=== PATIENT | male | born 1970 | race Caucasian/White ===

== ENCOUNTER 2024-05-16 11:48 | Observation (INO) | payer OTHER, SELFPAY ==
[2024-05-16] VITALS (16 sets, daily range): BP systolic 106–136; BP diastolic 61–89; PULSE 53–75; TEMP 36.5–36.7; O2SAT 92–99; BMI 21.9; BMI 22.5
--- NOTE | 2024-05-16 12:12 | XR_ITS ---
The [address] [address] Patient Name: JOHNATHAN HEREDIA MRN: [id number] date: 1970 Sex: M Assigned Patient Location: ER Current Patient Location: ER Accession/Order Number: [id number] Exam Date: 05/16/2024 12:40 Report Date: 05/16/2024 13:08 At the request of: PANCHO ACHARYA Procedure: XR chest 1V EXAM: CHEST 1 VIEW HISTORY: Chest pain TECHNIQUE: Chest, one view. COMPARISON: None. FINDINGS: Lungs are clear. No focal consolidation, pleural effusion, or pneumothorax. Pulmonary vasculature is within normal limits. Cardiomediastinal silhouette is normal. XR/XR chest 1V IMPRESSION: 1. No acute cardiopulmonary disease. Electronically authenticated by: ZOILA GRANADOS Date: 05/16/2024 13:08
--- NOTE | 2024-05-16 12:16 | CT_ITS ---
The [address] [address] Patient Name: JOHNATHAN HEREDIA MRN: [id number] date: 1970 Sex: M Assigned Patient Location: ER Current Patient Location: Accession/Order Number: [id number] Exam Date: 05/16/2024 12:26 Report Date: 05/16/2024 13:33 At the request of: PANCHO ACHARYA Procedure: CT abdomen pelvis w con EXAM: CT abdomen pelvis w con HISTORY: abd pain COMPARISON: None TECHNIQUE: CT abdomen and CT pelvis studies were performed with the use of intravenous contrast. Multiple axial images were obtained. Reformatted coronal and sagittal images were obtained and reviewed. FINDINGS: Likely mild atelectatic changes in the lung bases posteriorly. Views of the liver and spleen fail to demonstrate evidence of focal mass in either organ. Gallbladder appears grossly unremarkable. Adrenal glands appear grossly unremarkable. Mild prominence of the distal pancreatic body and pancreatic tail having mild edematous appearance with mild adjacent peripancreatic fatty stranding and fluid compatible with acute pancreatitis. No convincing evidence of focal mass. No obvious pancreatic cyst or pseudocyst. No obvious pancreatic ductal dilatation. Common bile duct is not enlarged. Stomach appears grossly unremarkable. Bowel loops appear grossly unremarkable. Mild atherosclerotic changes about the abdominal aorta without evidence of aneurysm. No evidence of adenopathy in the retroperitoneum. No evidence of obstructive uropathy. A few small areas of decreased attenuation in both kidneys measuring up to 6 mm, too small to qualify with certainty though likely representing cysts. More prominent 8 mm area of decreased attenuation in the posterior right kidney compatible with a cyst. Pelvis: Bladder appears grossly unremarkable. Prostate gland is grossly within normal limits for size. Perirectal fat planes appear grossly intact. Mild diverticulosis of the sigmoid colon, no evidence of acute diverticulitis. Mild atherosclerotic changes within portions of the iliofemoral arteries. No evidence of aneurysm. No evidence of adenopathy. The appendix is not convincingly demonstrated, no obvious appendicitis. Mild degenerative changes in the visualized lower dorsal spine and the lumbar spine with slight convexity of the lower dorsal and lumbar spine to the right. CT/CT abdomen pelvis w con IMPRESSION: CT abdomen and CT pelvis studies demonstrate findings compatible with a mild degree of acute pancreatitis involving the distal pancreatic body and the pancreatic tail as described. Likely bilateral renal cysts as noted. Mild colon diverticulosis without evidence of acute diverticulitis. Electronically authenticated by: JAKOB JAY Date: 05/16/2024 13:33
[2024-05-16 12:17] LABS: Basophils Absolute Auto 0.1 10^3/uL (0.0-0.1); Basophils Percent Auto 0.6 % (0.2-2.0); Eosinophils Absolute Auto 0.4 10^3/uL (0.0-0.7); Eosinophils Percent Auto 3.4 % (0.9-7.0); Hematocrit 44.9 % (42.0-54.0); Hemoglobin 15.1 g/dL (14.0-18.0); Immature Granulocytes Abs Auto 0.03 10^3/uL (0.00-0.03); Immature Granulocytes Pct Auto 0.3 % (0.0-0.5); Lymphocytes Absolute Auto 2.1 10^3/uL (1.2-3.8); Mean Corpuscular HGB Conc 33.6 g/dL (29.9-35.2); Mean Corpuscular Hemoglobin 29.5 pg (25.9-34.0); Mean Corpuscular Volume 87.7 fL (80.0-94.0); Mean Platelet Volume 12.3 fL (9.5-13.5); Monocytes Absolute Auto 0.7 10^3/uL (0.3-0.8); Monocytes Percent Auto 6.7 % (1.7-12.0); Neutrophils Absolute Auto 7.6 10^3/uL (1.4-6.5); Platelet Count 131 10^3/uL (150-450); Red Blood Count 5.12 10^6/uL (4.70-6.10); Red Cell Distribution Width 13.2 % (11.0-15.0); White Blood Count 10.8 10^3/uL (4.0-11.0)
[2024-05-16 12:31] LABS: Alanine Aminotransferase 25 U/L (16-63); Albumin Globulin Ratio 0.9; Albumin Level 3.2 g/dL (3.4-5.0); Alkaline Phosphatase 78 U/L (46-116); Anion Gap 11.1; Aspartate Amino Transferase 20 U/L (15-37); BUN Creatinine Ratio 13.6; Bilirubin Total 0.6 mg/dL (0.2-1.0); Calcium 8.5 mg/dL (8.5-10.1); Chloride 106 mmol/L (98-107); Estimated GFR (African America >60 (>=60); Estimated GFR (Non-African Ame >60 (>=60); Globulin 3.6 g/dL; Glucose 90 mg/dL (74-106); Potassium 4.1 mmol/L (3.5-5.1); Sodium 138 mmol/L (136-145); Total Protein 6.8 g/dL (6.4-8.2); Troponin I High Sensitivity <4.0 pg/mL (4.0-76.1)
--- NOTE | 2024-05-16 12:42 | ED_ITS ---
HPI HPI - General Adult General Chief complaint: Chest Pain Stated complaint: CHEST PAIN, SOB Time Seen by Provider: 05/16/24 11:51 Source: patient Mode of arrival: walk-in History of Present Illness HPI narrative: Patient presents to ED complaining of left-sided abdominal pain and left-sided chest pain. He said it started today and has become worse. He has pain with palpation of the abdomen and chest. He denies any history of pancreatitis. Denies history of abdominal issues but does report a history of heart attacks with his first 1 being at 19 years old. He says he has an extensive family history of heart problems. He has not had any open heart surgery or stents placed, he said they just watched him when he had his last heart attack. He is a smoker but denies drinking alcohol. Alert and oriented in no acute distress. Vital signs stable. He does report nausea vomiting Related Data Home Medications ?Medication ?Instructions ?Recorded ?Confirmed No Known Home Medications 05/16/24 05/16/24 Allergies Allergy/AdvReac Type Severity Reaction Status Date / Time No Known Drug Allergies Allergy Verified 05/16/24 11:57 Opioid HPI Opioid Management Most Recent Opioid Data: Last JAN Pain Assessment 05/16/24 12:53 Review of Systems ROS Status of ROS 10 or more systems reviewed and unremark able except as noted in history and below Exam Narrative Exam Narrative: Time Seen: [] Vital Signs: [Per nurse's notes.] General: [Alert] Skin: [Warm, dry, no rash.] Head: [Normocephalic, atraumatic.] Neck: [Supple, trachea midline.] Eye: [Pupils are equal, round and reactive to light, extraocular movements are intact, normal conjunctiva.] Ears, nose, mouth and throat: oral mucosa moist. Cardiovascular: [Regular rate and rhythm, no murmur.] Respiratory: [Lungs are clear to auscultation, respirations are non-labored, breath sounds are equal.] Chest wall: [Left chest wall tenderness on palpation, no deformity.] Gastrointestinal: [Soft, Left-sided abdominal tenderness on palpation left upper quadrant non distended, normal bowel sounds.] MSK: 5 out of 5 muscle strength x 4 extremities no calf pain or edema Lymphatics: [No lymphadenopathy.] Psychiatric: [Cooperative, appropriate mood & affect.] Neurological: [Alert and oriented to person, place, time, and situation, no focal neurological deficit observed.] Constitutional Vital Signs, click to edit/add: Last Vital Signs Temp 97.7 F 05/16/24 11:57 Pulse 63 05/16/24 12:55 Resp 24 H 05/16/24 12:55 BP 121/83 05/16/24 12:55 Pulse Ox 97 05/16/24 12:55 O2 Del Method Room Air 05/16/24 11:57 Course Vital Signs Vital signs: Vital Signs Pulse Oximetry 99 05/16/24 11:54 Temperature 97.7 F 05/16/24 11:57 Pulse Rate 63 05/16/24 12:55 Respiratory Rate 24 H 05/16/24 12:55 Blood Pressure 121/83 05/16/24 12:55 Pulse Oximetry 97 05/16/24 12:55 Oxygen Delivery Method Room Air 05/16/24 11:57 Medical Decision Making MDM Narrative Medical decision making narrative: Patient's labs show an elevated lipase at almost 900. Patient CT confirms acute pancreatitis. Patient will be admitted for IV hydration, pain and nausea control and bowel rest. I spoke to Dr. Loya who accepts admission patient is comfortable care plan for admit to the hospital. Troponin negative Differential Diagnosis Differential Diagnosis: Bowel obstruction, Angina, [place], pancreatitis, dehydration Medical Records Medical records reviewed: Yes I reviewed the patient's medical records Lab Data Lab results reviewed: Yes I reviewed the patient's lab results Labs: Lab Results 05/16/24 Range/Units 12:04 WBC 10.8 (4.0-11.0) 10^3/uL RBC 5.12 (4.70-6.10) 10^6/uL Hgb 15.1 (14.0-18.0) g/dL Hct 44.9 (42.0-54.0) % MCV 87.7 (80.0-94.0) fL MCH 29.5 (25.9-34.0) pg MCHC 33.6 (29.9-35.2) g/dL RDW 13.2 (11.0-15.0) % Plt Count 131 L (150-450) 10^3/uL MPV 12.3 (9.5-13.5) fL Neut % (Auto) 70.0 (43.0-75.0) % Lymph % (Auto) 19.0 L (20.5-60.0) % [place] % (Auto) 6.7 (1.7-12.0) % Eos % (Auto) 3.4 (0.9-7.0) % Baso % (Auto) 0.6 (0.2-2.0) % Neut # (Auto) 7.6 H (1.4-6.5) 10^3/uL Lymph # (Auto) 2.1 (1.2-3.8) 10^3/uL [place] # (Auto) 0.7 (0.3-0.8) 10^3/uL Eos # (Auto) 0.4 (0.0-0.7) 10^3/uL Baso # (Auto) 0.1 (0.0-0.1) 10^3/uL Abs Immat Gran (auto) 0.03 (0.00-0.03) 10^3/uL Imm/Tot Granulo (auto) 0.3 (0.0-0.5) % Sodium 138 (136-145) mmol/L Potassium 4.1 (3.5-5.1) mmol/L Chloride 106 (98-107) mmol/L Carbon Dioxide 25.0 (21.0-32.0) mmol/L Anion Gap 11.1 BUN 14.0 (7.0-18.0) mg/dL Creatinine 1.03 (0.70-1.30) mg/dL Est GFR ( Amer) >60 (>=60) Est GFR (Non-Af Amer) >60 (>=60) BUN/Creatinine Ratio 13.6 Glucose 90 (74-106) mg/dL Calcium 8.5 (8.5-10.1) mg/dL Total Bilirubin 0.6 (0.2-1.0) mg/dL AST 20 (15-37) U/L ALT 25 (16-63) U/L Alkaline Phosphatase 78 (46-116) U/L Troponin I High Sens <4.0 L (4.0-76.1) pg/mL Total Protein 6.8 (6.4-8.2) g/dL Albumin 3.2 L (3.4-5.0) g/dL Globulin 3.6 g/dL Albumin/Globulin Ratio 0.9 Lipase 892.0 H (16.0-77.0) U/L Imaging Data Chest x-ray: Radiologist's impression: ITS Impressions Chest X-Ray 05/16/24 12:12 IMPRESSION: 1. No acute cardiopulmonary disease. Electronically authenticated by: ZOILA GRANADOS Date: 05/16/2024 13:08 Abdomen/Pelvis CT 05/16/24 12:16 IMPRESSION: CT abdomen and CT pelvis studies demonstrate findings compatible with a mild degree of acute pancreatitis involving the distal pancreatic body and the pancreatic tail as described. Likely bilateral renal cysts as noted. Mild colon diverticulosis without evidence of acute diverticulitis. Electronically authenticated by: JAKOB JAY Date: 05/16/2024 13:33 ECG Data Attestation: I personally reviewed and interpreted this ECG as follows: Interpretation: EKG INTERPRETATION Time: []1156 Rate: []65 Rhythm: _ []Normal sinus rhythm ST segments: _ []ST elevation appearing to be consistent with benign early repol Diffuse T waves: _ [] Ectopy: _ [] P wave/CO interval: _ [] QRS interval: _ [] QT interval: _ [] Comparison: _ [] Comparison EKG date: [] Performed by: [self] Discharge Plan Discharge Chief Complaint: Chest Pain Clinical Impression: Acute pancreatitis Patient Disposition: Admitted as Observation Time of Disposition Decision: 14:12 Condition: Fair Prescriptions / Home Meds: No Action No Known Home Medications Print Language: Indonesian Referrals: FELICITY LANDRUM [Primary Care Provider] - 1 week
[2024-05-16] MEDS: MORPHINE SULFATE 4 MG/ML VIAL IV (12:53)
--- NOTE | 2024-05-16 13:39 | ECG_ITS ---
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
[2024-05-16] MEDS: 0.9 % SODIUM CHLORIDE 1,000 ML 1000 ML IV (13:56)
[2024-05-16 14:26] LABS: Amphetamine Screen Urine NEGATIVE (NEGATIVE); Barbiturates Screen Urine NEGATIVE (NEGATIVE); Benzodiazepines Screen Urine NEGATIVE (NEGATIVE); Buprenorphine Screen Urine NEGATIVE (NEGATIVE); Cannabinoid Screen Urine NEGATIVE (NEGATIVE); Cocaine Screen Urine NEGATIVE (NEGATIVE); Methadone Screen Urine NEGATIVE (NEGATIVE); Methamphetamines Screen Urine NEGATIVE (NEGATIVE); Opiate Screen Urine POSITIVE (NEGATIVE); Oxycodone Screen Urine NEGATIVE (NEGATIVE); Phencyclidine Screen Urine NEGATIVE (NEGATIVE); Tricyclic Antidepressant Urine NEGATIVE (NEGATIVE)
[2024-05-16] MEDS: LACTATED RINGER'S SOLUTION 1,000 ML 200 ML IV ×2 (15:12→20:26)
[2024-05-16] MEDS: KETOROLAC TROMETHAMINE 30 MG/ML VIAL IVP (15:12)
[2024-05-16 15:15] LABS: Triglycerides 77 mg/dL (<=150)
--- NOTE | 2024-05-16 15:22 | P.HP_ITS ---
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 53 y/o male to ER with pain in abdomen and chest. Labs showed pancreatitis and started IV fluids. Monitor labs. Diagnosis: 1. Acute pancreatitis 2. History of alcohol abuse 3. Tobacco abuse 4. History of MD HPI H&P: HPI History of Present Illness Chief complaint: CHEST/ABDOMINAL PAIN Narrative: 05/16/24 9075 This is a 53-year-old male patient with a past medical history as outlined below including MD x 2 at age 19 and 32 (reportedly stress induced w/o blockage/stents or hx of hyperlipidemia), and a remote history of EtOH abuse x 1 year (sober for 22 years); who presented to the ED today complaining of acute severe chest/abdominal pain. As already noted the patient denies any EtOH abuse/use, denies any previous history of pancreatitis. He also has a remote hx of CAD but no recent cardiac issues. His chest/abdominal discomfort started yesterday afternoon and was initially mild. He reported to episodes of nausea w/ dry heaves early this morning, but not nausea since. He notes L distal chest pain radiating down toward his L hip and is reproducible w/ palpation. This morning the pt noted his pain was much worse and he reported to the ED for further evaluation. Workup in the ED revealed unremarkable vital signs and labs except for an elevated lipase (892). An EKG and troponin level were unremarkable. Chest x- ray was unremarkable. CT of the abdomen revealed mild acute pancreatitis of the distal body and tail. He is being admitted as an inpatient to the hospitalist service for acute pancreatitis. At the time of my exam the patient is resting comfortably in bed. He continues to complain of pain to his left abdomen and chest that is sometimes colicky in nature. Left upper quadrant palpation produces guarding and mild rebound. The patient does not take any home medications. He states that he is supposed to take a low-dose aspirin daily but he does not like taking pills . He will be kept n.p.o. for now with large-volume IV fluid administration and IV push pain medications. We have added on a triglyceride level to the ED labs and are requesting an MRCP for further evaluation of the source of this patient's pancreatitis as its etiology is unclear. Opioid HPI Opioid Management Most Recent Pain and Opioid Data: Last Pain Scale 7 05/16/24 15:12 Last MAR Pain Assessment 05/16/24 15:12 Last ORT Total Score 0 05/16/24 14:55 Last ORT Risk Category Low Risk 05/16/24 14:55 Ur Phencyclidine Scrn Negative (NEGATIVE) 05/16/24 13:57 Review of Systems ROS Status of ROS 10 or more systems reviewed and unremark able except as noted in history and below [facility] Medical History (Updated 05/16/24 @ 15:39 by Rae Montalvo NP) Tobacco dependence ?F17.200 - Nicotine dependence, unspecified, uncomplicated (ICD-10) H/O ETOH abuse ?F10.11 - Alcohol abuse, in remission (ICD-10) Myocardial infarction ?I21.9 - Acute myocardial infarction, unspecified (ICD-10) Social History Highest level of school completed/degree received: high school graduate Meds Home Medications and Allergies Home Medications ?Medication ?Instructions ?Recorded ?Confirmed ?Type No Known Home Medications 05/16/24 05/16/24 History Allergies Allergy/AdvReac Type Severity Reaction Status Date / Time No Known Drug Allergies Allergy Verified 05/16/24 11:57 Exam Constitutional Vital Signs, click to edit/add: Last Vital Signs Temp 98.0 F 05/16/24 15:01 Pulse 53 L 05/16/24 15:01 Resp 18 05/16/24 15:01 BP 121/69 05/16/24 15:01 Pulse Ox 97 05/16/24 15:01 O2 Del Method Room Air 05/16/24 15:01 Common normals: no apparent distress, oriented x3, alert and well nourished General appearance: cooperative Orientation/consciousness: Yes awake HENWA Common normals: normocephalic, head/scalp atraumatic, hearing grossly normal bilaterally, external nose normal and moist oral mucous membranes Teeth and gingiva: caries and poor dentition Eye Common normals: PERRL, EOMs intact bilaterally, conjunctivae normal and no scleral icterus Alignment: alignment normal Eyelid: eyelids normal Neck & C-Spine Common normals: full ROM, supple and no JVD Chest Common normals: inspection of chest normal Chest: symmetrical chest wall rise Respiratory Common normals: normal respiratory effort, no retractions, no use of accessory muscles and clear to auscultation bilaterally Effort & inspection: able to speak in complete sentences Cardio Common normals: no JVD, regular rate, regular rhythm, S1 normal heart sound, S2 normal heart sound, no gallops, no clicks, no rub and peripheral pulses 2+ throughout Heart sounds: murmur (HSM 2/6) GI Common normals: soft to palpation, no hepatosplenomegaly, no masses and no bruits Inspection: normal to inspection; no abdominal distension Auscultation: hyperactive bowel sounds Palpation: tender Details: LUQ, guarding in the LUQ and rebound tenderness present (Mild ) Rectal Exam - Male: deferred Bladder/kidney exam: bladder normal to palpation Extremity Common normals: normal capillary refill and no pedal edema General: normal exam except as noted; no clubbing and no cyanosis Neuro [place] Coma Scale: GCS not evaluated Common normals: CN's II-XII intact bilaterally, moves all extremities, no focal motor deficits and no sensory deficits noted Speech: speech normal Motor exam: strength 5/5 throughout Psych Common normals: mental status grossly normal, thought process normal, affect normal and activity/motor behavior normal Results Labs Labs: Short CBC 05/16/24 Range/Units 12:04 WBC 10.8 (4.0-11.0) 10^3/uL Hgb 15.1 (14.0-18.0) g/dL Hct 44.9 (42.0-54.0) % Plt Count 131 L (150-450) 10^3/uL BMP 05/16/24 12:04 Sodium 138 Potassium 4.1 Chloride 106 Carbon Dioxide 25.0 BUN 14.0 Creatinine 1.03 Glucose 90 Calcium 8.5 Liver Function 05/16/24 Range/Units 12:04 Total Bilirubin 0.6 (0.2-1.0) mg/dL AST 20 (15-37) U/L ALT 25 (16-63) U/L Alkaline Phosphatase 78 (46-116) U/L Albumin 3.2 L (3.4-5.0) g/dL Pulse Oximetry Attestation: I have reviewed the pertinent pulse oximetry results. Imaging Chest x-ray: Attestation: I have reviewed the pertinent imaging results. Radiologist's impression: IMPRESSION: 1. No acute cardiopulmonary disease. CT scan - abdomen: Attestation: I have reviewed the pertinent imaging results. Radiologist's impression: IMPRESSION: CT abdomen and CT pelvis studies demonstrate findings compatible with a mild degree of acute pancreatitis involving the distal pancreatic body and the pancreatic tail as described. Likely bilateral renal cysts as noted. Mild colon diverticulosis without evidence of acute diverticulitis. Assessment and Plan Assessment and Plan (1) Acute pancreatitis: Assessment and Plan: Acute * Adm inpatient * We anticipate greater than a 2 midnight stay for medically necessary hospital care including: IVF for hydration while NPO, IV pain medication, further GI imaging, close monitoring of labs * Lipase greater than 3 times ULN * Unclear etiology - No EtOH use x 22 years (complete abstinence) * Add on triglyceride level to ED labs * MRCP to assess for possible obstructive pathology * NPO * Consider advancing to clear liquids in the morning pending clinical course * LR IVF at 200/hr * Toradol and Dilaudid for pain management * Zofran for nausea * CBC, CMP, Lipase daily (2) H/O ETOH abuse: Assessment and Plan: Chronic * Complete remission x 22 years * Hx of abuse x 1 yr only * No prior pancreatitis episodes (3) Tobacco dependence: Assessment and Plan: Chronic * Smokes 5-6 cigarettes per day * Refuses nicoderm patch (4) Myocardial infarction: Assessment and Plan: Chronic * Remote hx at age 19 & 32 * Reportedly stress induced * Denies hx of hyperlipidemia/HTN or previously prescribed statin or BB * Pt non-compliant w/ low dose daily aspirin * EKG and Troponin levels unremarkable in the ED * Very low clinical suspicion of ACS
[2024-05-16] MEDS: HYOSCYAMINE SULFATE 0.125 MG TAB.SUBL SL (17:11)
[2024-05-16] MEDS: ENOXAPARIN SODIUM 40 MG/0.4 ML SYRINGE SUBQ (17:11)
[2024-05-16] MEDS: HYDROMORPHONE HCL 0.5 MG/0.5 ML SYRINGE IV ×2 (18:09→23:36)
[2024-05-16] MEDS: PANTOPRAZOLE SODIUM 40 MG VIAL IV (20:26)
[2024-05-17] VITALS (18 sets, daily range): BP systolic 93–105; BP diastolic 55–62; PULSE 45–73; TEMP 36.3–36.8; O2SAT 91–93
[2024-05-17] MEDS: ONDANSETRON PF 4 MG/2 ML VIAL IV (01:01)
--- NOTE | 2024-05-17 01:12 | PC.NURSE ---
Patient has sudden onset nausea and vomiting and felt lightheaded. BP and spo2 checked.
[2024-05-17] MEDS: LACTATED RINGER'S SOLUTION 1,000 ML 200 ML IV ×5 (01:30→23:08)
[2024-05-17 06:31] LABS: Basophils Percent Auto 0.4 % (0.2-2.0); Eosinophils Absolute Auto 0.2 10^3/uL (0.0-0.7); Eosinophils Percent Auto 1.7 % (0.9-7.0); Hematocrit 38.7 % (42.0-54.0); Hemoglobin 12.8 g/dL (14.0-18.0); Immature Granulocytes Abs Auto 0.02 10^3/uL (0.00-0.03); Immature Granulocytes Pct Auto 0.2 % (0.0-0.5); Lymphocytes Absolute Auto 1.5 10^3/uL (1.2-3.8); Mean Corpuscular HGB Conc 33.1 g/dL (29.9-35.2); Mean Corpuscular Hemoglobin 29.2 pg (25.9-34.0); Mean Corpuscular Volume 88.2 fL (80.0-94.0); Monocytes Absolute Auto 0.6 10^3/uL (0.3-0.8); Monocytes Percent Auto 6.2 % (1.7-12.0); Neutrophils Absolute Auto 6.7 10^3/uL (1.4-6.5); Neutrophils Percent Auto 74.5 % (43.0-75.0); Platelet Count 106 10^3/uL (150-450); Red Blood Count 4.39 10^6/uL (4.70-6.10); Red Cell Distribution Width 13.2 % (11.0-15.0)
[2024-05-17 06:44] LABS: Alanine Aminotransferase 23 U/L (16-63); Albumin Globulin Ratio 0.9; Albumin Level 2.5 g/dL (3.4-5.0); Alkaline Phosphatase 64 U/L (46-116); Anion Gap 13.4; Aspartate Amino Transferase 19 U/L (15-37); BUN Creatinine Ratio 16.3; Bilirubin Total 0.8 mg/dL (0.2-1.0); Calcium 7.6 mg/dL (8.5-10.1); Carbon Dioxide 23.8 mmol/L (21.0-32.0); Chloride 109 mmol/L (98-107); Estimated GFR (African America >60 (>=60); Estimated GFR (Non-African Ame >60 (>=60); Globulin 2.7 g/dL; Glucose 78 mg/dL (74-106); Potassium 4.2 mmol/L (3.5-5.1); Sodium 142 mmol/L (136-145); Total Protein 5.2 g/dL (6.4-8.2)
--- NOTE | 2024-05-17 07:16 | MR_ITS ---
[address] [address] Patient Name: JOHNATHAN HEREDIA MRN: [id number] date: 1970 Sex: M Assigned Patient Location: MS Current Patient Location: Accession/Order Number: [id number] Exam Date: 05/17/2024 08:48 Report Date: 05/19/2024 07:10 At the request of: SELINA TORRES Procedure: MR abdomen wo con EXAMINATION: MR abdomen wo con HISTORY: Ac Pancreatitis COMPARISON: 05/16/2024 TECHNIQUE: A comprehensive examination was performed utilizing a variety of imaging planes and imaging parameters to optimize visualization of suspected pathology. Magnetic resonance cholangiopancreatography was also performed. FINDINGS: LIVER: Normal. No enlargement, atrophy, abnormal density, or significant focal lesion. BILIARY: Normal appearance of the gallbladder and common bile duct with no dilatation or narrowing or filling defect PANCREAS: The pancreatic head and body are normal. There is mild enlargement and heterogeneous appearance of the distal pancreatic body and tail with no focal fluid collection. Small amount of surrounding mesenteric edema with small amount of fluid in the left abdomen SPLEEN: No enlargement or focal lesion. KIDNEYS: Bilateral subcentimeter areas of cortical fluid signal likely representing small cysts ADRENALS: No mass or enlargement. AORTA/VASCULAR: No aneurysm or dissection. RETROPERITONEUM: No mass or adenopathy. BOWEL/MESENTERY: No visible mass, obstruction, or bowel wall thickening. ABDOMINAL WALL: No mass or hernia. BONES: No bony lesion or fracture. LUNG BASES: Mild bibasilar atelectasis OTHER: Negative. MR/MR abdomen wo con IMPRESSION: Mild pancreatitis involving the distal body and tail with no pseudocyst abscess or evidence of hydronephrosis Normal appearance of the gallbladder, bile ducts and pancreatic ducts Electronically authenticated by: CLARENCE LUNA Date: 05/19/2024 07:10
[2024-05-17] MEDS: HYDROMORPHONE HCL 0.5 MG/0.5 ML SYRINGE IV (08:39)
[2024-05-17] MEDS: PANTOPRAZOLE SODIUM 40 MG VIAL IV ×2 (08:41→20:57)
--- NOTE | 2024-05-17 11:46 | CM.NOTE ---
10:[address] Bell. [address]. Bell discussed labs and diagnostic findings and plan of care. Plan is to repeat labs, advance diet. Imtiaz verbalized understanding. No discharge today.
--- NOTE | 2024-05-17 12:52 | P.PN_ITS ---
<Statement entered by Suhail Bell MD - 05/17/24 17:13> Patient seen and examined, agree with assessment and plan below. Much improved overnight. Mild pain and labs improved. Start clear liquid diet and will monitor labs. If continue to improve and tolerating oral intake likely home in am. Diagnosis: 1. Acute pancreatitis 2. History of alcohol abuse 3. Tobacco abuse 4. History of ID Progress Note: Subjective Subjective Interval history: 05/17/24 1010 The patient is resting in bed having just returned from an MRCP Study. He reports improved abdominal discomfort overnight. His lipase is trending down and a triglyceride level was within normal limits. Radiology interpretation of the MRCP is still pending and at this point we consider this idiopathic pancreatitis. We will advance the patient to a clear liquid diet today and monitor his response. We will continue high-volume IV fluids for now. The patient will remain in the hospital for at least an additional 24 hours and we will slowly advance his diet and monitor his lipase levels. Exam Constitutional Vital Signs, click to edit/add: Last Vital Signs Temp 98.3 F 05/17/24 07:53 Pulse 49 L 05/17/24 11:55 Resp 16 05/17/24 08:17 BP 101/59 05/17/24 07:53 Pulse Ox 93 L 05/17/24 07:53 O2 Del Method Room Air 05/17/24 07:53 Common normals: no apparent distress, oriented x3 and alert General appearance: cooperative Orientation/consciousness: Yes awake HENNJ Common normals: normocephalic, head/scalp atraumatic and hearing grossly normal bilaterally Eye Common normals: PERRL, EOMs intact bilaterally, conjunctivae normal and no scleral icterus General eye: normal appearance of both eyes Chest Common normals: inspection of chest normal Chest: symmetrical chest wall rise Respiratory Common normals: normal respiratory effort, no use of accessory muscles and clear to auscultation bilaterally Effort & inspection: able to speak in complete sentences Cardio Common normals: regular rate, regular rhythm, S1 normal heart sound, S2 normal heart sound, no murmurs and peripheral pulses 2+ throughout GI Common normals: Normal to inspection, nondistended, normoactive bowel sounds present, soft to palpation and no hepatosplenomegaly Palpation: tender (LUQ/epigastric), guarding and rebound tenderness present Details: epigastric quadrants Bladder/kidney exam: bladder normal to palpation Extremity Common normals: normal to inspection and no calf tenderness General: no clubbing, no cyanosis and no edema Neuro Common normals: CN's II-XII intact bilaterally, moves all extremities, no focal motor deficits and no sensory deficits noted Psych Common normals: mental status grossly normal Progress Note: Objective Labs Labs: Short CBC 05/17/24 Range/Units 06:11 WBC 9.0 (4.0-11.0) 10^3/uL Hgb 12.8 L (14.0-18.0) g/dL Hct 38.7 L (42.0-54.0) % Plt Count 106 L (150-450) 10^3/uL BMP 05/17/24 06:11 Sodium 142 Potassium 4.2 Chloride 109 H Carbon Dioxide 23.8 BUN 16.0 Creatinine 0.98 Glucose 78 Calcium 7.6 L Liver Function 05/17/24 Range/Units 06:11 Total Bilirubin 0.8 (0.2-1.0) mg/dL AST 19 (15-37) U/L ALT 23 (16-63) U/L Alkaline Phosphatase 64 (46-116) U/L Albumin 2.5 L (3.4-5.0) g/dL Progress Note: A&P Assessment and Plan (1) Acute pancreatitis: Assessment and Plan: Acute * Improving * Lipase trending down - 233 today (down from 892 on admission) * Unclear etiology - No EtOH use x 22 years (complete abstinence) * Triglyceride level - WNL * MRCP today - interpretation pending * Suspect idiopathic pancreatitis * Advance to clear liquids today and monitor response * Continue LR IVF at 200/hr * Toradol and Dilaudid for pain management * Zofran for nausea * CBC, CMP, Lipase daily (2) Anemia: Assessment and Plan: Acute * Mild - 12.8 * The pt's hgb dropped 2.5 gms overnight - likely d/t hemodilution from large volume IVF administration * No evidence of active bleeding to date * Obtain stool occult blood study if possible (3) Asymptomatic bradycardia: Assessment and Plan: Suspect chronic * The pt's HR dropped to the high 40s overnight during sleep. He is asymptomatic * Suspect this is a normal variation for the pt as his HR rebounds to normal while awake * Continue tele monitoring (4) H/O ETOH abuse: Assessment and Plan: Chronic * Complete remission x 22 years * Hx of abuse x 1 yr only * No prior pancreatitis episodes (5) Tobacco dependence: Assessment and Plan: Chronic * Smokes 5-6 cigarettes per day * Continues to refuse nicoderm patch (6) Myocardial infarction: Assessment and Plan: Chronic * Remote hx at age 19 & 32 * Reportedly stress induced * Denies hx of hyperlipidemia/HTN or previously prescribed statin or BB * Pt non-compliant w/ low dose daily aspirin * EKG and Troponin levels unremarkable in the ED * Very low clinical suspicion of ACS
[2024-05-17] MEDS: KETOROLAC TROMETHAMINE 30 MG/ML VIAL IVP (16:57)
[2024-05-17] MEDS: ENOXAPARIN SODIUM 40 MG/0.4 ML SYRINGE SUBQ (16:58)
--- NOTE | 2024-05-17 23:15 | PC.NURSE ---
Patient has intermediate cough and is complaining of feeling wet in his chest and his knee is swollen. 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
--- NOTE | 2024-05-17 23:17 | XR_ITS ---
The [address] [address] Patient Name: JOHNATHAN HEREDIA MRN: [id number] date: 1970 Sex: M Assigned Patient Location: [place] Current Patient Location: [place] Accession/Order Number: [id number] Exam Date: 05/17/2024 23:36 Report Date: 05/17/2024 23:54 At the request of: PANKAJ GIRALDO Procedure: XR chest 2V CXR- 2 VIEW HISTORY: Left-sided chest pain. Acute cough after having a lot of fluids. Patient had 2 heart attacks in 2021. Patient now complaining of cough. COMPARISON: None. TECHNIQUE: 2 views of the chest are submitted for review. FINDINGS: The lungs are adequately expanded without evidence of infiltrate and/or effusion. The cardiac silhouette measures within normal. Pulmonary vascularity is unremarkable. Osseous structures are within normal limits for age. XR/XR chest 2V IMPRESSION: No plain film evidence for acute cardiopulmonary disease. Electronically authenticated by: DARION LAM Date: 05/17/2024 23:54
--- NOTE | 2024-05-17 23:20 | PC.NURSE ---
Crackles heard at lung bases. Patient states he feels unwell
--- NOTE | 2024-05-17 23:32 | PC.NURSE ---
Patient being transported to XRAY at this time
[2024-05-18] VITALS (7 sets, daily range): BP systolic 98; BP diastolic 57; PULSE 55–91; TEMP 37.2; O2SAT 91
--- NOTE | 2024-05-18 01:00 | PC.NURSE ---
Fluids held at this point. Patient cough stopped at this point
--- NOTE | 2024-05-18 06:07 | PC.NURSE ---
Patient states he feels better after fluids have been off. No coughing heard . Left knee has small edema
[2024-05-18 06:43] LABS: Basophils Percent Auto 0.5 % (0.2-2.0); Eosinophils Absolute Auto 0.2 10^3/uL (0.0-0.7); Eosinophils Percent Auto 2.8 % (0.9-7.0); Hematocrit 38.8 % (42.0-54.0); Hemoglobin 12.7 g/dL (14.0-18.0); Immature Granulocytes Abs Auto 0.02 10^3/uL (0.00-0.03); Immature Granulocytes Pct Auto 0.2 % (0.0-0.5); Lymphocytes Percent Auto 24.4 % (20.5-60.0); Mean Corpuscular HGB Conc 32.7 g/dL (29.9-35.2); Mean Corpuscular Hemoglobin 28.5 pg (25.9-34.0); Mean Platelet Volume 12.9 fL (9.5-13.5); Monocytes Absolute Auto 0.6 10^3/uL (0.3-0.8); Monocytes Percent Auto 7.8 % (1.7-12.0); Neutrophils Absolute Auto 5.3 10^3/uL (1.4-6.5); Neutrophils Percent Auto 64.3 % (43.0-75.0); Platelet Count 109 10^3/uL (150-450); Red Blood Count 4.46 10^6/uL (4.70-6.10); Red Cell Distribution Width 13.2 % (11.0-15.0); White Blood Count 8.2 10^3/uL (4.0-11.0)
[2024-05-18 08:40] LABS: Alanine Aminotransferase 23 U/L (16-63); Albumin Globulin Ratio 0.8; Albumin Level 2.4 g/dL (3.4-5.0); Alkaline Phosphatase 70 U/L (46-116); Anion Gap 10.1; Aspartate Amino Transferase 22 U/L (15-37); BUN Creatinine Ratio 13.1; Bilirubin Total 0.9 mg/dL (0.2-1.0); Calcium 7.9 mg/dL (8.5-10.1); Carbon Dioxide 23.7 mmol/L (21.0-32.0); Chloride 110 mmol/L (98-107); Estimated GFR (African America >60 (>=60); Estimated GFR (Non-African Ame >60 (>=60); Globulin 3.1 g/dL; Glucose 82 mg/dL (74-106); Potassium 3.8 mmol/L (3.5-5.1); Sodium 140 mmol/L (136-145); Total Protein 5.5 g/dL (6.4-8.2)
[2024-05-18] MEDS: PANTOPRAZOLE SODIUM 40 MG VIAL IV (09:31)
--- NOTE | 2024-05-18 10:57 | PM.DS1 ---
DS: Providers Provider Date of admission: 05/16/24 14:50 Primary care physician: FELICITY TREVIÑO DS: Diagnosis Discharge Diagnosis (1) Acute pancreatitis: (2) H/O ETOH abuse: (3) Tobacco dependence: (4) History of myocardial infarction: DS: Summary Hospital Course Hospital Course: Reason for admission: See ER note and H&P for details. 53 y/o male to ER with abdominal pain. Pain in upper abdomen and left side. Pain radiated to chest and around to back. Developed severe nausea and vomiting and to ER. WBC normal but lipase elevated. CT with changes of acute pancreatitis and admitted. Hospital course: Started IV fluids and initially NPO. Pain and nausea improved. Lipase improved. MRCP performed and negative. Started clear liquids and tolerated well. Advanced to soft and tolerated. Lipase continued to improve. Minimal pain and no nausea. Discharged home in stable condition. Gradually advance diet as tolerated. Follow up with PCP in 1-2 weeks. Time Spent with Patient Time attestation: Total time spent providing and/or coordinating discharge services: Time spent: greater than 30 minutes Exam Constitutional Vital Signs, click to edit/add: Last Vital Signs Temp 98.9 F 05/18/24 05:56 Pulse 69 05/18/24 09:58 Resp 16 05/18/24 08:00 BP 98/57 05/18/24 05:56 Pulse Ox 91 L 05/18/24 05:56 O2 Del Method Room Air 05/18/24 05:56 Documenting provider has reviewed patient's vital signs: yes Common normals: no apparent distress, oriented x3 and alert HENMT Common normals: normocephalic Eye Common normals: PERRL and EOMs intact bilaterally Respiratory Common normals: normal respiratory effort and clear to auscultation bilaterally Cardio Common normals: regular rate, regular rhythm, no gallops, no murmurs and no rub GI Common normals: Normal to inspection, nondistended, normoactive bowel sounds present and non-tender Extremity Common normals: no pedal edema DS: Data Data Completed and Pending Labs on day of discharge: Labs from last 24 hours 05/18/24 06:08 WBC 8.2 RBC 4.46 L Hgb 12.7 L Hct 38.8 L MCV 87.0 MCH 28.5 MCHC 32.7 RDW 13.2 Plt Count 109 L MPV 12.9 Neut % (Auto) 64.3 Lymph % (Auto) 24.4 [place] % (Auto) 7.8 Eos % (Auto) 2.8 Baso % (Auto) 0.5 Neut # (Auto) 5.3 Lymph # (Auto) 2.0 [place] # (Auto) 0.6 Eos # (Auto) 0.2 Baso # (Auto) 0.0 Abs Immat Gran (auto) 0.02 Imm/Tot Granulo (auto) 0.2 Sodium 140 Potassium 3.8 Chloride 110 H Carbon Dioxide 23.7 Anion Gap 10.1 BUN 13.0 Creatinine 0.99 Est GFR ( Amer) >60 Est GFR (Non-Af Amer) >60 BUN/Creatinine Ratio 13.1 Glucose 82 Calcium 7.9 L Total Bilirubin 0.9 AST 22 ALT 23 Alkaline Phosphatase 70 Total Protein 5.5 L Albumin 2.4 L Globulin 3.1 Albumin/Globulin Ratio 0.8 Lipase 202.0 H Discharge Plan Discharge Disposition: Home, Self-Care Condition: Fair Discharge Medications: Continued No Known Home Medications Activity: increase activity as tolerated Diet: advance to your usual diet Print Language: Lithuanian Patient Instructions: Pancreatitis (DC) Forms: Portal Instructions Follow Up Appointments: May 23 @ 10am with Dr. Treviño [phone]
--- NOTE | 2024-05-18 11:08 | CM.NOTE ---
09:[address] Bell. [address]. Bell discussed labs with Imtiaz. Plan is for discharge today. Imtiaz verbalized understanding.
--- NOTE | 2024-05-19 13:12 | CM.DCFOLLOWU ---
1st attempt 05/19/24
--- NOTE | 2024-05-22 12:40 | CM.DCFOLLOWU ---
2nd attempt 05/22/24
--- NOTE | 2024-05-23 12:25 | CM.DCFOLLOWU ---
Person spoke with: patient How are you feeling? well How is your pain? still off and on, but PCP said it will go away once he does what he is supposed to do Did you understand your discharge instructions? yes Do you have any questions about your discharge instructions? no Were you given any prescriptions at discharge? no Were you able to get your prescriptions filled? N/A Do you understand how to take your medications as ordered? N/A, no medications Do you have any questions about your follow up appointment and do you plan to keep your follow up appointment? no questions, follow up with PCP was today Is there anything else that you would like to discuss? no Questions/Comments/Concerns/Other: none
== END 2024-05-18 11:20 | disposition home or self-care (01) | DRG 440 ==
LOC: ER 14:34 → MS 15:23
PROVIDERS: Nurse Practitioner; Admitting Provider Family Medicine; Emergency Provider Emergency Medicine; PCP Family Medicine; Visit Provider Family Medicine
DX: K85.90 Acute pancreatitis without necrosis or infection, unspecified (principal); F10.11 Alcohol abuse, in remission; F17.210 Nicotine dependence, cigarettes, uncomplicated; I25.2 Old myocardial infarction
CPT/HCPCS: 36415; 71045; 71046; 74177; 74181; 80053; 80307; 83690; 84478; 84484; 85025; 93005; 96361; 96372; 96374; 96375; 96376; 99285; G0328; G0378; J1170; J1650; J1885; J2270; J2405; Q9967

== ENCOUNTER 2024-07-17 20:59 | Inpatient (IN) | payer OTHER, SELFPAY ==
[2024-07-17 21:03] VITALS: BP 139/83; PULSE 82; TEMP 36.6; O2SAT 98
--- NOTE | 2024-07-17 21:21 | CT_ITS ---
The [address] [address] Patient Name: JOHNATHAN HEREDIA MRN: [id number] date: 1970 Sex: M Assigned Patient Location: ER Current Patient Location: ER Accession/Order Number: [id number] Exam Date: 07/17/2024 22:10 Report Date: 07/17/2024 23:22 At the request of: GORGE STAPLETON Procedure: CT abdomen pelvis w con CT OF THE ABDOMEN AND PELVIS WITH CONTRAST: 07/17/2024 10:10 PM EDT CLINICAL HISTORY: Acute epigastric pain radiating to left lower quadrant pain for several days. History of pancreatitis. Experiencing nausea and vomiting. COMPARISONS: CT abdomen and pelvis with contrast 05/16/2024 TECHNIQUE: Thin section axial CT images were obtained from the lung bases to the pubis symphysis. This CT exam was performed using one or more of the following dose reduction techniques: Automated exposure control, adjustment of the mA and/or kV according to patient size, or use of iterative reconstruction technique. Thin section coronal and sagittal images were reconstructed from the axial data set. All images were reviewed and interpreted. CONTRAST: Intravenous contrast was administered. Type and amount is documented at the local institution. FINDINGS: LUNG BASES: No consolidation or pleural fluid. LIVER: Normal. GALLBLADDER: Normal. BILIARY TREE: No ductal dilatation. PANCREAS: Normal. SPLEEN: Normal. ADRENALS: Normal. KIDNEYS: Tiny simple cortical cysts are seen in both kidneys unchanged from prior. 2 small characterize but statistically benign. Right measures 7 mm posterior mid pole left there are 2 mobile subcentimeter midpole largest 6 mm. Both kidneys and ureters are otherwise within normal limits. URINARY BLADDER: Grossly unremarkable. PELVIC STRUCTURES: Unremarkable. SMALL BOWEL: No evidence of obstruction, gross mass, or inflammatory change. LARGE BOWEL: There is mild diverticulosis. There is a focal acute inflammatory changes involving wall of the distal sigmoid colon with stranding and inflammation around the wall with some focal wall thickening extending 5 to 6 cm in length. Question of developing intramural early abscess versus phlegmonous changes. No definable abscess at this time. Probably related to acute diverticulitis. Follow-up with the imaging and/or endoscopy in several months after treatment completion to ensure resolution and exclude underlying mucosal mass. No large bowel obstruction at this time. Proximal large bowel loops are normal in caliber. Distal rectum is unremarkable. APPENDIX: Negative. LYMPH NODES: No pathologically enlarged lymph nodes identified. PERITONEUM: No intraperitoneal free air. No free intraperitoneal fluid. MESENTERY: Unremarkable. RETROPERITONEUM: The retroperitoneum is unremarkable. AORTA: Normal in caliber. BODY WALL: No body wall mass. OSSEOUS STRUCTURES: Severe L5-S1 degenerative disc disease otherwise unremarkable osseous structures and joints and vertebrae. CT/CT abdomen pelvis w con IMPRESSION: 1. Focal acute inflammatory changes distal sigmoid colon with wall thickening and stranding. Suspect subacute diverticulitis. There could be developing intramural phlegmon versus early abscess. Follow-up. No definable or drainable fluid collection at this time. No free air or pericolonic abscess. Follow-up with treatment to resolution. See comments above. 2. Other stable nonemergent chronic findings as discussed. Electronically authenticated by: MARIE HOLDEN Date: 07/17/2024 23:22
--- NOTE | 2024-07-17 21:22 | ED.ABDPAIN1 ---
Documented by User: Carmen Newsomeon 07/17/24 21:56 HPI - Abdominal Pain General Chief Complaint: Abdominal Pain Stated Complaint: Abdominal Pain, Shortness of Breath Time Seen by Provider: 07/17/24 21:13 Source: patient Mode of arrival: Wheelchair Limitations: no limitations History of Present Illness HPI narrative: 53 year old male presents to the ED for abd pain. Onset was 4 days ago. The pain started in the epigastric area and now radiates to the LLQ. His last BM was 4 days ago. He has had N/V today. Denies fever, chills, injury, urinary sx. Reports hx pancreatitis. Denies illicit drug and alcohol use. He is accompanied by family. Related Data Home Medications ?Medication ?Instructions ?Recorded ?Confirmed omeprazole 40 mg capsule,delayed mg 07/17/24 release Allergies Allergy/AdvReac Type Severity Reaction Status Date / Time No Known Drug Allergies Allergy Verified 07/17/24 21:10 Review of Systems ROS Constitutional Denies: fever or chills Ears, nose, mouth, and throat Denies: neck pain Cardiovascular Denies: chest pain Respiratory Denies: shortness of breath or cough Gastrointestinal Reports: abdominal pain, nausea, vomiting and constipation; Denies: diarrhea Genitourinary Denies: painful urination, urinary frequency, urinary urgency or blood in urine Musculoskeletal Denies: back pain or neck pain Neurological Denies: headache [facility] Medical History (Updated 07/17/24 @ 23:45 by Yaima Guzmán MD) Tobacco dependence ?F17.200 - Nicotine dependence, unspecified, uncomplicated (ICD-10) H/O ETOH abuse ?F10.11 - Alcohol abuse, in remission (ICD-10) Asymptomatic bradycardia ?R00.1 - Bradycardia, unspecified (ICD-10) Anemia ?D64.9 - Anemia, unspecified (ICD-10) Myocardial infarction ?I21.9 - Acute myocardial infarction, unspecified (ICD-10) Social History Highest level of school completed/degree received: high school graduate Exam Constitutional Vital Signs, click to edit/add: Last Vital Signs Temp 97.9 F 07/17/24 21:03 Pulse 82 07/17/24 21:03 Resp 24 H 07/17/24 21:03 BP 139/83 07/17/24 21:03 Pulse Ox 99 07/17/24 22:03 O2 Del Method Room Air 07/17/24 22:03 Common normals: no apparent distress and oriented x3 General appearance: cooperative Eye Common normals: conjunctivae normal and no scleral icterus Neck & C-Spine Common normals: supple Chest Chest: symmetrical chest wall rise Respiratory Common normals: normal respiratory effort Effort & inspection: able to speak in complete sentences Cardio Common normals: regular rate and regular rhythm GI Common normals: soft to palpation Auscultation: normoactive bowel sounds Palpation: tender Details: epigastric, LLQ, LUQ and RUQ Neuro Common normals: oriented x3 Sensorium/orientation: awake and alert Speech: speech normal Course Vital Signs Vital signs: Vital Signs Temperature 97.9 F 07/17/24 21:03 Pulse Rate 82 07/17/24 21:03 Respiratory Rate 24 H 07/17/24 21:03 Blood Pressure 139/83 07/17/24 21:03 Pulse Oximetry 98 07/17/24 21:03 Oxygen Delivery Method Room Air 07/17/24 21:03 Temperature 97.9 F 07/17/24 21:03 Pulse Rate 82 07/17/24 21:03 Respiratory Rate 24 H 07/17/24 21:03 Blood Pressure 139/83 07/17/24 21:03 Pulse Oximetry 99 07/17/24 22:03 Oxygen Delivery Method Room Air 07/17/24 22:03 MDM - Abdominal Pain MDM Narrative Medical decision making narrative: WBC count was 13.2. Additional laboratory studies were pending; CT scan was pending. Care was resumed to Dr. Guzmán. See her dictation for further evaluation and treatment. Differential Diagnosis Differential diagnosis: Likely abdominal pain, constipation, diverticulitis, gastroenteritis, pancreatitis and small bowel obstruction Medical Records Attestation: I reviewed the patient's medical records. Lab Data Attestation: I reviewed the patient's lab results. Labs: Lab Results 07/17/24 07/17/24 Range/Units 21:15 22:48 WBC 13.2 H (4.0-11.0) 10^3/uL RBC 5.68 (4.70-6.10) 10^6/uL Hgb 16.0 (14.0-18.0) g/dL Hct 48.6 (42.0-54.0) % MCV 85.6 (80.0-94.0) fL MCH 28.2 (25.9-34.0) pg MCHC 32.9 (29.9-35.2) g/dL RDW 13.2 (11.0-15.0) % Plt Count 167 (150-450) 10^3/uL MPV 12.8 (9.5-13.5) fL Neut % (Auto) 69.6 (43.0-75.0) % Lymph % (Auto) 19.7 L (20.5-60.0) % Maverick % (Auto) 6.3 (1.7-12.0) % Eos % (Auto) 3.5 (0.9-7.0) % Baso % (Auto) 0.7 (0.2-2.0) % Neut # (Auto) 9.2 H (1.4-6.5) 10^3/uL Lymph # (Auto) 2.6 (1.2-3.8) 10^3/uL Maverick # (Auto) 0.8 (0.3-0.8) 10^3/uL Eos # (Auto) 0.5 (0.0-0.7) 10^3/uL Baso # (Auto) 0.1 (0.0-0.1) 10^3/uL Abs Immat Gran (auto) 0.03 (0.00-0.03) 10^3/uL Imm/Tot Granulo (auto) 0.2 (0.0-0.5) % Sodium 141 (136-145) mmol/L Potassium 3.7 (3.5-5.1) mmol/L Chloride 105 (98-107) mmol/L Carbon Dioxide 26.8 (21.0-32.0) mmol/L Anion Gap 12.9 BUN 16.0 (7.0-18.0) mg/dL Creatinine 1.42 H (0.70-1.30) mg/dL Est GFR ( Amer) >60 (>=60) Est GFR (Non-Af Amer) 52 L (>=60) BUN/Creatinine Ratio 11.3 Glucose 85 (74-106) mg/dL Calcium 8.4 L (8.5-10.1) mg/dL Total Bilirubin 0.5 (0.2-1.0) mg/dL AST 14 L (15-37) U/L ALT 20 (16-63) U/L Alkaline Phosphatase 102 (46-116) U/L Total Protein 7.1 (6.4-8.2) g/dL Albumin 3.0 L (3.4-5.0) g/dL Globulin 4.1 g/dL Albumin/Globulin Ratio 0.7 Lipase 64.0 (16.0-77.0) U/L Urine Color Yellow (YELLOW) Urine Clarity Clear (CLEAR) Urine pH 7.0 (5.0-9.0) Ur Specific [place] 1.010 (1.005-1.025) Urine Protein Negative (NEG/TRACE) mg/dL Urine Glucose (UA) Negative (NEGATIVE) mg/dL Urine Ketones Negative (NEGATIVE) mg/dL Urine Occult Blood Negative (NEGATIVE) Urine Nitrite Negative (NEGATIVE) Urine Bilirubin Negative (NEGATIVE) Urine Urobilinogen 1.0 (0.2-1.0) EU/dL Ur Leukocyte Esterase Negative (NEGATIVE) Discharge Plan Discharge Chief Complaint: Abdominal Pain Clinical Impression: Abdominal pain, Diverticulitis Patient Disposition: Admitted As Inpatient Time of Disposition Decision: 23:45 Condition: Good Documented by User: Yaima Guzmán MD 07/17/24 23:48 HPI - Abdominal Pain General Chief Complaint: Abdominal Pain Stated Complaint: Abdominal Pain, Shortness of Breath Time Seen by Provider: 07/17/24 21:13 Related Data Home Medications ?Medication ?Instructions ?Recorded ?Confirmed omeprazole 40 mg capsule,delayed mg 07/17/24 release Allergies Allergy/AdvReac Type Severity Reaction Status Date / Time No Known Drug Allergies Allergy Verified 07/17/24 21:10 [facility] Medical History (Updated 07/17/24 @ 23:45 by Yaima Guzmán MD) Tobacco dependence ?F17.200 - Nicotine dependence, unspecified, uncomplicated (ICD-10) H/O ETOH abuse ?F10.11 - Alcohol abuse, in remission (ICD-10) Asymptomatic bradycardia ?R00.1 - Bradycardia, unspecified (ICD-10) Anemia ?D64.9 - Anemia, unspecified (ICD-10) Myocardial infarction ?I21.9 - Acute myocardial infarction, unspecified (ICD-10) Social History Highest level of school completed/degree received: high school graduate Exam Constitutional Vital Signs, click to edit/add: Last Vital Signs Temp 97.9 F 07/17/24 21:03 Pulse 82 07/17/24 21:03 Resp 24 H 07/17/24 21:03 BP 139/83 07/17/24 21:03 Pulse Ox 99 07/17/24 22:03 O2 Del Method Room Air 07/17/24 22:03 Course Vital Signs Vital signs: Vital Signs Temperature 97.9 F 07/17/24 21:03 Pulse Rate 82 07/17/24 21:03 Respiratory Rate 24 H 07/17/24 21:03 Blood Pressure 139/83 07/17/24 21:03 Pulse Oximetry 98 07/17/24 21:03 Oxygen Delivery Method Room Air 07/17/24 21:03 Temperature 97.9 F 07/17/24 21:03 Pulse Rate 82 07/17/24 21:03 Respiratory Rate 24 H 07/17/24 21:03 Blood Pressure 139/83 07/17/24 21:03 Pulse Oximetry 99 07/17/24 22:03 Oxygen Delivery Method Room Air 07/17/24 22:03 MDM - Abdominal Pain MDM Narrative Medical decision making narrative: WBC count was 13.2. Additional laboratory studies were pending; CT scan was pending. Care was resumed to Dr. Guzmán. See her dictation for further evaluation and treatment. This patient was seen and evaluated in conjunction with the nurse practitioner. He was recently admitted for pancreatitis although he denies that he uses alcohol. He has been having generalized abdominal pain for the past 4 days with nausea and vomiting. He has pain in the epigastrium and right upper quadrant. He still has his gallbladder. Pain also goes into the left lower quadrant. He is passing gas but not having a bowel movement for the past 4 days although he states he has not eaten anything. He does have a history of smoking and states that the pain in his abdomen is making him short of breath. An IV was placed and he was initially medicated with morphine and Zofran. On reevaluation he still appeared to be uncomfortable and was given a dose of IV Dilaudid with clinical improvement. He has a white count of 13.2. Electrolytes are normal. CT scan of the abdomen pelvis with IV contrast shows focal inflammatory changes in the distal sigmoid colon with wall thickening and stranding suspecting subacute diverticulitis with possible developing intramural phlegmon versus early abscess. There is no definable or drainable fluid collection at this time no free air or pericolonic abscess. He was medicated with additional IV fluids, IV Cipro and IV Flagyl. He will be admitted for further evaluation and treatment. Medical Records Medical records narrative: [place] [address] XRay Report Signed Patient: JOHNATHAN HEREDIA MR#: [id number] : 1970 Acct:[id number] Age/Sex: 53 / M ADM Date: 07/17/24 Loc: ER Attending Dr: Ordering Physician: Yaima Guzmán Date of Service: 07/17/24 Procedure(s): XR chest 1V Accession Number(s): [id number] cc: FELICITY LANDRUM ; Yaima Marker~ [facility] [place] [address] Patient Name: JOHNATHAN HEREDIA MRN: [id number] date: 1970 Sex: M Assigned Patient Location: ER Current Patient Location: ER Accession/Order Number: [id number] Exam Date: 07/17/2024 23:10 Report Date: 07/17/2024 23:20 At the request of: YAIMA MARKER Procedure: XR chest 1V EXAM: XR chest 1V CLINICAL INDICATION: SOB TECHNIQUE: Portable frontal semi-erect view of the chest. COMPARISON: 05/16/2024 FINDINGS: Lines and tubes: None. Lungs: No convincing focal infiltrates. No pleural effusion or pneumothorax. Heart: Cardiac and mediastinal contours are unremarkable. No overt pulmonary vascular congestion. Osseous structures: No acute abnormalities. XR/XR chest 1V IMPRESSION: No acute cardiopulmonary process. Electronically authenticated by: ALFA GRAJEDA Date: 07/17/2024 23:20 Lab Data Labs: Lab Results 07/17/24 07/17/24 Range/Units 21:15 22:48 WBC 13.2 H (4.0-11.0) 10^3/uL RBC 5.68 (4.70-6.10) 10^6/uL Hgb 16.0 (14.0-18.0) g/dL Hct 48.6 (42.0-54.0) % MCV 85.6 (80.0-94.0) fL MCH 28.2 (25.9-34.0) pg MCHC 32.9 (29.9-35.2) g/dL RDW 13.2 (11.0-15.0) % Plt Count 167 (150-450) 10^3/uL MPV 12.8 (9.5-13.5) fL Neut % (Auto) 69.6 (43.0-75.0) % Lymph % (Auto) 19.7 L (20.5-60.0) % Maverick % (Auto) 6.3 (1.7-12.0) % Eos % (Auto) 3.5 (0.9-7.0) % Baso % (Auto) 0.7 (0.2-2.0) % Neut # (Auto) 9.2 H (1.4-6.5) 10^3/uL Lymph # (Auto) 2.6 (1.2-3.8) 10^3/uL Maverick # (Auto) 0.8 (0.3-0.8) 10^3/uL Eos # (Auto) 0.5 (0.0-0.7) 10^3/uL Baso # (Auto) 0.1 (0.0-0.1) 10^3/uL Abs Immat Gran (auto) 0.03 (0.00-0.03) 10^3/uL Imm/Tot Granulo (auto) 0.2 (0.0-0.5) % Sodium 141 (136-145) mmol/L Potassium 3.7 (3.5-5.1) mmol/L Chloride 105 (98-107) mmol/L Carbon Dioxide 26.8 (21.0-32.0) mmol/L Anion Gap 12.9 BUN 16.0 (7.0-18.0) mg/dL Creatinine 1.42 H (0.70-1.30) mg/dL Est GFR ( Amer) >60 (>=60) Est GFR (Non-Af Amer) 52 L (>=60) BUN/Creatinine Ratio 11.3 Glucose 85 (74-106) mg/dL Calcium 8.4 L (8.5-10.1) mg/dL Total Bilirubin 0.5 (0.2-1.0) mg/dL AST 14 L (15-37) U/L ALT 20 (16-63) U/L Alkaline Phosphatase 102 (46-116) U/L Total Protein 7.1 (6.4-8.2) g/dL Albumin 3.0 L (3.4-5.0) g/dL Globulin 4.1 g/dL Albumin/Globulin Ratio 0.7 Lipase 64.0 (16.0-77.0) U/L Urine Color Yellow (YELLOW) Urine Clarity Clear (CLEAR) Urine pH 7.0 (5.0-9.0) Ur Specific [place] 1.010 (1.005-1.025) Urine Protein Negative (NEG/TRACE) mg/dL Urine Glucose (UA) Negative (NEGATIVE) mg/dL Urine Ketones Negative (NEGATIVE) mg/dL Urine Occult Blood Negative (NEGATIVE) Urine Nitrite Negative (NEGATIVE) Urine Bilirubin Negative (NEGATIVE) Urine Urobilinogen 1.0 (0.2-1.0) EU/dL Ur Leukocyte Esterase Negative (NEGATIVE) Discharge Plan Discharge Chief Complaint: Abdominal Pain Clinical Impression: Abdominal pain, Diverticulitis Patient Disposition: Admitted As Inpatient Time of Disposition Decision: 23:45 Condition: Good
[2024-07-17 21:43] LABS: Basophils Absolute Auto 0.1 10^3/uL (0.0-0.1); Basophils Percent Auto 0.7 % (0.2-2.0); Eosinophils Absolute Auto 0.5 10^3/uL (0.0-0.7); Eosinophils Percent Auto 3.5 % (0.9-7.0); Hematocrit 48.6 % (42.0-54.0); Immature Granulocytes Abs Auto 0.03 10^3/uL (0.00-0.03); Immature Granulocytes Pct Auto 0.2 % (0.0-0.5); Lymphocytes Absolute Auto 2.6 10^3/uL (1.2-3.8); Lymphocytes Percent Auto 19.7 % (20.5-60.0); Mean Corpuscular HGB Conc 32.9 g/dL (29.9-35.2); Mean Corpuscular Hemoglobin 28.2 pg (25.9-34.0); Mean Corpuscular Volume 85.6 fL (80.0-94.0); Mean Platelet Volume 12.8 fL (9.5-13.5); Monocytes Absolute Auto 0.8 10^3/uL (0.3-0.8); Monocytes Percent Auto 6.3 % (1.7-12.0); Neutrophils Absolute Auto 9.2 10^3/uL (1.4-6.5); Neutrophils Percent Auto 69.6 % (43.0-75.0); Platelet Count 167 10^3/uL (150-450); Red Blood Count 5.68 10^6/uL (4.70-6.10); Red Cell Distribution Width 13.2 % (11.0-15.0); White Blood Count 13.2 10^3/uL (4.0-11.0)
[2024-07-17] MEDS: 0.9 % SODIUM CHLORIDE 1,000 ML 100 ML IV (21:51)
[2024-07-17] MEDS: MORPHINE SULFATE 2 MG/ML SYRINGE IV (21:51)
[2024-07-17] MEDS: ONDANSETRON PF 4 MG/2 ML VIAL IV (21:51)
[2024-07-17] MEDS: FAMOTIDINE/PF 20 MG/2 ML VIAL IV (21:51)
[2024-07-17 22:00] LABS: Alanine Aminotransferase 20 U/L (16-63); Albumin Globulin Ratio 0.7; Alkaline Phosphatase 102 U/L (46-116); Anion Gap 12.9; Aspartate Amino Transferase 14 U/L (15-37); BUN Creatinine Ratio 11.3; Bilirubin Total 0.5 mg/dL (0.2-1.0); Calcium 8.4 mg/dL (8.5-10.1); Carbon Dioxide 26.8 mmol/L (21.0-32.0); Chloride 105 mmol/L (98-107); Estimated GFR (African America >60 (>=60); Estimated GFR (Non-African Ame 52 (>=60); Globulin 4.1 g/dL; Glucose 85 mg/dL (74-106); Potassium 3.7 mmol/L (3.5-5.1); Sodium 141 mmol/L (136-145); Total Protein 7.1 g/dL (6.4-8.2)
[2024-07-17 22:03] VITALS: O2SAT 99
[2024-07-17 22:55] LABS: Bilirubin Urine NEGATIVE (NEGATIVE); Blood Urine NEGATIVE (NEGATIVE); Clarity Urine CLEAR (CLEAR); Color Urine YELLOW (YELLOW); Glucose Urine UA NEGATIVE (NEGATIVE); Ketones Urine NEGATIVE (NEGATIVE); Leukocyte Esterase Urine NEGATIVE (NEGATIVE); Nitrite Urine NEGATIVE (NEGATIVE); Protein Urine NEGATIVE (NEG/TRACE)
[2024-07-17] MEDS: HYDROMORPHONE HCL 1 MG/ML CARTRIDGE IV (22:58)
[2024-07-17 23:04] LABS: Urine Microscopic Indicated NO
--- NOTE | 2024-07-17 23:04 | XR_ITS ---
The [address] [address] Patient Name: JOHNATHAN HEREDIA MRN: [id number] date: 1970 Sex: M Assigned Patient Location: ER Current Patient Location: ER Accession/Order Number: [id number] Exam Date: 07/17/2024 23:10 Report Date: 07/17/2024 23:20 At the request of: DAVIDA MARKER Procedure: XR chest 1V EXAM: XR chest 1V CLINICAL INDICATION: SOB TECHNIQUE: Portable frontal semi-erect view of the chest. COMPARISON: 05/16/2024 FINDINGS: Lines and tubes: None. Lungs: No convincing focal infiltrates. No pleural effusion or pneumothorax. Heart: Cardiac and mediastinal contours are unremarkable. No overt pulmonary vascular congestion. Osseous structures: No acute abnormalities. XR/XR chest 1V IMPRESSION: No acute cardiopulmonary process. Electronically authenticated by: ALFA GRAJEDA Date: 07/17/2024 23:20
[2024-07-18] VITALS (14 sets, daily range): BP systolic 103–123; BP diastolic 63–74; PULSE 56–78; TEMP 36.7–36.8; O2SAT 92–98; BMI 22.4
[2024-07-18] MEDS: 0.9 % SODIUM CHLORIDE 1,000 ML 125 ML IV (00:07)
[2024-07-18] MEDS: METRONIDAZOLE/SODIUM CHLORIDE 500 MG/100 ML PREMIX 100 MG IV ×3 (00:08→18:06)
[2024-07-18] MEDS: CIPROFLOXACIN HCL 500 MG TABLET PO (00:09)
[2024-07-18] MEDS: ONDANSETRON PF 4 MG/2 ML VIAL IV ×2 (01:42→09:10)
[2024-07-18] MEDS: MORPHINE SULFATE 2 MG/ML SYRINGE IV ×2 (05:47→09:10)
[2024-07-18 06:08] LABS: Basophils Absolute Auto 0.1 10^3/uL (0.0-0.1); Basophils Percent Auto 0.6 % (0.2-2.0); Eosinophils Absolute Auto 0.3 10^3/uL (0.0-0.7); Eosinophils Percent Auto 2.5 % (0.9-7.0); Hematocrit 42.7 % (42.0-54.0); Hemoglobin 13.9 g/dL (14.0-18.0); Immature Granulocytes Abs Auto 0.03 10^3/uL (0.00-0.03); Immature Granulocytes Pct Auto 0.2 % (0.0-0.5); Lymphocytes Percent Auto 15.8 % (20.5-60.0); Mean Corpuscular HGB Conc 32.6 g/dL (29.9-35.2); Mean Corpuscular Hemoglobin 28.1 pg (25.9-34.0); Mean Corpuscular Volume 86.3 fL (80.0-94.0); Mean Platelet Volume 12.2 fL (9.5-13.5); Monocytes Absolute Auto 0.9 10^3/uL (0.3-0.8); Monocytes Percent Auto 6.7 % (1.7-12.0); Neutrophils Absolute Auto 9.3 10^3/uL (1.4-6.5); Neutrophils Percent Auto 74.2 % (43.0-75.0); Platelet Count 142 10^3/uL (150-450); Red Blood Count 4.95 10^6/uL (4.70-6.10); Red Cell Distribution Width 13.2 % (11.0-15.0); White Blood Count 12.6 10^3/uL (4.0-11.0)
--- OUTSIDE RECORDS SUMMARY | 2024-07-18 06:08 | XMS_ITS | CCD ---
Author Organization [facility] Care Team Providers Care Retread Technician Name Role Phone LUCITA, DR BLEVINS Primary Care Unavailable PAY ., DR LOU Admitting Unavailable PAY ., DR LOU Attending Unavailable PAY ., DR LOU Consulting Unavailable COATSMICHELINE Consulting Unavailable ANAIS, DR Shivani Woods Admitting Unavailable ANAIS, DR Shivani Woods Attending Unavailable LUCITA, DR BLEVINS Primary Care Unavailable ANAIS, DR Shivani Woods Consulting Unavailable ANABELL, DR DAYNA Palomo Consulting Unavailable LUCITA, DR BLEVINS Admitting Unavailable LUCITA, DR BLEVINS Attending Unavailable LUCITA, DR BLEVINS Consulting Unavailable LUCITA, DR BLEVINS Primary Care Unavailable RICHAR, DR NATHAN Palomo Admitting Unavailable RICHAR, DR NATHAN Palomo Attending Unavailable RICHAR, DR NATHAN Paolmo Consulting Unavailable ANABELL, DR DAYNA Palomo Consulting Unavailable EZIO DAVALOS Consulting Unavailable Afshin Torres Attending Unavailable Afshin Torres Admitting Unavailable Wily Landrum Primary Care Unavailable WILY LANDRUM Attending Unavailable Allergies Allergy Classification Reported Allergen(s) Allergy Type Date of Onset Reaction(s) Facility (1 source) Adhesive agent Drug allergy (disorder) [facility] Repository (1 source) bee venom Drug allergy (disorder) [facility] (1 source) Ibuprofen Drug Allergy [facility] Rep[facility] (1 source) Adhesive Tape Drug allergy (disorder) 06-21-2021 [facility] Repository Problems Active Problems Problem Classification Problem Date Documented Da te Episodic/Chronic E Codes: Fall (1 source) Fall on same level from slipping, tripping and stumbling without subsequent striking against object, initial encounter; Translations: [FALL SAME LVL SLIP NO STRK OBJ INIT] Onset: 02-08-2023 Episodic Fracture of lower limb (3 sources) Displaced fracture of lateral malleolus of left fibula, initial encounter for closed fracture; Translations: [Other fracture of upper and lower end of left fibula, initial encounter for closed fracture] Onset: 02-08-2023 Episodic Other non-traumatic joint disorders (3 sources) Pain in left ankle and joints of left foot; Translations: [PAIN IN LEFT ANKLE] Onset: 02-05-2023 Episodic Sprains and strains (2 sources) Sprain of the superior tibiofibular joint and ligament, left knee, initial encounter; Translations: [SPR SUP TIBIOFIB JNT LIG LT KN INIT] Onset: 02-11-2023 Episodic Substance-related disorders (1 source) Nicotine dependence, cigarettes, uncomplicated; Translations: [NICOTINE DEPEND CIGARETTES UNCOMP] Onset: 02-08-2023 Chronic Unclassified (3 sources) CONTACT W/AND (SUSP) EXPOS COVID-19; Translations: [CONTACT W/AND (SUSP) EXPOS COVID-19] Onset: 06-30-2022 Past or Other Problems Problem Classification Problem Date Documented Da te Episodic/Chronic Diseases of mouth; excluding dental (3 sources) Other lesions of oral mucosa; Translations: [OTHER LESIONS OF ORAL MUCOSA] Onset: 09-30-2022 Episodic Disorders of teeth and jaw (1 source) Periapical abscess without sinus; Translations: [PERIAPICAL ABSCESS WITHOUT SINUS] Onset: 10-06-2022 Episodic Suicide and intentional self-inflicted injury (1 source) Suicidal ideations; Translations: [Suicidal ideations] Onset: 06-21-2021 Episodic Unclassified (1 source) CONTACT W/AND (SUSP) EXPOS COVID-19; Translations: [CONTACT W/AND (SUSP) EXPOS COVID-19] Onset: 06-29-2022 Results Test Name Value Interpretation Reference Range Facility CT ANKLE LT WO CONon 023 CT ANKLE LT WO CON EXAMINATION: CT ANKL E LT WO CON HISTORY: Closed fracture of lateral malleolus of left fibula COMPARISON: XR ankle left 02/05/2023 TECHNIQUE: Multi-planar CT images were created without IV contrast. Dose reduction techniques were achieved by using automated exposure control and/or adjustment of mA and/or kV according to patient size and/or use of iterative reconstruction technique. FINDINGS: BONES: Small displaced cortical fragment from the lateral margin of the talus, positioned adjacent the tip of the lateral malleolus. SOFT TISSUES: Soft tissue swelling and edema surrounding the ankle and proximal foot. EFFUSION: None visible. OTHER: Negative. IMPRESSION: 1. Small cortical avulsion fracture from lateral margin of talus adjacent the lateral malleolus. Electronically authenticated by: DAYNA HUNG Date: 2023-02-11 15:32 Normal [facility] XR ANKLE LT MIN 3 Von 2022 XR ANKLE LT MIN 3 V EXAM: XR ANKLE LT MN N 3 V HISTORY: Bone injury COMPARISON: None. TECHNIQUE: 3 views of the left ankle. FINDINGS: Bones: There is an ossific density at the distal tip of the lateral malleolus which demonstrates mild displacement. Joints: Normal alignment. No significant osteoarthritic change. Soft tissues: There is soft tissue swelling is demonstrated about the lateral ankle. IMPRESSION: Mildly displaced fracture of the distal tip of the lateral malleolus with significant overlying soft tissue swelling. Electronically authenticated by: MICHELINE ARREDONDO Date: 2023-02-05 08:50 Normal [facility] CBC W MANUAL DIFFon 09-30-20 22 ATYPICAL LYMPH # Normal [facility] Comment on above: Performed By: #### C EDIL #### [facility] [address] [place] [address] Dr. Kiran Gongora ATYPICAL LYMPH % Normal [facility] Comment on above: Performed By: #### C BCDERIK #### [facility] [address] [place] [address] Dr. Kiran Gongora BAND # 0.0 103/ul Normal 0.0-0.3 [facility] Comment on above: Performed By: #### C BCDERIK #### [facility] [address] [place] [address] Dr. Kiran Gongora BAND % 0 % Normal 0-5 [facility] Comment on above: Performed By: #### C BCMAN #### [facility] [address] [place] [address] Dr. Kiran Gongora BASOM # 0.10 103/ul Normal 0.00-0.10 [facility] Comment on above: Performed By: #### C BCDERIK #### [facility] [address] [place] [address] Dr. Kiran Gongora BASOM % 1.0 % Normal 0.2-2.0 [facility] Comment on above: Performed By: #### C EDIL #### [facility] [address] [place] [address] Dr. Kiran Gongora BLAST # Normal [facility] Comment on above: Performed By: #### C EDIL #### [facility] [address] [place] [address] Dr. Kiran Gongora BLAST % Normal [facility] Comment on above: Performed By: #### C BCDERIK #### [facility] [address] [place] [address] Dr. Kiran Gongora CORRECTED WBC Normal 4.0-11.0 [facility] Comment on above: Performed By: #### C EDIL #### [facility] [address] [place] [address] Dr. Kiran Gongora EOS # 0.41 103/ul Normal 0.00-0.70 [facility] Comment on above: Performed By: #### C EDIL #### [facility] [address] [place] [address] Dr. Kiran Gongora EOS% 4.0 % Normal 0.9-7.0 [facility] Comment on above: Performed By: #### C EDIL #### [facility] [address] [place] [address] Dr. Kiran Gongora HCT 47.9 % Normal 42.0-54.0 [facility] Comment on above: Performed By: #### C EDIL #### [facility] [address] [place] [address] Dr. Kiran Gongora HGB 15.4 g/dl Normal 14.0-18.0 [facility] Comment on above: Performed By: #### C EDIL #### [facility] [address] [place] [address] Dr. Kiran Gongora LYMPHM # 2.37 103/ul Normal 1.20-3.80 [facility] Comment on above: Performed By: #### C EDIL #### [facility] [address] [place] [address] Dr. Kiran Gongora LYMPHM% 23.0 % Normal 20.5-60.0 [facility] Comment on above: Performed By: #### C EDIL #### [facility] [address] [place] [address] Dr. Kiran Gongora MCH 28.2 pg Normal 25.9-34.0 [facility] Comment on above: Performed By: #### C EDIL #### [facility] [address] [place] [address] Dr. Kiran Gongora MCHC 32.2 g/dl Normal 29.9-35.2 [facility] Comment on above: Performed By: #### C EDIL #### [facility] [address] [place] [address] Dr. Kiran Gongora MCV 87.7 fL Normal 80.0-94.0 [facility] Comment on above: Performed By: #### C EDIL #### [facility] [address] [place] [address] Dr. Kiran Gongora METAMYELOCYTE # Normal [facility] Comment on above: Performed By: #### C EDIL #### [facility] [address] [place] [address] Dr. Kiran Gongora METAMYELOCYTE % Normal [facility] Comment on above: Performed By: #### C EDIL #### [facility] [address] [place] [address] Dr. Kiran Gongora MONOM# 0.31 103/ul Normal 0.30-0.80 [facility] Comment on above: Performed By: #### C EDIL #### [facility] [address] [place] [address] Dr. Kiran Gongora MONOM% 3.0 % Normal 1.7-12.0 [facility] Comment on above: Performed By: #### C EDIL #### [facility] [address] [place] [address] Dr. Kiran Gongora MPV 12.6 fL Normal 9.5-13.5 [facility] Comment on above: Performed By: #### C EDIL #### [facility] [address] [address] [address] Kiran Gongora MYELOCYTE # Normal [facility] Comment on above: Performed By: #### C EDIL #### [facility] [address] [address] [address] Kiran Gongora MYELOCYTE % Normal [facility] Comment on above: Performed By: #### C EDIL #### [facility] [address] [address] [address] Kiran Gongora NRBC Normal [facility] Comment on above: Performed By: #### C EDIL #### [facility] [address] [place] [address] Dr. Kiran Gongora PLT 137 103/ul Critically low 150-450 [facility] Comment on above: Performed By: #### C EDIL #### [facility] [address] [place] [address] Dr. Kiran Gongora RBC 5.46 106/ul Normal 4.70-6.10 [facility] Comment on above: Performed By: #### C EDIL #### [facility] [address] [place] [address] Dr. Kiran Gongora RDW 13.6 % Normal 11.0-15.0 [facility] Comment on above: Performed By: #### C EDIL #### [facility] [address] [place] [address] Dr. Kiran Gongora SEG # 7.11 103/ul Critically high 1.40-6.50 [facility] Comment on above: Performed By: #### C EDIL #### [facility] [address] [place] [address] Dr. Kiran Gongora SEG % 69.0 % Normal 43.0-75.0 [facility] Comment on above: Performed By: #### C BCMAN #### [facility] [address] [place] [address] Dr. Kiran Gongora WBC 10.3 103/ul Normal 4.0-11.0 [facility] Comment on above: Performed By: #### C EDIL #### [facility] [address] [place] [address] FACIAL BONES W CONon 11-2 CT FACIAL BONES W CON CT FACIAL BONES W CON INDICATION: 51 years old; Male . Symptom/Location/Dura tion: LOCALIZED SWELLING, MASS AND LUMP, UNSPECIFIED TECHNIQUE: CT of the facial bones was performed. IV contrast: 100 mL of Omnipaque 300. No complications.. Axial, coronal, sagittal reformats were created and reviewed. Dose reduction techniques were achieved by using automated exposure control and/or adjustment of mA and/or kV according to patient size and/or use of iterative reconstruction technique. COMPARISON: None FINDINGS: FRONTAL BONES: SUPRAORBITAL SOFT TISSUES: Normal without swelling, laceration or foreign body. ORBITS: Globes: Normal without proptosis or evidence of disruption or intraocular foreign body. There is bilateral external strabismus with nonspecific disc conjugate gaze. Retrobulbar fat: normal without mass or hematoma. Extraocular Muscles: Normal and symmetric without prolapse or evidence of entrapment. Optic Nerves: Normal without mass-effect or evidence of disruption. Preseptal Soft Tissues: Normal without swelling, laceration or foreign body. Bonner: Intact without evidence of fracture. MAXILLA AND MANDIBLE: Maxillary and buccal soft tissues: There is a localized peripherally enhancing fluid collection noted overlying the mandible just to left mandibular symphysis, image 33/series 4. This measures 8.63 x 4.07 mm in diameter and is consistent with a dental abscess. Maxillary bones: There are scattered periapical lucencies noted in the maxilla with cortical disruption noted on the left, image 29/series 6. However, no drainable fluid collection is seen. Mandible: There is periapical lucency noted in the mandible just to the left mandibular symphysis, image 30/series 3. This corresponds to the peripherally enhancing fluid collection consistent with a dental abscess as described above. Nasal bones and septum: There is no soft tissue swelling. No evidence of nasal bone fracture. No evidence of septal fracture. PARANASAL SINUSES: Frontal: Clear. Ethmoid: Clear. Maxillary: Maxillary thickening in the based the maxillary sinus on the left. No fluid level. Sphenoid: Clear. Zygomatic arch: Intact bilaterally. Pterygoid plates: Intact bilaterally. Visualized brain: A portion of the brain is included in this examination. No pathologic intracranial enhancement is noted. The study does not include the entire brain and cannot exclude all brain pathology. Visualized cervical spine: A portion of the cervical spine is included in the examination. Cervical spondylosis is noted. This study cannot clear the cervical spine. IMPRESSION: 1. Periapical lucency noted in the mandible just to the left of the mandibular symphysis associated with a localized rim-enhancing fluid collection in the buccal soft tissues consistent with a localized dental abscess. 2. Additional areas of periapical lucencies are seen in the maxilla without fluid collection. Electronically authenticated by: EZIO DAVALOS Date: 2022-09-30 05:26 Normal [facility] CT NECK ST W CONon [address] W CON EXAMINATION: CT NECK ST W CON HISTORY: LOCALIZED SWELLING, MASS AND LUMP, UNSPECIFIED COMPARISON: No relevant comparison available. TECHNIQUE: Axial, Coronal, and Sagittal CT images created with IV contrast. Dose reduction techniques were achieved by using automated exposure control and/or adjustment of mA and/or kV according to patient size and/or use of iterative reconstruction technique. FINDINGS: NASOPHARYNX: No asymmetry of the fossae of Rosenmuller and torus tubarius. ORAL CAVITY: No visible mass. OROPHARYNX: No asymmetry of the facial and lingual tonsils. HYPOPHARYNX: No mass or other visible lesion. LARYNX: No mass or asymmetry of the vocal cords. SINUSES: Small amount of retained secretions within left maxillary sinus. NECK GLADS: No visible abnormality of the parotid, submandibular, and thyroid glands. LYMPH NODES: No pathological-appearin g or enlarged lymph nodes. VASCULATURE: No suspicious abnormality. BONES: No significant osseous lesions. OTHER: Small soft tissue abscess anterior to mandible just left of midline, approximately 9 x 4 mm. Multiple missing teeth and significant erosions involving remaining teeth suggestive of dental caries. IMPRESSION: 1. Abscess along the anterior left margin of the maxilla likely related to dental cavity. 2. No appreciable infectious etiology or significant inflammatory changes involving floor of mouth to suggest Nick angina. Electronically authenticated by: DAYNA HUNG Date: 2022-09-30 07:21 Normal [facility] CULTURE BLOODon 09-30-2022 Microscopic examination of blood, culture Culture Observations: NO GROWTH AT 5 DAYS. Normal [facility] Comment on above: Performed By: #### B [id number] #### [facility] [address] [place] [address] Dr. Kiran Gongora Microscopic examination of blood, culture Culture Observations: NO GROWTH AT 5 DAYS. Normal [facility] Comment on above: Performed By: #### B [email or web address] #### [facility] [address] [place] [address] Dr. Kiran Gongora PROF 14(COMP METB)on 022 Albumin [Mass/Vol] 3.2 g/dL Critically low 3.4-5.0 [facility] Comment on above: Performed By: #### C MP #### [facility] [address] [place] [address] Dr. Kiran Gongora Albumin/Globulin [Mass ratio] 0.9 {ratio} Normal [facility] Comment on above: Performed By: #### C MP #### [facility] [address] [place] [address] Dr. Kiran Gongora ALP [Catalytic activity/Vol] 83 U/L Normal 46-116 [facility] Comment on above: Performed By: #### C MP #### [facility] [address] [place] [address] Dr. Kiran Gongora ALT [Catalytic activity/Vol] 44 U/L Normal 16-63 [facility] Comment on above: Performed By: #### C MP #### [facility] [address] [place] [address] Dr. Kiran Gongora Anion gap [Moles/Vol] 8.2 mmol/L Normal [facility] Comment on above: Performed By: #### C MP #### [facility] [address] [place] [address] Dr. Kiran Gongora AST [Catalytic activity/Vol] 27 U/L Normal 15-37 [facility] Comment on above: Performed By: #### C MP #### [facility] [address] [place] [address] Dr. Kiran Gongora Bilirubin [Mass/Vol] 0.2 mg/dL Normal 0.2-1.0 [facility] Comment on above: Performed By: #### C MP #### [facility] [address] [place] [address] Dr. Kiran Gongora Calcium [Mass/Vol] 8.5 mg/dL Normal 8.5-10.1 [facility] Comment on above: Performed By: #### C MP #### [facility] [address] [place] [address] Dr. Kiran Gongora Chloride [Moles/Vol] 109 mmol/L Critically high 98-107 [facility] Comment on above: Performed By: #### C MP #### [facility] [address] [place] [address] Dr. Kiran Gongora CO2 [Moles/Vol] 30.4 mmol/L Normal 21.0-32.0 [facility] Comment on above: Performed By: #### C MP #### [facility] [address] [place] [address] Dr. Kiran Gongora Creatinine [Mass/Vol] 1.12 mg/dL Normal 0.70-1.30 [facility] Comment on above: Performed By: #### C MP #### [facility] [address] [place] [address] Dr. Kiran Gongora EGFR-AF TUVALUAN >60 Normal >=60 [facility] Comment on above: Performed By: #### C MP #### [facility] [address] [place] [address] Dr. Kiran Gongora EGFR-NON AF TUVALUAN >60 Normal >=60 [facility] Comment on above: Performed By: #### C MP #### [facility] [address] [place] [address] Dr. Kiran Gongora Globulin (S) [Mass/Vol] 3.4 g/dL Normal T [facility] Comment on above: Performed By: #### C MP #### [facility] [address] [place] [address] Dr. Kiran Gongora Glucose [Mass/Vol] 72 mg/dL Critically low 74-106 [facility] Comment on above: Performed By: #### C MP #### [facility] [address] [place] [address] Dr. Kiran Gongora Potassium [Moles/Vol] 3.6 mmol/L Normal 3.5-5.1 [facility] Comment on above: Performed By: #### C MP #### [facility] [address] [address] [address] Kiran Gongora Protein [Mass/Vol] 6.6 g/dL Normal 6.4-8.2 [facility] Comment on above: Performed By: #### C MP #### [facility] [address] [address] [address] Kiran Gongora Sodium [Moles/Vol] 144 mmol/L Normal 136-145 [facility] Comment on above: Performed By: #### C MP #### [facility] [address] [address] [address] Kiran Gongora Urea nitrogen [Mass/Vol] 19.0 mg/dL Critically high 7.0-18.0 [facility] Comment on above: Performed By: #### C MP #### [facility] [address] [address] [address] Kiran Gongora Urea nitrogen/Creatinine [Mass ratio] 17.0 mg/mg Normal [facility] Comment on above: Performed By: #### C MP #### [facility] [address] [address] [address] Kiran Gongora Covid-19 PCR ([facility])on 06-09 SARS-CoV-2 (COVID-19) RNA CATRACHITO+probe Ql (Unsp spec) Not detected Normal NOT DETECTED [facility] Comment on above: Result Comment: This test is not yet approved or cleared by the [place] FDA. When there are no FDA-approved or cleared tests available, and other criteria are met, FDA can make tests available under an emergency access mechanism called an Emergency Use Authorization (EUA). The EUA for this test is supported by the [place] of Health and Human Service's (HHS's) declaration that circumstances exist to justify the emergency use of in vitro diagnostics for the detection and/or diagnosis of the virus that causes COVID-19. This EUA will remain in effect (meaning this test can be used) for the duration of the COVID-19 declaration justifying emergency of IVDs, unless it is terminated or revoked by FDA (after which the test may no longer be used). When diagnostic testing is negative, the possibility of a false negative should be considered in the context of a patient's recent exposures and the presence of clinical signs and symptoms consistent with SARS-CoV-2. Performed By: #### C VDTB #### [facility] [address] [place], [place] [address] Dr. Kiran Gongora TSH w/ Reflex to Free T4on 1 12-24-2020 TSH 4.010 uIU/mL Normal 0.400-4.500 [facility] Comment on above: Performed By: #### T SH reflex FT4 #### [facility] [address] [place], [place] [id number] Coding Summary.on 05-08-2021 Coding Summary. CD:[id number] G h0bWw+PGhlYWQ+XN2TZSQ nG43pvNCkwC4AB0lZAY5G WNHDTGGVLL6CRC0rcQS9T PghA4DhmsVd FirpiFCqOL55RLd9TGD5p JdbEDxawK6jyUDhP3h1Rp YmQC06fK53BVhwMUEuUaZ 3LjZpbjsgbWFy S8oyJfKdeDEyGdg+PHRhY mxlIHdpZHRoPScxMDAlJy YlqVhfGU5aSc5yHFVkOSV vbGxhcHNlOiBj d9fdBFEzLTahVP4poYzeY 9EsnSS9AQExn7g4Xf24vA I+DOYfUYK5sArnIOzqu28 0JsYdc8leYEM8 eMBpCFaoUSY3Y11jc3Q0S LTmLEDgSCP4hBL5vC4qeZ hrbfwwM6YszEOzLdP0MRE 6sMCmtK3qmZxm zwqbvJ4eOnm+R83WXQ7EK KFSGO0TFoi8N2ZaNiggtQ I+OA09CHFgES78yJXdaGI lk0yeeHx0XtMb EEEoEHX7eJljPUpcf6GjA BViK61kxXLxy0C8GWRnyO zyrQNlGwXhqAR6gM2qQMh wrppbe6hznatz Lvxmb4ikoj14aS91X96sB PlgZQIeHBX3VRFxDBAkqH lmub0smW9jQm7+MApkv1c ba9oafJr8TjGk TLSndrGzgIxlPST0w7AzL j05Q5AnmRvlv5HrUpt4jq 21bKFpa0I6dBE2LFdrUMD zrM9eQPajJhN1 VVZwZrPqkR74sKRzHWegU t8usJphnFcvWW8dWCEvuo fuTIIzwC7hPQHbzRKlyGo eBL5xRZJdrsxr q817HtJyLFC9IEHefMZeK 8SebT7wUnMqAHSvXZCrP3 ClwIDqCWkjQ658HUnkFwK 3UUBkvuFfY5Kh JUPfgFwkAiQ4k7X2Kv8Xd 0UksasuIUF6OOvnVXX6Ue ImUmVaLkH0B6ZfSul8BPF waTcyZP0wG0Zl EFFzmdkzoutjrZI4XYCtE TOhtJ65tWJpTXwrFe9mm8 X9i210UXXhUSXhnW07Ml3 udDogMTBwdCBU yF4qambma7ppnoquEtJpC BQiVKg1AMh3RXXqkUjdLv ToPTV5XfQ4GID7aHNfvE0 dlFexxhlucW3q Oyc+Y46tyK1aPJJ0IOM3i iciVPMqaaEuUO87TG75P8 RyPjwvdGFibGU+PGRpdiB kzRycTO0oFmUn z7iwz0PpLLdzD5DoTZDkW RnyTba6PHMpKYN9nFN4pS 8zCVLrJJawo9X6ySB8L4N xwvPyiy6zm1gx QKIxROonT91wtFIar8K1T DCszXI9GYJmrBdvCnAxmW 93Oyc+DGJwhYhms0UjNmi kr9kps5sbkXw4 JbJsEDOrvsRnfGirQTN8d 8ShNr99Z63pHSrmLRGvDE IiMSYcEJJnhRhysl0vmL0 wIi8+PGNvbCB3 lEH6xE4pMLTeWpT3LHurW 129IoHstUHcRnrne8rya4 fjsFm8RpQmRQYtjoNnuLt oMYL3u3YbUz28 K53aFPyiHYOlNUVkJWWxY QPjnAgwpv5wuZ7fFl1+PC 6hc1wbnm86fD82gFK+PHR yRZH5iYdcHXde GCIajN9oIMotFqV8HUWdU nNmyQ29cFMxFDjtJm4izL purYlySV9aCQInsjyni30 7ClXua7tiNHDu xWCrZAdqYBZ1R06ug1W5D NGfISZlSAY7yEA1tY0tdV lnbjogbGVmdDsgdmVydGl cMXynMVntT125 IHRvcDsnPlBhdGllbnQgT iPoQAx9W4DkJjw5KZUfrV iuEB4ruVUbWRvxYu7dkLn svZadRH5pHDUx soqzq781QnZvm5ikPSMuj AEkOKjzQQH8U58yo8P5GU PuLHJpMDS9sAC2jU8qpLw nbjogbGVmdDsg xoDbpYqbMDvoDVnnE434M HRvcDsnPkJpcnRoIERhdG H8VB10VB79hQQcg5Q4jAG 3Z9IxFVHyfitb lqspoHI7VOXwSQZnlC39F a3fcWdaSk0nBJKvPJL9HP PypMZnM3WfiU2pUnNbRGM eZKKbC0HvbXCz APgiC371LHanBvR0ENInu nJmP3PcDLNavUvnUsX3z6 E1Us1GZ4N3LK85AG44cVO wu3E0cUF7M7Jg GWOubcaednjopJL2DMLaP CXyzY59Vx0duBhbXv6gQY OhFDY4WAFpnORwR9JfnH0 yOiAjMDAwMDAw Q2RcnXKyJXjcN562YTraZ yN2TWOpzoEpP9DqBHUntR aoBxH3h1O2Dl8EBEb4IJ4 0IS33qYThz4Q6 dXH8X5PsDNNhcakfwdesk EO6YAQuVVIikI45El7hnT orLp2rMAXlGGY0IDCcqPU eN3PyuB9xQxSg COOjIZIzR3OqcMDcZDunC 624XZhhCpG9OOGqcpUvM7 KsYGXxzUoxOjA1u0X4Yf6 RXZNmYH72OIB7 vWG7MC52NE02I0YqPbtam GFibGU+PHRhYmxlIHdpZH RoPScxMDAlJyBzdHlsZT0 xVe7jXJDhCXAt lMceeVIsQlFxq1zxZKEyV WfiJC2idWglR5KegEF8ZB Yok2b5Jb54Y71vE4JehBD +RYEjfDS7pUN2 jS5jRaRdGpY2KGeqM979U jLkyAFfOgnoi5jwv7ilpQ u7EaK2FCFwuvKofPbeZUF 4c4UqBg30R39e IHdpZHRoPSIxNSUiIHZhb Qnzhv4odT7iPo0+PGNvbC K7oWY8sD2fSjSdIcB9EOp vS889QyRgcMBq Oikff2cwz3towKm4VtQyJ QXtzjDsaIvkPDC8q1LhCk 06K2XgtPkge8KyDwm5tb3 5mUElq0Q8rJC0 O4RtLHBvtwfmfQRqgUwdE C4eIZOespytRRMyxX7cCF VaP0d2SrNfVlD4CVqpA9V rtrK3IDOpfZJd EWovFOD5H66yc3W3WZQvV HShMBF7zHH7yW4miOcpug ogbGVmdDsgdmVydGljYWw oNWstY088RVHi wMnoJJLrlL3sJVDpvDKru YkhKS2oAVXvuqeeVhZTH7 WNHlPTqrqpL5nZVRfPBHY TMW16IZ32uJWl x2P9hKL2F0NuTJJhqnyby pbitLK3UWXgHYPgjS05bG HkQVtqTm3go1L7r310FYI oDHZszY81Sq5e mLexKGUmpHTUaK5xzhoex 8nkctdhQfRpLWVdPDz3MO f1VBZnyKljXwGcKEW2SnD 9EMG2eOOnmD3u bNuskfxdyG8mAmc+MDEvM KMdQYu3IWkieCT+PHRkIH R5oKtgAVuhSBFdvY5lWOY xM6n2GhZtRkJ0 TXtzR6CxKCTujgxvLn80x C6fEzGaAjI6JMoyP3Znpb D5MXTgrAFsCYneHEB9O79 kl6O6HNKjBBSi JOB1yIU8tN1vbKhqtmunq GVmdDsgdmVydGljYWwtYW ynV730WZFzmJbzFsBnGWw eFUZzHY84LG87 bFLzj8B6aKB7W2IwOGVpb ekbalhcnJZ7ESDzOJMzfR 26oUYeAGthJe0cr4N4s67 2KPWnITCxaD62 Zl8mlXzrYMJexGKUzK1jf lgkb5qvvhszKtQnLDWuOH w9WKy2TQXrdWlyRrRmOEX 8PnG0JUU1aKXa oA1cnQrpcmnynW8bRlz+T WFsZTwvdGQ+UYIvWNR2aJ ovWEwfRJBdpY6mNIMbR9q 8TsLnZmA5HEld Q7YhFZKdkshrDd33hA5oJ xFnEiX7PDebK7ObweB3ER PywCOmQZybPAE1W40kw1O 7KSGwMVIjDZR1 bHA4eT3daXusgvzwuAFsh DsgdmVydGljYWwtYWxpZ2 99DWHqjUxxPv2qm2SngdN 7lU1zXJ49CX91 J0XlKhhuxIGxuQS+PHRhY mxlIHdpZHRoPScxMDAlJy LbpBcnIK1iPc8rUPNiJPL vbGxhcHNlOiBj i9riSBQiGAwsVB1xpVlmX 0AkiWU6SMZpm9z9Es29O7 7bC7GjkAT+AEQxqGL0oMS 9lQ1iPjAuTsO1 RJraS469IzEjsENbWsobd 9cdf3jcbSo5YyWvJVJgxg FrtQneCIV1v9XkCp67Y87 sIHdpZHRoPSIy GJXtIWEbaJcbom1zvY3yZ i8+NCVtvSG7sNN7zT5bRa TvGyC3AGvzO661AeJulPQ xYmjbI28vX1Ip dXA+ZMXcCku9FLXpsQygP S3ttPUvBWibFh1kJXE6Wz HxJfRhLDpeP3AmAPTuoll wthdhyNE8NHFm PBDskU09Ap9mxKruPs2aW JRjWVO0ANSyaGBvO4EanV 0wWuFrXQFdMEQmF5GtsGQ oDMibV875TCms AtF5EPFucdOkQ1XxIKYza PhqXtR5b7D9Bq6GyRsscV OqJG1dHeVeQTt7Z4JfOax 7PNKptMznZW5u jIWiMBsqVf8voBwpcIxfJ W1rWOLiopcye973PvPlb3 vlYBLlqDLgOOlvIIJ7R40 ix7L6XJZsOBWa OMQ4sOW8sN0ogTjgrmnlo GVmdDsgdmVydGljYWwtYW jxN276MOTxwTdoNcJVXbc 2Z3WzRdt4OKAc yLzyUK9uyQYyAWovOl2yt PjkfCpuVV3qRVUmiqcir0 80NrVqc6azKYRdxBGwZBl vWJS2B77pr4F1 YOCqZLPaKYL2pTD5iZ7db GlnbjogbGVmdDsgdmVydG kfGZsgEQxgT714HFCcpOv tDt9TUnh2D7Cd Agf6CRSxnSoyPU3ybQHcT QlcBb2ojHqnvQopPV8yBI Obwsxcv499VmNpy5sjBXF wcHQgVGltZXM7 D10wa9Z0OZUxWOFwEOK3k OZ3oJ5kxQyvtzgtpLXlvS ejoeSydXhnXGllQVwvN50 6IHRvcDsnPlBh eWVyOjwvdGQ+ZI61le00X 0RhFasaJtw2XXCsNAS0kW M5mK3vRMBbGMnoe7M0pGR 0C2BovuDvcg2l b2xs (more content not included)... Normal [facility] ED Traumaon 05-06-2021 ED Trauma [id number]# 1.00CD:127 Normal [facility] EMS Documentationon 05-05-20 EMS Documentation [id number]# 1.00CD:127 Normal [facility] ABO/Rh History Checkon 05-02 ABO/Rh History Check Type verified by second s Normal [facility] Comment on above: Performed By: #### 1 [id number], [id number], [id number], [id number] ####[facility] [id number] [address] ABO/Rh Retypeon 05-02-2021 ABO/Rh Retype Interp Positive Invalid Interpretation Code [facility] Comment on above: Performed By: #### 1 [id number] ####[facility] [id number] [place] [address] ABSCon 05-02-2021 ABSC Gel Interp Negative Normal [facility] Comment on above: Performed By: #### 1 [id number], [id number], [id number], [id number] ####[facility] [id number] [place] [address] Auto Diffon 05-02-2021 Basophils/100 WBC (Bld) 1.3 % Normal 0.0-2.0 [facility] Comment on above: Order Comment: Order Added by Discern Expert. Performed By: #### 2 780798, 0665615, 0099311, [id number] #### [facility] Laboratory [address] [place] [address] Basophils/Leukocytes Auto (Bld) [Pure # fraction] 0.1 E9/L Normal 0.0-0.2 [facility] Comment on above: Order Comment: Order Added by Discern Expert. Performed By: #### 2 958243, 0363622, 2003861, [id number] #### [facility] Laboratory [address] [place] [address] Eosinophils/100 WBC (Bld) 4.2 % Normal 0.0-8.0 [facility] Comment on above: Order Comment: Order Added by Discern Expert. Performed By: #### 2 132818, 4266383, 0807370, 08523723 #### [facility] Laboratory [address] [place] [address] Eosinophils/Leukocytes Auto (Bld) [Pure # fraction] 0.2 E9/L Normal 0.0-0.5 [facility] Comment on above: Order Comment: Order Added by Discern Expert. Performed By: #### 2 152657, 6334168, 4819621, 74345352 #### [facility] Laboratory [address] [place] [address] Lymphocytes/100 WBC (Bld) 36.9 % Normal 14.0-50.0 [facility] Comment on above: Order Comment: Order Added by Discern Expert. Performed By: #### 2 266855, 1355117, 2396977, [id number] #### [facility] Laboratory [address] [place] [address] Lymphocytes/Leukocytes Auto (Bld) [Pure # fraction] 1.7 E9/L Normal 1.0-4.0 [facility] Comment on above: Order Comment: Order Added by Discern Expert. Performed By: #### 2 267721, 8398676, 7797788, 72380671 #### [facility] Laboratory [address] [place] [address] Monocytes/100 WBC (Bld) 8.7 % Normal 4.0-14.0 [facility] Comment on above: Order Comment: Order Added by Discern Expert. Performed By: #### 2 614096, 4804303, 6996660, 13737880 #### [facility] Laboratory [address] [place] [address] Monocytes/Leukocytes Auto (Bld) [Pure # fraction] 0.4 E9/L Normal 0.2-1.0 [facility] Comment on above: Order Comment: Order Added by Discern Expert. Performed By: #### 2 812165, 2197638, 7219361, 64897875 #### [facility] Laboratory [address] [place] [address] Neutrophils/100 WBC (Bld) 48.9 % Normal 36.0-75.0 [facility] Comment on above: Order Comment: Order Added by Discern Expert. Performed By: #### 2 467516, 9241703, 1545010, 66889564 #### [facility] Laboratory [address] [place] [address] Neutrophils/Leukocytes Auto (Bld) [Pure # fraction] 2.2 E9/L Normal 2.0-7.5 [facility] Comment on above: Order Comment: Order Added by Discern Expert. Performed By: #### 2 520769, 6472475, 7103041, [id number] #### [facility] Laboratory [address] [place] [address] BMPon 05-02-2021 Anion gap [Moles/Vol] 11 mmol/L Normal 6-16 [facility] Comment on above: Performed By: #### 2 492766, 8734896, 8039331, 86104258 #### [facility] Laboratory [address] [place] [address] Calcium [Mass/Vol] 8.3 mg/dL Low 8.9-11.1 [facility] Comment on above: Performed By: #### 2 112972, 5095812, 4963182, 98799881 #### [facility] Laboratory [address] [place] [address] Chloride [Moles/Vol] 107 mmol/L Normal 101-111 [facility] Comment on above: Performed By: #### 2 122111, 2393272, 4834653, 32406908 #### [facility] Laboratory [address] [place] [address] CO2 [Moles/Vol] 25 mmol/L Normal 21-31 [facility] Comment on above: Performed By: #### 2 398778, 9986977, 0739755, 65541915 #### [facility] Laboratory [address] [place] [address] Creatinine [Mass/Vol] 1.2 mg/dL Normal 0.5-1.3 [facility] Comment on above: Performed By: #### 2 774134, 1896994, 6910155, 70498976 #### [facility] Laboratory [address] [place] [address] Glucose [Mass/Vol] 88 mg/dL Normal 55-199 [facility] Comment on above: Result Comment: If t his glucose result represents a fasting glucose, interpretation should refer to the following reference range: 55-99 mg/dL Performed By: #### 2 961181, 7844075, 4762218, 93460283 #### [facility] Laboratory [address] [place] [address] Potassium [Moles/Vol] 3.5 mmol/L Normal 3.5-5.3 [facility] Comment on above: Performed By: #### 2 378247, 6237420, 5896239, 11215798 #### [facility] Laboratory [address] [place] [address] Sodium [Moles/Vol] 139 mmol/L Normal 135-145 [facility] Comment on above: Performed By: #### 2 233228, 5994000, 8608730, 15246255 #### [facility] Laboratory [address] [place] [address] Urea nitrogen [Mass/Vol] 14 mg/dL Normal 5-21 [facility] Comment on above: Performed By: #### 2 691813, 6469771, 9270974, 59915069 #### [facility] Laboratory [address] [place] [id number] Urea nitrogen/Creatinine [Mass ratio] 12 No Units Normal 10-20 [facility] Comment on above: Performed By: #### 2 894219, 6186483, 4230162, 79444487 #### [facility] Laboratory [address] [place] [address] CBC w/ Auto Diffon Erythrocyte distribution width (RBC) [Ratio] 13.5 % Normal 10.9-14.2 [facility] Comment on above: Performed By: #### 2 754776, 2898345, 2952172, 01027094 #### [facility] Laboratory [address] [place] [address] Hematocrit (Bld) [Volume fraction] 41.0 % Normal 37.7-49.0 [facility] Comment on above: Performed By: #### 2 002481, 8562448, 0816221, 81437569 #### [facility] Laboratory [address] [place] [address] Hemoglobin (Bld) [Mass/Vol] 13.6 g/dL Normal 13.5-17.5 [facility] Comment on above: Performed By: #### 2 930328, 9185773, 6702932, 57463809 #### [facility] Laboratory [address] [place] [address] MCH (RBC) [Entitic mass] 27.6 pg Normal 27.0-34.0 [facility] Comment on above: Performed By: #### 2 793598, 7932685, 3869768, 74679567 #### [facility] Laboratory [address] [place] [address] MCHC (RBC) [Mass/Vol] 33.2 g/dL Normal 31.4-36.0 [facility] Comment on above: Performed By: #### 2 596005, 0371465, 3605889, 67835096 #### [facility] Laboratory [address] [place] [address] MCV (RBC) [Entitic vol] 83.1 fL Normal 80.0-100.0 [facility] Comment on above: Performed By: #### 2 638482, 7441822, 0587344, 72864941 #### [facility] Laboratory [address] [place] [address] Platelet mean volume (Bld) [Entitic vol] 9.8 fL Normal 6.4-10.8 [facility] Comment on above: Performed By: #### 2 987959, 0691370, 7394270, 61038827 #### [facility] Laboratory [address] [place] [address] Platelets (Bld) [#/Vol] 129.0 E9/L Low 150.0-500.0 [facility] Comment on above: Performed By: #### 2 942430, 2074553, 6502945, 47513421 #### [facility] Laboratory [address] [place] [address] RBC (Bld) [#/Vol] 4.9 E12/L Normal 4.3-5.9 [facility] Comment on above: Performed By: #### 2 441538, 3894722, 8779182, 58451319 #### [facility] Laboratory [address] [place] [address] WBC corrected for nucl RBC Auto (Bld) [#/Vol] 4.5 E9/L Normal 4.0-11.0 [facility] Comment on above: Performed By: #### 2 451266, 1875478, 9678007, 08710024 #### [facility] Laboratory [address] [place] [address] CT Abdomen/Pelvis w/ Contras ton 05-02-2021 CT Abdomen/Pelvis w/ Contrast Exam Date/Time: 05/01/2021 21:51 EDT Reason for Exam: Abdominal trauma;Other (please specify) Report Please refer to the report of CT scan of chest on 05/01/2021. FINAL REPORT Dictated: 05/02/2021 9:02 am Baldomero Lopez M.D. Signed (Electronic Signature): 05/02/2021 9:02 am Signed by: Baldomero Lopez M.D. Transcribed by: DYAN Technologist: CHASE Technical Comments GFR (mL/min/1/73m2) na Contrast: Isovue 300 Contrast amount in ml's: 100 Normal [facility] CT Chest w/ Contraston 05-02 CT Chest w/ Contrast Exam Date/Time: 05/01/2021 21:51 EDT Reason for Exam: Chest trauma, mod-severe;Other (please specify) Report IMPRESSION: NO EVIDENCE OF ACUTE PROCESS IN THE CHEST, ABDOMEN AND PELVIS. CLINICAL HISTORY: Chest trauma, mod-severe COMPARISON: NONE. FINDINGS: Multiple axial CT images of the chest, abdomen and pelvis were obtained every 5 mm interval with intravenous injection of contrast. CT chest shows no pneumothorax or pleural effusion. There is dependent atelectasis in the both lungs posteriorly. There is no significant sized the pulmonary nodule or mass in either lung. There is no parenchymal abnormality. The mediastinum and axillary area are within normal limits. Bony structures are unremarkable. CT abdomen shows no laceration or subcapsular hematoma the liver and spleen. Gallbladder is unremarkable. Pancreas, adrenals and both kidneys are free from mass or hydronephrosis. There is no retroperitoneal mass or lymphadenopathy. Bowel loops are unremarkable. Bony structures are unremarkable CT pelvis shows no pelvic mass or lymphadenopathy. There is no ascites or fluid-filled mass. There are tiny fat-containing bilateral inguinal hernias. Bony structures unremarkable. Thoracolumbar spine shows mild degenerative spurs from vertebral bodies. There is mild narrowing of L5-S1 intervertebral disc space. There are no acute fracture or subluxation. All CT scans at this facility use dose modulation, iterative reconstruction, and/or weight based dosing when appropriate to reduce radiation dose to as low as reasonably achievable. FINAL REPORT Dictated: 05/02/2021 9:01 am Baldomero Lopez M.D. Signed (Electronic Signature): 05/02/2021 9:01 am Signed by: Baldomero Lopez M.D. Transcribed by: DYAN Technologist: CHASE Technical Comments GFR (mL/min/1/73m2) na Contrast: Isovue 300 Contrast amount in ml's: 100 Normal [facility] CT Head or Brain w/o Contras ton 05-02-2021 CT Head or Brain w/o Contrast Exam Date/Time: 05/01/2021 21:51 EDT Reason for Exam: Head trauma, mod-severe;Other (please specify) Report IMPRESSION: No acute intracranial process. EXAMINATION: CT Head or Brain w/o Contrast HISTORY: Head trauma, mod-severe. Fall down steps. Possible loss of consciousness. TECHNIQUE: Serial axial images without IV contrast were obtained from the vertex to the foramen magnum, with sagittal and coronal reconstructions. All CT scans at this facility use dose modulation, iterative reconstruction, and/or weight based dosing when appropriate to reduce radiation dose to as low as reasonably achievable. COMPARISON: None. RESULT: Acute change: No evidence of an acute infarct or other acute parenchymal process. Hemorrhage: No evidence of acute intracranial hemorrhage. Mass Lesion / Mass Effect: There is no evidence of an intracranial mass or extraaxial fluid collection. No significant mass effect. Chronic change: Scattered patchy foci of low attenuation are present within supratentorial white matter which is a nonspecific finding but likely represents mild microvascular ischemia. Parenchyma: There is no significant volume loss. The brain parenchyma is otherwise within normal limits for age. Ventricles: The ventricles are within normal limits of size and configuration for age. Paranasal sinuses and skull base: Minimal mucosal thickening involving the ethmoid air cells. Apparent chronic changes involving the mastoid air cells, with minimal opacified mastoid air cells. The skull base is unremarkable. Soft tissues Report unremarkable. FINAL REPORT Dictated: 05/02/2021 8:49 am Mikel Hernandez MD Signed (Electronic Signature): 05/02/2021 8:49 am Signed by: Mikel Hernandez MD Transcribed by: DYAN Technologist: CHASE Normal [facility] CT Spine Cervical w/o Contra ston 05-02-2021 CT Spine Cervical w/o Contrast Exam Date/Time: 05/01/2021 21:51 EDT Reason for Exam: Neck trauma, focal neuro deficit or paresthesia;Other (please specify) Report IMPRESSION: No acute fracture or traumatic malalignment. EXAMINATION: CT Spine Cervical w/o Contrast HISTORY: Neck trauma, focal neuro deficit or paresthesia. TECHNIQUE: CT of the cervical spine without IV contrast. Spiral, high resolution axial images were obtained from the skull base to the cervicothoracic junction with sagittal and coronal planar reconstructions. All CT scans at this facility use dose modulation, iterative reconstruction, and/or weight based dosing when appropriate to reduce radiation dose to as low as reasonably achievable. COMPARISON: None. RESULT: Counting reference: Craniocervical junction. Alignment: Straightening of the cervical lordosis. No traumatic malalignment. Craniocervical junction: Craniocervical junction is normal. Osseous structures/fracture: No evidence for acute fracture. No destructive osseous lesions. Cervical soft tissues: The paraspinal soft tissues planes are maintained. Degenerative changes, canal and foramina: Disc height loss and endplate osteophytes at the C3-C4 level with mild to moderate bilateral foraminal narrowing, mild canal narrowing. Otherwise bony canal and foramina are grossly patent within limits of CT. Upper thoracic spine: No significant canal or foraminal narrowing. FINAL REPORT Dictated: 05/02/2021 8:53 am Mikel Hernandez MD Signed (Electronic Signature): 05/02/2021 8:53 am Signed by: Mikel Hernandez MD Transcribed by: DYAN Technologist: CHASE Normal [facility] Consent for Treatmenton 04-09 Consent for Treatment [id number]# 1.00CD:127 Normal [facility] Discharge Instructionson Discharge Instructions [id number]# 1.00CD:127 Normal [facility] ED Clinical Summaryon 2020 ED Clinical Summary [address] [place] [address] ED Clinical Summary Person Information Name: JOHNATHAN HEREDIA [facility] Age[facility] 50 Years : 1970 Sex: Male Language: Polish PCP: WILY LANDRUM MD Marital Status: Visit Id: Visit Reason: Neck pain; Trauma - major; Chest pain; FALL Speciality: Acuity: 2 Enc Type: Emergency Med Service: Emergency Arrival: 05/01/2021 21:04:08 Discharge: LOS: 000 03:19 Checkin: 05/01/2021 21:04:08 Checkout: 05/02/2021 00:23:44 Dispo Type: Admitted as IP to this [facility] EVENTS: Event Name Event Status Request Date/Time Start Date/Time Complete Date/Time Arrive Complete 05/01/2021 21:04:08 05/01/2021 21:04:08 05/01/2021 21:04:08 Document Home Meds Request 05/01/2021 21:04:08 Triage Complete 05/01/2021 21:04:08 05/01/2021 21:07:15 05/01/2021 21:07:15 Bed Assign Complete 05/01/2021 21:06:23 05/01/2021 21:06:23 05/01/2021 21:06:23 Dr Exam Complete 05/01/2021 21:06:23 05/01/2021 21:07:14 05/01/2021 21:07:14 RN Exam Request 05/01/2021 21:06:23 EKG Complete 05/01/2021 21:06:51 05/01/2021 21:09:06 Registration Complete 05/01/2021 21:07:14 05/01/2021 22:25:20 05/01/2021 22:25:20 Consult Request 05/01/2021 21:17:46 NPO Request 05/01/2021 21:17:46 Meds Admin Complete 05/01/2021 21:17:46 05/01/2021 22:11:12 Pending Labs Request 05/01/2021 21:17:46 Lab Request 05/01/2021 21:17:46 Urine Collect Request 05/01/2021 21:17:46 RT Request 05/01/2021 21:17:46 Patient Care Request 05/01/2021 21:17:46 Blood Collect Request 05/01/2021 21:17:46 CT Complete 05/01/2021 21:17:46 05/01/2021 21:22:32 05/01/2021 21:51:28 Pending Labs Complete 05/01/2021 21:25:50 05/01/2021 21:25:50 05/01/2021 21:49:33 Lab Complete 05/01/2021 21:25:50 05/01/2021 21:25:50 05/01/2021 21:49:33 X-Ray Complete 05/01/2021 21:26:19 05/01/2021 21:40:06 05/01/2021 21:57:53 Pending Labs Complete 05/01/2021 21:27:56 05/01/2021 21:27:56 05/01/2021 21:27:56 Pending Labs Complete 05/01/2021 21:30:43 05/01/2021 21:30:43 05/01/2021 21:30:50 Lab Complete 05/01/2021 21:30:43 05/01/2021 21:30:43 05/01/2021 21:30:50 Wet Read Request 05/01/2021 21:57:53 Reg Complete Request 05/01/2021 22:25:20 Trauma II Request 05/01/2021 23:00:21 Patient Care Request 05/01/2021 23:35:52 NPO Request 05/01/2021 23:35:52 Meds Admin Request 05/01/2021 23:35:52 Pending Labs Request 05/01/2021 23:35:52 Lab Request 05/01/2021 23:35:52 Bed Request Request 05/01/2021 23:35:52 Reg Bed Request Request 05/01/2021 23:35:53 Admit Request 05/01/2021 23:35:53 Inpatient Bed Ready Complete 05/02/2021 00:23:44 05/02/2021 00:23:44 05/02/2021 00:23:44 ADDRESS: [address] [place] [address] [phone] PHYS DOC NOTES: MEDICAL INFORMATION: Prescriptions Given: PATIENT EDUCATION INFORMATION: Instructions: Follow up: DIAGNOSIS: 1:Fall; 2:Concussion Normal [facility] ED Note-Physicianon 05-02-20 ED Note-Physician Basic Information Time Seen: Katie Elmore M.D. 05/01/2021 21:07 Chief Complaint Fall down 3 steps and hit head on car. c/o head, neck, back and R ankle pain. Pt unsure if LOC. No deformities noted. Alert to self only. Clear speach. EMS unsure if baseline. FSBS 85. C-collar maintained from EMS. History of Present Illness The patient is 50-year-old male who presented to the emergency room via EMS status post fall. According to EMS the patient had fallen off the deck 3 steps high, face forward. The patient remembers falling. He is complaining of headache. He does not know what happened and what caused him to fall. The patient is complaining of neck pain, he is complaining of back pain especially on the left lower back. He states he had back surgery L1-L2 in the past. The patient is complaining of mild chest pain. He denies any shortness of breath. Denies any abdominal pain. Denies any nausea vomiting. The patient is complaining of numbness on the fingers of left hand. The patient denies any other associated symptoms. Per who has spoken to the nurse had told her that he had fallen about 2 steps, unwitnessed fall. She helped him get up and he fell again. She reports loss of consciousness. The had stated normally he is alert and oriented. Review of Systems Additional ROS info: Except as noted in the above Review of Systems and in the History of Present Illness all other systems have been reviewed and are negative or noncontributory. Physical Exam Vitals & Measurements T: 36.6 ?C (Oral) HR: 90(Peripheral) RR: 20 BP: 127/96 SpO2: 99% HT: 170 cm HT: 170.0 cm WT: 71.4 kg WT: 71.4 kg BMI: 24.71 General: alert, no acute distress Skin: warm, dry Head: no trauma, normocephalic Neck: Trachea midline, moderate tenderness midline cervical spine Eye: normal conjunctiva, sclera clear, PERRL, EOMI, vision unchanged ENMT: Oral mucosa moist Cardiovascular: regular rate and rhythm, normal peripheral perfusion, no murmur, no edema Respiratory: Lungs CTA, respirations non labored, breath sounds equal, symmetrical expansion Chest wall: no deformity,mildtendern ess left side of the chest Gastrointestinal: soft, non distended, mild tenderness left upper quadrant, no guarding, normal bowel sounds, no organomegaly Back: Moderate tenderness over the L1-L2-L3 region and left lumbar region, Normal alignment, no step-offs. Extremities: no deformity, no trauma, mild tenderness in right ankle. Generalized tenderness of the left knee. Neurological: Alert and oriented, CN II-XII intact, weakness on 4 extremities, the patient grants when asked to move his extremities and slowly moves them. Sensation equal & normal bilaterally, speech normal Psychiatric: cooperative, affect appropriate for age, Medical Decision Making The patient presented with fall. He does not remember the event. Possible he had concussion. Level 2 trauma was called. Blood work reviewed. The whitehead scan was ordered and showed no acute process. The x-ray of the left knee and right ankle shows no fracture or dislocation. The case is discussed with Dr. Mckeon who came and evaluated the patient to the emergency room and will admit him for observation. Assessment/Plan 1. Fall (W19.XXXA: Unspecified fall, initial encounter) 2. Concussion (S06.0X9A: Concussion with loss of consciousness of unspecified duration, initial encounter) Orders: Sodium Chloride 0.9% intravenous solution, Soln-IV, Misc, Once, Stop date 05/01/21 22:05:05 EDT, Physician Stop, 05/01/21 22:05:05 EDT Sodium Chloride 0.9% intravenous solution, 500 mL, IV, Once, Stop date 05/01/21 21:16:00 EDT, STAT, Start date 05/01/21 21:16:00 EDT, 500 mL/hr, Infuse over 1, hour(s) ABO/Rh ABO/Rh History Check Antibody Screen Automated Diff Basic Metabolic Panel Blood Bank ID# CBC w/ Auto Diff Consult to General Surgery CT Abdomen/Pelvis w/ Contrast CT Chest w/ Contrast CT Head or Brain w/o Contrast CT Spine Cervical w/o Contrast Drug Screen Urine ED Cardiac Monitoring eGFR Ethanol Level Extra SST Tube Hepatic Function Panel Lactic Acid Magnesium Level NPO Diet Oxygen Therapy PT & PTT Pulse Oximetry Continuous Saline Lock Insert Troponin UA With Cult Reflex XR Ankle 3+ Views Right XR Knee Complete 4+ Views Left Medications Administered Given NS 500 ml Bolus, 500 mL, IV Disposition Plan Patient Discharge Condition Stable Discharge Disposition Admitted to the hospital Discharge Prescription List Prescriptions No active prescription medications Follow-up No qualifying data available Problem List/Past Medical History Ongoing No qualifying data Historical No qualifying data Medications Inpatient acetaminophen 325 mg Tab, 650 mg= 2 tab(s), Oral, q4hr, PRN cyclobenzaprine 10 mg Tab, 5 mg= 0.5 tab(s), Oral, TID, PRN ketorolac 15 mg/mL Inj, 15 mg= 1 mL, IV Push, q6hr, PRN ketorolac 30 mg/mL Inj 1 mL, 30 mg= 1 mL, IV Push, q6hr, PRN senna 8.6 (more content not included)... Normal [facility] Comment on above: Result Comment: Elec tronically Signed By: Katie Elmore M.D.\.br\Date and Time Signed: 05/02/21 00:48 EDT ED Patient Education Noteon 05-02-2021 ED Patient Education Note Normal [facility] ED Patient Summaryon 021 ED Patient Summary [place] [address] Patient Discharge Instructions Person Information Name: JOHNATHAN HEREDIA Jr Age: 50 Years Arrival Date: 05/01/2021 21:04:08 Discharge Diagnosis: 1:Fall; 2:Concussion Primary Care Physician: WILY LANDRUM MD Provider Information Primary Provider: Katie Elmore M.D. Advanced Gold Marker:None The exam and treatment you received in the Emergency Department were for an urgent problem and are not intended as complete care. It is important that you follow up with a doctor, nurse practitioner, or physician?s health assistant for ongoing care. If your symptoms become worse or you do not improve as expected and you are unable to reach your usual health care provider, you should return to the Emergency Department. We are available 24 hours a day. JOHNATHAN HEREDIA Jr has been given the following list of patient education materials, prescriptions and follow-up instructions: Follow-up Instructions: In the event that this physician does not participate in your insurance network, please consult with your insurance company to find a nearby participating provider. Patient Education Materials: A MESSAGE TO ALL PATIENTS REGARDING OPIOIDS PRESCRIPTION OPIOIDS: WHAT YOU NEED TO KNOW Prescription opioids can be used to help relieve egenszmh-zy-kvrfwh pain and are often prescribed following a surgery or injury, or for certain health conditions. These medications can be an important part of the treatment but also come with serious risks. It is important to work with your healthcare provider to make sure you are getting the safest, most effective care. WHAT ARE THE RISKS AND SIDE EFFECTS OF OPIOID USE? Prescription opioids carry serious risks of addiction and overdose, especially with prolonged use. An opioid overdose, often marked by slowed breathing, can cause sudden . The use of prescription opioids can have a number of side effects as well, even when taken as directed: ? Tolerance?meaning you might need to take more of the medication for the same pain relief ? Physical dependence?meaning you have symptoms of withdrawal when a medication is stopped ? Increased sensitivity to pain ? Constipation ? Nausea, vomiting, and dry mouth ? Sleepiness and dizziness ? Confusion ? Depression ? Low levels of testosterone that can result in lower sex drive, energy, and strength ? Itching and sweating RISKS ARE GREATER WITH: ? History of drug misuse, substance use disorder, or overdose ? Mental health conditions (such as depression or anxiety) ? Sleep apnea ? Older age (65 years and older) ? Avoid alcohol while taking prescription opioids. Also, unless specifically advised by your health care provider, medications to avoid include: ? Benzodiazepines (such as Xanax or Valium) ? Muscle relaxants (such as Soma or Flexeril) ? Hypnotics (such as Ambien or Lunesta) ? Other prescription opioids KNOW YOUR OPTIONS Talk to your health care provider about ways to manage your pain that don?t involve prescription opioids. Some of these options may actually work better and have fewer risks and side effects. Options may include: ? Pain relievers such as acetaminophen, ibuprofen, and naproxen ? Some medication that are also used for depression or seizures ? Physical therapy and exercise ? Cognitive behavioral therapy, a psychological, goal-directed approach, in which patients learn how to modify physical, behavioral, and emotional triggers of pain and stress. IF YOU ARE PRESCRIBED OPIOIDS FOR PAIN: ? Never take opioids in greater amounts or more often than prescribed. ? Follow up with your primary health care provider. o Work together to create a plan on how to manage your pain. o Talk about ways to help manage your pain that don?t involve prescription opioids. o Talk about any and all concerns and side effects. ? Help prevent misuse and abuse o Never sell or share prescription opioids. o Never use another person?s prescription opioids. ? Store prescription opioids in a secure place and out of reach of others (this may include visitors, children, friends, and family). ? Safely dispose of unused prescription opioids: Find your community drug take-back program or your pharmacy mail-back program, or flush them down the toilet, following guidance from the Food and Drug Administration (www.fda.gov/Drugs/Re sourcesForYou). ? Visit www.cdc.gov/drugoverd ose to learn about the risks of opioids abuse and overdose. ? If you believe you may be struggling with addiction, tell your health grounds caretaker and ask for guidance or call [facility] National Helpline at 9-390-272-[employer]. v Source: [place] Department of Health and Human Services/Center for Disease Control & Prevention [facility] Medications Given: Medication Dose Route So (more content not included)... Normal [facility] Inpatient Clinical Summaryon 05-02-2021 Inpatient Clinical Summary [address] [address] Clinical Summary Person Information: Name: JOHNATHAN HEREDIA Jr Age: 50 Years : 1970 Sex: Male PCP: WILY LANDRUM MD Marital Status: Race: White Ethnicity: Non- or Language: Polish Visit Id: Visit Reason: Neck pain; Trauma - major; Chest pain; CONCUSSION Speciality: Acuity: Enc Type: Observation Med Service: Medical Arrival: 05/01/2021 21:04:08 Discharge: Dispo Type: Admitted as IP to this Hosp Address: [address] [place] [id number] Provider Notes: Diagnosis: 1:Fall; 2:Concussion Problems No Problems Documented Smoking Status: Former Smoker Functional Status: Sensory Deficits: History of Falls: Mobility Assistance Prior to Admission: ADLs: Moderate assistance Current Level of Assistance for Self-Care/Mobility: Cognitive Status: Oriented x 3 Allergies Bee Stings (Unknown) Tape (Itching at injection site) Measurements: Height: 170.18 cm Weight: 69.2 kg Blood Pressure: 117 mmHg / 77 mmHg BMI: 23.89 kg/m2 Procedures No Procedures Documented Immunizations No Immunizations Documented This Visit Final Med List: acetaminophen (acetaminophen 325 mg Tab) 2 Tablets By Mouth every 4 hours as needed Pain 1-3. Care Team Members: Attending Physician: Arpita Mckeon MD Consulting Physician: Referring Physician: Follow up: With: Address: When: WILY [address] [place], [place] [id number] Superpedestrian (9) Within 1 to 2 weeks Comments: Follow with your PCP within 1-2 weeks. Call for followup appointment. Patient Education Information: Concussion, Adult Normal [facility] Inpatient Patient Summaryon 05-02-2021 Inpatient Patient Summary [place] [address] Patient Discharge Instructions PERSON INFORMATION Name: JOHNATHAN HEREDIA Jr Date of : 1970 Current Date: 05/02/2021 15:36:16 PHYSICIANS Admitting Physician: Arpita Mckeon MD Primary Care Physician: WILY LANDRUM MD PCP Comment: Discharge Diagnosis: 1:Fall; 2:Concussion Condition at Discharge: Improved JOHNATHAN HEREDIA Jr has been given the following list of follow-up instructions, prescriptions, and patient education materials: PATIENT FOLLOW-UP INFORMATION Diet: Regular Discharge Activity: Ambulate as tolerated, Activity as tolerated Discharge Restrictions: Wound Care Instructions: Remove Your Dressing In Days Call Your Doctor For: IF UNABLE TO CONTACT YOUR PHYSICIAN AND YOU FEEL IT IS AN EMERGENCY, GO TO THE NEAREST EMERGENCY ROOM OR CALL 911 Home Treatment: Devices/Equipment: Special Services: Additional Instructions: Primary Care Physician to provide the following pending test results: None Follow up: With: Address: When: WILY [address] [place] [address] Business (1) Within 1 to 2 weeks Comments: Follow with your PCP within 1-2 weeks. Call for followup appointment. In the event that this physician does not participate in your insurance network, please consult with your insurance company to find a nearby participating provider. Comment: I, GIOVANNA Sandra, JOHNATHAN Bryan, have received the attached patient education materials/instruction s and have verbalized understanding: Patient Signature Date Clinican/Nurse Signature Date HERE ARE THE MEDICATION CHANGES THAT OCCURRED DURING YOUR HOSPITAL STAY New Medications Other Medications acetaminophen (acetaminophen 325 mg Tab) 2 Tablets By Mouth every 4 hours as needed Pain 1-3. Last Dose: ____Next Dose: ____ Comment: MEDICATION LIST PROVIDED FOR YOU IS A LIST OF YOUR CURRENT MEDICATIONS. PLEASE CARRY THIS WITH YOU AT ALL TIMES. acetaminophen (acetaminophen 325 mg Tab) 2 Tablets By Mouth every 4 hours as needed Pain 1-3. Pharmacy Information: [facility]- Comment: PATIENT EDUCATION INFORMATION Instructions: Concussion, Adult A concussion is a brain injury from a hard, direct hit (trauma) to the head or body. This direct hit causes the brain to shake quickly back and forth inside the skull. This can damage brain cells and cause chemical changes in the brain. A concussion may also be known as a mild traumatic brain injury (TBI). Concussions are usually not life-threatening, but the effects of a concussion can be serious. If you have a concussion, you should be very careful to avoid having a second concussion. What are the causes? This condition is caused by: ? A direct hit to your head, such as: ? Running into another player during a game. ? Being hit in a fight. ? Hitting your head on a hard surface. ? Sudden movement of your body that causes your brain to move back and forth inside the skull, such as in a car crash. What are the signs or symptoms? The signs of a concussion can be hard to notice. Early on, they may be missed by you, family members, and health care providers. You may look fine on the outside but may act or feel differently. Symptoms are usually temporary and most often improve in 7?10 days. Some symptoms appear right away, but other symptoms may not show up for hours or days. If your symptoms last longer than normal, you may have post-concussion syndrome. Every head injury is different. Physical symptoms ? Headaches. This can include a feeling of pressure in the head or migraine-like symptoms. ? Tiredness (fatigue). ? Dizziness. ? Problems with coordination or balance. ? Vision or hearing problems. ? Sensitivity to light or noise. ? Nausea or vomiting. ? Changes in eating or sleeping patterns. ? Numbness or tingling. ? Seizure. Mental and emotional symptoms ? Memory problems. ? Trouble concentrating, organizing, or making decisions. ? Slowness in thinking, acting or reacting, speaking, or reading. ? Irritability or mood changes. ? Anxiety or depression. How is this diagnosed? This condition is diagnosed based on: ? Your symptoms. ? A description of your injury. You may also have tests, including: ? Imaging tests, such as a CT scan or MRI. ? Neuropsychological tests. These measure your thinking, understanding, learning, and remembering abilities. How is this treated? Treatment for this condition includes: ? Stopping sports or activity if you are injured. If you hit your head or show signs of concussion: ? Do not return to sports or activities the same day. ? Get angela (more content not included)... Normal 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 patient is alert and oriented. Discussed per dr Hernandez he will be discharged home today. Patient verified PCP, insurance and denies any DME. Patient lives with his kids and girlfriend and denies any needs at discharge. Whiteboard updated and CRM contact information provided. Patient ststes he is hungry, no diet ordered and Vj Sorto made aware. Normal [facility] Comment on above: Result Comment: Elec tronically Signed By: Tevin MENDEZ, Karely\.br\Date and Time Signed: 05/02/21 15:04 EDT MRI Brain w/o Contraston MRI Brain w/o Contrast Exam Date/Time: 05/02/2021 11:10 EDT Reason for Exam: abnormal neuro exam, left sided inconsistent weakness, head CT negative Report IMPRESSION: No evidence for acute intracranial process. Scattered patchy areas of increased T2 and FLAIR signal are present in the supratentorial white matter which is a nonspecific finding but likely represents mild chronic microvascular ischemia. EXAMINATION: MRI Brain w/o Contrast HISTORY: abnormal neuro exam, left sided inconsistent weakness, head CT negative. Fall down steps with head injury. Headache and neck pain. Left side of body feels tingly with muscle spasms. COMPARISON: CT head 05/01/2021 TECHNIQUE: Routine noncontrast brain MRI protocol including diffusion and gradient echo images. RESULT: MR BRAIN: Acute Change: There is no evidence of restricted diffusion to suggest an acute infarct or other acute process. Hemorrhage: No evidence of prior parenchymal hemorrhage on the gradient echo images. Mass Effect / Mass Lesion: No evidence of an intracranial mass or extra-axial fluid collection. No significant mass effect. Chronic Change: Scattered patchy areas of increased T2 and FLAIR signal are present in the supratentorial white matter which is a nonspecific finding but likely represents mild chronic microvascular ischemia. Parenchyma: No significant volume loss for age. The brain parenchyma is otherwise within normal limits of signal intensity and morphology. Ventricles: Normal caliber and morphology. Skull Base: Hypothalamic and pituitary region are grossly normal. Craniocervical junction is normal. No significant marrow replacement process. Vasculature: Major intracranial arterial structures, and dural venous sinuses show Report typical flow void, suggesting patency by spin echo criteria. Other: The visualized paranasal sinuses are clear. Chronic changes involving the mastoids, similar to recent CT. The orbits are unremarkable. The extracranial soft tissues are unremarkable. FINAL REPORT Dictated: 05/02/2021 11:25 am Mikel Hernandez MD Signed (Electronic Signature): 05/02/2021 11:25 am Signed by: Mikel Hernandez MD Transcribed by: DYAN Technologist: JESSICA Technical Comments None Normal [facility] MRI Spine Cervical w/o Contr rand 05-02-2021 MRI Spine Cervical w/o Contrast Exam Date/Time: 05/02/2021 11:11 EDT Reason for Exam: Neck pain, acute, left sided inconsistent weakness, ct c spine negative Report IMPRESSION: No evidence for acute fracture or traumatic malalignment. EXAMINATION: MRI Spine Cervical w/o Contrast HISTORY: Neck pain, acute, left sided inconsistent weakness, ct c spine negative. Fall down steps with neck trauma. TECHNIQUE: Routine cervical spine MR protocol without gadolinium. COMPARISON: CT cervical spine 05/01/2021 RESULT: CERVICAL: Counting reference: Craniocervical junction. Anatomic Variants: None. Alignment: Alignment is anatomic. Craniocervical junction: Craniocervical junction is normal. Cord: The cervical spinal cord is within normal limits of signal intensity and morphology. Bone marrow signal/fracture: No evidence of pathologic marrow infiltration. No evidence of acute or chronic fracture. Cervical soft tissues: The paraspinal soft tissues are within normal limits. C2-C3: No significant canal or foraminal narrowing. C3-C4: Disc height loss. Broad-based disc bulge. Endplate osteophytes. Mild to moderate bilateral foraminal narrowing. Mild canal narrowing. C4-C5: No significant canal or foraminal narrowing. C5-C6: No significant canal or foraminal narrowing. C6-C7: No significant canal or foraminal narrowing. C7-T1: No significant canal or foraminal narrowing. Report Upper thoracic spine: Visualized upper thoracic canal and foramina without significant narrowing. FINAL REPORT Dictated: 05/02/2021 11:29 am Mikel Hernandez MD Signed (Electronic Signature): 05/02/2021 11:29 am Signed by: Mikel Hernandez MD Transcribed by: DYAN Technologist: JESSICA Technical Comments None Normal [facility] Monitor Recordon 05-02-2021 Monitor Record [id number]# 1.00CD:127 Normal [facility] Prescriptions/Work Noteson 0 05-02-2021 Prescriptions/Work Notes [id number]# 1.00CD:127 Normal [facility] RAD - MRI Screening Formon 0 05-02-2021 RAD - MRI Screening Form [id number]# 1.00CD:127 Normal [facility] RAD - Preliminary Cat Scan R eporton 05-02-2021 RAD - Preliminary Cat Scan Report [id number]# 1.00CD:127 Normal [facility] U Drug Screenon 05-02-2021 Amphetamines Screen method >1000 ng/mL Ql (U) Negative Normal Negative [facility] Comment on above: Result Comment: Nega tive Cutoff: <1000 ng/mL Performed By: #### 2 [id number] ####[facility] [id number] [place] [address] Barbiturates Screen Ql (U) Negative Normal Negative [facility] Comment on above: Result Comment: Nega tive Cutoff: <200 ng/mL Performed By: #### 2 [id number] ####[facility] [id number] [place] [address] Benzodiazepines Ql (U) Negative Normal Negative [facility] Comment on above: Result Comment: Nega tive Cutoff: <200 ng/mL Performed By: #### 2 [id number] ####[facility] [id number] [place] [address] Cocaine Ql (U) Negative Normal Negative [facility] Comment on above: Result Comment: Nega tive Cutoff: <300 ng/mL Performed By: #### 2 [id number] ####[facility] [id number] [place] [address] Opiates Screen Ql (U) Negative Normal Negative [facility] Comment on above: Result Comment: Nega tive Cutoff: <300 ng/mL Performed By: #### 2 [id number] ####[facility] [address] [place] [address] Phencyclidine Screen method >25 ng/mL Ql (U) Negative Normal Negative [facility] Comment on above: Result Comment: Nega tive Cutoff: <25 ng/mL These drug screen results are to be used for medical (i.e., treatment) purposes only. Unconfirmed drug screening results must not be used for non-medical purposes (e.g., employment testing, legal testing). Performed By: #### 2 [id number] ####[facility] [id number] [place] [address] Tetrahydrocannabinol Screen method >50 ng/mL Ql (U) Negative Normal Negative [facility] Comment on above: Result Comment: Nega tive Cutoff: <50 ng/mL Performed By: #### 2 [id number] ####[facility] [address] [place] [address] XR Ankle 3+ Views Righton XR Ankle 3+ Views Right Exam Date/Time: 05/01/2021 21:57 EDT Reason for Exam: Injury Report IMPRESSION: NO EVIDENCE OF A FRACTURE OR OTHER BONE ABNORMALITY IN THE RIGHT ANKLE. CLINICAL HISTORY: Injury fall down steps COMPARISON: None available. FINDINGS: AP, lateral and oblique views of the right ankle demonstrates no fracture, dislocation or other bone abnormality, except for minimal degenerative hypertrophic spurs from bony margins. Soft tissues are unremarkable. FINAL REPORT Dictated: 05/02/2021 8:10 am Baldomero Lopez M.D. Signed (Electronic Signature): 05/02/2021 8:10 am Signed by: Baldomero Lopez M.D. Transcribed by: DYAN Technologist: [place] [facility] XR Knee Complete 4+ Views Le fton 05-02-2021 XR Knee Complete 4+ Views Left Exam Date/Time: 05/01/2021 21:57 EDT Reason for Exam: Pain, Traumatic Report IMPRESSION: NEGATIVE LEFT KNEE FOR ACUTE FRACTURE OR DISLOCATION. PROBABLE DEGENERATIVE OSTEOARTHRITIS INVOLVING MEDIAL COMPARTMENT OF THE TIBIOFEMORAL JOINT. CLINICAL HISTORY: Pain, Traumatic COMPARISON: NONE. FINDINGS: 4 views of the left knee demonstrate no evidence of a fracture, dislocation, bone or joint abnormality, except for mild narrowing of medial compartment of the tibiofemoral joint. There are degenerative or hypertrophic spurs from posterior aspect of the patella. Soft tissues are unremarkable. FINAL REPORT Dictated: 05/02/2021 8:12 am Baldomero Lopez M.D. Signed (Electronic Signature): 05/02/2021 8:12 am Signed by: Baldomero Lopez M.D. Transcribed by: DYAN Technologist: [place] [facility] eGFRon 05-02-2021 GFR/1.73 sq M.predicted among blacks MDRD (S/P/Bld) [Vol rate/Area] mL/min/{1.73_m2} Normal >=59 [facility] Comment on above: Order Comment: Order added by Discern Expert. Result Comment: eGFR is race adjusted. AA=. Performed By: #### 2 657329, 8037832, 3703453, 62889808 #### [facility] Laboratory [address] [place] [address] GFR/1.73 sq M.predicted among non-blacks MDRD (S/P/Bld) [Vol rate/Area] mL/min/{1.73_m2} Normal >=59 [facility] Comment on above: Order Comment: Order added by Discern Expert. Result Comment: Radio Intelligence Operator heidi kidney disease could be indicated at eGFR's of less than 60 mL/min/1.73m2. Kidney failure is indicated at less than 15 mL/min/1.73m2. Performed By: #### 2 271279, 6040685, 0371322, [id number] #### [facility] Laboratory [address] [place] [address] ABO/Rhon 05-01-2021 ABO/Rh Positive Invalid Interpretation Code [facility] Comment on above: Performed By: #### 1 6441008, 12404909, 23502235, 2902012 ####[facility] [address] [place] [address] Auto Diffon 05-01-2021 Basophils/100 WBC (Bld) 1.1 % Normal 0.0-2.0 [facility] Comment on above: Order Comment: Order Added by Discern Expert. Performed By: #### 2 058181, 7857643, 9543820, 76191049, 3897681, 4581201, 3438492, 45833585, 2457381 ####[address] [place] [address] Basophils/Leukocytes Auto (Bld) [Pure # fraction] 0.1 E9/L Normal 0.0-0.2 [facility] Comment on above: Order Comment: Order Added by Discern Expert. Performed By: #### 2 235241, 0115332, 6274197, 81730802, 4502748, 7426767, 3207429, 01591905, 6974306 ####[address] [address] Eosinophils/100 WBC (Bld) 2.0 % Normal 0.0-8.0 [facility] Comment on above: Order Comment: Order Added by Discern Expert. Performed By: #### 2 722290, 4094666, 8161233, 08991082, 1653221, 7591123, 6027717, 63171332, 4010034 ####[address] [address] Eosinophils/Leukocytes Auto (Bld) [Pure # fraction] 0.1 E9/L Normal 0.0-0.5 [facility] Comment on above: Order Comment: Order Added by Discern Expert. Performed By: #### 2 130810, 4826064, 9249834, 94519124, 8547623, 9571540, 4954747, 14519785, 1772229 ####[address] [address] Lymphocytes/100 WBC (Bld) 27.9 % Normal 14.0-50.0 [facility] Comment on above: Order Comment: Order Added by Discern Expert. Performed By: #### 2 162295, 3229677, 3908130, 00765591, 6156521, 8061094, 4601322, 58011064, 7985812 ####[address] [address] Lymphocytes/Leukocytes Auto (Bld) [Pure # fraction] 1.8 E9/L Normal 1.0-4.0 [facility] Comment on above: Order Comment: Order Added by Discern Expert. Performed By: #### 2 233927, 2979375, 1863552, 52486057, 5219075, 7427745, 1848461, 59742836, 1785665 ####[address] [place] [address] Monocytes/100 WBC (Bld) 8.6 % Normal 4.0-14.0 [facility] Comment on above: Order Comment: Order Added by Discern Expert. Performed By: #### 2 172782, 8882992, 3547164, 13988757, 4092906, 2027216, 4417636, 15188184, 5121233 ####[address] [address] Monocytes/Leukocytes Auto (Bld) [Pure # fraction] 0.6 E9/L Normal 0.2-1.0 [facility] Comment on above: Order Comment: Order Added by Kevin Expert. Performed By: #### 2 464665, 9223102, 0601716, 04630745, 4328393, 4333897, 0020086, 29344465, 9138506 ####[address] [address] Neutrophils/100 WBC (Bld) 60.4 % Normal 36.0-75.0 [facility] Comment on above: Order Comment: Order Added by Kevin Expert. Performed By: #### 2 548912, 0201237, 2851281, 18465350, 1736338, 8329248, 8998003, 13571384, 7728219 ####[address] [place] [address] Neutrophils/Leukocytes Auto (Bld) [Pure # fraction] 4.0 E9/L Normal 2.0-7.5 [facility] Comment on above: Order Comment: Order Added by Kevin Expert. Performed By: #### 2 734403, 0554824, 8442243, 57470727, 5584171, 3114913, 5769125, 98165964, 1921421 ####[address] [place] [address] BMPon 05-01-2021 Creatinine [Mass/Vol] 1.2 mg/dL Normal 0.5-1.3 [facility] Comment on above: Performed By: #### 2 622247, 2695175, 2665455, 41736961, 3023655, 4470639, 8758166, 99243408, 3485583 ####[facility] [address] [place] [address] Urea nitrogen [Mass/Vol] 14 mg/dL Normal 5-21 [facility] Comment on above: Performed By: #### 2 801844, 1735914, 7443060, 64378044, 2025725, 1828535, 7431854, 54478388, 9281657 ####[facility] [address] [place] [address] Urea nitrogen/Creatinine [Mass ratio] 12 No Units Normal 10-20 [facility] Comment on above: Performed By: #### 2 293156, 2728371, 7645767, 09786305, 6274554, 7343900, 0685941, 27906489, 8121058 ####[facility] [address] [place] [address] Anion gap [Moles/Vol] 15 mmol/L Normal 6-16 [facility] Comment on above: Performed By: #### 2 770127, 4345860, 0146494, 73864261, 2136341, 7303625, 8898604, 50512528, 0616777 ####[facility] [address] [place] [address] Calcium [Mass/Vol] 9.0 mg/dL Normal 8.9-11.1 [facility] Comment on above: Performed By: #### 2 038596, 2922288, 8366270, 21542678, 1602665, 6889981, 6821212, 59792869, 5995028 ####[facility] [address] [place] [address] Chloride [Moles/Vol] 105 mmol/L Normal 101-111 [facility] Comment on above: Performed By: #### 2 743344, 6859133, 1196013, 92081349, 3726858, 8152471, 4568340, 12434265, 4790044 ####[facility] [address] [place] [address] CO2 [Moles/Vol] 22 mmol/L Normal 21-31 [facility] Comment on above: Performed By: #### 2 620438, 5266110, 2626287, 65043199, 0896357, 5289455, 0768502, 24245007, 8956396 ####[facility] [address] [place] [address] Glucose [Mass/Vol] 94 mg/dL Normal 55-199 [facility] Comment on above: Result Comment: If t his glucose result represents a fasting glucose, interpretation should refer to the following reference range: 55-99 mg/dL Performed By: #### 2 691639, 6048977, 1061705, 20114254, 9429830, 1178223, 0658962, 74850382, 6607288 ####[facility] [address] [place] [address] Potassium [Moles/Vol] 3.3 mmol/L Low 3.5-5.3 [facility] Comment on above: Performed By: #### 2 597560, 1759601, 4473078, 92710446, 1309999, 4734378, 4190081, 39082989, 4126010 ####[facility] [address] [place] [address] Sodium [Moles/Vol] 139 mmol/L Normal 135-145 [facility] Comment on above: Performed By: #### 2 853216, 4085298, 9082776, 41863248, 5092787, 1912334, 6381912, 46698367, 4449927 ####[facility] [address] [place] [address] Blood Bank ID#on 05-01-2021 BBID# [id number] Invalid Interpretation Code [facility] Comment on above: Performed By: #### 1 2167568, 06841655, 57833138, 5429430 ####[facility] [address] [place] [address] CBC w/ Auto Diffon Erythrocyte distribution width (RBC) [Ratio] 13.4 % Normal 10.9-14.2 [facility] Comment on above: Performed By: #### 2 153032, 6605933, 2334068, 70990173, 6838584, 6556124, 9946483, 29327954, 6647706 ####[facility] [address] [place] [address] Hematocrit (Bld) [Volume fraction] 42.6 % Normal 37.7-49.0 [facility] Comment on above: Performed By: #### 2 283983, 9365240, 5919073, 28607478, 9037039, 9467058, 4518795, 78895612, 0301539 ####[facility] [address] [place] [address] Hemoglobin (Bld) [Mass/Vol] 14.4 g/dL Normal 13.5-17.5 [facility] Comment on above: Performed By: #### 2 544135, 9561615, 6639087, 42891921, 9821251, 9735943, 8184309, 10850512, 6966742 ####[facility] [address] [place] [address] MCH (RBC) [Entitic mass] 27.8 pg Normal 27.0-34.0 [facility] Comment on above: Performed By: #### 2 447702, 3023921, 7263979, 64949504, 1289733, 5203579, 5355179, 38881005, 9355427 ####[facility] [address] [place] [address] MCHC (RBC) [Mass/Vol] 33.9 g/dL Normal 31.4-36.0 [facility] Comment on above: Performed By: #### 2 808565, 7301583, 5769586, 84751064, 5866863, 8184125, 8343980, 08577010, 3525806 ####[facility] [address] [place] [address] MCV (RBC) [Entitic vol] 81.9 fL Normal 80.0-100.0 [facility] Comment on above: Performed By: #### 2 133352, 4855819, 7681287, 06417884, 4637795, 3760345, 4204388, 16923930, 9017387 ####[facility] [address] [place] [address] Platelet mean volume (Bld) [Entitic vol] 10.3 fL Normal 6.4-10.8 [facility] Comment on above: Performed By: #### 2 582481, 6014001, 2447328, 60358255, 6492732, 8797353, 1822089, 83183979, 9706765 ####[facility] [address] [place] [address] Platelets (Bld) [#/Vol] 147.0 E9/L Low 150.0-500.0 [facility] Comment on above: Performed By: #### 2 874276, 5851226, 0086748, 80538116, 2066844, 2870099, 6285777, 23249947, 7543869 ####[facility] [address] [place] [address] RBC (Bld) [#/Vol] 5.2 E12/L Normal 4.3-5.9 [facility] Comment on above: Performed By: #### 2 835613, 1992631, 7597432, 24391045, 7909430, 3276160, 9233319, 37439395, 0753158 ####[facility] [address] [place] [address] WBC corrected for nucl RBC Auto (Bld) [#/Vol] 6.6 E9/L Normal 4.0-11.0 [facility] Comment on above: Performed By: #### 2 638434, 0068584, 0694957, 44982322, 9650110, 3428063, 4848637, 35461121, 9542720 ####[facility] [address] [place] [address] Ethanolon 05-01-2021 Ethanol [Mass/Vol] mg/dL Normal <=7 [facility] Comment on above: Performed By: #### 2 505863 ####[facility] [address] [place] [address] Hep Func Panelon 05-01-2021 Albumin [Mass/Vol] 3.9 g/dL Normal 3.3-5.0 [facility] Comment on above: Performed By: #### 2 726332, 0598555, 8041411, 03449847, 0958941, 0147836, 3219416, 64623441, 3802964 ####[facility] [address] [place] [address] Albumin/Globulin (S) [Mass conc ratio] 1.3 Normal 1.1-2.2 [facility] Comment on above: Performed By: #### 2 874885, 7863171, 6363520, 19784474, 9003340, 5776008, 5838293, 98795059, 9065990 ####[facility] [address] [place] [address] ALP [Catalytic activity/Vol] 56 Int._Unit/L Normal 21-98 [facility] Comment on above: Performed By: #### 2 558055, 5133627, 8707661, 71145113, 3373284, 4442528, 8184450, 92650087, 1330313 ####[facility] [address] [place] [address] ALT No additional P-5'-P [Catalytic activity/Vol] 37 Int._Unit/L Normal 6-46 [facility] Comment on above: Performed By: #### 2 915525, 4642854, 1686286, 16111508, 5530098, 8713597, 7900281, 60324500, 1541866 ####[address] [place] [address] AST [Catalytic activity/Vol] 36 Int._Unit/L Normal 5-43 [facility] Comment on above: Performed By: #### 2 572750, 0259177, 4752292, 87834679, 7106118, 4409513, 0483723, 41292360, 2120798 ####[facility] [address] [place] [address] Bilirubin [Mass/Vol] 0.9 mg/dL Normal 0.0-1.1 [facility] Comment on above: Performed By: #### 2 974655, 8804412, 7359734, 38999223, 9327820, 8417990, 9798092, 75478423, 7096899 ####[place] [address] Bilirubin.direct [Mass/Vol] 0.2 mg/dL Normal 0.1-0.4 [facility] Comment on above: Performed By: #### 2 391025, 5940761, 3387606, 47194672, 2766306, 8668778, 2559733, 68930348, 9048521 ####[address] [address] Bilirubin.indirect [Mass or moles/Vol] 0.7 mg/dL Normal 0.1-0.9 [facility] Comment on above: Performed By: #### 2 348856, 1336467, 5774790, 72472852, 7154992, 0791952, 9033975, 04779095, 1310581 ####[address] [place] [address] Globulin (S) [Mass/Vol] 3.0 g/dL Normal 1.4-4.0 [facility] Comment on above: Performed By: #### 2 819912, 2792625, 9311518, 72831363, 5473259, 7498710, 5401160, 56897764, 9833610 ####[facility] [address] [place] [address] Protein [Mass/Vol] 6.9 g/dL Normal 6.0-7.8 [facility] Comment on above: Performed By: #### 2 775695, 1017485, 9583929, 50279047, 1810591, 5295946, 7367458, 50452454, 9081488 ####[facility] [address] [place] [address] Lactic Acidon 05-01-2021 Lactate [Mass/Vol] 1.2 mmol/L Normal 0.5-2.2 [facility] Comment on above: Performed By: #### 2 025706, 8088603, 1741262, 23359384, 4803209, 5572244, 7386378, 78529408, 1645483 ####[facility] [address] [place] [address] Magnesiumon 05-01-2021 Magnesium [Mass/Vol] 2.0 mg/dL Normal 1.3-2.4 [facility] Comment on above: Performed By: #### 2 745080, 9356195, 6358842, 91722197, 7139853, 0835593, 0216726, 78830086, 6916197 ####[facility] [address] [place] [address] PT & PTTon 05-01-2021 aPTT Coag (PPP) [Time] 27.8 second(s) Normal 25.1-36.5 [facility] Comment on above: Result Comment: Hepa rin therapeutic range (represented by Anti-Factor Xa activity of 0.2 - 0.4 U/mL) corresponds to PTT of 56.6 - 109.0 sec. Performed By: #### 2 854555, 5616348, 1145703, 34677781, 4760028, 9286521, 7914084, 07601068, 2370457 ####[facility] [address] [place] [address] INR Coag (PPP) [Relative time] 1.1 {INR} Invalid Interpretation Code [facility] Comment on above: Result Comment: INR results are specifically intended to assess patients stabilized on long-term Anticoagulation therapy suggested INR?s ?Less Intensive Anticoagulation? 2.0 ? 3.0 Conventional Range 3.0 ? 4.5 Performed By: #### 2 087742, 6872385, 6709983, 70792649, 5891159, 9166868, 2191326, 79680030, 6384936 ####[facility] [address] [place] [address] PT Coag (PPP) [Time] 13.3 second(s) High 10.2-12.9 [facility] Comment on above: Performed By: #### 2 138093, 5129192, 9998510, 37486995, 5158589, 9009797, 8525394, 40079956, 1924613 ####[facility] [address] [place] [address] Troponinon 05-01-2021 Troponin I.cardiac [Mass/Vol] 5.60 pg/mL Low 15.90-38.40 [facility] Comment on above: Result Comment: The 95% CI (Confidence Interval) PPV (Positive Predictive Value) for myocardial infarction in females is 38 pg/mL, in males 51 pg/mL. The results should be used in conjunction with clinical conditions of myocardial infarction. (Access High Sensitivity Troponin I Instructions For Use, [facility], June 2018) Performed By: #### 2 331914, 8488783, 4146471, 70226055, 3628151, 0097005, 7795047, 29715973, 7856654 ####[address] [place] [address] eGFRon 05-01-2021 GFR/1.73 sq M.predicted among blacks MDRD (S/P/Bld) [Vol rate/Area] mL/min/{1.73_m2} Normal >=59 [facility] Comment on above: Order Comment: Order added by Discern Expert. Result Comment: eGFR is race adjusted. AA=. Performed By: #### 2 437662, 3275326, 0497167, 19850808, 9487434, 1226110, 5131791, 00090770, 2856890 ####[facility] [address] [place] [address] GFR/1.73 sq M.predicted among non-blacks MDRD (S/P/Bld) [Vol rate/Area] mL/min/{1.73_m2} Normal >=59 [facility] Comment on above: Order Comment: Order added by Discern Expert. Result Comment: Radio Intelligence Operator heidi kidney disease could be indicated at eGFR's of less than 60 mL/min/1.73m2. Kidney failure is indicated at less than 15 mL/min/1.73m2. Performed By: #### 2 141266, 3293109, 8111123, 03572174, 5852392, 5567250, 1499733, 08354532, 3673870 ####[facility] [address] [place] [address] Encounters Encounter Date Encounter Type Care Provider Facility Start: 05-23-2024 End: 05-23-2024 ambulatory WILY LANDRUM Not Available Start: 02-11-2023 End: 02-12-[address] Shivani MANZO Facility:[facility] Start: 02-05-2023 End: 02-05-[address] WILY LANDRUM Facility:[facility] Start: 09-30-2022 End: 09-30-[address] WILY LANDRUM Facility:[facility] Start: 06-29-2022 End: 06-29-[address] WILY LANDRUM Facility:[facility] Start: 06-21-2021 End: 06-21-2021 Emergency department patient visit Afshin Torres Facility:[facility] Payers Date Payer Category Payer Self-pay 1970 Unknown [id number] 2.16.84 [id number] 1970 Unknown [id number] 2.16.84 [id number] 1970 Unknown [id number] 2.16.84 [id number] 1970 Unknown [id number] 2.16.84 [id number] 1970 Unknown [id number] 2.16.84 [id number] 1959 Private Health Insurance [id number] 1959 Self-pay [id number] 1959 Unknown [id number] Unknown [id number] 2.16.8 [id number] Discharge summary note 05-03-2021 Note Date & Type Note Facility 05-03-2021 Note DISCHARGE SUMMARY [address] [address] JOHNATHAN HEREDIA Jr Date of : 1970 50 Years Male Attending Mike SAINI, Arpita Lux Date of Admission 05/01/2021 Date of Discharge 05/02/2021 DIAGNOSES: concussion s/p fall PROCEDURES: Procedures No Procedures Documented DISCHARGE MEDICATIONS: DISCHARGE MEDICATIONS Medication List Active Medications Ordered acetaminophen: 650 mg, 2 tab(s), Oral, q4hr, PRN: Pain 1-3. cyclobenzaprine: 5 mg, 0.5 tab(s), Oral, TID, PRN: Spasm. ketorolac: 30 mg, 1 mL, IV Push, q6hr, PRN: Pain 8-10. ondansetron: 4 mg, 2 mL, IV Push, q6hr, PRN: Nausea/Vomiting. senna: 8.6 mg, 1 tab(s), Oral, Once a day (at bedtime). Sodium Chloride 0.9% intravenous solution 1,000 mL: 75 mL/hr, IV, Stop: 05/31/21 23:33:00 EDT. Documented acetaminophen: 650 mg, 2 tab(s), Oral, q4hr, PRN: Pain 1-3, 0 Refill(s). REASON FOR HOSPITALIZATION: 50 y/o male who presents as a Level 2 trauma s/p fall down a couple porch stairs, striking his head reportedly on a car outside. Unwitnessed, +LOC, patient does not recall any details. thinks patient may have tripped on a divot in the stair, and fell down 1-3 stairs. No ASA, plavix, or other blood thinners. Per EMS, he was oriented to himself only. Per ED, patient had been talking initially, then was somnolent on the next eval, but awakened to sternal rub and answered questions. Initially behaving as though he could not move any extremity. On my eval, he is GCS 15, though per is not at baseline. Sensation present in all extremities. Moving all extremities. Complains of back pain and left knee pain. Denies chest pain, abdominal pain, or shortness of breath. 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 Patient instructed to follow-up with his primary care provider regarding his results. HOSPITAL COURSE: 05/01/2021: Patient admitted to regular nursing floor for observation and MRI of head and neck. 05/02/2021: MRI of head and neck show no acute findings. On examination this a.m. patient is feeling improved, symptoms resolved. Patient states neck pain is improving. Is asking if he is able to go to work tonight. Pt advancing as expected, tolerating regular diet, no N/V. Pain well controlled, ambulating unassisted, voiding spontaneously. Pt is medically cleared for DC at this time. The patient was seen and examined on the day of discharge with the following findings: General: alert, no acute distress Skin: warm, dry Head: no trauma, normocephalic Neck: Trachea midline, no adenopathy, no tenderness Eye: normal conjunctiva, sclera clear ENMT: oral mucosa moist, no pharyngeal erythema or exudate Cardiovascular: regular rate and rhythm, normal peripheral perfusion Respiratory: Lungs CTA, respirations non labored Chest wall: no deformity. Back: No tenderness, Normal ROM, Normal alignment. Extremities: no deformity, no trauma Neurological: oriented x 4, LOC appropriate for age, CN II-XII intact, motor strength equal & normal bilaterally, sensation equal & normal bilaterally, speech normal Psychiatric: cooperative, affect appropriate for age, normal judgement, normal psychiatric thoughts. Given the excellent progress, the patient was determined stable for discharge. ANTICIPATED FOLLOW UP: With: Address: When: [place] [address] [facility] (1) Within 1 to 2 weeks Comments: Follow with your PCP within 1-2 weeks. Call for followup appointment. VTE RISK AT DISCHARGE: Per trauma program protocol, the patient DOES NOT REQUIRE post-discharge VTE prophylaxis July Hooker PA-C Trauma, Critical Care, & Acute Care Surgery >30 minutes was spent on the discharge of this patient including final examination of the patient, discussion of the hospital stay, instructions for continuing care to all relevant caregivers, preparation of discharge records, prescriptions and referral forms, and clear identification of reasons to return to clinic or to emergency room. [facility] Comment on above: Result Comment: Elec tronically Signed By: July Hooker PA-C\.br\Date and Time Signed: 05/02/21 13:06 EDT\.br\Electronically Co-Signed By: Arnie SAINI, Alix X\.br\Date and Time Co-Signed: 05/03/21 12:36 EDT Clinical Note 05-02-2021 Note Date & Type Note Facility 05-02-2021 Note OT six clicks 24 = SNF. Pt requires assist w/ LE self care and transfers d/t back/neck pain and weakness. OT to follow daily to progress as tolerates. [facility] Clinical Note 05-02-2021 Note Date & Type Note Facility 05-02-2021 Note PT evaluation comple christiano this date. The pt scores a 13/24 on the AM-PAC, recommending d/c to SNF once medically stable d/t severity of strength deficits and pain limiting function. The pt with severe L LE & UE pain and radicular symptoms and low back pain. Pt denies headache or dizziness symptoms, current left UE and LE symptoms appear to be correlated to low back and neck pain. PT to see daily during acute care stay. [facility] History and physical note 05-02-2021 Note Date & Type Note Facility 05-02-2021 Note TRAUMA HISTORY & PHY SICAL BASIC INJURY INFORMATION: Level of activation: 2 Mode of transport: EMS Mechanism of injury: fall down stairs Complicating features: none Referring ED physician: Dr. Elmore HISTORY OF PRESENT INJURY: 50 y/o male who presents as a Level 2 trauma s/p fall down a couple porch stairs, striking his head reportedly on a car outside. Unwitnessed, +LOC, patient does not recall any details. thinks patient may have tripped on a divot in the stair, and fell down 1-3 stairs. No ASA, plavix, or other blood thinners. Per EMS, he was oriented to himself only. Per ED, patient had been talking initially, then was somnolent on the next eval, but awakened to sternal rub and answered questions. Initially behaving as though he could not move any extremity. On my eval, he is GCS 15, though per is not at baseline. Sensation present in all extremities. Moving all extremities. Complains of back pain and left knee pain. Denies chest pain, abdominal pain, or shortness of breath. PRIMARY SURVEY: Airway: intact Breath Sounds: CTAB Circulation: Pulses: radial/femoral/DP/PT palpable b/l Skin: normal color, warm Disability: Pupils: LEYDA GCS: Best Eyes: 4 Best Verbal: 5 Best Motor: 6 Total: 15 SECONDARY SURVEY: Temperature 36.6 (21:06) Systolic Blood Pressure 127 (21:06) Diastolic Blood Pressure 96 (21:06) Pulse 90 (21:06) SpO2 99 (21:06) Respiratory Rate 20 (21:06) General: Neurologic: motor/sensory grossly intact BUE, BLE HEENT: Head: normocephalic, atraumatic; Eyes: LEYDA; EOM intact, no raccoon's eyes Ears: no Brooks's sign Nose: nasal septum intact, nontender Throat: no hematoma, trachea midline Neck: no hematoma/ + midline tenderness in c spine Pulmonary: CTAB, no crepitus/emphysema/deformity Cardiovascular: Pulses: RRR, radial/femoral/DP/PT palpable b/l Abdomen: soft, NT, ND Pelvis/Perineum: stable, non tender Musculoskeletal: Back/Spine: +midline tenderness lumbar, no stepoff/deformity Extremities: no deformity. Abrasions left martinez. No swelling of left knee, tenderness to palpation. Full PROM of extremities. Moves RUE and RLE normally. When asked to LUE and LLE, grunts and tenses all muscles in both extremities. When left leg lifted, patient prevented it from falling. When LUE lifted above head, patient moved arm and allowed it to fall slowly next to him on the bed. Sensation intact throughout. PAST MEDICAL HISTORY: Denies taking any medications Chronic bilateral neck pain and back pain PAST SURGICAL HISTORY: appendectomy colonoscopy back surgery PRE-ADMISSION MEDICATIONS: Medication List Active Medications Ordered acetaminophen: 650 mg, 2 tab(s), Oral, q4hr, PRN: Pain 1-3. cyclobenzaprine: 5 mg, 0.5 tab(s), Oral, TID, PRN: Spasm. ketorolac: 15 mg, 1 mL, IV Push, q6hr, PRN: Pain 4-7. ketorolac: 30 mg, 1 mL, IV Push, q6hr, PRN: Pain 8-10. ondansetron: 4 mg, 2 mL, IV Push, q6hr, PRN: Nausea/Vomiting. senna: 8.6 mg, 1 tab(s), Oral, Once a day (at bedtime). Sodium Chloride 0.9% intravenous solution 1,000 mL: 75 mL/hr, IV, Stop: 05/31/21 23:33:00 EDT. Medications Inactivated in the Last 72 Hours Sodium Chloride 0.9% intravenous solution: Misc, Once. Sodium Chloride 0.9% intravenous solution: 500 mL, IV, Once. ALLERGIES: Bee Stings (Unknown) Tape (Itching at injection site) SOCIAL HISTORY: lives at home with , works [employer] [place] Denies smoking, alcohol. Used marijuana once a month ago FAMILY HISTORY: +family hx of heart disease Denies history of bleeding or clotting disorders REVIEW OF SYSTEMS: Constitutional: no fever, no chills, no sweats, no weakness Skin: no Jaundice, no rash, no lesions, no petechiae ENMT: no ear pain, no sore throat, no congestion, no hoarseness Respiratory: no shortness of breath, no cough, no orthopnea, no wheezing Cardiovascular: no chest pain, no palpitations, no edema Gastrointestinal: no nausea, no vomiting, no diarrhea, no GI bleeding Genitourinary: no dysuria, no hematuria, no discharge, no pain Musculoskeletal: +back pain, +left knee pain Neurologic: +intermittent confusion, +intermittment not moving various extremities Heme/Lymph: no bleeding tendency, no bruising tendency, no petechiae, no swollen nodes Allergy/Immunologic: no seasonal allergies, no food allergies, no recurrent infections, no impaired immunity Except as noted in the above Review of Systems and in the History of Present Illness all other systems have been reviewed and are negative or noncontributory. BASIC LABS: WBC: 6.6 E9/L (05/01/21 21:22:00) RBC: 5.2 E12/L (05/01/21 21:22:00) Hgb: 14.4 gm/dL (05/01/21 21:22:00) Hct: 42.6 % (05/01/21 21:22:00) MCV: 81.9 fL (05/01/21 21:22:00) MCH: 27.8 pg (05/01/21:22:00) MCHC: 33.9 gm/dL (05/01/21 21:22:00) RDW: 13.4 % (05/01/21 21:22:00) Platelet: 147 E9/L Low (05/01/21 21:22:00) MPV: 10.3 fL (05/01/21 21:22:00) Neutro Auto: (more content not included)... [facility] Comment on above: Result Comment: Elec tronically Signed By: Mike SAINI, Arpita Lux\.br\Date and Time Signed: 05/02/21 01:42 EDT Summary Purpose Family History No Family History Records FoundNo Family History Records FoundNo Family History Records FoundNo Family History Records FoundNo Family History Records Found Advance Directives No Advanced Directives Records FoundNo Advanced Directives Records FoundNo Advanced Directives Records FoundNo Advanced Directives Records FoundNo Advanced Directives Records Found Additional Source Comments (unrecognized sect ion and content) No Status Records FoundNo Status Records FoundNo Status Records FoundNo Status Records FoundNo Status Records Found INFORMATION SOURCE (unrecogn ized section and content) DATE CREATED AUTHOR 05/09/2021 [facility] DATE CREATED AUTHOR AUTHOR'S ORGANIZ ATION 10/24/2021 [facility] Special[facility] DATE CREATED AUTHOR AUTHOR'S ORGANIZ ATION 02/21/2023 [facility] DATE CREATED AUTHOR AUTHOR'S ORGANIZ ATION 05/26/2024 [facility] DATE CREATED AUTHOR AUTHOR'S JENNIFER ATION 05/27/2024 [facility] d[facility] Specialists [facility] FOR RECORDS PERTAINING TO PATIENTS WHO ARE OR HAVE BEEN ENROLLED IN A CHEMICAL DEPENDENCY/SUBSTANCEABUSE PROGRAM, SOME INFORMATION MAY BE OMITTED. This clinical summary was aggregated from multiple sources. Caution should be exercised in using it in the provision of clinical care. This summary normalizes information from multiple sources, and as a consequence, information in this document may materially change the coding, format and clinical context of patient data. In addition, data may be omitted in some cases. CLINICAL DECISIONS SHOULD BE BASED ON THE PRIMARY CLINICAL RECORDS. [facility] provides no warranty or guarantee of the accuracy or completeness of information in this document.
[2024-07-18 06:27] LABS: Alanine Aminotransferase 18 U/L (16-63); Albumin Globulin Ratio 0.8; Albumin Level 2.7 g/dL (3.4-5.0); Alkaline Phosphatase 86 U/L (46-116); Anion Gap 8.9; Aspartate Amino Transferase 11 U/L (15-37); BUN Creatinine Ratio 13.3; Bilirubin Total 0.9 mg/dL (0.2-1.0); Calcium 7.9 mg/dL (8.5-10.1); Chloride 107 mmol/L (98-107); Estimated GFR (African America >60 (>=60); Estimated GFR (Non-African Ame >60 (>=60); Globulin 3.6 g/dL; Glucose 89 mg/dL (74-106); Magnesium 1.7 mg/dL (1.8-2.4); Phosphorus 2.7 mg/dL (2.6-4.7); Potassium 3.9 mmol/L (3.5-5.1); Sodium 139 mmol/L (136-145); Total Protein 6.3 g/dL (6.4-8.2)
[2024-07-18] MEDS: 0.9 % SODIUM CHLORIDE 1,000 ML 100 ML IV ×2 (09:06→18:06)
[2024-07-18] MEDS: LEVOFLOXACIN IN DEXTROSE 5 % 750 MG/150 ML PREMIX 100 MG IV (09:07)
[2024-07-18] MEDS: ENOXAPARIN SODIUM 40 MG/0.4 ML SYRINGE SUBQ (09:10)
--- NOTE | 2024-07-18 09:56 | CM.NOTE ---
Rounds made with Dr. Kuo. Dr. Kuo reviews test findings with Jessica Kelton and explains treatment plan. Kelton verbalizes understanding. Diet advanced to full liquid diet.
--- NOTE | 2024-07-18 11:14 | P.HP_ITS ---
HPI H&P: HPI History of Present Illness Chief complaint: ABD PAIN, SOB ACUTE DIVERTICULITIS Narrative: 53 y o male presented to ED with 5 days of nausea, vomiting, anorexia, generalized abdominal pain that is persistent, worse in LLQ quadrant and exacerbated by food intake. Denies diarrhea, blood in stool. Pain is 10/10, persistent and dull/aching. He has no prior hx of diverticulitis and had colonoscopy 1-2 years ago. Work up in ED consistent with acute diverticulitis with possible early phlegmon formation. When seen earlier today, patient was still in considerable pain, had not eaten anything since admission due to pain/anorexia and was fearful that he will throw up again if he ate anything. Opioid HPI Opioid Management Most Recent Pain and Opioid Data: Last Pain Scale 8 07/18/24 10:38 Last Pain Assessment 07/18/24 11:08 Last MAR Pain Assessment 07/18/24 10:35 Last ORT Total Score 6 07/18/24 00:44 Last ORT Risk Category Moderate Risk 07/18/24 00:44 Ur Phencyclidine Scrn Negative (NEGATIVE) 05/16/24 13:57 Review of Systems ROS Status of ROS 10 or more systems reviewed and unremark able except as noted in history and below [facility] Medical History (Updated 07/18/24 @ 11:22 by Shaikh Ayaan MD) Tobacco dependence ?F17.200 - Nicotine dependence, unspecified, uncomplicated (ICD-10) H/O ETOH abuse ?F10.11 - Alcohol abuse, in remission (ICD-10) Asymptomatic bradycardia ?R00.1 - Bradycardia, unspecified (ICD-10) Anemia ?D64.9 - Anemia, unspecified (ICD-10) Myocardial infarction ?I21.9 - Acute myocardial infarction, unspecified (ICD-10) Social History (Updated 07/18/24 @ 00:56 by Hina Heredia RN) Within the past year, how often did you have a drink containing alcohol: never Within the past year, how often did you have six or more drinks on one occasion: never Score interpretation: A score less than 4 is consistent with normal alcohol consumption. Smoking status: Current some day smoker Non-prescribed substance use: denies use Highest level of school completed/degree received: high school graduate Do you want help with school or training: No Are you now , , , , never or living with a partner: In a typical week, how many times do you talk on the telephone with family, friends, or neighbors: twice per week How often do you get together with friends or relatives: never How often do you attend shinto or mormonism services: never Do you belong to any clubs or organizations such as shinto groups unions, [employer] or athletic groups, or school groups: no Total score: 0 Score interpretation: A score of less than or equal to 1 indicates the most socially isolated. Little interest or pleasure in doing things: not at all Feeling down, depressed, or hopeless: not at all Feel stressed/tense/nervous/anxious/difficulty sleeping: not at all Do you think of yourself as: straight/heterosexual Gender Identity: male Meds Home Medications and Allergies Home Medications ?Medication ?Instructions ?Recorded ?Confirmed ?Type omeprazole 40 mg capsule,delayed mg 07/17/24 History release Allergies Allergy/AdvReac Type Severity Reaction Status Date / Time No Known Drug Allergies Allergy Verified 07/17/24 21:10 Exam Constitutional Vital Signs, click to edit/add: Last Vital Signs Temp 98.2 F 07/18/24 08:22 Pulse 56 L 07/18/24 08:22 Resp 18 07/18/24 08:22 BP 110/74 07/18/24 08:22 Pulse Ox 92 L 07/18/24 11:00 O2 Del Method Room Air 07/18/24 11:00 Documenting provider has reviewed patient's vital signs: yes Common normals: no apparent distress and oriented x3 General appearance: cooperative, ill appearing and frail appearing [facility] Common normals: normocephalic and head/scalp atraumatic Head and scalp: normocephalic and atraumatic Respiratory Common normals: normal respiratory effort and clear to auscultation bilaterally Effort & inspection: able to speak in complete sentences Auscultation: clear to auscultation bilaterally Cardio Common normals: regular rate, S1 normal heart sound and S2 normal heart sound Rate: regular rate Heart sounds: S1 normal and S2 normal GI Common normals: soft to palpation Palpation: tender Details: LLQ and RLQ and guarding Extremity Common normals: no clubbing, cyanosis or edema Neuro Common normals: oriented x3, moves all extremities and no focal motor deficits Psych Common normals: mental status grossly normal, denies hallucinations, denies homicidal ideation and denies suicidal ideation Results Labs Labs: Short CBC 07/17/24 07/18/24 Range/Units 21:15 05:41 WBC 13.2 H 12.6 H (4.0-11.0) 10^3/uL Hgb 16.0 13.9 L (14.0-18.0) g/dL Hct 48.6 42.7 (42.0-54.0) % Plt Count 167 142 L (150-450) 10^3/uL BMP 07/17/24 07/18/24 21:15 05:41 Sodium 141 139 Potassium 3.7 3.9 Chloride 105 107 Carbon Dioxide 26.8 27.0 BUN 16.0 14.0 Creatinine 1.42 H 1.05 Glucose 85 89 Calcium 8.4 L 7.9 L Liver Function 07/17/24 07/18/24 Range/Units 21:15 05:41 Total Bilirubin 0.5 0.9 (0.2-1.0) mg/dL AST 14 L 11 L (15-37) U/L ALT 20 18 (16-63) U/L Alkaline Phosphatase 102 86 (46-116) U/L Albumin 3.0 L 2.7 L (3.4-5.0) g/dL Urine 07/17/24 Range/Units 22:48 Urine Color Yellow (YELLOW) Urine Clarity Clear (CLEAR) Urine pH 7.0 (5.0-9.0) Ur Specific [place] 1.010 (1.005-1.025) Urine Protein Negative (NEG/TRACE) mg/dL Urine Glucose (UA) Negative (NEGATIVE) mg/dL Assessment and Plan Assessment and Plan (1) Acute diverticulitis: (2) Nausea and vomiting: Qualifiers: Vomiting type: unspecified Qualified Code(s): R11.2 - Nausea with vomiting, unspecified (3) Abdominal pain: Qualifiers: Abdominal location: generalized Qualified Code(s): R10.84 - Generalized abdominal pain (4) Leukocytosis: Qualifiers: Leukocytosis type: leukemoid reaction Qualified Code(s): D72.823 - Leukemoid reaction Plan Patient presented with acute diverticulitis, admitted as persistent pain, unable to tolerate PO intake. On IVF, IV levaquin/Flagyl. Diet advanced to full liquid. C/w supportive care - on combination of oral/IV narcotics for pain. If no improvement in 24 hours - will get surgery consult.
[2024-07-18] MEDS: OXYCODONE HCL 5 MG TABLET PO (14:50)
[2024-07-19] VITALS (9 sets, daily range): BP systolic 101–119; BP diastolic 54–70; PULSE 54–74; TEMP 36.6–37.2; O2SAT 93–95
[2024-07-19] MEDS: OXYCODONE HCL 5 MG TABLET PO ×3 (00:06→15:54)
--- NOTE | 2024-07-19 00:09 | PC.NURSE ---
Patient states he is passing gas on the toilet and found blood clots in the water
[2024-07-19] MEDS: METRONIDAZOLE/SODIUM CHLORIDE 500 MG/100 ML PREMIX 200 MG IV (01:44)
[2024-07-19] MEDS: 0.9 % SODIUM CHLORIDE 1,000 ML 100 ML IV ×2 (04:20→14:21)
[2024-07-19 08:33] LABS: Basophils Absolute Auto 0.1 10^3/uL (0.0-0.1); Basophils Percent Auto 0.6 % (0.2-2.0); Eosinophils Absolute Auto 0.3 10^3/uL (0.0-0.7); Eosinophils Percent Auto 2.5 % (0.9-7.0); Hematocrit 42.6 % (42.0-54.0); Hemoglobin 13.9 g/dL (14.0-18.0); Immature Granulocytes Abs Auto 0.02 10^3/uL (0.00-0.03); Immature Granulocytes Pct Auto 0.2 % (0.0-0.5); Lymphocytes Absolute Auto 1.6 10^3/uL (1.2-3.8); Lymphocytes Percent Auto 15.3 % (20.5-60.0); Mean Corpuscular HGB Conc 32.6 g/dL (29.9-35.2); Mean Corpuscular Hemoglobin 28.4 pg (25.9-34.0); Mean Corpuscular Volume 87.1 fL (80.0-94.0); Mean Platelet Volume 12.7 fL (9.5-13.5); Monocytes Absolute Auto 0.7 10^3/uL (0.3-0.8); Monocytes Percent Auto 6.9 % (1.7-12.0); Neutrophils Absolute Auto 7.5 10^3/uL (1.4-6.5); Neutrophils Percent Auto 74.5 % (43.0-75.0); Platelet Count 137 10^3/uL (150-450); Red Blood Count 4.89 10^6/uL (4.70-6.10); Red Cell Distribution Width 13.2 % (11.0-15.0); White Blood Count 10.1 10^3/uL (4.0-11.0)
[2024-07-19 08:56] LABS: Alanine Aminotransferase 15 U/L (16-63); Albumin Globulin Ratio 0.7; Albumin Level 2.6 g/dL (3.4-5.0); Alkaline Phosphatase 81 U/L (46-116); Anion Gap 10.6; Aspartate Amino Transferase 14 U/L (15-37); BUN Creatinine Ratio 9.6; Calcium 8.5 mg/dL (8.5-10.1); Carbon Dioxide 26.7 mmol/L (21.0-32.0); Chloride 107 mmol/L (98-107); Estimated GFR (African America >60 (>=60); Estimated GFR (Non-African Ame >60 (>=60); Globulin 3.6 g/dL; Glucose 83 mg/dL (74-106); Potassium 4.3 mmol/L (3.5-5.1); Sodium 140 mmol/L (136-145); Total Protein 6.2 g/dL (6.4-8.2)
[2024-07-19] MEDS: LEVOFLOXACIN IN DEXTROSE 5 % 750 MG/150 ML PREMIX 100 MG IV (09:28)
[2024-07-19] MEDS: ENOXAPARIN SODIUM 40 MG/0.4 ML SYRINGE SUBQ (09:28)
[2024-07-19] MEDS: METRONIDAZOLE/SODIUM CHLORIDE 500 MG/100 ML PREMIX 100 MG IV ×2 (10:56→17:35)
--- NOTE | 2024-07-19 10:57 | CM.NOTE ---
Rounds made with Dr. Kuo, increase diet to soft. Discussed with pt if able to tolerate diet discharge to home on oral antibiotics and antiemetics.
--- NOTE | 2024-07-19 13:13 | P.IMPN_ITS ---
Progress Note: A&P Assessment and Plan (1) Acute diverticulitis: Assessment and Plan: Not improving as anticipated. Unable to advanced diet. Pain got worse after eating small quantity of soft food and patient threw up. C/w Levaquin/Flagly. C/w liquid diet for now. C/w IVF as minimal/low PO intake to avoid dehydration. (2) Nausea and vomiting: Assessment and Plan: Persistent nausea/vomiting. Unable to advance diet. C/w supportive measures/care. Qualifiers: Vomiting type: unspecified Qualified Code(s): R11.2 - Nausea with vomiting, unspecified (3) Abdominal pain: Assessment and Plan: Pain had initially improved but now worse after food intake. Qualifiers: Abdominal location: generalized Qualified Code(s): R10.84 - Generalized abdominal pain (4) Leukocytosis: Assessment and Plan: Improved. Qualifiers: Leukocytosis type: leukemoid reaction Qualified Code(s): D72.823 - Leukemoid reaction Plan C/w IV abx. Switch back to liquid diet. Changed to inpatient status as patient has not improved under observation and is still unable to tolerate PO diet, threw him his breakfast and his nausea/abdominal pain is now worse after food intake. Internal Medicine - PN: Subj Subjective Interval history: Seen and examined today. Was feeling better in the morning and his diet was advanced to soft diet. However, he could not tolerate soft diet, threw up and his abdominal pain is now worse than before. Exam Constitutional Vital Signs, click to edit/add: Last Vital Signs Temp 98.1 F 07/19/24 11:43 Pulse 74 07/19/24 11:43 Resp 16 07/19/24 11:43 BP 101/62 07/19/24 11:43 Pulse Ox 95 07/19/24 11:43 O2 Del Method Room Air 07/19/24 11:43 Documenting provider has reviewed patient's vital signs: yes Common normals: no apparent distress and oriented x3 General appearance: cooperative and frail appearing Respiratory Common normals: normal respiratory effort and clear to auscultation bilaterally Effort & inspection: able to speak in complete sentences Auscultation: clear to auscultation bilaterally Cardio Common normals: regular rate, S1 normal heart sound and S2 normal heart sound Rate: regular rate Heart sounds: S1 normal and S2 normal GI Common normals: Normal to inspection, nondistended, normoactive bowel sounds present and soft to palpation Palpation: tender Details: LLQ and RLQ Extremity Common normals: no clubbing, cyanosis or edema Neuro Common normals: oriented x3, moves all extremities and no focal motor deficits Psych Common normals: mental status grossly normal, denies hallucinations, denies homicidal ideation and denies suicidal ideation Internal Medicine - PN: Obj Da Labs Labs: Laboratory Results - last 24 hr 07/19/24 08:14 WBC 10.1 RBC 4.89 Hgb 13.9 L Hct 42.6 MCV 87.1 MCH 28.4 MCHC 32.6 RDW 13.2 Plt Count 137 L MPV 12.7 Neut % (Auto) 74.5 Lymph % (Auto) 15.3 L [place] % (Auto) 6.9 Eos % (Auto) 2.5 Baso % (Auto) 0.6 Neut # (Auto) 7.5 H Lymph # (Auto) 1.6 [place] # (Auto) 0.7 Eos # (Auto) 0.3 Baso # (Auto) 0.1 Abs Immat Gran (auto) 0.02 Imm/Tot Granulo (auto) 0.2 Sodium 140 Potassium 4.3 Chloride 107 Carbon Dioxide 26.7 Anion Gap 10.6 BUN 10.0 Creatinine 1.04 Est GFR ( Amer) >60 Est GFR (Non-Af Amer) >60 BUN/Creatinine Ratio 9.6 Glucose 83 Calcium 8.5 Total Bilirubin 1.0 AST 14 L ALT 15 L Alkaline Phosphatase 81 Total Protein 6.2 L Albumin 2.6 L Globulin 3.6 Albumin/Globulin Ratio 0.7
--- OUTSIDE RECORDS SUMMARY | 2024-07-19 15:40 | XMS_ITS | CCD ---
Author Organization [facility] Care Team Providers Care Tire Tester Name Role Phone LUCITA, DR BLEVINS Primary [...] NATHAN Palomo Attending Unavailable RICHAR, DR NATHAN Palomo Consulting Unavailable ANABELL, DR DAYNA Palomo Consulting Unavailable EZIO DAVALOS Consulting Unavailable Afshin Torres Attending Unavailable Afshin Torres Admitting Unavailable Wily Landrum Primary Care Unavailable WILY LANDRUM Attending Unavailable Allergies Allergy Classification Reported Allergen(s) Allergy Type Date of Onset Reaction(s) Facility (1 source) Adhesive agent Drug allergy (disorder) [facility] Repository (1 source) bee venom Drug allergy (disorder) [facility] Repository (1 source) Ibuprofen Drug Allergy [facility] Repository (1 source) Adhesive Tape Drug allergy (disorder) 06-21-2021 [facility] Repository Problems Active Problems Problem Classification Problem [...] DAYNA HUNG Date: 2023-02-11 15:32 Normal [facility] XR ANKLE LT MIN 3 Von 2022 XR ANKLE LT MIN 3 V EXAM: XR ANKLE LT MO N 3 V HISTORY: Bone injury COMPARISON: [...] MICHELINE ARREDONDO Date: 2023-02-05 08:50 Normal [facility] CBC W MANUAL DIFFon 09-30-20 22 ATYPICAL LYMPH # Normal [facility] Comment on above: Performed By: #### C EDIL #### [facility] [address] [place] [address] Dr. Kiran Gongora ATYPICAL LYMPH % Normal [facility] Comment on above: Performed By: #### C BCDERIK #### [facility] [address] [place] [address] Dr. Kiran Gongora BAND # 0.0 103/ul Normal 0.0-0.3 [facility] Comment on above: Performed By: #### C BCDERIK #### [facility] [address] [place] [address] Dr. Kiran Gongora BAND % 0 % Normal 0-5 [facility] Comment on above: Performed By: #### C BCMAN #### [facility] [address] [place] [address] Dr. Kiran Gongora BASOM # 0.10 103/ul Normal 0.00-0.10 [facility] Comment on above: Performed By: #### C BCDERIK #### [facility] [address] [place] [address] Dr. Kiran Gongora BASOM % 1.0 % Normal 0.2-2.0 [facility] Comment on above: Performed By: #### C EDIL #### [facility] [address] [place] [address] Dr. Kiran Gongora BLAST # Normal [facility] Comment on above: Performed By: #### C EDIL #### [facility] [address] [place] [address] Dr. Kiran Gongora BLAST % Normal [facility] Comment on above: Performed By: #### C BCDERIK #### [facility] [address] [place] [address] Dr. Kiran Gongora CORRECTED WBC Normal 4.0-11.0 [facility] Comment on above: Performed By: #### C EDIL #### [facility] [address] [place] [address] Dr. Kiran Gongora EOS # 0.41 103/ul Normal 0.00-0.70 [facility] Comment on above: Performed By: #### C EDIL #### [facility] [address] [place] [address] Dr. Kiran Gongora EOS% 4.0 % Normal 0.9-7.0 [facility] Comment on above: Performed By: #### C EDIL #### [facility] [address] [place] [address] Dr. Kiran Gongora HCT 47.9 % Normal 42.0-54.0 [facility] Comment on above: Performed By: #### C EDIL #### [facility] [address] [place] [address] Dr. Kiran Gongora HGB 15.4 g/dl Normal 14.0-18.0 [facility] Comment on above: Performed By: #### C EDIL #### [facility] [address] [place] [address] Dr. Kiran Gongora LYMPHM # 2.37 103/ul Normal 1.20-3.80 [facility] Comment on above: Performed By: #### C EDIL #### [facility] [address] [place] [address] Dr. Kiran Gongora LYMPHM% 23.0 % Normal 20.5-60.0 [facility] Comment on above: Performed By: #### C EDIL #### [facility] [address] [place] [address] Dr. Kiran Gongora MCH 28.2 pg Normal 25.9-34.0 [facility] Comment on above: Performed By: #### C EDIL #### [facility] [address] [place] [address] Dr. Kiran Gongora MCHC 32.2 g/dl Normal 29.9-35.2 [facility] Comment on above: Performed By: #### C EDIL #### [facility] [address] [place] [address] Dr. Kiran Gongora MCV 87.7 fL Normal 80.0-94.0 [facility] Comment on above: Performed By: #### C EDIL #### [facility] [address] [place] [address] Dr. Kiran Gongora METAMYELOCYTE # Normal [facility] Comment on above: Performed By: #### C EDIL #### [facility] [address] [place] [address] Dr. Kiran Gongora METAMYELOCYTE % Normal [facility] Comment on above: Performed By: #### C EDIL #### [facility] [address] [place] [address] Dr. Kiran Gongora MONOM# 0.31 103/ul Normal 0.30-0.80 [facility] Comment on above: Performed By: #### C EDIL #### [facility] [address] [place] [address] Dr. Kiran Gongora MONOM% 3.0 % Normal 1.7-12.0 [facility] Comment on above: Performed By: #### C EDIL #### [facility] [address] [place] [address] Dr. Kiran Gongora MPV 12.6 fL Normal 9.5-13.5 [facility] Comment on above: Performed By: #### C EDIL #### [facility] [address] [address] [address] Kiran Gongora MYELOCYTE # Normal [facility] Comment on above: Performed By: #### C EDIL #### [facility] [address] [address] [address] Kiran Gongora MYELOCYTE % Normal [facility] Comment on above: Performed By: #### C EDIL #### [facility] [address] [address] [address] Kiran Gongora NRBC Normal [facility] Comment on above: Performed By: #### C EDIL #### [facility] [address] [place] [address] Dr. Kiran Gongora PLT 137 103/ul Critically low 150-450 [facility] Comment on above: Performed By: #### C EDIL #### [facility] [address] [place] [address] Dr. Kiran Gongora RBC 5.46 106/ul Normal 4.70-6.10 [facility] Comment on above: Performed By: #### C EDIL #### [facility] [address] [place] [address] Dr. Kiran Gongora RDW 13.6 % Normal 11.0-15.0 [facility] Comment on above: Performed By: #### C EDIL #### [facility] [address] [place] [address] Dr. Kiran Gongora SEG # 7.11 103/ul Critically high 1.40-6.50 [facility] Comment on above: Performed By: #### C EDIL #### [facility] [address] [place] [address] Dr. Kiran Gongora SEG % 69.0 % Normal 43.0-75.0 [facility] Comment on above: Performed By: #### C BCMAN #### [facility] [address] [place] [address] Dr. Kiran Gongora WBC 10.3 103/ul Normal 4.0-11.0 [facility] Comment on above: Performed By: #### C EDIL #### [facility] [address] [place] [address] FACIAL BONES W [...] EZIO DAVALOS Date: 2022-09-30 05:26 Normal [facility] CT NECK ST W CONon 2 CT [...] DAYNA HUNG Date: 2022-09-30 07:21 Normal [facility] CULTURE BLOODon 09-30-2022 Microscopic examination of blood, culture Culture Observations: NO GROWTH AT 5 DAYS. Normal [facility] Comment on above: Performed By: #### B [id number] #### [facility] [address] [place] [address] Dr. Kiran Gongora Microscopic examination of blood, culture Culture Observations: NO GROWTH AT 5 DAYS. Normal [facility] Comment on above: Performed By: #### B [id number] #### [facility] [address] [place] [address] Dr. Kiran Gongora PROF 14(COMP METB)on 022 Albumin [Mass/Vol] 3.2 g/dL Critically low 3.4-5.0 Th e [facility] Comment on above: Performed By: #### C MP #### [facility] [address] [place] [address] Dr. Kiran Gongora Albumin/Globulin [Mass ratio] 0.9 {ratio} Normal [facility] Comment on above: Performed By: #### C MP #### [facility] [address] [place] [address] Dr. Kiran Gongora ALP [Catalytic activity/Vol] 83 U/L Normal 46-116 [facility] Comment on above: Performed By: #### C MP #### [facility] [address] [place] [address] Dr. Kiran Gongora ALT [Catalytic activity/Vol] 44 U/L Normal 16-63 [facility] Comment on above: Performed By: #### C MP #### [facility] [address] [place] [address] Dr. Kiran Gongora Anion gap [Moles/Vol] 8.2 mmol/L Normal [facility] Comment on above: Performed By: #### C MP #### [facility] [address] [place] [address] Dr. Kiran Gongora AST [Catalytic activity/Vol] 27 U/L Normal 15-37 [facility] Comment on above: Performed By: #### C MP #### [facility] [address] [place] [address] Dr. Kiran Gongora Bilirubin [Mass/Vol] 0.2 mg/dL Normal 0.2-1.0 [facility] Comment on above: Performed By: #### C MP #### [facility] [address] [place] [address] Dr. Kiran Gongora Calcium [Mass/Vol] 8.5 mg/dL Normal 8.5-10.1 [facility] Comment on above: Performed By: #### C MP #### [facility] [address] [place] [address] Dr. Kiran Gongora Chloride [Moles/Vol] 109 mmol/L Critically high 98-107 [facility] Comment on above: Performed By: #### C MP #### [facility] [address] [place] [address] Dr. Kiran Gongora CO2 [Moles/Vol] 30.4 mmol/L Normal 21.0-32.0 [facility] Comment on above: Performed By: #### C MP #### [facility] [address] [place] [address] Dr. Kiran Gongora Creatinine [Mass/Vol] 1.12 mg/dL Normal 0.70-1.30 [facility] Comment on above: Performed By: #### C MP #### [facility] [address] [place] [address] Dr. Kiran Gognora EGFR-AF SWISS >60 Normal >=60 [facility] Comment on above: Performed By: #### C MP #### [facility] [address] [place] [address] Dr. Kiran Gongora EGFR-NON AF SWISS >60 Normal >=60 [facility] Comment on above: Performed By: #### C MP #### [facility] [address] [place] [address] Dr. Kiran Gongora Globulin (S) [Mass/Vol] 3.4 g/dL Normal [facility] Comment on above: Performed By: #### C MP #### [facility] [address] [place] [address] Dr. Kiran Gongora Glucose [Mass/Vol] 72 mg/dL Critically low 74-106 [facility] Comment on above: Performed By: #### C MP #### [facility] [address] [place] [address] Dr. Kiran Gongora Potassium [Moles/Vol] 3.6 mmol/L Normal 3.5-5.1 [facility] Comment on above: Performed By: #### C MP #### [facility] [address] [address] [address] iKran Gongora Protein [Mass/Vol] 6.6 g/dL Normal 6.4-8.2 [facility] Comment on above: Performed By: #### C MP #### [facility] [address] [address] [address] Kiran Gongora Sodium [Moles/Vol] 144 mmol/L Normal 136-[address] [facility] Comment on above: Performed By: #### C MP #### [facility] [address] [address] [address] Kiran Gongora Urea nitrogen [Mass/Vol] 19.0 mg/dL Critically high 7.0-18.0 [facility] Comment on above: Performed By: #### C MP #### [facility] [address] [address] [address] Kiran Gongora Urea nitrogen/Creatinine [Mass ratio] 17.0 mg/mg Normal [facility] Comment on above: Performed By: #### C MP #### [facility] [address] [address] [address] Kiran Gongora Covid-19 PCR ([facility])on 06-09 SARS-CoV-2 (COVID-19) RNA CATRACHITO+probe Ql (Unsp spec) Not detected Normal NOT DETECTED [facility] Comment on above: Result Comment: This test is not yet approved or cleared by the [place] FDA. When there are no FDA-approved or cleared tests available, and other criteria are met, FDA can make tests available under an emergency access mechanism called an Emergency Use Authorization (EUA). The EUA for this test is supported by the [place] of Health and Human Service's (HHS's) declaration [...] SARS-CoV-2. Performed By: #### C VDTB #### [facility] [address] [place], [place] [address] Dr. Kiran Gongora TSH w/ Reflex to Free T4on 1 12-24-2020 TSH 4.010 uIU/mL Normal 0.400-4.[address] [facility] Specialist Comment on above: Performed By: #### T SH reflex FT4 #### [facility] [address], [place] [id number] Coding Summary.on 05-08-2021 Coding Summary. CD:[id number] G h0bWw+PGhlYWQ+KI5NOZN qF24wpZEraL5EQ4sYKE7W IQRRSOVUYC0DIC2fdVN3M WmzM8PohfYy JjrosULvJT49QAn8OEX5g BovQErpeE5yzWDuZ0o2Mi PmQA15jT56HIxyTLOoKdU 3LjZpbjsgbWFy A2eyXyGjoQGdTlu+PHRhY mxlIHdpZHRoPScxMDAlJy CqmIacPC1rNw5pPNPfKBT vbGxhcHNlOiBj o8jwXZOlGLsdIU1hhAaoR 5GitPS2YLQxa3m1Sd31lP I+IAJlNOC8vStcWJldn20 2IoXcy7atGTV7 mXIrMUfbBXL8J47xi6O1G ZHaYSNdCEX5hIN8hD8nyV yyyzniI9ZqyABsNmJ8CQD 1aGWbqF3pcUvm qzjryN8yTjo+U17LGW9MI CVYFU0CPia2H2FiEgkvvL I+FS98ECUvKW61wTDzvAX ku0wdwTo5GeVw VJAsQNG9xWwrKDdyr6NfD WKqR28syPLfg0H0MRYlzW cfrVJaGeQjxMB5fR8rIVm zgoltr1mezceg Yezgd4bcqz65vM00E25rK FtcIWWrXQK5IBIjTQVkbV lctn6gpK4kKi0+NFniu3g uz6vdoWn7DlKq GEMxspSnbOetNXN0h7PlW r04L5IftEcxh2QuCmd7ns 50dUWhy2V9mJU1SZooQSQ ytN7vKDflCnZ7 OCUvVrZkzJ98aQRzRPlrF k8loBvooHczCU9lQMRwtg mgQZIpsJ8lTWOdkUSdsSt jWL2dTGVafxcx u854ApLjJRM5XIVawZBwG 6KunQ6xSwMfQIGoABAvP3 ZzcFTlFYloF150QUjrQlS 5LZQmkaRbJ3Vz JUQjsVpdPlW0l5V5Rq1Uw 1KrnvmzUGM8GJnwEIZ5Gq GqUtVaTuQ8W6LmLfw4WSN yxKkeVN1mC3Sd BIKfvbbxtdfeuMZ1ZOMeU JEhrZ14dHDfTMgiAy0rq8 J1r387HILoIVRueT70Lj0 udDogMTBwdCBU eI4umanik7blcsmvFiMyD XMeFLl3WPe9DJWnrQkaQo LoQBP6GqQ7XOD8oUMreA2 wjTpvuvgonP1b Oyc+M15cgT5hKHL6QLB3h gkiKEBqggYzKM29CY79G3 RyPjwvdGFibGU+PGRpdiB xaQwaBN7gDjYr n9rai0FxUInnB6OxARAcX AasTsg0VYEjHPX8pCS5gY 3yCCMyWAqfp0B0rTE4F2T eyhOdrb3fo7rt NPPcLCzeY55uwFHmb9P5A BBykVQ7XUXvcQfgTlEkkS 93Oyc+XWMnuUpeg5VwGeq kd6hmy1scjQy6 ZdCnUHRwhlVfnXfzANR5r 8YlIg72D96rCZlqDNPsQQ WiFIXqMIZzeDpfmn1uuO5 wIi8+PGNvbCB3 aTX1iK3oRLUgJhA3EAntH 843DxBapMTyVnnxu4rhp6 fboIk1CkJcCTKvnhQhdSg tCZW6z8EuYi30 N62hYXxaGWFoEJGnQDFjJ ZSkcAkxsa8tfY2wMp4+PC 6gs8xdyv31eK56mFK+PHR tOID4fUfiGYho JHZblF9cBSiyQxV9EXFnI sLymB19dQMbCFweDc8oxA vwbTgwCY3kRWIrcefif92 8EeTlb9ipXVPw bPWpGAcyVTV1E05pg3V3J UAzCDGeHKF7uAD2xO9feP lnbjogbGVmdDsgdmVydGl wOHnbZQftV553 IHRvcDsnPlBhdGllbnQgT wIsJZl3K4SdMrr8EYKcjN zuFS7wdUGdJGrrLj7yxHh fsSzxEL6oIWTv ndthf228DpBsg7pjGRMho PEeNJblZYV4U42gh7W7WU VxLEHyVDI0qGQ9cP9gpOe nbjogbGVmdDsg ooOisIzuEScjJJhfB351W HRvcDsnPkJpcnRoIERhdG I7TQ89AK72qARyj6W0qNC 2M6LeJTGicduj fkweaWC4VITfTHOmbF00J d5srSjbQg3hRMFzIDT7RU RyeAZtN0AtdR2hUlMjOUD eRHKnW7GjaDJv AFynT875NWblErY5ZMDxn qPiH2JsYKCzwCtlNaV4b8 N4Ti5MQ9L0NE05SL99nMK td2N9mEI5M2Eq UXByjnysbkbswIC7MVPjM PPucG29Zs4sdIzzFe6yND DxQHS1RHDldSNnP0RtqC0 yOiAjMDAwMDAw O3YzeFXiVKneN851UGyoY uZ2MCYtkjJqD9MuLEEgtG wgVyX1y0I4Nb2EDIl8EA0 1YQ36dNGib6M3 oYJ1Q3GmECBsrjxmyvzwo MO5MSIvIXMioS91Dj1ijE gdXg4fHCHjDUB2OFKjsKV nS5WlwO8wUgOk QEEkARGbM7EfdOQfNMohB 655OZmrJeI5KNLkpeLlT3 IuUGOyfUsoAjM8l1T3Gr8 NIPPhYU17UBT1 jBT2SD17TN02N0BuOyxpu GFibGU+PHRhYmxlIHdpZH RoPScxMDAlJyBzdHlsZT0 cOi6mADPrLFQs mZsppFMjKwPok1tgARHbC OzyAQ7fsVkgA9XguYU1YX Sfx0f6Qv42L98zT3RnnLO +YFSqfYH9wEN3 jK0oSnUdSxL9HFzdH466P kAraLGmBpebj5veq1jrpF l1VmS7WWPqbpPgjApoQEC 0k5DgFm57J73n IHdpZHRoPSIxNSUiIHZhb Iczfq3esB8cGn8+PGNvbC K0pUG8tG9jTyFkQnK4LLg nF153InYziITx Wkjec7dcz8unpEz7XwByG BMgkxGewKceVFZ7x4TrRq 58D8DlhXnfa7EzOon7gc6 8aBVye4D1mCM0 N3FjRVNrogzoeBZwrFjaX B7kWHFrlcdlQEElhS3vDM XaP2p3NcSgUzW9SZviV6A anrE9HYPrcGEy QPoxXYS2N53fe3Y2KXZtB IFxDUR9bWG2uH1cuKxnvg ogbGVmdDsgdmVydGljYWw hQKhdN729VYNi qCzyBDAgwY7oWEQjfOInk CheEB5xJEJchzbuMcVNG7 UHSiLZfcwoA9vOQNhIEXW VZZ62RH25oTJh h4O6nFX4K3RuGFLcfvgva rbnoMZ7WZTpRCFgzA30aU KmXRdgBy9sp2C5o611RBZ aWMFchJ86Ba6m aUxaUTZdxYUSrS7hngnwl 9mooynwPeDgKTUkBMe7TX i9WMHriKzgDmQkYUO6TiE 5IXA5yPWmvX7q mXalaaocyI7cKpa+MDEvM TLrRNy5ANzqgHE+PHRkIH T4yQwmCKwmMHBxpB6qXGX fT0x5IkWpPvZ4 WQzzM0XlJKOtwruoQr37v U2qMgMsEtT3HRjdC3Qkjd J4ESOlsDNaYCtwJHX4E72 kb0Y9NPNxCOCq RFF6sLW2nL0jrAvhzruph GVmdDsgdmVydGljYWwtYW meM162TMJolEwfOpShUHx xGDRzJU80UP92 zCMgg0L5pGU0G8JbLFVwa igcwkstePE7LTPhHTSfxJ 12yNIqELxiQa5qb6O5o83 5PDFnYKHlsB90 Uq5jqYfuZGFkfMXZkJ1dn ltla1extritEjWiPNYxZN j8UBt3RHZdmKawSoQoDHK 3UhN4FUN8fORy jW0oyPtwlzumvM1rCpt+T WFsZTwvdGQ+PHFcSQF1nJ ucVTeyBSPorL0aWJWuI9w 0CwUoTmZ6YYzy N8VtZHBrmociXc06pW9wL jAyTwM3BGpdZ1XwxcY5ZT CseNSnSHpxIDP5J37fu7J 2RZMvHXUqTKF6 vTG9cF1npBodjackbVEzk DsgdmVydGljYWwtYWxpZ2 65YYRxjKgfOg9te4MvwbX 0hB5kNY32UB28 T7KaZmhnmUWkxJN+PHRhY mxlIHdpZHRoPScxMDAlJy TslImkET4uQq0xSPFeMKT vbGxhcHNlOiBj x3qhEPWaCOqvHL8zfKghJ 9NjlRC3LLDjd9s7Nu13M5 8tA9ZvlEL+AVZxcFR5vXI 1zU5oIjTqMdU2 YBrfP352CpPsbRIvOoybj 7ygk7bpzFe0JeVlWAAnin WchRanYLI7n3QjHs46V35 sIHdpZHRoPSIy WHKwXDFzyXwdwm2nmE0gQ i8+OPQjuWC2wDO6pF1uOk HlSnT4IXxqY817RrNkwNJ eUeyjR30qV9Ne dXA+MWZlTis0BDCfdGatK T6ekTDfKGhmLm9sUPL0Fa IhYlPrCKcoA1LiLMGdfmv tjrqcmYC8DZJo NDTozV27Wg1lkSmpFx1iP GNyCHS8ETHhjMDcG2KqdI 1xTcQrSIWmXFSoV1PogGJ qUXqiC662VVzr EvB1CMWrxrNgG1AuVTWvy AlaYrP7e6H8Gm8EzWiqjT ZcRT2fVsEvCUy3N6NlPxp 0UTCbqJwiBK8c hRHtLDrrYw9fdKslsVruG N2aAKIraddph737VwTho4 njTVBqsPHfRLcgILU8X41 wu5A7CNVkVJEz GUN4tUS0sO1guBdlnksmd GVmdDsgdmVydGljYWwtYW mrK604MSObgLdxHtGKHks 6K6BiHtx8EIAo wEfnLS8vmWUyEQanJa2ly WqotNpkMY9wCNOsrmesl4 60QoNkl4bhATHlkWWjCWo uXTD4E53xq3I3 POHkKDUoXLC6kAY4kY1nx GlnbjogbGVmdDsgdmVydG xfDIsuSBdpZ222CENqqDk pOn8PUbq7U7Mt Lbg0NIJuhCwcYJ9hnIPpT TygUd3wlDxlyGevEC9iHN Dvnwuok931QzHmh4yaHPY wcHQgVGltZXM7 V17ej5P7HFDpBKIaVBX7x IX2nG3aqVjpyfqniYMsfC isgnEwdOddEOkhWWrbX19 6IHRvcDsnPlBh eWVyOjwvdGQ+UR64yh89G 6JjNxjvSww8XJYoWIB9jK F0eR0hFIFeCFath5T2vWR 4W7EtpfUbqz8i b2xs (more content not included)... Normal [facility] ED Traumaon 05-06-2021 ED Trauma [id number]# 1.00CD:127 Normal [facility] EMS Documentationon 05-05-20 EMS Documentation [id number]# 1.00CD:127 Normal [facility] ABO/Rh History Checkon 05-02 ABO/Rh History Check Type verified by second s Normal [facility] Comment on above: Performed By: #### 1 [id number] ####[facility] [id number] [place] [address] ABO/Rh Retypeon 05-02-2021 ABO/Rh Retype Interp Positive Invalid Interpretation Code [facility] Comment on above: Performed By: #### 1 [id number] ####[facility] [address] [place] [address] ABSCon 05-02-2021 ABSC Gel Interp Negative Normal [facility] Comment on above: Performed By: #### 1 [id number] ####[facility] [address] [place] [address] Auto Diffon 05-02-2021 Basophils/100 WBC (Bld) 1.3 % Normal 0.0-2.0 [facility] Comment on above: Order Comment: Order Added by Discern Expert. Performed By: #### 2 [id number], [id number] #### [facility] [address] [place] [address] Basophils/Leukocytes Auto (Bld) [Pure # fraction] 0.1 E9/L Normal 0.0-0.2 [facility] Comment on above: Order Comment: Order Added by Discern Expert. Performed By: #### 2 [id number], [id number], [id number], [id number] #### [facility] [address] [place] [address] Eosinophils/100 WBC (Bld) 4.2 % Normal 0.0-8.0 [facility] Comment on above: Order Comment: Order Added by Discern Expert. Performed By: #### 2 [id number], [id number], [id number], [id number] #### [facility] [address] [place] [address] Eosinophils/Leukocytes Auto (Bld) [Pure # fraction] 0.2 E9/L Normal 0.0-0.5 [facility] Comment on above: Order Comment: Order Added by Discern Expert. Performed By: #### 2 [id number], [id number], [id number], [id number] #### [facility] [address] [place] [address] Lymphocytes/100 WBC (Bld) 36.9 % Normal 14.0-50.0 [facility] Comment on above: Order Comment: Order Added by Discern Expert. Performed By: #### 2 [id number], [id number], [id number], [id number] #### [facility] [address] [place] [address] Lymphocytes/Leukocytes Auto (Bld) [Pure # fraction] 1.7 E9/L Normal 1.0-4.0 [facility] Comment on above: Order Comment: Order Added by Discern Expert. Performed By: #### 2 [id number], [id number], [id number], [id number] #### [facility] [address] [place] [address] Monocytes/100 WBC (Bld) 8.7 % Normal 4.0-14.0 [facility] Comment on above: Order Comment: Order Added by Discern Expert. Performed By: #### 2 [id number], [id number], [id number], [id number] #### [facility] [address] [place] [address] Monocytes/Leukocytes Auto (Bld) [Pure # fraction] 0.4 E9/L Normal 0.2-1.0 [facility] Comment on above: Order Comment: Order Added by Discern Expert. Performed By: #### 2 [id number], [id number], [id number], [id number] #### [facility] [address] [place] [address] Neutrophils/100 WBC (Bld) 48.9 % Normal 36.0-75.0 [facility] Comment on above: Order Comment: Order Added by Discern Expert. Performed By: #### 2 [id number], [id number], [id number], [id number] #### [facility] [address] [place] [address] Neutrophils/Leukocytes Auto (Bld) [Pure # fraction] 2.2 E9/L Normal 2.0-7.5 [facility] Comment on above: Order Comment: Order Added by Discern Expert. Performed By: #### 2 519790, 4478114, 8401880, 29375796 #### [facility] [address] [place] [address] BMPon 05-02-2021 Anion gap [Moles/Vol] 11 mmol/L Normal 6-16 [facility] Comment on above: Performed By: #### 2 826532, 1398200, 4140661, 81197414 #### [facility] [address] [place] [address] Calcium [Mass/Vol] 8.3 mg/dL Low 8.9-11.1 [facility] Comment on above: Performed By: #### 2 176474, 5267018, 6941788, 66536413 #### [facility] [address] [place] [address] Chloride [Moles/Vol] 107 mmol/L Normal 101-111 [facility] Comment on above: Performed By: #### 2 722004, 1675769, 0491136, 77905903 #### [facility] [address] [place] [address] CO2 [Moles/Vol] 25 mmol/L Normal 21-31 [facility] Comment on above: Performed By: #### 2 661636, 5476011, 7983427, 82378376 #### [facility] [address] [place] [address] Creatinine [Mass/Vol] 1.2 mg/dL Normal 0.5-1.3 [facility] Comment on above: Performed By: #### 2 119955, 0752487, 4122729, 44316915 #### [facility] [address] [place] [address] Glucose [Mass/Vol] 88 mg/dL Normal 55-199 [facility] Comment on above: Result Comment: If t his glucose result represents a fasting glucose, interpretation should refer to the following reference range: 55-99 mg/dL Performed By: #### 2 446270, 6472089, 7566891, 95563414 #### [facility] [address] [place] [address] Potassium [Moles/Vol] 3.5 mmol/L Normal 3.5-5.3 [facility] Comment on above: Performed By: #### 2 997254, 8296825, 5102881, 38170965 #### [facility] [address] [place] [address] Sodium [Moles/Vol] 139 mmol/L Normal 135-145 [facility] Comment on above: Performed By: #### 2 369075, 5742249, 4055125, 91745831 #### [facility] [address] [place] [address] Urea nitrogen [Mass/Vol] 14 mg/dL Normal 5-21 [facility] Comment on above: Performed By: #### 2 754104, 2013226, 2426432, 60389493 #### [facility] [address] [place] [address] Urea nitrogen/Creatinine [Mass ratio] 12 No Units Normal 10-20 [facility] Comment on above: Performed By: #### 2 467179, 5407111, 9012926, 27342788 #### [facility] [address] [place] [address] CBC w/ Auto Diffon Erythrocyte distribution width (RBC) [Ratio] 13.5 % Normal 10.9-14.2 [facility] Comment on above: Performed By: #### 2 709339, 7069561, 8026116, 06836917 #### [facility] [address] [place] [address] Hematocrit (Bld) [Volume fraction] 41.0 % Normal 37.7-49.0 [facility] Comment on above: Performed By: #### 2 602108, 9114498, 5812391, 21942516 #### [facility] [address] [place] [address] Hemoglobin (Bld) [Mass/Vol] 13.6 g/dL Normal 13.5-17.5 [facility] Comment on above: Performed By: #### 2 052080, 5700084, 3955909, 13708009 #### [facility] [address] [place] [address] MCH (RBC) [Entitic mass] 27.6 pg Normal 27.0-34.0 [facility] Comment on above: Performed By: #### 2 243676, 0420078, 5160378, 05915172 #### [facility] [address] [place] [address] MCHC (RBC) [Mass/Vol] 33.2 g/dL Normal 31.4-36.0 [facility] Comment on above: Performed By: #### 2 469990, 7716375, 2735683, 44742973 #### [facility] [address] [place] [address] MCV (RBC) [Entitic vol] 83.1 fL Normal 80.0-100.[address] [facility] Comment on above: Performed By: #### 2 943152, 3047208, 5365179, 48371741 #### [facility] [address] [place] [address] Platelet mean volume (Bld) [Entitic vol] 9.8 fL Normal 6.4-10.8 [facility] Comment on above: Performed By: #### 2 418332, 8912479, 4872829, 29467945 #### [facility] [address] [place] [address] Platelets (Bld) [#/Vol] 129.0 E9/L Low 150.0-500.0 [facility] Comment on above: Performed By: #### 2 520981, 7444278, 3682304, 59126145 #### [facility] [address] [place] [address] RBC (Bld) [#/Vol] 4.9 E12/L Normal 4.3-5.9 [facility] Comment on above: Performed By: #### 2 802354, 6166345, 9939380, 81937443 #### [facility] [address] [place] [address] WBC corrected for nucl RBC Auto (Bld) [#/Vol] 4.5 E9/L Normal 4.0-11.0 [facility] Comment on above: Performed By: #### 2 193006, 9934530, 3723831, 74168102 #### [facility] [address] [place] [address] CT Abdomen/Pelvis w/ Contras ton 05-02-2021 CT [...] 300 Contrast amount in ml's: 100 Normal [facility] CT Chest w/ Contraston 05-02 CT Chest [...] 300 Contrast amount in ml's: 100 Normal [facility] CT Head or Brain w/o Contras ton [...] MD Transcribed by: DYAN Technologist: CHASE Normal [facility] CT Spine Cervical w/o Contra ston 05-02-2021 [...] MD Transcribed by: DYAN Technologist: CHASE Normal [facility] Consent for Treatmenton 04-09 Consent for Treatment [id number]# 1.00CD:127 Normal [facility] Discharge Instructionson Discharge Instructions [id number]# 1.00CD:127 Normal [facility] ED Clinical Summaryon 2020 ED Clinical Summary [address] [place] [address] ED Clinical Summary Person Information Name: JOHNATHAN HEREDIA Jr [facility] Age: 50 Years : 1970 Sex: Male Language: Estonian PCP: WILY LANDRUM MD Marital Status: Visit Id: Visit Reason: Neck pain; Trauma - major; Chest pain; FALL Speciality: Acuity: 2 Enc Type: Emergency Med Service: Emergency Arrival: 05/01/2021 21:04:08 Discharge: LOS: 000 03:19 Checkin: 05/01/2021 21:04:08 Checkout: 05/02/2021 00:23:44 Dispo Type: Admitted as IP to this [facility] EVENTS: Event Name Event Status Request [...] 05/02/2021 00:23:44 05/02/2021 00:23:44 05/02/2021 00:23:44 ADDRESS: [address] [place] [id number] PHYS DOC NOTES: MEDICAL INFORMATION: Prescriptions Given: PATIENT EDUCATION INFORMATION: Instructions: Follow up: DIAGNOSIS: 1:Fall; 2:Concussion Normal [facility] ED Note-Physicianon 05-02-20 ED Note-Physician Basic Information [...] senna 8.6 (more content not included)... Normal [facility] Comment on above: Result Comment: Elec tronically Signed By: Katie Elmore M.D.\.br\Date and Time Signed: 05/02/21 00:48 EDT ED Patient Education Noteon 05-02-2021 ED Patient Education Note Normal [facility] ED Patient Summaryon 021 ED Patient Summary [place] [address] Patient Discharge Instructions Person Information Name: JOHNATHAN HEREDIA Jr Age: 50 Years Arrival Date: 05/01/2021 21:04:08 Discharge Diagnosis: 1:Fall; 2:Concussion Primary Care Physician: WILY LANDRUM MD Provider Information Primary Provider: Katie Elmore M.D. Advanced Floater Operator:None The exam and treatment you received in the Emergency Department were for an urgent problem and are not intended as complete care. It is important that you follow up with a doctor, nurse practitioner, or physician?s assistant counsel for ongoing care. If your symptoms become [...] opioids can be used to help relieve eroxtahb-pt-mgdozm pain and are often prescribed following a [...] be struggling with addiction, tell your health acute care physician and ask for guidance or call [facility] National Helpline at 6-193-054-RF Biocidics. v Source: [place] Department of Health and Human Services/Center for Disease Control & Prevention [facility] Medications Given: Medication Dose Route So (more content not included)... Normal [facility] Inpatient Clinical Summaryon 05-02-2021 Inpatient Clinical Summary [address] [address] Clinical Summary Person Information: Name: JOHNATHAN HEREDIA Jr Age: 50 Years : 1970 Sex: Male PCP: WILY LANDRUM MD Marital Status: Race: White Ethnicity: Non- or Language: Estonian Visit Id: Visit Reason: Neck pain; Trauma - major; Chest pain; CONCUSSION Speciality: Acuity: Enc Type: Observation Med Service: Medical Arrival: 05/01/2021 21:04:08 Discharge: Dispo Type: Admitted as IP to this Hosp Address: [address] [place] [id number] Provider Notes: Diagnosis: 1:Fall; 2:Concussion Problems No [...] up: With: Address: When: WILY THOMPSONA Gina [place], [place] [id number] [employer] (7) Within 1 to 2 weeks Comments: Follow with your PCP within 1-2 weeks. Call for followup appointment. Patient Education Information: Concussion, Adult Normal [facility] Inpatient Patient Summaryon 05-02-2021 Inpatient Patient Summary [place] [address] Patient Discharge Instructions PERSON INFORMATION Name: JOHNATHAN [...] up: With: Address: When: WILY THOMPSONA [facility] [place] [address] Business (1) Within 1 to 2 weeks [...] Get angela (more content not included)... 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 Normal [facility] Comment on above: Result Comment: [...] DYAN Technologist: JESSICA Technical Comments None Normal [facility] MRI Spine Cervical w/o Contr rand 05-02-2021 [...] DYAN Technologist: JESSICA Technical Comments None Normal [facility] Monitor Recordon 05-02-2021 Monitor Record [id number]# 1.00CD:127 Normal [facility] Prescriptions/Work Noteson 0 05-02-2021 Prescriptions/Work Notes [id number]# 1.00CD:127 Normal [facility] RAD - MRI Screening Formon 0 05-02-2021 RAD - MRI Screening Form [id number]# 1.00CD:127 Normal [facility] RAD - Preliminary Cat Scan R eporton 05-02-2021 RAD - Preliminary Cat Scan Report [id number]# 1.00CD:127 Normal [facility] U Drug Screenon 05-02-2021 Amphetamines Screen method >1000 ng/mL Ql (U) Negative Normal Negative [facility] Comment on above: Result Comment: Nega tive Cutoff: <1000 ng/mL Performed By: #### 2 250875 ####[facility] [address] [place] [address] Barbiturates Screen Ql (U) Negative Normal Negative [facility] Comment on above: Result Comment: Nega tive Cutoff: <200 ng/mL Performed By: #### 2 248766 ####[facility] [address] [place] [address] Benzodiazepines Ql (U) Negative Normal Negative [facility] Comment on above: Result Comment: Nega tive Cutoff: <200 ng/mL Performed By: #### 2 632069 ####[facility] [address] [place] [address] Cocaine Ql (U) Negative Normal Negative [facility] Comment on above: Result Comment: Nega tive Cutoff: <300 ng/mL Performed By: #### 2 392691 ####[facility] [address] [place] [address] Opiates Screen Ql (U) Negative Normal Negative [facility] Comment on above: Result Comment: Nega tive Cutoff: <300 ng/mL Performed By: #### 2 972957 ####[facility] [address] [place] [address] Phencyclidine Screen method >25 ng/mL Ql (U) Negative Normal Negative [facility] Comment on above: Result Comment: Nega tive Cutoff: <25 ng/mL These drug screen results are to be used for medical (i.e., treatment) purposes only. Unconfirmed drug screening results must not be used for non-medical purposes (e.g., employment testing, legal testing). Performed By: #### 2 369025 ####[facility] [address] [place] [address] Tetrahydrocannabinol Screen method >50 ng/mL Ql (U) Negative Normal Negative [facility] Comment on above: Result Comment: Nega tive Cutoff: <50 ng/mL Performed By: #### 2 446866 ####[facility] [address] [place] [address] XR Ankle 3+ Views Righton XR Ankle [...] M.D. Transcribed by: DYAN Technologist: CHASE Spring [facility] XR Knee Complete 4+ Views Le fton [...] M.D. Transcribed by: DYAN Technologist: CHASE Spring [facility] eGFRon 05-02-2021 GFR/1.73 sq M.predicted among blacks MDRD (S/P/Bld) [Vol rate/Area] mL/min/{1.73_m2} Normal >=59 [facility] Comment on above: Order Comment: Order added by Discern Expert. Result Comment: eGFR is race adjusted. AA=. Performed By: #### 2 446689, 3868265, 3910083, 01743237 #### [facility] [address] [place] [address] GFR/1.73 sq M.predicted among non-blacks MDRD (S/P/Bld) [Vol rate/Area] mL/min/{1.73_m2} Normal >=59 [facility] Comment on above: Order Comment: Order added by Discern Expert. Result Comment: Video Conference Specialist heidi kidney disease could be indicated at eGFR's of less than 60 mL/min/1.73m2. Kidney failure is indicated at less than 15 mL/min/1.73m2. Performed By: #### 2 820408, 1370257, 9540167, 52001787 #### [facility] [address] [place] [address] ABO/Rhon 05-01-2021 ABO/Rh Positive Invalid Interpretation Code [facility] Comment on above: Performed By: #### 1 7763522, 02058868, 58449090, 3296345 ####[facility] [address] [place] [address] Auto Diffon 05-01-2021 Basophils/100 WBC (Bld) 1.1 % Normal 0.0-2.[address] [facility] Comment on above: Order Comment: Order Added by Discern Expert. Performed By: #### 2 656764, 7437875, 6078788, 57308478, 0841779, 7728213, 9508038, 96479588, 0303251 ####[place] [address] [place] [address] Basophils/Leukocytes Auto (Bld) [Pure # fraction] 0.1 E9/L Normal 0.0-0.2 [facility] Comment on above: Order Comment: Order Added by Discern Expert. Performed By: #### 2 022680, 1644716, 1313714, 99444337, 0107010, 8478579, 5138719, 85401484, 7746735 ####[address] [address] Eosinophils/100 WBC (Bld) 2.0 % Normal 0.0-8.0 [facility] Comment on above: Order Comment: Order Added by Discern Expert. Performed By: #### 2 489068, 0814276, 0140989, 80480214, 5062120, 9630819, 1587615, 74747289, 6564628 ####[address] [address] Eosinophils/Leukocytes Auto (Bld) [Pure # fraction] 0.1 E9/L Normal 0.0-0.5 [facility] Comment on above: Order Comment: Order Added by Discern Expert. Performed By: #### 2 358792, 5491081, 4709730, 13046764, 4385789, 5093062, 9333342, 52974399, 3656396 ####[address] [address] Lymphocytes/100 WBC (Bld) 27.9 % Normal 14.0-50.0 [facility] Comment on above: Order Comment: Order Added by Discern Expert. Performed By: #### 2 848260, 1749439, 1687797, 46909557, 5594545, 4713119, 7520611, 44338006, 3524621 ####[address] [address] Lymphocytes/Leukocytes Auto (Bld) [Pure # fraction] 1.8 E9/L Normal 1.0-4.0 [facility] Comment on above: Order Comment: Order Added by Discern Expert. Performed By: #### 2 042053, 0209662, 6493554, 96874719, 8701092, 9490773, 6739702, 00565248, 5421949 ####[place] [address] [place] [address] Monocytes/100 WBC (Bld) 8.6 % Normal 4.0-14.0 [facility] Comment on above: Order Comment: Order Added by Discern Expert. Performed By: #### 2 421497, 5567619, 3120687, 71093245, 0389389, 0329568, 8600688, 46904357, 5786337 ####[address] [address] Monocytes/Leukocytes Auto (Bld) [Pure # fraction] 0.6 E9/L Normal 0.2-1.0 [facility] Comment on above: Order Comment: Order Added by Kevin Expert. Performed By: #### 2 562946, 4902016, 5496997, 48977248, 9562734, 3189525, 5239963, 29715697, 1813650 ####[address] [address] Neutrophils/100 WBC (Bld) 60.4 % Normal 36.0-75.0 [facility] Comment on above: Order Comment: Order Added by Kevin Expert. Performed By: #### 2 724856, 2778685, 7924085, 83075784, 6278881, 4367008, 4986656, 90692003, 0528080 ####[place] [address] [place] [address] Neutrophils/Leukocytes Auto (Bld) [Pure # fraction] 4.0 E9/L Normal 2.0-7.5 [facility] Comment on above: Order Comment: Order Added by Kevin Expert. Performed By: #### 2 329479, 2213467, 2714861, 82284358, 4645281, 7418100, 8816529, 02190300, 2880433 ####[address] [place] [address] BMPon 05-01-2021 Creatinine [Mass/Vol] 1.2 mg/dL Normal 0.5-1.3 [facility] Comment on above: Performed By: #### 2 674927, 4303301, 1321506, 15730708, 2403851, 9410450, 4442394, 03083338, 8058455 ####[facility] [address] [place] [address] Urea nitrogen [Mass/Vol] 14 mg/dL Normal 5-21 [facility] Comment on above: Performed By: #### 2 177824, 5973783, 5123169, 77998566, 7971578, 6917718, 7852644, 85841734, 7080288 ####[facility] [address] [place] [address] Urea nitrogen/Creatinine [Mass ratio] 12 No Units Normal 10-20 [facility] Comment on above: Performed By: #### 2 020369, 8352377, 9616364, 11590901, 7640145, 8441227, 9004449, 00067842, 8802571 ####[facility] [address] [place] [address] Anion gap [Moles/Vol] 15 mmol/L Normal 6-16 [facility] Comment on above: Performed By: #### 2 574625, 8248986, 0019596, 22761744, 0411225, 8045643, 9868335, 93175326, 1305637 ####[facility] [address] [place] [address] Calcium [Mass/Vol] 9.0 mg/dL Normal 8.9-11.1 [facility] Comment on above: Performed By: #### 2 523003, 4894960, 4466300, 79753067, 5532851, 8704277, 3860761, 32443438, 3235129 ####[facility] [address] [place] [address] Chloride [Moles/Vol] 105 mmol/L Normal 101-111 [facility] Comment on above: Performed By: #### 2 475298, 4708830, 2292141, 38775080, 4343138, 8546371, 6103164, 36826137, 5110483 ####[facility] [address] [place] [address] CO2 [Moles/Vol] 22 mmol/L Normal 21-31 [facility] Comment on above: Performed By: #### 2 202678, 8690000, 6049180, 86328283, 0069685, 4316786, 1081431, 64018892, 0314003 ####[facility] [address] [place] [address] Glucose [Mass/Vol] 94 mg/dL Normal 55-199 [facility] Comment on above: Result Comment: If t his glucose result represents a fasting glucose, interpretation should refer to the following reference range: 55-99 mg/dL Performed By: #### 2 872922, 5192820, 0477075, 65961669, 3391912, 6462125, 3409079, 29814026, 3996385 ####[facility] [address] [place] [address] Potassium [Moles/Vol] 3.3 mmol/L Low 3.5-5.3 [facility] Comment on above: Performed By: #### 2 083570, 6307112, 7490352, 24597892, 1701577, 2485247, 9993985, 29063619, 9318086 ####[facility] [address] [place] [address] Sodium [Moles/Vol] 139 mmol/L Normal 135-145 [facility] Comment on above: Performed By: #### 2 138020, 7710935, 6889305, 87329935, 9341327, 8898644, 0293205, 15962315, 7015390 ####[facility] [address] [place] [address] Blood Bank ID#on 05-01-2021 BBID# [id number] Invalid Interpretation Code [facility] Comment on above: Performed By: #### 1 5801761, 45968283, 48388798, 9902173 ####[facility] [address] [place] [address] CBC w/ Auto Diffon Erythrocyte distribution width (RBC) [Ratio] 13.4 % Normal 10.9-14.2 [facility] Comment on above: Performed By: #### 2 423035, 4235223, 2865500, 19046635, 2257791, 7456924, 9897049, 39136280, 0944976 ####[facility] [address] [place] [address] Hematocrit (Bld) [Volume fraction] 42.6 % Normal 37.7-49.0 [facility] Comment on above: Performed By: #### 2 144535, 9635206, 6283913, 48038611, 6512407, 8209401, 9615934, 85132343, 6940888 ####[facility] [address] [place] [address] Hemoglobin (Bld) [Mass/Vol] 14.4 g/dL Normal 13.5-17.5 [facility] Comment on above: Performed By: #### 2 322120, 7474229, 0605736, 03683558, 2339515, 3943467, 7427805, 78482901, 6387070 ####[facility] [address] [place] [address] MCH (RBC) [Entitic mass] 27.8 pg Normal 27.0-34.0 [facility] Comment on above: Performed By: #### 2 104164, 2392046, 9660646, 24289913, 8855536, 3678882, 0134611, 44447304, 7034327 ####[facility] [address] [place] [address] MCHC (RBC) [Mass/Vol] 33.9 g/dL Normal 31.4-36.0 [facility] Comment on above: Performed By: #### 2 686357, 3634353, 7928252, 08578727, 9611536, 7525711, 3469932, 90420849, 7432787 ####[facility] [address] [place] [address] MCV (RBC) [Entitic vol] 81.9 fL Normal 80.0-100.[address] [facility] Comment on above: Performed By: #### 2 062052, 8513812, 1879149, 14817152, 9335330, 4605787, 4517922, 07967558, 4760570 ####[facility] [address] [place] [address] Platelet mean volume (Bld) [Entitic vol] 10.3 fL Normal 6.4-10.8 [facility] Comment on above: Performed By: #### 2 654919, 8609485, 9520273, 95638532, 9445691, 6899943, 7475372, 82249451, 9902582 ####[facility] [address] [place] [address] Platelets (Bld) [#/Vol] 147.0 E9/L Low 150.0-500.0 [facility] Comment on above: Performed By: #### 2 891963, 0829863, 0506991, 76915607, 4055019, 4654422, 9922830, 45989312, 7328343 ####[facility] [address] [place] [address] RBC (Bld) [#/Vol] 5.2 E12/L Normal 4.3-5.9 [facility] Comment on above: Performed By: #### 2 474396, 9193828, 5733643, 81481094, 1408875, 2106324, 9656314, 60296444, 5646671 ####[facility] [address] [place] [address] WBC corrected for nucl RBC Auto (Bld) [#/Vol] 6.6 E9/L Normal 4.0-11.0 [facility] Comment on above: Performed By: #### 2 832376, 5987405, 3754960, 81968452, 2712389, 8621693, 1239559, 79004457, 1216470 ####[facility] [address] [place] [address] Ethanolon 05-01-2021 Ethanol [Mass/Vol] mg/dL Normal <=7 [facility] Comment on above: Performed By: #### 2 482651 ####[facility] [address] [place] [address] Hep Func Panelon 05-01-2021 Albumin [Mass/Vol] 3.9 g/dL Normal 3.3-5.0 [facility] Comment on above: Performed By: #### 2 052781, 3157525, 2179899, 23778920, 1541164, 6329433, 2014682, 90388170, 7372596 ####[facility] [address] [place] [address] Albumin/Globulin (S) [Mass conc ratio] 1.3 Normal 1.1-2.2 [facility] Comment on above: Performed By: #### 2 325190, 1610170, 1543535, 81853976, 5831623, 3017616, 1114724, [id number], [id number] ####[facility] [address] [place] [address] ALP [Catalytic activity/Vol] 56 Int._Unit/L Normal 21-98 [facility] Comment on above: Performed By: #### 2 648747, 4714697, 4969543, 69756746, 9284696, 6270668, 5585301, 29497858, 9240382 ####[facility] [address] [place] [address] ALT No additional P-5'-P [Catalytic activity/Vol] 37 Int._Unit/L Normal 6-46 [facility] Comment on above: Performed By: #### 2 426295, 4644182, 2468661, 76114738, 0373908, 3160547, 7704393, 29608300, 1292120 ####[place] [address] [place] [id number] AST [Catalytic activity/Vol] 36 Int._Unit/L Normal 5-43 [facility] Comment on above: Performed By: #### 2 493522, 6821937, 6737914, 97721683, 5713022, 9985621, 2313344, 75343059, 0630539 ####[facility] [address] [place] [address] Bilirubin [Mass/Vol] 0.9 mg/dL Normal 0.0-1.1 [facility] Comment on above: Performed By: #### 2 058919, 1690557, 2416142, 17441199, 3421201, 9346753, 8789077, 84742644, 4738178 ####[place] [address] Bilirubin.direct [Mass/Vol] 0.2 mg/dL Normal 0.1-0.4 [facility] Comment on above: Performed By: #### 2 015042, 9547753, 8920733, 25981523, 1995858, 6001020, 1092970, 05088286, 9743985 ####[address] [address] Bilirubin.indirect [Mass or moles/Vol] 0.7 mg/dL Normal 0.1-0.9 [facility] Comment on above: Performed By: #### 2 414954, 6019101, 8442427, 40042963, 5034936, 1997198, 0256547, 54111799, 7494179 ####[place] [address] [place] [address] Globulin (S) [Mass/Vol] 3.0 g/dL Normal 1.4-4.[address] [facility] Comment on above: Performed By: #### 2 761871, 3693451, 0504937, 93505358, 2836631, 4429894, 9468810, 10227521, 6100916 ####[facility] [address] [place] [address] Protein [Mass/Vol] 6.9 g/dL Normal 6.0-7.8 [facility] Comment on above: Performed By: #### 2 097838, 1427701, 1331506, 04917952, 3253889, 3920655, 1538150, 94397671, 4430768 ####[facility] [address] [place] [address] Lactic Acidon 05-01-2021 Lactate [Mass/Vol] 1.2 mmol/L Normal 0.5-2.2 [facility] Comment on above: Performed By: #### 2 791777, 4961530, 8088442, 30216077, 3873941, 3733905, 0724930, 03457678, 3049373 ####[facility] [address] [place] [address] Magnesiumon 05-01-2021 Magnesium [Mass/Vol] 2.0 mg/dL Normal 1.3-2.4 [facility] Comment on above: Performed By: #### 2 735823, 7167549, 3081304, 42321242, 7635292, 3099810, 0678262, 71299847, 2556881 ####[facility] [address] [place] [address] PT & PTTon 05-01-2021 aPTT Coag (PPP) [Time] 27.8 second(s) Normal 25.1-36.5 [facility] Comment on above: Result Comment: Hepa rin therapeutic range (represented by Anti-Factor Xa activity of 0.2 - 0.4 U/mL) corresponds to PTT of 56.6 - 109.0 sec. Performed By: #### 2 751563, 5175063, 7281920, 09578773, 7912894, 5366573, 3302874, 88543800, 6579052 ####[facility] [address] [place] [address] INR Coag (PPP) [Relative time] 1.1 {INR} Invalid Interpretation Code [facility] Comment on above: Result Comment: INR results are specifically intended to assess patients stabilized on long-term Anticoagulation therapy suggested INR?s ?Less Intensive Anticoagulation? 2.0 ? 3.0 Conventional Range 3.0 ? 4.5 Performed By: #### 2 094930, 1402167, 7249833, 45952425, 2578320, 2435656, 1329280, 97708358, 9218787 ####[facility] [address] [place] [address] PT Coag (PPP) [Time] 13.3 second(s) High 10.2-12.9 [facility] Comment on above: Performed By: #### 2 184814, 6851410, 5044316, 33352296, 1036920, 5330996, 1213721, 99962774, 0946349 ####[facility] [address] [place] [address] Troponinon 05-01-2021 Troponin I.cardiac [Mass/Vol] 5.60 pg/mL Low 15.90-38.40 [facility] Comment on above: Result Comment: The 95% CI (Confidence Interval) PPV (Positive Predictive Value) for myocardial infarction in females is 38 pg/mL, in males 51 pg/mL. The results should be used in conjunction with clinical conditions of myocardial infarction. (Access High Sensitivity Troponin I Instructions For Use, Robbi Lynnwood, June 2018) Performed By: #### 2 586172, 1072850, 3899436, 95347903, 9287919, 8192960, 5821997, 58728824, 8682750 ####[place] [address] [place] [address] eGFRon 05-01-2021 GFR/1.73 sq M.predicted among blacks MDRD (S/P/Bld) [Vol rate/Area] mL/min/{1.73_m2} Normal >=59 [facility] Comment on above: Order Comment: Order added by Discern Expert. Result Comment: eGFR is race adjusted. AA=. Performed By: #### 2 863864, 1584907, 3277983, 90385192, 4086770, 7025115, 7154471, 81682650, 9724141 ####[facility] [address] [place] [address] GFR/1.73 sq M.predicted among non-blacks MDRD (S/P/Bld) [Vol rate/Area] mL/min/{1.73_m2} Normal >=59 [facility] Comment on above: Order Comment: Order added by Discern Expert. Result Comment: Video Conference Specialist heidi kidney disease could be indicated at eGFR's of less than 60 mL/min/1.73m2. Kidney failure is indicated at less than 15 mL/min/1.73m2. Performed By: #### 2 219693, 6452350, 3359868, 66300944, 2267437, 0281370, 1155864, 29495491, 2557871 ####[facility] [address] [place] [address] Encounters Encounter Date Encounter Type Care Provider Facility Start: 05-23-2024 End: 05-23-2024 ambulatory WILY LANDRUM Not Available Start: 02-11-2023 End: 02-12-[address] Shivani MANZO Facility:[facility] Start: 02-05-2023 End: 02-05-[address] WILY LANDRUM Facility:[facility] Start: 09-30-2022 End: 09-30-[address] WILY LANDRUM Facility:[facility] Start: 06-29-2022 End: 06-29-[address] WILY LANDRUM Facility:[facility] Start: 06-21-2021 End: 06-21-2021 Emergency department patient visit Afshin Torres Facility:[facility] Payers Date Payer Category Payer Self-pay 1970 Unknown [id number] 2.16.84 [id number] 1970 Unknown [id number] 2.16.84 [id number] 1970 Unknown [id number] 2.16.84 [id number] 1970 Unknown [id number] 2.16.84 [id number] 1970 Unknown [id number] 2.16.84 [id number] 1959 Private Health Insurance [id number] 1959 Self-pay [id number] 1959 Unknown [id number] Unknown [id number] 2.16.8 [id number] Discharge summary note 05-03-2021 Note Date & Type Note Facility 05-03-2021 Note DISCHARGE SUMMARY [address] [address] JOHNATHAN HEREDIA Jr Date of : 1970 [...] FOLLOW UP: With: Address: When: [place] [address] [facility] (1) Within 1 to 2 weeks Comments: [...] return to clinic or to emergency room. [facility] Comment on above: Result Comment: Elec tronically [...] to follow daily to progress as tolerates. [facility] Clinical Note 05-02-2021 Note Date & Type [...] to see daily during acute care stay. [facility] History and physical note 05-02-2021 Note Date [...] lives at home with , works [employer] [place] Denies smoking, alcohol. Used marijuana once a [...] 21:22:00) Neutro Auto: (more content not included)... [facility] Comment on above: Result Comment: Elec tronically [...] section and content) DATE CREATED AUTHOR 05/09/2021 [facility] DATE CREATED AUTHOR AUTHOR'S ORGANIZ ATION 10/24/2021 [facility] dical Specialist DATE CREATED AUTHOR AUTHOR'S ORGANIZ ATION 02/21/2023 [facility] DATE CREATED AUTHOR AUTHOR'S ORGANIZ ATION 05/26/2024 [facility] DATE CREATED AUTHOR AUTHOR'S JENNIFER ATION 05/27/2024 [facility] dical Specialists [facility] FOR RECORDS PERTAINING TO PATIENTS WHO ARE [...] BE BASED ON THE PRIMARY CLINICAL RECORDS. [facility] [employer] provides no warranty or guarantee of the accuracy or completeness of information in this document.
[2024-07-19] MEDS: ONDANSETRON PF 4 MG/2 ML VIAL IV (21:14)
[2024-07-20] VITALS (8 sets, daily range): BP systolic 105–128; BP diastolic 64–78; PULSE 54–64; TEMP 36.6–36.9; O2SAT 91–95
[2024-07-20] MEDS: 0.9 % SODIUM CHLORIDE 1,000 ML 100 ML IV ×2 (01:34→14:38)
[2024-07-20] MEDS: METRONIDAZOLE/SODIUM CHLORIDE 500 MG/100 ML PREMIX 100 MG IV (01:35)
--- NOTE | 2024-07-20 02:32 | XR_ITS ---
The [address] [address] Patient Name: JOHNATHAN HEREDIA MRN: [id number] date: 1970 Sex: M Assigned Patient Location: MS Current Patient Location: MS Accession/Order Number: [id number] Exam Date: 07/20/2024 03:45 Report Date: 07/20/2024 05:10 At the request of: ROSA LUNDY Procedure: XR abdomen 1V EXAM: XR abdomen 1V HISTORY: no BM for 7 days COMPARISON: Correlation is made with CT abdomen and pelvis examination dated 07/17/2024. TECHNIQUE: One view of the abdomen was obtained. FINDINGS: There is a nonspecific bowel gas pattern without evidence of bowel obstruction. A supine view is suboptimal for evaluation of intraperitoneal free air though none is seen. Postsurgical changes are seen in the right hemiabdomen. No acute osseous abnormality is seen. XR/XR abdomen 1V IMPRESSION: 1. Nonspecific bowel gas pattern without evidence of bowel obstruction. Electronically authenticated by: Lamin VILLAGRAN Date: 07/20/2024 05:10
[2024-07-20] MEDS: ONDANSETRON PF 4 MG/2 ML VIAL IV ×2 (03:18→08:05)
[2024-07-20] MEDS: MORPHINE SULFATE 2 MG/ML SYRINGE IV ×2 (03:18→08:04)
[2024-07-20 07:45] LABS: Basophils Absolute Auto 0.1 10^3/uL (0.0-0.1); Basophils Percent Auto 0.6 % (0.2-2.0); Eosinophils Absolute Auto 0.4 10^3/uL (0.0-0.7); Eosinophils Percent Auto 4.8 % (0.9-7.0); Hematocrit 38.3 % (42.0-54.0); Hemoglobin 12.5 g/dL (14.0-18.0); Immature Granulocytes Abs Auto 0.02 10^3/uL (0.00-0.03); Immature Granulocytes Pct Auto 0.2 % (0.0-0.5); Lymphocytes Absolute Auto 1.8 10^3/uL (1.2-3.8); Lymphocytes Percent Auto 21.4 % (20.5-60.0); Mean Corpuscular HGB Conc 32.6 g/dL (29.9-35.2); Mean Corpuscular Hemoglobin 28.3 pg (25.9-34.0); Mean Corpuscular Volume 86.8 fL (80.0-94.0); Mean Platelet Volume 12.9 fL (9.5-13.5); Monocytes Absolute Auto 0.7 10^3/uL (0.3-0.8); Monocytes Percent Auto 7.7 % (1.7-12.0); Neutrophils Absolute Auto 5.5 10^3/uL (1.4-6.5); Neutrophils Percent Auto 65.3 % (43.0-75.0); Platelet Count 126 10^3/uL (150-450); Red Blood Count 4.41 10^6/uL (4.70-6.10); White Blood Count 8.4 10^3/uL (4.0-11.0)
[2024-07-20 07:50] LABS: Alanine Aminotransferase 13 U/L (16-63); Albumin Globulin Ratio 0.7; Albumin Level 2.4 g/dL (3.4-5.0); Alkaline Phosphatase 75 U/L (46-116); Anion Gap 12.9; Aspartate Amino Transferase 17 U/L (15-37); BUN Creatinine Ratio 9.5; Bilirubin Total 0.6 mg/dL (0.2-1.0); Calcium 8.2 mg/dL (8.5-10.1); Carbon Dioxide 24.9 mmol/L (21.0-32.0); Chloride 108 mmol/L (98-107); Estimated GFR (African America >60 (>=60); Estimated GFR (Non-African Ame >60 (>=60); Globulin 3.3 g/dL; Glucose 81 mg/dL (74-106); Potassium 3.8 mmol/L (3.5-5.1); Sodium 142 mmol/L (136-145); Total Protein 5.7 g/dL (6.4-8.2)
[2024-07-20] MEDS: LEVOFLOXACIN IN DEXTROSE 5 % 750 MG/150 ML PREMIX 100 MG IV (08:15)
[2024-07-20] MEDS: ENOXAPARIN SODIUM 40 MG/0.4 ML SYRINGE SUBQ (08:15)
--- NOTE | 2024-07-20 09:18 | CT_ITS ---
[address] [address] Patient Name: JOHNATHAN HEREDIA MRN: [id number] date: 1970 Sex: M Assigned Patient Location: MS Current Patient Location: MS Accession/Order Number: [id number] Exam Date: 07/20/2024 11:17 Report Date: 07/20/2024 11:49 At the request of: SHAIKH DILCIA Procedure: CT abdomen pelvis w con EXAM: CT abdomen pelvis w con HISTORY: Acute diverticulitis COMPARISON: 07/17/2024 TECHNIQUE: Axial CT imaging was performed through the abdomen and pelvis with intravenous contrast. Multiplanar reformats were performed. Dose reduction techniques were achieved by using automated exposure control and/or adjustment of mA and/or kV according to patient size and/or use of iterative reconstruction technique. FINDINGS: Lung bases: Bibasilar atelectasis. GI upper: Unremarkable. Liver: Normal size and contour. Gallbladder: No significant abnormality. No cholelithiasis. Biliary system: No intra or extrahepatic biliary ductal dilatation. Spleen: Normal size. Pancreas: Unremarkable. Adrenal glands: Normal adrenal glands. Kidneys/ureters: Normal contours. No hydronephrosis. No nephrolithiasis or ureterolithiasis. Vessels: No aneurysm. Lymph Nodes: No lymphadenopathy. Small bowel: No wall thickening or dilatation. Colon: No dilatation. Unchanged short segment circumferential wall thickening of the mid sigmoid with surrounding fat stranding, representing acute diverticulitis. No evidence of microperforation. No abscess. Appendix: No findings of appendicitis. Peritoneal cavity: No free fluid or pneumoperitoneum. Lower : Unremarkable. Bones: No acute bony abnormality. Soft tissues: No acute finding. Additional findings: None. CT/CT abdomen pelvis w con IMPRESSION: Unchanged short segment circumferential wall thickening of the mid sigmoid with surrounding fat stranding, representing acute diverticulitis. No evidence of microperforation. No abscess. Electronically authenticated by: SAL HENDRIX Date: 07/20/2024 11:49
--- NOTE | 2024-07-20 09:48 | CM.NOTE ---
Rounds made with Dr. Kuo. Rates abdominal pain 05/17. Dr. Kuo to order CT abd/pelvis.
--- NOTE | 2024-07-20 11:51 | PC.NURSE ---
[address] off [address] for [address]
--- NOTE | 2024-07-20 11:53 | P.IMPN_ITS ---
Progress Note: A&P Assessment and Plan (1) Acute diverticulitis: Assessment and Plan: Pain is worse. Had vomiting overnight. CT abd/pelvis ordered to r/o complications/abscess - no acute changes/no perforation. Switch to IV zosyn, d/c levaquin/flagyl. General surgery consulted. (2) Nausea and vomiting: Assessment and Plan: Persistent nausea/vomiting. Unable to advance diet. No acute finding on CT abd Switch Abx to Zosyn. Qualifiers: Vomiting type: unspecified Qualified Code(s): R11.2 - Nausea with vomiting, unspecified (3) Abdominal pain: Assessment and Plan: Pain is worse and patient feels worse overall. No new acute finding on CT abd/pelvis - no perforation/abscess. Qualifiers: Abdominal location: generalized Qualified Code(s): R10.84 - Generalized abdominal pain (4) Leukocytosis: Assessment and Plan: Improved. Qualifiers: Leukocytosis type: leukemoid reaction Qualified Code(s): D72.823 - Leukemoid reaction Plan Added colace and Miralax to help move his bowels. Switch to IV zosyn. General surgery consulted for their recs. Internal Medicine - PN: Subj Subjective Interval history: Seen and examined. Overnight patient reported worsening abdominal pain and had 1-2 episodes of vomiting. Unable to tolerate PO diet. Exam Constitutional Vital Signs, click to edit/add: Last Vital Signs Temp 97.9 F 07/20/24 10:57 Pulse 63 07/20/24 10:57 Resp 16 07/20/24 10:57 BP 115/70 07/20/24 10:57 Pulse Ox 95 07/20/24 10:57 O2 Del Method Room Air 07/20/24 10:57 Documenting provider has reviewed patient's vital signs: yes Common normals: no apparent distress and oriented x3 General appearance: cooperative and frail appearing Respiratory Common normals: normal respiratory effort and clear to auscultation bilaterally Effort & inspection: able to speak in complete sentences Auscultation: clear to auscultation bilaterally Cardio Common normals: regular rate, S1 normal heart sound and S2 normal heart sound Rate: regular rate Heart sounds: S1 normal and S2 normal GI Common normals: Normal to inspection, nondistended, normoactive bowel sounds present and soft to palpation Palpation: tender Details: LLQ and RLQ Extremity Common normals: no clubbing, cyanosis or edema Neuro Common normals: oriented x3, moves all extremities and no focal motor deficits Psych Common normals: mental status grossly normal, denies hallucinations, denies homi cidal ideation and denies suicidal ideation Internal Medicine - PN: Obj Da Labs Labs: Laboratory Results - last 24 hr 07/20/24 06:03 WBC 8.4 RBC 4.41 L Hgb 12.5 L Hct 38.3 L MCV 86.8 MCH 28.3 MCHC 32.6 RDW 13.0 Plt Count 126 L MPV 12.9 Neut % (Auto) 65.3 Lymph % (Auto) 21.4 [place] % (Auto) 7.7 Eos % (Auto) 4.8 Baso % (Auto) 0.6 Neut # (Auto) 5.5 Lymph # (Auto) 1.8 [place] # (Auto) 0.7 Eos # (Auto) 0.4 Baso # (Auto) 0.1 Abs Immat Gran (auto) 0.02 Imm/Tot Granulo (auto) 0.2 Sodium 142 Potassium 3.8 Chloride 108 H Carbon Dioxide 24.9 Anion Gap 12.9 BUN 9.0 Creatinine 0.95 Est GFR ( Amer) >60 Est GFR (Non-Af Amer) >60 BUN/Creatinine Ratio 9.5 Glucose 81 Calcium 8.2 L Total Bilirubin 0.6 AST 17 ALT 13 L Alkaline Phosphatase 75 Total Protein 5.7 L Albumin 2.4 L Globulin 3.3 Albumin/Globulin Ratio 0.7
[2024-07-20] MEDS: DOCUSATE SODIUM 100 MG CAPSULE PO (11:57)
[2024-07-20] MEDS: POLYETHYLENE GLYCOL 3350 17 GM POWDER PACKET PO (11:58)
--- NOTE | 2024-07-20 12:43 | PC.NURSE ---
pt refused pain meds at this time. pt states he wants to let some of the fluids settle down first. he will put his call light on when he wants meds. denies further needs.
[2024-07-20] MEDS: PIPERACILLIN SODIUM/TAZOBACTAM 3.375 GM in 0.9 % SODIUM CHLORIDE 50 ML IV ×2 (13:10→21:08)
--- NOTE | 2024-07-20 13:48 | PC.NURSE ---
offered patient pain medication. pt continues to refuse.
[2024-07-21] MEDS: 0.9 % SODIUM CHLORIDE 1,000 ML 100 ML IV (00:39)
[2024-07-21 03:47] VITALS: BP 98/63; PULSE 84; TEMP 36.9; O2SAT 93
[2024-07-21] MEDS: PIPERACILLIN SODIUM/TAZOBACTAM 3.375 GM in 0.9 % SODIUM CHLORIDE 50 ML IV (05:08)
[2024-07-21 07:44] VITALS: BP 125/67; PULSE 56; TEMP 36.4; O2SAT 92
[2024-07-21] MEDS: ENOXAPARIN SODIUM 40 MG/0.4 ML SYRINGE SUBQ (09:43)
[2024-07-21] MEDS: POLYETHYLENE GLYCOL 3350 17 GM POWDER PACKET PO (09:44)
[2024-07-21] MEDS: DOCUSATE SODIUM 100 MG CAPSULE PO (09:44)
--- NOTE | 2024-07-21 10:04 | P.DS_ITS ---
DS: Providers Provider Date of admission: 07/18/24 00:31 Primary care physician: FELICITY TREVIÑO Admitting clinician: Shaikh Ayaan Attending physician on admission: Shaikh Ayaan Attending physician on discharge: Shaikh Ayaan Discharging clinician: Shaikh Ayaan Anticipated date of discharge: 07/21/24 DS: Diagnosis Discharge Diagnosis (1) Acute diverticulitis: (2) Nausea and vomiting: Qualifiers: Vomiting type: unspecified Qualified Code(s): R11.2 - Nausea with vomiting, unspecified (3) Abdominal pain: Qualifiers: Abdominal location: generalized Qualified Code(s): R10.84 - Generalized abdominal pain (4) Leukocytosis: Qualifiers: Leukocytosis type: leukemoid reaction Qualified Code(s): D72.823 - Leukemoid reaction DS: Summary Hospital Course Hospital Course: 53 y o male presented to ED with 5 days of nausea, vomiting, anorexia, generalized abdominal pain Work up in ED was consistent with acute diverticulitis with possible early phlegmon formation. Patient was started on IVF, IV Levaquin/Flagly and bowel rest for acute diverticulitis. After initial period of improvement, his diet was advanced but his symptoms worsened. Due to persistent symptoms, lack of clinical progress and failure to improve, he was changed to inpatient status. Repeat CT was performed that was negative for any acute complications. Patient's abx were switched to Zosyn. He feels well today and has minimal pain. He is tolerating liquid diet. He is medically stable for discharge on oral abx. Status at Discharge Functional status at discharge: independent ambulation Overall status at discharge: patient is back to baseline Time Spent with Patient Time attestation: Total time spent providing and/or coordinating discharge services: Time spent: greater than 30 minutes Exam Constitutional Vital Signs, click to edit/add: Last Vital Signs Temp 97.6 F 07/21/24 07:44 Pulse 56 L 07/21/24 07:44 Resp 18 07/21/24 07:44 BP 125/67 07/21/24 07:44 Pulse Ox 92 L 07/21/24 07:44 O2 Del Method Room Air 07/21/24 07:44 Documenting provider has reviewed patient's vital signs: yes Common normals: no apparent distress and oriented x3 General appearance: cooperative and frail appearing Respiratory Common normals: normal respiratory effort and clear to auscultation bilaterally Effort & inspection: able to speak in complete sentences Auscultation: clear to auscultation bilaterally Cardio Common normals: regular rate, S1 normal heart sound and S2 normal heart sound Rate: regular rate Heart sounds: S1 normal and S2 normal GI Common normals: Normal to inspection, nondistended, normoactive bowel sounds present, soft to palpation, non-tender and no hepatosplenomegaly Extremity Common normals: no clubbing, cyanosis or edema Neuro Common normals: oriented x3, moves all extremities and no focal motor deficits Psych Common normals: mental status grossly normal, denies hallucinations, denies homicidal ideation and denies suicidal ideation Discharge Plan Discharge Disposition: Home, Self-Care Condition: Good Discharge Medications: New amoxicillin-pot clavulanate 875-125 mg tablet 1 tab PO BID Qty: 20 0RF ondansetron 4 mg tablet,disintegrating 4 mg PO Q8H PRN (Reason: nausea and vomiting) Qty: 10 0RF oxycodone-acetaminophen [Percocet] 5-325 mg tablet 1 tab PO Q8H PRN (Reason: pain) 4 Days Qty: 10 0RF Continued omeprazole 40 mg capsule,delayed release(DR/EC) PO QAM Patient Comments: BEFORE MEAL Activity: increase activity as tolerated Diet: other Diet Detail: Soft diet, advanced as tolerated, increase water/fiber intake in diet. Avoid constipation Print Language: Georgian Forms: Portal Instructions Follow Up Appointments: @ 3pm with DUNIA Garrison (Dr. Treviño's office) [phone]
--- NOTE | 2024-07-21 10:16 | CM.NOTE ---
Rounds made with Dr. Kuo, pt denies any nausea or abdominal pain today. Pt will discharge to home, no discharge needs identified. Pt will f/u with PCP in one week.
[2024-07-21 10:25] VITALS: O2SAT 92
--- NOTE | 2024-07-21 12:17 | CM.NOTE ---
Called loss prevention analyst regarding diet r/t diverticulitis. Geoscience Laboratory Technician will come up to talk with pt.
--- NOTE | 2024-07-21 15:20 | NUTR.NU ---
Diet education attempted; pt had already been discharged. Mailed ?Low Fiber Nutrition Therapy? handout for diverticulitis and Dietitian contact information. Will follow up via telephone next week.
--- NOTE | 2024-07-24 10:28 | CM.DCFOLLOWU ---
1st attempt. No answer
--- NOTE | 2024-07-25 13:28 | CM.DCFOLLOWU ---
Person spoke with: Imtiaz How are you feeling? Much better How is your pain? No pain Did you understand your discharge instructions? Yes Do you have any questions about your discharge instructions? No Were you given any prescriptions at discharge? Yes Were you able to get your prescriptions filled? Yes Do you understand how to take your medications as ordered? Yes Do you have any questions about your follow up appointment and do you plan to keep your follow up appointment? Had appointment today, he is setting me up to see a specialist to have a scope. Is there anything else that you would like to discuss? No Questions/Comments/Concerns/Other:
--- OUTSIDE RECORDS SUMMARY | 2024-08-29 08:05 | XMS_ITS | CCD ---
Author Organization [facility] Care Team Providers Care Sound Recordist Name Role Phone LUCITA, DR BLEVINS Primary Care Unavailable PAY ., DR LOU Admitting Unavailable PAY ., DR LOU Attending Unavailable PAY ., DR LOU Consulting Unavailable MICHELINE ARREDONDO Consulting Unavailable ANAIS, DR Shivani Woods Admitting [...] Care Unavailable WILY LANDRUM Attending Unavailable DONNIE DIAS Attending Unavailable CECILIO PRICE Attending Unavailable DONNIE DIAS Referring Unavailable Wily Landrum MD Primary Care Provider Allergies Allergy Classification Reported Allergen(s) Allergy Type Date of Onset Reaction(s) Facility (1 source) Adhesive agent Drug allergy (disorder) [facility] (1 source) bee venom Drug allergy (disorder) [facility] (1 source) Ibuprofen Drug Allergy [facility] (1 source) Adhesive Tape Drug allergy (disorder) 06-21-2021 [facility] Repository (2 sources) Honey bee venom Allergy to substance 07-03-2023 Unknown [facility] Work Phone: (2 sources) Wound Dressing Adhesive Drug Allergy 06-21-2021 Rash [facility] Medications Current Medications Medication Drug Class(es) Dates Sig (Normalized) Sig (Original) acetaminophen 325 mg / oxyCODONE hydrochloride 5 mg oral tablet (1 source) Opioid Agonist Start: 07-21-2024 End: 08-23-2024 take 1 tablet by mouth every eight hours as needed oxyCODONE-acetaminoph en (Percocet) 5-325 MG tablet Take 1 tablet by mouth every 8 (eight) hours if needed 07/21/2024 08/23/2024 Discontinued amoxicillin 875 mg / clavulanate 125 mg oral tablet (1 source) Penicillin-class Antibacterial Start: 07-21-2024 End: 08-23-2024 take 1 tablet by mouth in the morning amoxicillin-clavulana te (Augmentin) 875-125 MG tablet Take 1 tablet by mouth in the morning and 1 tablet before bedtime. 07/21/2024 08/23/2024 Discontinued omeprazole 40 mg delayed release oral capsule (2 sources) Proton Pump Inhibitor Start: 05-23-2024 End: 05-23-2025 take 1 capsule by mouth before mealtime omeprazole (PriLOSEC) [address] capsule Indications: Gastroesophageal reflux disease with esophagitis without hemorrhage Take 1 capsule (40 mg) by mouth in the morning. Take before meals. Do not crush or chew.. 30 capsule 11 05/23/2024 05/23/2025 Active ondansetron 4 mg disintegrating oral tablet (2 sources) Serotonin-3 Receptor Antagonist Start: 07-21-2024 take 1 tablet by mouth every eight hours as needed ondansetron ODT (Zofran-ODT) 4 MG disintegrating tablet Take 4 mg by mouth every 8 (eight) hours if needed 07/21/2024 Active Problems Active Problems Problem Classification Problem Date Documented Date Episodic/Chronic Abdominal pain (8 sources) Left lower quadrant pain; Translations: [Left lower quadrant pain] Onset: 08-23-2024 08-23-2024 Episodic Adjustment disorders (4 sources) Adjustment disorder with mixed emotional features; Translations: [Adjustment disorder with other symptoms] Onset: 02-21-2019 07-03-2023 Chronic Asthma (2 sources) Mild intermittent asthma; Translations: [Mild intermittent asthma, uncomplicated] Onset: 02-29-2020 07-03-2023 Chronic Coagulation and hemorrhagic disorders (2 sources) Thrombocytopenic disorder; Translations: [Thrombocytopenia, unspecified] Onset: 06-07-2018 07-03-2023 Chronic Coronary atherosclerosis and other heart disease (2 sources) Coronary arteriosclerosis; Translations: [Atherosclerotic heart disease of [place] coronary artery without angina pectoris] Onset: 10-23-2021 07-03-2023 Chronic Diverticulosis and diverticulitis (4 sources) Diverticulitis of sigmoid colon; Translations: [Diverticulitis of large intestine without perforation or abscess without bleeding] Onset: 08-23-2024 08-23-2024 Chronic E Codes: Fall (1 source) Fall on same level from slipping, tripping and stumbling without subsequent striking against object, initial encounter; Translations: [FALL SAME LVL SLIP NO STRK OBJ INIT] Onset: 02-08-2023 Episodic Esophageal disorders (2 sources) Gastro-esophageal reflux disease with esophagitis; Translations: [Gastroesophageal reflux disease with esophagitis without hemorrhage] Onset: 05-23-2024 05-23-2024 Chronic Fracture of lower limb (3 sources) Displaced fracture of lateral malleolus of left fibula, initial encounter for closed fracture; Translations: [Other fracture of upper and lower end of left fibula, initial encounter for closed fracture] Onset: 02-08-2023 Episodic Headache; including migraine (4 sources) Migraine with aura; Translations: [Migraine with aura, not intractable, without status migrainosus] Onset: 06-20-2008 07-03-2023 Chronic Other non-traumatic joint disorders (3 sources) Pain in left ankle and joints of left foot; Translations: [PAIN IN LEFT ANKLE] Onset: 02-05-2023 Episodic Other nutritional; endocrine; and metabolic disorders (2 sources) Lipoprotein deficiency disorder; Translations: [Lipoprotein deficiency] Onset: 06-21-2018 07-03-2023 Chronic Other nutritional; endocrine; and metabolic disorders (2 sources) Cholesterol level - finding; Translations: [Lipoprotein deficiency] Onset: 07-03-2023 07-03-2023 Chronic Other screening for suspected conditions (not mental disorders or infectious disease) (3 sources) Computed tomography result abnormal; Translations: [Abnormal findings on diagnostic imaging of other parts of digestive tract] Onset: 08-23-2024 08-23-2024 Episodic Pancreatic disorders (not diabetes) (5 sources) Alcohol-induced acute pancreatitis; Translations: [Alcohol induced acute pancreatitis without necrosis or infection] Onset: 05-23-2024 05-23-2024 Episodic Spondylosis; intervertebral disc disorders; other back problems (2 sources) Degeneration of lumbosacral intervertebral disc; Translations: [Degeneration of lumbar or lumbosacral intervertebral disc] Onset: 06-20-2008 07-03-2023 Chronic Sprains and strains (2 sources) Sprain of the superior tibiofibular joint and ligament, left knee, initial encounter; Translations: [SPR SUP TIBIOFIB JNT LIG LT KN INIT] Onset: 02-11-2023 Episodic Substance-related disorders (3 sources) Nicotine dependence, cigarettes, uncomplicated; Translations: [Smoker] Onset: 06-27-2021 07-03-2023 Chronic Thyroid disorders (2 sources) Hypothyroidism; Translations: [Hypothyroidism, unspecified] Onset: 04-23-2022 07-03-2023 Chronic Unclassified (3 sources) CONTACT W/AND (SUSP) EXPOS COVID-19; Translations: [CONTACT W/AND (SUSP) EXPOS COVID-19] Onset: 06-30-2022 Past or Other Problems Problem Classification Problem Date Documented Da te Episodic/Chronic Administrative/social admission (2 sources) Patient encounter status; Translations: [Persons encountering health services in other specified circumstances] Onset: 05-23-2024 05-23-2024 Episodic Diseases of mouth; excluding dental (3 sources) Other lesions of oral mucosa; Translations: [OTHER LESIONS OF ORAL MUCOSA] Onset: 09-30-2022 Episodic Disorders of teeth and jaw (1 source) Periapical abscess without sinus; Translations: [PERIAPICAL ABSCESS WITHOUT SINUS] Onset: 10-06-2022 Episodic Other connective tissue disease (2 sources) Muscle pain; Translations: [Myalgia, unspecified site] Onset: 08-18-2023 08-18-2023 Episodic Other lower respiratory disease (2 sources) Rib pain; Translations: [Pleurodynia] Onset: 05-23-2024 05-23-2024 Episodic Suicide and intentional self-inflicted injury (1 source) Suicidal ideations; Translations: [Suicidal ideations] Onset: 06-21-2021 Episodic Unclassified (1 source) CONTACT W/AND (SUSP) EXPOS COVID-19; Translations: [CONTACT W/AND (SUSP) EXPOS COVID-19] Onset: 06-29-2022 Results Test Name Value Interpretation Reference Range Facility ALL CBC WITH AUTO DIFFon Erythrocyte distribution width (RBC) [Ratio] 13.4 % 11.0 - 15.0 % [facility] Hematocrit (Bld) [Volume fraction] 49.9 % 42.0 - 54.0 % [facility] Hemoglobin (Bld) [Mass/Vol] 16.2 g/dL 14.0 - 18.0 g/dL [facility] Interpretation and review of laboratory results Abnormal [facility] MCH (RBC) [Entitic mass] 28.1 pg 25.9 - 34.0 pg [facility] MCHC (RBC) [Mass/Vol] 32.5 g/dL 29.9 - 35.2 g/dL [facility] MCV (RBC) [Entitic vol] 86.5 fL 80.0 - 94.0 fL [facility] Platelet mean volume (Bld) [Entitic vol] 12.5 fL 9.5 - 13.5 fL [facility] TBH PLT 135 Low [facility] TB RBC 5.77 [facility] WBC 7.5 [facility] CT ANKLE LT WO CONon 023 CT [...] by: DAYNA HUNG Date: 2023-02-11 15:32 Normal [facility] XR ANKLE LT MIN 3 Von 2022 XR ANKLE LT MIN 3 V EXAM: XR ANKLE LT TN N 3 V HISTORY: Bone injury COMPARISON: [...] MICHELINE ARREDONDO Date: 2023-02-05 08:50 Normal [facility] CBC W MANUAL DIFFon 09-30-20 22 ATYPICAL LYMPH # Normal [facility] Comment on above: Performed By: #### C BCMAN #### [facility] [address] [place] [address] Dr. Kiran Gongora ATYPICAL LYMPH % Normal [facility] Comment on above: Performed By: #### C BCMAN #### [facility] [address] [place] [address] Dr. Kiran Gongora BAND # 0.0 103/ul Normal 0.0-0.3 [facility] Comment on above: Performed By: #### C BCMAN #### [facility] [address] [place] [address] Dr. Kiran Gongora BAND % 0 % Normal 0-5 [facility] Comment on above: Performed By: #### C BCMAN #### [facility] [address] [place] [address] Dr. Kiran Gongora BASOM # 0.10 103/ul Normal 0.00-0.10 [facility] Comment on above: Performed By: #### C BCMAN #### [facility] [address] [place] [address] Dr. Kiran Gongora BASOM % 1.0 % Normal 0.2-2.0 [facility] Comment on above: Performed By: #### C BCMAN #### [facility] [address] [place] [address] Dr. Kiran Gongora BLAST # Normal [facility] Comment on above: Performed By: #### C BCMAN #### [facility] [address] [place] [address] Dr. Kiran Gongora BLAST % Normal [facility] Comment on above: Performed By: #### C BCDERIK #### [facility] [address] [place] [address] Dr. Kiran Gongora CORRECTED WBC Normal 4.0-11.0 [facility] Comment on above: Performed By: #### C EDIL #### [facility] [address] [place] [address] Dr. Kiran Gongora EOS # 0.41 103/ul Normal 0.00-0.70 [facility] Comment on above: Performed By: #### C EDIL #### [facility] [address] [place] [address] Dr. Kiran Gongora EOS% 4.0 % Normal 0.9-7.0 [facility] Comment on above: Performed By: #### C EDIL #### [facility] [address] [place] [address] Dr. Kiran Gongora HCT 47.9 % Normal 42.0-54.0 [facility] Comment on above: Performed By: #### C DEIL #### [facility] [address] [place] [address] Dr. Kiran Gongora HGB 15.4 g/dl Normal 14.0-18.0 [facility] Comment on above: Performed By: #### C EDIL #### [facility] [address] [place] [address] Dr. Kiran Gongora LYMPHM # 2.37 103/ul Normal 1.20-3.80 [facility] Comment on above: Performed By: #### C BCDERIK #### [facility] [address] [place] [address] Dr. Kiran Gongora LYMPHM% 23.0 % Normal 20.5-60.0 [facility] Comment on above: Performed By: #### C EDIL #### [facility] [address] [place] [address] Dr. Kiran Gongora MCH 28.2 pg Normal 25.9-34.0 [facility] Comment on above: Performed By: #### C EDIL #### [facility] [address] [place] [address] Dr. Kiran Gongora MCHC 32.2 g/dl Normal 29.9-35.2 [facility] Comment on above: Performed By: #### C BCMAN #### [facility] [address] [place] [address] Dr. Kiran Gongora MCV 87.7 fL Normal 80.0-94.0 [facility] Comment on above: Performed By: #### C BCMAN #### [facility] [address] [place] [address] Dr. Kiran Gongora METAMYELOCYTE # Normal [facility] Comment on above: Performed By: #### C EDIL #### [facility] [address] [place] [address] Dr. Kiran Gongora METAMYELOCYTE % Normal [facility] Comment on above: Performed By: #### C EDIL #### [facility] [address] [place] [address] Dr. Kiran Gongora MONOM# 0.31 103/ul Normal 0.30-0.80 [facility] Comment on above: Performed By: #### C EDIL #### [facility] [address] [place] [address] Dr. Kiran Gongora MONOM% 3.0 % Normal 1.7-12.0 [facility] Comment on above: Performed By: #### C EDIL #### [facility] [address] [place] [address] Dr. Kiran Gongora MPV 12.6 fL Normal 9.5-13.5 [facility] Comment on above: Performed By: #### C EDIL #### [facility] [address] [place] [address] Dr. Kiran Gongora MYELOCYTE # Normal [facility] Comment on above: Performed By: #### C BCDERIK #### [facility] [address] [place] [address] Dr. Kiran Gongora MYELOCYTE % Normal [facility] Comment on above: Performed By: #### C EDIL #### [facility] [address] [place] [address] Dr. Kiran Gongora NRBC Normal [facility] Comment on above: Performed By: #### C BCMAN #### [facility] [address] [address] [address] Kiran Gongora PLT 137 103/ul Critically low 150-450 [facility] Comment on above: Performed By: #### C BCMAN #### [facility] [address] [address] [address] Kiran Gongora RBC 5.46 106/ul Normal 4.70-6.10 [facility] Comment on above: Performed By: #### C BCDERIK #### [facility] [address] [place] [address] Dr. Kiran Gongora RDW 13.6 % Normal 11.0-15.0 [facility] Comment on above: Performed By: #### C BCDERIK #### [facility] [address] [place] [address] Dr. Kiran Gongora SEG # 7.11 103/ul Critically high 1.40-6.50 [facility] Comment on above: Performed By: #### C BCMAN #### [facility] [address] [place] [address] Dr. Kiran Gongora SEG % 69.0 % Normal 43.0-75.0 [facility] Comment on above: Performed By: #### C BCDERIK #### [facility] [address] [place] [address] Dr. Kiran Gongora WBC 10.3 103/ul Normal 4.0-11.0 [facility] Comment on above: Performed By: #### C KEVINMAN #### [facility] [address] [place] [address] FACIAL BONES W CONon 11- CT FACIAL BONES W CON CT FACIAL [...] EZIO DAVALOS Date: 2022-09-30 05:26 Normal [facility] CT NECK ST W CONon [...] DAYNA HUNG Date: 2022-09-30 07:21 Normal [facility] CULTURE BLOODon 09-30-2022 Microscopic examination of blood, culture Culture Observations: NO GROWTH AT 5 DAYS. Normal [facility] Comment on above: Performed By: #### B LDCX2 #### [facility] [address] [address] [address] Kiran Gongora Microscopic examination of blood, culture Culture Observations: NO GROWTH AT 5 DAYS. Normal [facility] Comment on above: Performed By: #### B LDCX1 #### [facility] [address] [address] [address] Kiran Gongora PROF 14(COMP METB)on 022 Albumin [Mass/Vol] 3.2 g/dL Critically low 3.4-5.0 [facility] Comment on above: Performed By: #### C MP #### [facility] [address] [address] [address] Kiran Gongora Albumin/Globulin [Mass ratio] 0.9 {ratio} Normal [facility] Comment on above: Performed By: #### C MP #### [facility] [address] [address] [address] Kiran Gongora ALP [Catalytic activity/Vol] 83 U/L Normal 46-116 [facility] Comment on above: Performed By: #### C MP #### [facility] [address] [address] [address] Kiran Gongora ALT [Catalytic activity/Vol] 44 U/L Normal 16-63 [facility] Comment on above: Performed By: #### C MP #### [facility] [address] [place] [address] Dr. Kiran Gongora Anion gap [Moles/Vol] 8.2 mmol/L Normal [facility] Comment on above: Performed By: #### C MP #### [facility] [address] [place] [address] Dr. Kiran Gongora AST [Catalytic activity/Vol] 27 U/L Normal 15-37 [facility] Comment on above: Performed By: #### C MP #### [facility] [address] [place] [address] Dr. Kiran Gongora Bilirubin [Mass/Vol] 0.2 mg/dL Normal 0.2-1.0 [facility] Comment on above: Performed By: #### C MP #### [facility] [address] [place] [address] Dr. Kiran Gongora Calcium [Mass/Vol] 8.5 mg/dL Normal 8.5-10.1 [facility] Comment on above: Performed By: #### C MP #### [facility] [address] [place] [address] Dr. Kiran Gongora Chloride [Moles/Vol] 109 mmol/L Critically high 98-107 [facility] Comment on above: Performed By: #### C MP #### [facility] [address] [place], [place] [id number] Dr. Kiran Gongora CO2 [Moles/Vol] 30.4 mmol/L Normal 21.0-32.0 [facility] Comment on above: Performed By: #### C MP #### [facility] [address] [place] [address] Dr. Kiran Gongora Creatinine [Mass/Vol] 1.12 mg/dL Normal 0.70-1.30 [facility] Comment on above: Performed By: #### C MP #### [facility] [address] [place] [address] Dr. Kiran Gongora EGFR-AF [place] >60 Normal >=60 [facility] Comment on above: Performed By: #### C MP #### [facility] [address] [place] [address] Dr. Kiran Gongora EGFR-NON AF [place] >60 Normal >=60 [facility] Comment on above: Performed By: #### C MP #### [facility] [address] [place] [address] Dr. Kiran Gongora Globulin (S) [Mass/Vol] 3.4 g/dL Normal T [facility] Comment on above: Performed By: #### C MP #### [facility] [address] [place] [address] Dr. Kiran Gongora Glucose [Mass/Vol] 72 mg/dL Critically low 74-106 Th [facility] Comment on above: Performed By: #### C MP #### [facility] [address] [place] [address] Dr. Kiran Gongora Potassium [Moles/Vol] 3.6 mmol/L Normal 3.5-5.1 [facility] Comment on above: Performed By: #### C MP #### [facility] [address] [place] [address] Dr. Kiran Gongora Protein [Mass/Vol] 6.6 g/dL Normal 6.4-8.2 [facility] Comment on above: Performed By: #### C MP #### [facility] [address] [place] [address] Dr. Kiran Gongora Sodium [Moles/Vol] 144 mmol/L Normal 136-145 [facility] Comment on above: Performed By: #### C MP #### [facility] [address] [address] [address] Kiran Gongora Urea nitrogen [Mass/Vol] 19.0 mg/dL Critically high 7.0-18.0 [facility] Comment on above: Performed By: #### C MP #### [facility] [address] [address] [address] Kiran Gongora Urea nitrogen/Creatinine [Mass ratio] 17.0 mg/mg Normal [facility] Comment on above: Performed By: #### C MP #### [facility] [address] [address] [address] Kiran Gongora Covid-19 PCR ([facility])on 06-09 SARS-CoV-2 (COVID-19) RNA CATRACHITO+probe Ql (Unsp spec) Not detected Normal NOT DETECTED [facility] Comment on above: Result Comment: This test is not yet approved or cleared by the [place] FDA. When there are no FDA-approved or cleared tests available, and other criteria are met, FDA can make tests available under an emergency access mechanism called an Emergency Use Authorization (EUA). The EUA for this test is supported by the [place] [facility] of [employer] and Human Service's (HHS's) declaration [...] consistent with SARS-CoV-2. Performed By: #### C VDTBH #### [facility] [address] [place], [place] [address] Dr. Kiran Gongora TSH w/ Reflex to Free T4on 1 12-24-2020 TSH 4.010 uIU/mL Normal 0.400-4.500 [facility] Comment on above: Performed By: #### T SH reflex FT4 #### [facility] [address] [place] [id number] Coding Summary.on 05-08-2021 Coding Summary. CD:[id number] G h0bWw+PGhlYWQ+YR4XHBI bT61urNWmpH8BC8iRTQ6B ORIVMJWCUH9ICF8wjBD1V WzcL7NlipFk AljmtOFzTQ17LSl6COM7q DphTRhlsW2kpWGqU5d5Bb ZxVX34jG97CWryIBCqFxD 3LjZpbjsgbWFy D1wlUeTcuYMpJmp+PHRhY mxlIHdpZHRoPScxMDAlJy EcoBewOJ1mHj0wAFBvNUR vbGxhcHNlOiBj v3ysSRMpQEqfIX5mtPofD 8DgyVR0NCImc4e9Jh35rR I+JQQdESQ6oLheCWrre94 5KxVjv3ffQGO0 hCKxTCatRHZ5B68pv3I9C PAzZXFiCEP4sHI8eS7kzQ zljpxfA7EtiLNpLlR4HYB 5aLPuaY9qnBrh ejsywR5qThu+N45TMQ6LI JYVTN1EAod8Y2FiJkbexG I+FE62XDFlOR88dZIceET mh2thaNw8RwGb WHXsCJP5yAmpCVaag4XqC AKbH48goNKes3T6ORDgdO qnaWVlNqCcxFR3kH7nFKc mmkrcg2jdidps Svphs8trgl10rU06W64zE XbkSQHyMPE5MIOlBTQaaU wkna7krV4aHo4+UHusv3j fi9whfGd2GvYq HLPatoHijCrzMGC3v0LhF m90G3TlnXuec1ScIoo7ha 05aHUqr7U3gYE4ILtlFEW lfW1dLFqoLqL4 RKLaOeDetP37yVVrEWdtV y5phGtxhUtmGX3tNNYsll jhUUNfdM5pKBDkrQNnjHz tFO9kCVPqgmho h421ZgOzKDS8DPTgyKXbJ 0EmzF2rNwKgOXNdQZDgY0 JlgAEoGSzjO822NXbdWgO 1WCWoclNmJ8Yy JQIxzKowUfL8l4I6Nx4Oe 1RcxbxsKOL4TCdpFGT5Di FvRxQkAcH3X8GmMwe6UNV eqQnyES3vM8Ra ONWobsrchbaejNK4YUXxK NIvqH57jETqVTopGi6ko4 E7z067QRCpIPNhgA05Wl5 udDogMTBwdCBU eZ3vytbfg9weabacYzBtT JNpKRr1FGx4MYUbhYciPa MqYOI5MrN1LNL5yHMblN4 wlBupmsvamO0i Oyc+Q62anV4fAXU0HBX5c ewqSPKzcyGzPV34YH26B7 RyPjwvdGFibGU+PGRpdiB byCeaSY6xAvRm v3ptp6DkQOutU7XhRAPlS GqtHbo6NRLfHOH3jEB9qQ 3iIASiRIvuw9N1nPM8G8C cziOskr5vf0je DYAnQKyvW19caLQzc6C3L SLxrJN1UIRwtBypHgCosP 93Oyc+SBUxjMvor1CsJoz dr9xux5rirPz1 PpGxULZtztOynIefJRM5c 5YzZs50S31sGKxnOCUqST NwZNNgJPUkwObxsy8wiB9 wIi8+PGNvbCB3 yYP4rS3sSCEbUfA1LCycH 534WjFuqZAyXuiyl0phd8 lxuJc2FeRwTAJjbtQuvWi qCCY2z4FnGl96 U34lPZktWTZzXZEtWLNgY MHvwNmdwc4csL9mHs0+PC 7an4nsqp01cK10xGK+PHR pTDO7wAioFZyn EVOhnP7cDVwxQeZ6UMXgK gYrrU60dHKfQTiiQw9utC cukQpwHV0tCGMtcfydy50 3DtOqo4eqHCUt lNEpWWxkEUG0C71gx6W6T CLlIBRhTYP3rRF2oJ3hpK lnbjogbGVmdDsgdmVydGl dRChyJQkdH376 IHRvcDsnPlBhdGllbnQgT mBeKZt8V8NeRjh4OOWivA btMR5kuFNpOYqoDz0jgMx tfIzoSW2wBDYm fbarp541YuIgf2snSLLie CAjOTehBOE4O70hb7B5RI CzMXHoSRW6uNE2iN1shHs nbjogbGVmdDsg ffRoyDhlFXciRSzcP924W HRvcDsnPkJpcnRoIERhdG V3HX30SG46fXOat4B6bVP 8D5SnNALipwao ekiiyJD8OTOpYOLvsM45S f1bzFpoQw1zGXFhTKQ3RJ UpcBKhX0JmrA2rTnOzKKW sUNIcL5NynRTf USjzP686UEkyXrC1ZUCef jYdB8XaKWRiaAkwXgM3g2 E6Gs7PN5E2FC32EO80eTN oa5R3uRB6E2Eq NTSmhdgjyglpeQG5ZZAeN REdpU51Op7rqTymFa3gCG YnTTR3NNCdwRScY5UksW1 yOiAjMDAwMDAw Y2HrnLIvAPqxE474KYatR eG4TKZtxvPwH9DqNIWotW lnKwI6l4W4Od8EHCp6UR1 7WN81fCWul6L2 kSC2E1NmKVYvzitoeoszr SD7JCLrIZRxyO55Ez3kdV ttRs6wVAHwWVV2NIZuvFA cZ3XotF5uNeAl RXBxRHTcW0YygRPiZSrqX 970QUnpTxH1GFSnuuOnA9 ZiAYVppBdvMkJ6z7H3Zc9 CECIeDJ63VQR9 jFN0QD80RJ20L8KqDfhrv GFibGU+PHRhYmxlIHdpZH RoPScxMDAlJyBzdHlsZT0 pKf6dCOUbDRSz eFcbxLUlQeNkm7lsCXRtD VaeHG9rcJzaT7VhxQS3GA Now4y7Oa43O84nU6QceZV +IISgaHL6bIK1 tV4nUbQcWtJ2KWaaN468I qLpaHMoMoyfv8pel8fznR q0RkJ6WSMyapXlcQdfEOE 2l4ObDo21S05h IHdpZHRoPSIxNSUiIHZhb Rymue9shI1cXz9+PGNvbC S5cMP2eA9kDwRvCmB4SEl wX125KvRqnYUe Eraog8pgi7alxFi0CvEpH DZjxaVonRvgNIB2x0MmZu 51H1SumFeih7GxFvr7jm3 9jTGso7D2uPD3 C9OzGKIrugldpSKbsPjbS A2xUUDrhjdhPJZbpQ3wDS RkO5u1XwHmKkD1TPiwL4H hekN0SEEhzQOu PCojZZB5S24up3N3DAKlJ BXqCAJ6qEB1uQ4bkUtxlm ogbGVmdDsgdmVydGljYWw fSAunX968VZVp bZvnYQRkbN1dQIIfaGCmx LmtHX0ySXJsdybnWfJJD0 BYGyRAeipxD5mNYZsNOYL KEX20AR59jCQm m9J4jKZ4X9EvBDQhfvmqp qdslRU9ESWpDKXifA41oZ HcPEznCr6iy9Z6m581XTN fMWHueI77Hc5q zTxoHGRjtHFFtY4mrubet 5gdnnuvOmYpHEJfBQj1ES g7XCWgeMqqHaDeEVN8DdD 2VRG9lFShgQ4y qZuulccajS6gZox+MDEvM KRuHDi6QDgusQI+PHRkIH G2wYsmLJocLWXofX1aERQ xJ8y2LwLvLqR8 EGdcQ7OvIRXcaydwRw35l O8zNaIrSgX2QMnnT8Osht F8OHMqhRRcEVqiBWO0T42 tj1C6QTAaRLDp VRW4oBW1rI6xzBpiuigex GVmdDsgdmVydGljYWwtYW grA053ZLUkkSfiLzFrAYe eJTAgMA64YE45 vDJni7M6nPV5W4HbOJXff bhgmbtceIC4QIMeEANorE 25wHGnQYofEe5fw8G6m20 9FIMqPYYcyC67 Ke4xoXqyDPIypXGQyG3yl axba0avqxjiXuOsWTKcFH e7HZo6VMCsvNrkPaJuCZK 1NiI4PNA1lIMw dL8jwYpvlqnukB9oSag+T WFsZTwvdGQ+OIDiZZT8tF kwUCzyXDYlrI5uEWLuQ3w 0MxQlHyN1GNhy N5BxLOViqooqOw94eU9oT rWwLxJ9NQdgH5EgbaC9TT PzfHTmFGwaPMH2L67td6S 7EIDtWKVhZIT6 tLQ7sQ9ftAnhnwkscRTfx DsgdmVydGljYWwtYWxpZ2 36PLAwjZxyHd8fx2YztqH 7nC3hZT76DM99 V1PwZdsraLIojJX+PHRhY mxlIHdpZHRoPScxMDAlJy SfpMhfNA6gOn4kCCRkKWF vbGxhcHNlOiBj u9kmTRVlRBdiLY1esLlwQ 1ZaxYQ2MBZws1b3Mr94N0 2xV5GddLC+KDLxeOL3tYY 0eM5rJqOdPzZ1 UWboQ482YfQolYQgImdwq 7rmv8ycdNt4UxBzKNZmem XkqMcdBMA9n3BwBu46W81 sIHdpZHRoPSIy BFRwQMYuiQgezk1edU1aJ i8+QPYgrCZ8yDT4aS7oRn XqXkW1RBnqA571UsGeiWE lYmvtW73iW0Vv dXA+UFCkJei2CNPgvPwoK M3fkKIjGVeaGn0mFTO9Lo BhAeNwWHtmQ6PdTFHdouu nyxahnJE2UJKa JTDllV70Mc9yzZtfHr0gI JOzLFR9DYXllBCdD6LzzO 5pOvAbMXKgZWSnA2EteAL bPEdhR375ZKoy YtV1UKAtilOvK9SmJSXlg QfrMqE5s2B7Mz6OvCbdaB WiYV9zEeXtWSc0D4NiYji 3SGYnbZvsOS9j vSNvJGbwZk6npSinlToxF B1bPIChaflqi102HpOyp6 ceXJSivOZkBUxcELE1E63 gm5L8RFLdRBJi LZL3uPD2sS9ubShksbixd GVmdDsgdmVydGljYWwtYW giD735CIUfsGbtReVVTgg 0E1GsMys8IQWp mKfzTW8kpXGqYBkwDt0xu IjvdTeuDX0aBARazqmwi4 70OnGln5esUXLvvDHcXAd mAEL9A32ma7E4 HEYaEDFaJOK8aZP2tI7bs GlnbjogbGVmdDsgdmVydG cdAWlwWDclA652UURdcMv dSv6DPgi8E8Mw Vqb0TLYwnBtsNQ1vjNDhR DaoRj5haEqgkMcbOJ8sTS Tsbyley597OdRfv5txSYU wcHQgVGltZXM7 F45cp8K4XXTrDOUiUWO3o GU9rA0kbBaykdsgrVDjtE empnGbiIrfHGtyEFmyK53 6IHRvcDsnPlBh eWVyOjwvdGQ+SE65la65C 3HrGnkkHxe0BTFtGGE7aK D5vE4nRROuNQynd7I8jPW 3Q8GflfAfiu1d b2xs (more content not included)... Normal [facility] ED Traumaon 05-06-2021 ED Trauma [id number]# 1.00CD:127 [facility] EMS Documentationon 05-05-20 EMS Documentation [id number]# 1.00CD:127 [facility] ABO/Rh History Checkon 05-02 ABO/Rh History Check Type verified by second s [facility] Comment on above: Performed By: #### 1 [id number], 45282004, 60244271, 1789289 ####[facility] [address] [place] [address] ABO/Rh Retypeon 05-02-2021 ABO/Rh Retype Interp Positive Invalid Interpretation Code [facility] Comment on above: Performed By: #### 1 [id number] ####[facility] [address] [place] [address] ABSCon 05-02-2021 ABSC Gel Interp Negative Normal [facility] Comment on above: Performed By: #### 1 8818473, 85894474, 90417443, 7082708 ####[facility] [address] [place] [address] Auto Diffon 05-02-2021 Basophils/100 WBC (Bld) 1.3 % Normal 0.0-2.0 [facility] Comment on above: Order Comment: Order Added by Discern Expert. Performed By: #### 2 018228, 3502603, 9804412, 37132949 #### [facility] [address] [place] [address] Basophils/Leukocytes Auto (Bld) [Pure # fraction] 0.1 E9/L Normal 0.0-0.2 [facility] Comment on above: Order Comment: Order Added by Discern Expert. Performed By: #### 2 232014, 9163734, 0639519, 05775187 #### [facility] [address] [place] [address] Eosinophils/100 WBC (Bld) 4.2 % Normal 0.0-8.0 [facility] Comment on above: Order Comment: Order Added by Discern Expert. Performed By: #### 2 324048, 1626460, 1225444, 54985499 #### [facility] [address] [place] [address] Eosinophils/Leukocytes Auto (Bld) [Pure # fraction] 0.2 E9/L Normal 0.0-0.5 [facility] Comment on above: Order Comment: Order Added by Discern Expert. Performed By: #### 2 559345, 1316522, 0253048, 81345555 #### [facility] [address] [place] [address] Lymphocytes/100 WBC (Bld) 36.9 % Normal 14.0-50.0 [facility] Comment on above: Order Comment: Order Added by Discern Expert. Performed By: #### 2 902694, 5099494, 9934540, 77338044 #### [facility] [address] [place] [address] Lymphocytes/Leukocytes Auto (Bld) [Pure # fraction] 1.7 E9/L Normal 1.0-4.0 [facility] Comment on above: Order Comment: Order Added by Discern Expert. Performed By: #### 2 374171, 8422022, 1309159, 01469268 #### [facility] [address] [place] [address] Monocytes/100 WBC (Bld) 8.7 % Normal 4.0-14.0 [facility] Comment on above: Order Comment: Order Added by Discern Expert. Performed By: #### 2 136218, 9908197, 0561164, 61455161 #### [facility] [address] [place] [address] Monocytes/Leukocytes Auto (Bld) [Pure # fraction] 0.4 E9/L Normal 0.2-1.0 [facility] Comment on above: Order Comment: Order Added by Discern Expert. Performed By: #### 2 464399, 1062646, 7225329, 95012117 #### [facility] [address] [place] [address] Neutrophils/100 WBC (Bld) 48.9 % Normal 36.0-75.0 [facility] Comment on above: Order Comment: Order Added by Discern Expert. Performed By: #### 2 712558, 4140729, 0188093, 23959917 #### [facility] [address] [place] [address] Neutrophils/Leukocytes Auto (Bld) [Pure # fraction] 2.2 E9/L Normal 2.0-7.5 [facility] Comment on above: Order Comment: Order Added by Discern Expert. Performed By: #### 2 970793, 1821915, 2499348, 49067536 #### [facility] [address] [place] [address] BMPon 05-02-2021 Anion gap [Moles/Vol] 11 mmol/L Normal 6-16 [facility] Comment on above: Performed By: #### 2 129575, 4952039, 3876274, 25890450 #### [facility] [address] [place] [address] Calcium [Mass/Vol] 8.3 mg/dL Low 8.9-11.1 [facility] Comment on above: Performed By: #### 2 820394, 8152936, 5928440, 73489356 #### [facility] [address] [place] [address] Chloride [Moles/Vol] 107 mmol/L Normal 101-111 [facility] Comment on above: Performed By: #### 2 028743, 4403720, 8885794, 91226690 #### [facility] [address] [place] [address] CO2 [Moles/Vol] 25 mmol/L Normal 21-31 [facility] Comment on above: Performed By: #### 2 639363, 1240126, 0359277, 14423509 #### [facility] [address] [place] [address] Creatinine [Mass/Vol] 1.2 mg/dL Normal 0.5-1.3 [facility] Comment on above: Performed By: #### 2 614209, 2972856, 4516925, 49478540 #### [facility] [address] [place] [address] Glucose [Mass/Vol] 88 mg/dL Normal 55-199 [facility] Comment on above: Result Comment: If t his glucose result represents a fasting glucose, interpretation should refer to the following reference range: 55-99 mg/dL Performed By: #### 2 252494, 8873187, 8001133, 92575595 #### [facility] [address] [place] [address] Potassium [Moles/Vol] 3.5 mmol/L Normal 3.5-5.3 [facility] Comment on above: Performed By: #### 2 005252, 4485090, 4052245, 85264370 #### [facility] [address] [place] [address] Sodium [Moles/Vol] 139 mmol/L Normal 135-145 [facility] Comment on above: Performed By: #### 2 216574, 7573984, 3308814, 15154990 #### [facility] [address] [place] [address] Urea nitrogen [Mass/Vol] 14 mg/dL Normal 5-21 [facility] Comment on above: Performed By: #### 2 118057, 2660364, 2319191, 03936423 #### [facility] [address] [place] [address] Urea nitrogen/Creatinine [Mass ratio] 12 No Units Normal 10-20 [facility] Comment on above: Performed By: #### 2 993185, 0439893, 9467673, 69230371 #### [facility] [address] [place] [address] CBC w/ Auto Diffon Erythrocyte distribution width (RBC) [Ratio] 13.5 % Normal 10.9-14.2 [facility] Comment on above: Performed By: #### 2 331516, 2125796, 5859523, 65283399 #### [facility] [address] [place] [address] Hematocrit (Bld) [Volume fraction] 41.0 % Normal 37.7-49.0 [facility] Comment on above: Performed By: #### 2 274649, 8517916, 1829724, 63945249 #### [facility] [address] [place] [address] Hemoglobin (Bld) [Mass/Vol] 13.6 g/dL Normal 13.5-17.5 [facility] Comment on above: Performed By: #### 2 560974, 8286484, 6751354, 94353073 #### [facility] [address] [place] [address] MCH (RBC) [Entitic mass] 27.6 pg Normal 27.0-34.0 [facility] Comment on above: Performed By: #### 2 384667, 3568269, 5758267, 49790213 #### [facility] [address] [place] [address] MCHC (RBC) [Mass/Vol] 33.2 g/dL Normal 31.4-36.0 [facility] Comment on above: Performed By: #### 2 161559, 3127419, 1142085, 59601174 #### [facility] [address] [place] [address] MCV (RBC) [Entitic vol] 83.1 fL Normal 80.0-100.0 [facility] Comment on above: Performed By: #### 2 049862, 6863200, 4814450, 37774333 #### [facility] [address] [place] [address] Platelet mean volume (Bld) [Entitic vol] 9.8 fL Normal 6.4-10.8 [facility] Comment on above: Performed By: #### 2 535403, 3086681, 8230930, 19141439 #### [facility] [address] [place] [address] Platelets (Bld) [#/Vol] 129.0 E9/L Low 150.0-500.0 [facility] Comment on above: Performed By: #### 2 085106, 8274610, 9376425, 86308315 #### [facility] [address] [place] [address] RBC (Bld) [#/Vol] 4.9 E12/L Normal 4.3-5.9 [facility] Comment on above: Performed By: #### 2 089657, 9507358, 2270968, 56746037 #### [facility] [address] [place] [address] WBC corrected for nucl RBC Auto (Bld) [#/Vol] 4.5 E9/L Normal 4.0-11.0 [facility] Comment on above: Performed By: #### 2 401587, 1904737, 2628514, 52122452 #### [facility] [address] [place] [address] CT Abdomen/Pelvis w/ Contras ton 05-02-2021 CT [...] 300 Contrast amount in ml's: 100 Normal [facility] [address] Chest w/ Contraston 05-02 CT [...] 300 Contrast amount in ml's: 100 [address] [facility] [address] Head or Brain w/o Contras [...] MD Transcribed by: DYAN Technologist: CHASE Normal [facility] CT Spine Cervical w/o Contra ston [...] Hernandez MD Transcribed by: DYAN Technologist: CHASE [facility] Consent for Treatmenton 04-09 Consent for Treatment [id number]# 1.00CD:127 Normal [facility] Discharge Instructionson Discharge Instructions [id number]# 1.00CD:127 Normal [facility] ED Clinical Summaryon 2020 ED Clinical Summary [place] [id number] ED Clinical Summary Person Information Name: GIOVANNA JOHNATHAN [place] Age: 50 Years : 1970 Sex: Male Language: Irish PCP: WILY LANDRUM MD Marital Status: Visit Id: Visit Reason: Neck pain; Trauma - major; Chest pain; FALL Speciality: Acuity: 2 Enc Type: Emergency Med Service: Emergency Arrival: 05/01/2021 21:04:08 Discharge: LOS: 000 03:19 Checkin: 05/01/2021 21:04:08 Checkout: 05/02/2021 00:23:44 Dispo Type: Admitted as IP to this [facility] EVENTS: Event Name Event Status Request [...] 05/02/2021 00:23:44 05/02/2021 00:23:44 05/02/2021 00:23:44 ADDRESS: [address] [place] [phone] [facility] DOC NOTES: MEDICAL INFORMATION: Prescriptions Given: PATIENT EDUCATION INFORMATION: Instructions: Follow up: DIAGNOSIS: 1:Fall; 2:Concussion Normal [facility] ED Note-Physicianon 05-02-20 ED Note-Physician Basic [...] senna 8.6 (more content not included)... Normal [facility] Comment on above: Result Comment: Elec tronically Signed By: Ramírez Tran, Katie Ko\.br\Date and Time Signed: 05/02/21 00:48 EDT ED Patient Education Noteon 05-02-2021 ED Patient Education Note Normal [facility] ED Patient Summaryon 021 ED Patient Summary [place] [address] Patient Discharge Instructions Person Information Name: JOHNATHAN MELARA Jr Age: 50 Years Arrival Date: 05/01/2021 21:04:08 Discharge Diagnosis: 1:Fall; 2:Concussion Primary Care Physician: WILY LANDRUM MD Provider Information Primary Provider: Katie Elmore M.D. Advanced Paint Spray Inspector:None The exam and treatment you received in the Emergency Department were for an urgent problem and are not intended as complete care. It is important that you follow up with a doctor, nurse practitioner, or physician?s project assistant for ongoing care. If your symptoms become worse or you do not improve as expected and you are unable to reach your usual health care provider, you should return to the Emergency Department. We are available 24 hours a day. JOHNATHAN MELARA Jr has been given the following list [...] opioids can be used to help relieve cmhvjhra-ta-tdnuet pain and are often prescribed following a [...] be struggling with addiction, tell your health resident care director and ask for guidance or call [facility] National Helpline at 7-280-925-EyeNetra. l Source: [place] Department of Health and Human Services/Center for Disease Control & Prevention [facility] Medications Given: Medication Dose Route So (more content not included)... Normal [facility] Inpatient Clinical Summaryon 05-02-2021 Inpatient Clinical Summary [address] [address] Clinical Summary Person Information: Name: JOHNATHAN MELARA Jr Age: 50 Years : 1970 Sex: Male PCP: WILY LANDRUM MD Marital Status: Race: White Ethnicity: Non- or Language: Irish Visit Id: Visit Reason: Neck pain; Trauma - major; Chest pain; CONCUSSION Speciality: Acuity: Enc Type: Observation Med Service: Medical Arrival: 05/01/2021 21:04:08 Discharge: Dispo Type: Admitted as IP to this [facility] Address: [address] [place] [id number] Provider Notes: Diagnosis: 1:Fall; 2:Concussion Problems No [...] Physician: Follow up: With: Address: When: W[place] [facility] [place] [address] [facility] (1) Within 1 to 2 weeks Comments: Follow with your PCP within 1-2 weeks. Call for followup appointment. Patient Education Information: Concussion, Adult Normal [facility] Inpatient Patient Summaryon 05-02-2021 Inpatient Patient Summary [place] [id number] Patient Discharge Instructions PERSON INFORMATION Name: JOHNATHAN MELARA Jr Date of : 1970 Current Date: 05/02/2021 15:36:16 PHYSICIANS Admitting Physician: Arpita Mckeon MD Primary Care Physician: WILY LANDRUM MD PCP Comment: Discharge Diagnosis: 1:Fall; 2:Concussion Condition at Discharge: Improved JOHNATHAN MELARA Jr has been given the following list [...] Follow up: With: Address: When: WILY [facility] [place] [address] [employer] (1) Within 1 to 2 weeks Comments: Follow with your PCP within 1-2 weeks. Call for followup appointment. In the event that this physician does not participate in your insurance network, please consult with your insurance company to find a nearby participating provider. Comment: GIOVANNA Davenport Jr, WILLIAM P, have received the attached patient education materials/instruction [...] Get angela (more content not included)... Normal [facility] Interdisciplinary Note - Tulio e Manageron 05-02-2021 Interdisciplinary Note - Jockey Room Custodian patient off unit for MRI 1430- [facility] spoke with patient in room. patient is alert and oriented. Discussed per dr Hernandez he will be discharged home today. Patient verified PCP, insurance and denies any DME. Patient lives with his kids and girlfriend and denies any needs at discharge. Whiteboard updated and [facility] contact information provided. Patient ststes he is hungry, no diet ordered and Vj Sorto made aware. Normal [facility] Comment on above: Result Comment: Elec [...] DYAN Technologist: JESSICA Technical Comments None Normal [facility] MRI Spine Cervical w/o Contr rand [...] by: DYAN Technologist: JESSICA Technical Comments None [facility] Monitor Recordon 05-02-2021 Monitor Record [id number]# 1.00CD:127 Normal [facility] Prescriptions/Work Noteson 0 05-02-2021 Prescriptions/Work Notes [id number]# 1.00CD:127 Normal [facility] RAD - MRI Screening Formon 0 05-02-2021 RAD - MRI Screening Form [id number]# 1.00CD:127 [facility] RAD - Preliminary Cat Scan R eporton 05-02-2021 RAD - Preliminary Cat Scan Report [id number]# 1.00CD:127 Normal [facility] U Drug Screenon 05-02-2021 Amphetamines Screen method >1000 ng/mL Ql (U) Negative Normal Negative [facility] Comment on above: Result Comment: Nega tive Cutoff: <1000 ng/mL Performed By: #### 2 598007 ####[facility] [address] [place] [address] Barbiturates Screen Ql (U) Negative Normal Negative [facility] Comment on above: Result Comment: Nega tive Cutoff: <200 ng/mL Performed By: #### 2 127718 ####[facility] [address] [place] [address] Benzodiazepines Ql (U) Negative Normal Negative [facility] Comment on above: Result Comment: Nega tive Cutoff: <200 ng/mL Performed By: #### 2 346768 ####[facility] [address] [place] [address] Cocaine Ql (U) Negative Normal Negative [facility] Comment on above: Result Comment: Nega tive Cutoff: <300 ng/mL Performed By: #### 2 170701 ####[facility] [address] [place] [address] Opiates Screen Ql (U) Negative Normal Negative [facility] Comment on above: Result Comment: Nega tive Cutoff: <300 ng/mL Performed By: #### 2 149061 ####[facility] [address] [place] [address] Phencyclidine Screen method >25 ng/mL Ql (U) Negative Normal Negative [facility] Comment on above: Result Comment: Nega tive Cutoff: <25 ng/mL These drug screen results are to be used for medical (i.e., treatment) purposes only. Unconfirmed drug screening results must not be used for non-medical purposes (e.g., employment testing, legal testing). Performed By: #### 2 715079 ####[facility] [address] [place] [address] Tetrahydrocannabinol Screen method >50 ng/mL Ql (U) Negative Normal Negative [facility] Comment on above: Result Comment: Nega tive Cutoff: <50 ng/mL Performed By: #### 2 567308 ####[facility] [address] [place] [address] XR Ankle 3+ Views Righton XR Ankle [...] M.D. Transcribed by: DYAN Technologist: CHASE Spring [facility] XR Knee Complete 4+ Views Le [...] M.D. Transcribed by: DYAN Technologist: CHASE Spring [facility] eGFRon 05-02-2021 GFR/1.73 sq M.predicted among blacks MDRD (S/P/Bld) [Vol rate/Area] mL/min/{1.73_m2} Normal >=59 [facility] Comment on above: Order Comment: Order added by Discern Expert. Result Comment: eGFR is race adjusted. AA=. Performed By: #### 2 649275, 0523836, 8302368, 51467799 #### [facility] [address] [place] [address] GFR/1.73 sq M.predicted among non-blacks MDRD (S/P/Bld) [Vol rate/Area] mL/min/{1.73_m2} Normal >=59 [facility] Comment on above: Order Comment: Order added by Discern Expert. Result Comment: [employer] Consultant heidi kidney disease could be indicated at eGFR's of less than 60 mL/min/1.73m2. Kidney failure is indicated at less than 15 mL/min/1.73m2. Performed By: #### 2 786588, 3567965, 0239033, 63019301 #### [facility] [address] [place] [address] ABO/Rhon 05-01-2021 ABO/Rh Positive Invalid Interpretation Code [facility] Comment on above: Performed By: #### 1 4564064, 38260117, 34859696, 7086056 ####[facility] [address] [place] [address] Auto Diffon 05-01-2021 Basophils/100 WBC (Bld) 1.1 % Normal 0.0-2.0 [facility] Comment on above: Order Comment: Order Added by Discern Expert. Performed By: #### 2 124463, 5592572, 1920115, 34528139, 4514714, 4902140, 3369090, 12025607, 6865209 ####[facility] [address] [place] [address] Basophils/Leukocytes Auto (Bld) [Pure # fraction] 0.1 E9/L Normal 0.0-0.2 [facility] Comment on above: Order Comment: Order Added by Discern Expert. Performed By: #### 2 437337, 1359473, 9202990, 66343972, 4532553, 2889494, 9990359, 37212022, 4125992 ####[facility] [address] [place] [address] Eosinophils/100 WBC (Bld) 2.0 % Normal 0.0-8.0 [facility] Comment on above: Order Comment: Order Added by Discern Expert. Performed By: #### 2 507089, 1525259, 0531458, 78586081, 2455671, 5870062, 3293304, 62480185, 3927282 ####[facility] [address] [place] [address] Eosinophils/Leukocytes Auto (Bld) [Pure # fraction] 0.1 E9/L Normal 0.0-0.5 [facility] Comment on above: Order Comment: Order Added by Discern Expert. Performed By: #### 2 094484, 9005605, 8562051, 35385058, 9716576, 0981745, 1405722, 75598474, 6208554 ####[place] [address] [place] [address] Lymphocytes/100 WBC (Bld) 27.9 % Normal 14.0-50.0 [facility] Comment on above: Order Comment: Order Added by Discern Expert. Performed By: #### 2 420109, 2255271, 0204276, 81250700, 7644839, 2646076, 2323624, 36378002, 9684445 ####[place] [address] [place] [address] Lymphocytes/Leukocytes Auto (Bld) [Pure # fraction] 1.8 E9/L Normal 1.0-4.0 [facility] Comment on above: Order Comment: Order Added by Discern Expert. Performed By: #### 2 720567, 7666312, 1068911, 11802958, 8580768, 8630082, 2275128, 26073562, 1026670 ####[place] [address] [place] [address] Monocytes/100 WBC (Bld) 8.6 % Normal 4.0-14.0 [facility] Comment on above: Order Comment: Order Added by Discern Expert. Performed By: #### 2 406046, 1565623, 5904963, 00698757, 2137655, 4202418, 7605782, 41061700, 2940738 ####[facility] [address] [place] [address] Monocytes/Leukocytes Auto (Bld) [Pure # fraction] 0.6 E9/L Normal 0.2-1.0 [facility] Comment on above: Order Comment: Order Added by Discern Expert. Performed By: #### 2 849093, 1085876, 2946562, 76775191, 7847385, 7356121, 2526074, 80880821, 6280064 ####[place] [address] [place] [address] Neutrophils/100 WBC (Bld) 60.4 % Normal 36.0-75.0 [facility] Comment on above: Order Comment: Order Added by Discern Expert. Performed By: #### 2 149846, 5964858, 4906293, 14203795, 5571781, 4823177, 7269165, 72479495, 6274217 ####[facility] [address] [place] [address] Neutrophils/Leukocytes Auto (Bld) [Pure # fraction] 4.0 E9/L Normal 2.0-7.5 [facility] Comment on above: Order Comment: Order Added by Kevin Expert. Performed By: #### 2 987972, 7240830, 2932421, 78261280, 4529387, 1896764, 9523630, 12448273, 8831260 ####[facility] [address] [place] [address] BMPon 05-01-2021 Creatinine [Mass/Vol] 1.2 mg/dL Normal 0.5-1.3 [facility] Comment on above: Performed By: #### 2 186472, 4572680, 4504435, 49560232, 4539536, 8214233, 6396314, 54759503, 4465661 ####[facility] [address] [place] [address] Urea nitrogen [Mass/Vol] 14 mg/dL Normal 5-21 [facility] Comment on above: Performed By: #### 2 516770, 3926323, 2281423, 49888999, 9453827, 1861467, 4297907, 99419636, 7912279 ####[facility] [address] [place] [address] Urea nitrogen/Creatinine [Mass ratio] 12 No Units Normal 10-20 [facility] Comment on above: Performed By: #### 2 824620, 9657998, 3621537, 45002261, 7743483, 1917345, 2526933, 67783567, 5567229 ####[facility] [address] [place] [address] Anion gap [Moles/Vol] 15 mmol/L Normal 6-16 [facility] Comment on above: Performed By: #### 2 264028, 9750958, 4374881, 99792712, 6086168, 2950359, 9374672, 46291249, 6226871 ####[facility] [address] [place] [address] Calcium [Mass/Vol] 9.0 mg/dL Normal 8.9-11.1 [facility] Comment on above: Performed By: #### 2 642111, 1468408, 7707991, 67226843, 3239632, 8335916, 7109331, 70023614, 4934161 ####[facility] [address] [place] [address] Chloride [Moles/Vol] 105 mmol/L Normal 101-111 [facility] Comment on above: Performed By: #### 2 736160, 6339974, 4619332, 74386249, 2629224, 5250001, 6253213, 51217280, 9854006 ####[facility] [address] [place] [address] CO2 [Moles/Vol] 22 mmol/L Normal 21-31 [facility] Comment on above: Performed By: #### 2 079995, 0856386, 9957109, 64829634, 2597528, 5601036, 8813903, 23161911, 0727829 ####[facility] [address] [place] [address] Glucose [Mass/Vol] 94 mg/dL Normal 55-199 [facility] Comment on above: Result Comment: If t his glucose result represents a fasting glucose, interpretation should refer to the following reference range: 55-99 mg/dL Performed By: #### 2 312209, 3148712, 1252267, 53744248, 7760308, 9147278, 6897735, 55412495, 2100913 ####[facility] [address] [place] [address] Potassium [Moles/Vol] 3.3 mmol/L Low 3.5-5.3 [facility] Comment on above: Performed By: #### 2 417911, 0956536, 5530569, 79236372, 4430113, 4349896, 4032654, 97893477, 1963572 ####[facility] [address] [place] [address] Sodium [Moles/Vol] 139 mmol/L Normal 135-145 [facility] Comment on above: Performed By: #### 2 391867, 1281841, 7433103, 95565359, 7452391, 4400638, 5148736, 72576812, 4119166 ####[facility] [address] [place] [address] Blood Bank ID#on 05-01-2021 BBID# [id number] Invalid Interpretation Code [facility] Comment on above: Performed By: #### 1 0643268, 47503646, 35028662, 5914835 ####[facility] [address] [place] [address] CBC w/ Auto Diffon Erythrocyte distribution width (RBC) [Ratio] 13.4 % Normal 10.9-14.2 [facility] Comment on above: Performed By: #### 2 379768, 7899881, 4571730, 75811030, 7636431, 4996506, 0881554, 86408185, 1606427 ####[address] [place] [address] Hematocrit (Bld) [Volume fraction] 42.6 % Normal 37.7-49.0 [facility] Comment on above: Performed By: #### 2 253994, 0558256, 5894837, 52600546, 6789617, 8178842, 3203608, 56459316, 8771631 ####[address] [address] Hemoglobin (Bld) [Mass/Vol] 14.4 g/dL Normal 13.5-17.5 [facility] Comment on above: Performed By: #### 2 875683, 2593106, 1161816, 29634730, 3911972, 4358279, 9891744, 05295193, 9978392 ####[address] [address] MCH (RBC) [Entitic mass] 27.8 pg Normal 27.0-34.0 [facility] Comment on above: Performed By: #### 2 030043, 3275770, 7141402, 16060586, 8532611, 0799700, 9455142, 88185425, 3425895 ####[address] [address] MCHC (RBC) [Mass/Vol] 33.9 g/dL Normal 31.4-36.0 [facility] Comment on above: Performed By: #### 2 021217, 7523582, 9765968, 52483830, 7702463, 4470268, 1294626, 24152594, 8470165 ####[address] [address] MCV (RBC) [Entitic vol] 81.9 fL Normal 80.0-100.0 [facility] Comment on above: Performed By: #### 2 266332, 0733884, 8008280, 59029526, 6323394, 4572134, 0298298, 14269479, 5501872 ####[facility] [address] [place] [address] Platelet mean volume (Bld) [Entitic vol] 10.3 fL Normal 6.4-10.8 [facility] Comment on above: Performed By: #### 2 873734, 9776190, 9264311, 68600541, 1706805, 1073084, 4667347, 07762526, 4231354 ####[address] [place] [address] Platelets (Bld) [#/Vol] 147.0 E9/L Low 150.0-500.0 [facility] Comment on above: Performed By: #### 2 499268, 8733004, 5276666, 33234477, 5415516, 5095554, 5978951, 08976163, 8686284 ####[address] [address] RBC (Bld) [#/Vol] 5.2 E12/L Normal 4.3-5.9 [facility] Comment on above: Performed By: #### 2 168889, 6781422, 0221454, 88177341, 7963570, 6991173, 4742748, 16374119, 7042708 ####[address] [place] [address] WBC corrected for nucl RBC Auto (Bld) [#/Vol] 6.6 E9/L Normal 4.0-11.0 [facility] Comment on above: Performed By: #### 2 029219, 3939322, 9341033, 98491772, 7770530, 5773817, 2957157, 71756600, 9929752 ####[facility] [address] [place] [address] Ethanolon 05-01-2021 Ethanol [Mass/Vol] mg/dL Normal <=7 [facility] Comment on above: Performed By: #### 2 468343 ####[facility] [address] [place] [address] Hep Func Panelon 05-01-2021 Albumin [Mass/Vol] 3.9 g/dL Normal 3.3-5.0 [facility] Comment on above: Performed By: #### 2 564717, 0150150, 7528667, 75415296, 8585674, 7566494, 0615627, 42990026, 1739827 ####[facility] [address] [place] [address] Albumin/Globulin (S) [Mass conc ratio] 1.3 Normal 1.1-2.2 [facility] Comment on above: Performed By: #### 2 262300, 0737617, 0828828, 28975776, 9503010, 1003182, 6110554, 53442488, 4586172 ####[address] [address] ALP [Catalytic activity/Vol] 56 Int._Unit/L Normal 21-98 [facility] Comment on above: Performed By: #### 2 513502, 2702980, 6197018, 57731516, 5316262, 3485516, 8945972, 22830082, 1421727 ####[address] [address] ALT No additional P-5'-P [Catalytic activity/Vol] 37 Int._Unit/L Normal 6-46 [facility] Comment on above: Performed By: #### 2 156487, 6722855, 6941310, 72695160, 6521755, 1799341, 0588458, 90450988, 4243936 ####[address] [place] [address] AST [Catalytic activity/Vol] 36 Int._Unit/L Normal 5-43 [facility] Comment on above: Performed By: #### 2 559144, 7636161, 0823976, 93928774, 5114659, 7818790, 4628925, 95934249, 5361746 ####[facility] [address] [place] [address] Bilirubin [Mass/Vol] 0.9 mg/dL Normal 0.0-1.1 [facility] Comment on above: Performed By: #### 2 620048, 3878572, 0212813, 17735216, 2446961, 3969994, 2719857, 62006029, 1324338 ####[facility] [address] [place] [address] Bilirubin.direct [Mass/Vol] 0.2 mg/dL Normal 0.1-0.4 [facility] Comment on above: Performed By: #### 2 423370, 2277416, 0650576, 48256874, 9219960, 8554794, 8822707, 04429843, 8337509 ####[address] [address] Bilirubin.indirect [Mass or moles/Vol] 0.7 mg/dL Normal 0.1-0.9 [facility] Comment on above: Performed By: #### 2 548132, 9176817, 2449905, 21221862, 5352363, 1819902, 2754967, 69946207, 0954518 ####[facility] [address] [place] [address] Globulin (S) [Mass/Vol] 3.0 g/dL Normal 1.4-4.0 [facility] Comment on above: Performed By: #### 2 039082, 2349808, 5866282, 91149368, 6158576, 7611019, 1572301, 49733491, 5934667 ####[address] [place] [address] Protein [Mass/Vol] 6.9 g/dL Normal 6.0-7.8 [facility] Comment on above: Performed By: #### 2 793574, 2708463, 2931224, 39384739, 8980991, 4968150, 3073513, 65543118, 3071185 ####[facility] [address] [place] [address] Lactic Acidon 05-01-2021 Lactate [Mass/Vol] 1.2 mmol/L Normal 0.5-2.2 [facility] Comment on above: Performed By: #### 2 808621, 5252902, 4134849, 98265035, 1345865, 7685980, 6450866, 54543329, 5927217 ####[facility] [address] [place] [address] Magnesiumon 05-01-2021 Magnesium [Mass/Vol] 2.0 mg/dL Normal 1.3-2.4 [facility] Comment on above: Performed By: #### 2 343963, 8622094, 0551835, 21755225, 8381224, 4570805, 8760675, 89070000, 9917271 ####[facility] [address] [place] [address] PT & PTTon 05-01-2021 aPTT Coag (PPP) [Time] 27.8 second(s) Normal 25.1-36.5 [facility] Comment on above: Result Comment: Hepa rin therapeutic range (represented by Anti-Factor Xa activity of 0.2 - 0.4 U/mL) corresponds to PTT of 56.6 - 109.0 sec. Performed By: #### 2 819681, 4188942, 0216228, 21546208, 0150582, 5360251, 9857589, 92204062, 2305547 ####[facility] [address] [place] [address] INR Coag (PPP) [Relative time] 1.1 {INR} Invalid Interpretation Code [facility] Comment on above: Result Comment: INR results are specifically intended to assess patients stabilized on long-term Anticoagulation therapy suggested INR?s ?Less Intensive Anticoagulation? 2.0 ? 3.0 Conventional Range 3.0 ? 4.5 Performed By: #### 2 960447, 0949179, 2034701, 54375445, 6990742, 1712927, 0034236, 00759043, 1403247 ####[facility] [address] [place] [address] PT Coag (PPP) [Time] 13.3 second(s) High 10.2-12.9 [facility] Comment on above: Performed By: #### 2 399684, 0850891, 5802310, 69905480, 3068965, 5448346, 5096445, 20941733, 0870423 ####[facility] [address] [place] [address] Troponinon 05-01-2021 Troponin I.cardiac [Mass/Vol] 5.60 pg/mL Low 15.90-38.40 [facility] Comment on above: Result Comment: The 95% CI (Confidence Interval) PPV (Positive Predictive Value) for myocardial infarction in females is 38 pg/mL, in males 51 pg/mL. The results should be used in conjunction with clinical conditions of myocardial infarction. (Access High Sensitivity Troponin I Instructions For Use, [employer], June 2018) Performed By: #### 2 082350, 5620308, 2438200, 36666927, 9370138, 5504572, 6252339, 16812148, 6241062 ####[facility] [address] [place] [address] eGFRon 05-01-2021 GFR/1.73 sq M.predicted among blacks MDRD (S/P/Bld) [Vol rate/Area] mL/min/{1.73_m2} Normal >=59 [facility] Comment on above: Order Comment: Order added by Discern Expert. Result Comment: eGFR is race adjusted. AA=. Performed By: #### 2 763718, 0706490, 4682578, 76228853, 5995642, 2677041, 0626451, 18816840, 7506682 ####[facility] [address] [place] [address] GFR/1.73 sq M.predicted among non-blacks MDRD (S/P/Bld) [Vol rate/Area] mL/min/{1.73_m2} Normal >=59 [facility] Comment on above: Order Comment: Order added by Discern Expert. Result Comment: [employer] heidi kidney disease could be indicated at eGFR's of less than 60 mL/min/1.73m2. Kidney failure is indicated at less than 15 mL/min/1.73m2. Performed By: #### 2 957500, 6391656, 1471400, 53277339, 9812650, 2593211, 1332117, 89330264, 9089131 ####[facility] [address] [place] [address] Vital Signs Date Time Vital Sign Value Performing Clinician Marcelino yeh 08-23-2024 09:07-0400 Body height 170.2 cm Cecilio [employer] Work Phone: [facility] 08-23-2024 09:07-0400 Body mass index (BMI) [Ratio] 22.87 kg/m2 [employer] Phone: [facility] 08-23-2024 09:07-0400 Body weight 66.22 kg [employer] Phone: [facility] 08-23-2024 09:07-0400 Diastolic blood pressure 85 mm[Hg] [employer] Work Phone: [facility] 08-23-2024 09:07-0400 Systolic blood pressure 115 mm[Hg] [employer] Work Phone: [facility] Healthcare Encounters Encounter Date Encounter Type Care Provider Facility Start: 08-23-2024 End: 08-23-2024 Clinisync Result Encounter Generic External Data Provider [facility] External Department Unsolicited Start: 08-23-2024 End: 08-23-2024 [employer] Result Encounter Generic External Data Provider [facility] External Department Unsolicited Start: 08-23-2024 End: 08-23-2024 Office outpatient new 45 minutes Cecilio Price [employer] Work Phone: [facility] Comment on above: Abnormal computed to mography of sigmoid colon (Primary Dx); Sigmoid diverticulitis; Idiopathic acute pancreatitis without infection or necrosis; Abdominal pain, chronic, left lower quadrant; Abdominal pain, chronic, left upper quadrant Start: 08-23-2024 End: 08-23-2024 ambulatory CECILIO PRICE Not Available Start: 07-25-2024 End: 07-25-2024 ambulatory DONNIE DIAS Not Available Start: 05-23-2024 End: 05-23-2024 ambulatory WILY LANDRUM Not Available Start: 02-11-2023 End: 02-12-[address] Shivani MANZO Facility:[facility] Start: 02-05-2023 End: 02-05-[address] WILY LANDRUM Facility:[facility] Start: 09-30-2022 End: 09-30-[address] WILY LANDRUM Facility:[facility] Start: 06-29-2022 End: 06-29-[address] WILY LANDRUM Facility:[facility] Start: 06-21-2021 End: 06-21-2021 Emergency department patient visit Afshin Coretta Torres Facility:[facility] Procedures Date Procedure Procedure Detail Performing Clinician Start: 08-23-2024 ALL CBC WITH AUTO DIFF Generic External Data Provider Start: 01-24-2021 Colonoscopy Generic Pr ovider Plan of Treatment Date Care Activity Detail Author Start: 01-24-2031 Screening for malignant neoplasm of colon [facility] Start: 10-12-2024 End: 10-12-2024 Patient encounter procedure 10/12/2024 2:15 PM EST Office Visit [facility] [address] [address] Cecilio Price, [address] [facility] Start: 08-23-2024 End: 08-23-2025 CT Abdomen and Pelvis W contrast IV CT abdomen pelvis w IV contrast Imaging Routine Sigmoid diverticulitis Abdominal pain, chronic, left lower quadrant Abdominal pain, chronic, left upper quadrant Expected: 08/23/2024, Expires: 08/23/2025 [facility] Work Phone: Comment on above: Expected: 08/23/2024 , Expires: 08/23/2025 Start: 07-09-2024 Influenza vaccination Influenza Vacc ine (#1) [facility] Start: 1970 Screening for malignant neoplasm of colon [facility] Payers Date Payer Category Payer Private Health Insurance [facility] [id number] 2021 Self-pay 1970 Unknown [id number]. [id number] 1970 Unknown [id number] [id number]. 2.593 1970 Unknown [id number] [id number]. 2.593 1970 Unknown [id number] [id number]. 2.593 1970 Unknown [id number] [id number]. 2.1259 1970 Unknown [id number] [id number]. 2.1259 1970 Unknown [id number] [id number]. 2.1259 1959 Private Health Insurance [id number] 1959 Self-pay [id number] 1959 Unknown [id number] Unknown [id number]. 2.531 Social History Date Type Detail Facility Start: 07-03-[address] [facility] History of tobacco use Current smoker [facility] History of tobacco use [facility]igarette [facility]oker [facility] Start: 07-03-2023 Tobacco use and exposure Smoke less tobacco non-user [facility] Start: 08-23-2024 Alcoholic beverage intake Ex-drinker (finding) [facility] Start: 08-23-2024 History of Social function [facility] Start: 08-23-2024 Tobacco use panel [facility] Start: 1970 Sex assigned at Not on file N [facility] History of Present illness Narrative 08-23-2024 Cecilio Price, DO - 08/23/2024 9:15 AM EDT Note Date & Type Note Facility 08-23-2024 History of Presen t illness Narrative Images from the original note were not included. Johnathan Melara 1970 Johnathan Melara is a 53 y.o. male presents with chief complaint of Consult (Abdominal pain) HPI: HPI patient has a constant left upper quadrant / left-sided abdominal pain. In May he had an episode of pancreatitis that was sudden onset of pain more in his left upper abdomen. He was admitted to the hospital in [place]. When he was discharged from the hospital he still had the pain. He was placed on omeprazole by his family physician which does not really seem to help. He started always feel like he was full and not hungry since then. He never was given a reason for why he would pancreatitis. He has not drink any alcohol, he quit drinking 20 years ago. In July he was having the same pain but more in the left lower quadrant and was feeling some fatigue. He went to the hospital and was admitted with diverticulitis. He was admitted in the hospital for about 6 days and had 2 CT scans. He said that while he was on the antibiotics maybe he was feeling a little bit better but he was on liquids the entire time. He did vomit so when he was in the hospital. That resolved. He was discharged home still with some pain and started himself on solid food which he can eat without difficulty. He is eating without any nausea or vomiting currently. He is 2-3 bowel movements per day. Sometimes if he has a bowel movement it feels a little bit better. The omeprazole really does not seem to be helping. SUBJECTIVE: MEDICATIONS: ALLERGIES Current Outpatient Medications Medication Instructions omeprazole (PRILOSEC) 40 mg, Oral, Daily before breakfast, Do not crush or chew. ondansetron ODT (ZOFRAN-ODT) 4 mg, Oral, Every 8 hours PRN Allergies Allergen Reactions Bee Venom Unknown Wound Dressing Adhesive Rash Other Reaction(s): Itching at injection site PAST MEDICAL HISTORY: SOCIAL HISTORY SURGICAL HISTORY: Past Medical History: Diagnosis Date Anxiety Asthma ([facility]) Deafness in right ear Dental abscess 09/30/2022 History of being hospitalized 05/16/2024 Pancreatitis Hx of migraine headaches [place] (myocardial infarction) ([facility]) when 19-light and the next one was 32 Seizure ([facility]) 1989 Social History Tobacco Use Smoking status: Former Types: Cigarettes Smokeless tobacco: Never Substance Use Topics Alcohol use: Not Currently Past Surgical History: Procedure Laterality Date APPENDECTOMY 1989 BACK SURGERY 2005 HEART CATH 2000 REVIEW OF SYMPTOMS: Review of Systems Constitutional: Positive for fatigue. Negative for appetite change. HENT: Negative for trouble swallowing. Respiratory: Negative for cough and shortness of breath. Cardiovascular: Negative for chest pain. Gastrointestinal: Positive for abdominal pain. Genitourinary: Negative for hematuria. Musculoskeletal: Negative for arthralgias. Neurological: Negative for seizures. Hematological: Negative for adenopathy. OBJECTIVE: Visit Vitals BP 115/85 Ht 5' 7 Wt 146 lb BMI 22.87 kg/m Smoking Status Former BSA 1.77 m Physical Exam Constitutional: Appearance: Normal appearance. He is not ill-appearing. HENT: Head: Atraumatic. Eyes: General: No scleral icterus. Cardiovascular: Rate and Rhythm: Regular rhythm. Heart sounds: Normal heart sounds. Pulmonary: Breath sounds: No wheezing. Abdominal: General: There is no distension. Tenderness: There is abdominal tenderness (Mild left upper and left lower quadrant abdominal tenderness no guarding rebound or rigidity abdomen is soft). Musculoskeletal: Right lower leg: No edema. Left lower leg: No edema. Neurological: Mental Status: He is alert. ASSESSMENT AND PLAN: Assessment/Plan Diagnoses and all orders for this visit: Abnormal computed tomography of sigmoid colon Sigmoid diverticulitis - Ambulatory referral to General Surgery Idiopathic acute pancreatitis without infection or necrosis Abdominal pain, chronic, left lower quadrant Abdominal pain, chronic, left upper quadrant Patient has chronic left upper quadrant and left lower quadrant abdominal pain since his pancreatitis in May of 2024. [facility]. He also had an admission for a week in July of 2024 secondary to sigmoid diverticulitis with circular wall thickening of the colon. Patient has continued to have left quadrant and left lower quadrant pain. May have diverticular abscess versus chronic pancreatitis versus neoplasm versus IBD Versus gastric ulcer or gastric etiologies.. I did order CBC and pancreatic enzymes as well as CT abdomen and pelvis with IV contrast. Patient will need an EGD and colonoscopy. We discussed the procedure and the risks and benefits and potential complications. He would like to proceed. Discussed with him continuing to use his omeprazole to protect against gastric ulcer in the meantime. We will get imaging and labs done before his endoscopy. documented in this encounter [facility] Discharge summary note 05-03-2021 Note Date & Type Note Facility 05-03-2021 [place] [address] GIOVANNA JOHNATHAN Irvin Date of : 1970 50 Years Male [...] FOLLOW UP: With: Address: When: WILY Fuentes [facility] [place] [address] [facility] (1) Within 1 to 2 weeks Comments: [...] return to clinic or to emergency room. [facility] Comment on above: Result Comment: Elec tronically Signed By: July Hooker PA-C\.br\Date and Time Signed: 05/02/21 13:06 EDT\.br\Electronically Co-Signed By: Arnie SAINI, Alix X\.br\Date and Time Co-Signed: 05/03/21 12:36 EDT Clinical Note 05-02-2021 Note Date & Type Note Facility 05-02-2021 Note OT six clicks = SNF. Pt requires assist w/ LE self care and transfers d/t back/neck pain and weakness. OT to follow daily to progress as tolerates. [facility] Clinical Note 05-02-2021 Note Date & Type Note Facility 05-02-2021 Note PT evaluation comple christiano this date. The pt scores a 24 on the AM-PAC, recommending d/c to SNF [...] to see daily during acute care stay. [facility] History and physical note 05-02-2021 Note [...] lives at home with , works at [email or web address] in [place] Denies smoking, alcohol. Used marijuana once a [...] 14.4 gm/dL (05/01/21 21:22:00) Hct: 42.6 % (05/01/21:22:00) MCV: 81.9 fL (05/01/21:22:00) MCH: 27.8 pg (05/01/21:22:00) MCHC: 33.9 gm/dL (05/01/21:22:00) RDW: 13.4 % (05/01/21 21:22:00) Platelet: 147 E9/L Low (05/01/21 21:22:00) MPV: 10.3 fL (05/01/21:22:00) Neutro Auto: (more content not included)... 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 Gastroesophageal reflux disease with esophagitis without hemorrhage Rib pain on left side Abnormal computed tomography of sigmoid colon- Primary Sigmoid diverticulitis Diverticulitis of colon (without mention of hemorrhage) Idiopathic acute pancreatitis without infection or necrosis Abdominal pain, chronic, left lower quadrant Abdominal pain, chronic, left upper quadrant documented in this encounter [facility] Summary Purpose Family History No Family History [...] content) DATE CREATED AUTHOR 05/09/2021 [facility] Andres [facility] DATE CREATED AUTHOR AUTHOR'S ORGANIZ ATION 10/24/2021 [facility] dical Specialist DATE CREATED AUTHOR AUTHOR'S ORGANIZ ATION 02/21/2023 [facility] DATE CREATED AUTHOR AUTHOR'S ORGANIZ ATION 05/26/2024 [facility] DATE CREATED AUTHOR AUTHOR'S ORGANIZ ATION 08/25/2024 [facility] dical Specialists EPIC Care Teams (unrecognized sec tion and content) Sound Recordist Relationship Specialty Start Date End Date Wily Landrum MD [address] [address] PCP - General Family Medicine 03/16/23 Sound Recordist Relationship Specialty Start Date End Date Wily Landrum MD [address] [address] PCP - General Family Medicine 03/16/23 Reason for Visit (unrecogniz ed section and content) Reason Comments Consult Abdominal pain Specialty Diagnoses / Procedures Referred By Contac t Referred To Contact General Surgery Diagnoses Bowel disease, inflammatory Procedures OR OFFICE/OUTPATIENT NEW HIGH MDM 60 MINUTES Donnie Dias, MIXING MACHINE TENDER [address] [address] Phone: tel: fax: Orlin Samson, DO [address] [facility] [address] [place] [address] Phone: tel: fax: Referral ID Status Reason Start Date Expiration Date V isits Requested Visits Authorized [id number] Closed Specialty Services Required 07/25/2024 01/21/2025 1 1 FOR RECORDS PERTAINING TO PATIENTS WHO ARE [...] THE PRIMARY CLINICAL RECORDS. [facility] [email or web address] [facility]. provides no warranty or guarantee of the accuracy or completeness of information in this document.
== END 2024-07-21 12:00 | disposition home or self-care (01) | DRG 392 ==
LOC: ER 23:45 → MS 07-21 10:08
PROVIDERS: Nurse Practitioner Family; Registered Nurse; Admitting Provider Internal Medicine; Emergency Provider Emergency Medicine; PCP Family Medicine; Visit Provider Internal Medicine
DX: K57.32 Diverticulitis of large intestine without perforation or abscess without bleeding (principal); R11.2 Nausea with vomiting, unspecified; R10.84 Generalized abdominal pain; D72.823 Leukemoid reaction; F17.200 Nicotine dependence, unspecified, uncomplicated; F10.11 Alcohol abuse, in remission; I25.2 Old myocardial infarction; Z79.899 Other long term (current) drug therapy
CPT/HCPCS: 36415; 71045; 74018; 74177; 80053; 81003; 83690; 83735; 84100; 85025; 94761; 96361; 96365; 96366; 96367; 96368; 96372; 96375; 96376; 99285; G0378; J1170; J1650; J1836; J2270; J2405; J2543; Q9966; Q9967

== ENCOUNTER 2024-08-23 10:36 | Outpatient (OUT) | payer OTHER, SELFPAY ==
--- OUTSIDE RECORDS SUMMARY | 2024-08-23 10:44 | XMS_ITS | CCD ---
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 Phone LUCITA, DR BLEVINS Primary Care Unavailable PAY ., DR LOU Admitting Unavailable PAY ., DR LOU Attending Unavailable PAY ., DR LOU Consulting Unavailable COATMICHELINE Rios Consulting Unavailable ANAIS, DR Shivani Woods Admitting [...] Primary Care Unavailable WILY LANDRUM Attending Unavailable DONNIE OLIVEIRA Attending Unavailable Allergies Allergy Classification Reported Allergen(s) Allergy Type Date of Onset Reaction(s) Facility (1 source) Adhesive agent Drug allergy (disorder) [facility] Repository (1 source) bee venom Drug allergy (disorder) [facility] Repository (1 source) Ibuprofen Drug Allergy [facility] Repository (1 source) Adhesive Tape Drug allergy (disorder) 06-21-2021 [facility] Repository Problems Active Problems Problem Classification [...] DAYNA HUNG Date: 2023-02-11 15:32 Normal [facility] XR ANKLE LT MIN 3 Von 2022 XR ANKLE LT MIN 3 V EXAM: XR ANKLE LT OH N 3 V HISTORY: Bone injury COMPARISON: [...] MICHELINE ARREDONDO Date: 2023-02-05 08:50 Normal [facility] CBC W MANUAL DIFFon 09-30-20 22 ATYPICAL LYMPH # Normal [facility] Comment on above: Performed By: #### C BCDERIK #### [facility] [address] [place] [address] Dr. Kiran Gongora ATYPICAL LYMPH % Normal [facility] Comment on above: Performed By: #### C BCMAN #### [facility] [address] [place] [address] Dr. Kiran Gongora BAND # 0.0 103/ul Normal 0.0-0.3 [facility] Comment on above: Performed By: #### C BCMAN #### [facility] [address] [place] [address] Dr. Kiran Gongora BAND % 0 % Normal 0-5 [facility] Comment on above: Performed By: #### C BCMAN #### [facility] [address] [place] [address] Dr. Kiran Gongora BASOM # 0.10 103/ul Normal 0.00-0.10 [facility] Comment on above: Performed By: #### C BCDERIK #### [facility] [address] [place] [address] Dr. Kiran Gongora BASOM % 1.0 % Normal 0.2-2.0 [facility] Comment on above: Performed By: #### C BCMAN #### [facility] [address] [place] [address] Dr. Kiran Gongora BLAST # Normal [facility] Comment on above: Performed By: #### C BCDERIK #### [facility] [address] [place] [address] Dr. Kiran Gongora BLAST % Normal [facility] Comment on above: Performed By: #### C EDIL #### [facility] [address] [place] [address] Dr. Kiran Gongora CORRECTED WBC Normal 4.0-11.0 [facility] Comment on above: Performed By: #### C EDIL #### [facility] [address] [place] [address] Dr. Kiran Gongora EOS # 0.41 103/ul Normal 0.00-0.70 [facility] Comment on above: Performed By: #### C EDIL #### [facility] [address] [place] [address] Dr. Kiran Gongora EOS% 4.0 % Normal 0.9-7.0 [facility] Comment on above: Performed By: #### C EDIL #### [facility] [address] [place] [address] Dr. Kiran Gongora HCT 47.9 % Normal 42.0-54.0 [facility] Comment on above: Performed By: #### C EDIL #### [facility] [address] [place] [address] Dr. Kiran Gongora HGB 15.4 g/dl Normal 14.0-18.0 [facility] Comment on above: Performed By: #### C BCDERIK #### [facility] [address] [place] [address] Dr. Kiran Gongora LYMPHM # 2.37 103/ul Normal 1.20-3.80 [facility] Comment on above: Performed By: #### C EDIL #### [facility] [address] [place], [place] [id number] Dr. Kiran Gongora LYMPHM% 23.0 % Normal 20.5-60.0 [facility] Comment on above: Performed By: #### C EDIL #### [facility] [address] [place] [address] Dr. Kiran Gongora MCH 28.2 pg Normal 25.9-34.0 [facility] Comment on above: Performed By: #### C EDIL #### [facility] [address] [place] [address] Dr. Kiran Gongora MCHC 32.2 g/dl Normal 29.9-35.2 [facility] Comment on above: Performed By: #### C EDIL #### [facility] [address] [place] [address] Dr. Kiran Gongora MCV 87.7 fL Normal 80.0-94.0 [facility] Comment on above: Performed By: #### C EDIL #### [facility] [address] [place] [address] Dr. Kiran Gongora METAMYELOCYTE # Normal [facility] Comment on above: Performed By: #### C EDIL #### [facility] [address] [place] [address] Dr. Kiran Gongora METAMYELOCYTE % Normal The [place] Comment on above: Performed By: #### C EDIL #### [facility] [address] [place] [address] Dr. Kiran Gongora MONOM# 0.31 103/ul Normal 0.30-0.80 [facility] Comment on above: Performed By: #### C EDIL #### [facility] [address] [place] [address] Dr. Kiran Gongora MONOM% 3.0 % Normal 1.7-12.0 [facility] Comment on above: Performed By: #### C EDIL #### [facility] [address] [place] [address] Dr. Kiran Gongora MPV 12.6 fL Normal 9.5-13.5 [facility] Comment on above: Performed By: #### C EDIL #### [facility] [address] [address] [address] Kiran Gongora MYELOCYTE # Normal [facility] Comment on above: Performed By: #### C EDIL #### [facility] [address] [address] [address] Kiran Gongora MYELOCYTE % Normal [facility] Comment on above: Performed By: #### C EDIL #### [facility] [address] [place] [address] Dr. Kiran Gongora NRBC Normal [facility] Comment on above: Performed By: #### C EDIL #### [facility] [address] [place] [address] Dr. Kiran Gongora PLT 137 103/ul Critically low 150-450 [facility] Comment on above: Performed By: #### C EDIL #### [facility] [address] [place] [address] Dr. Kiran Gongora RBC 5.46 106/ul Normal 4.70-6.10 [facility] Comment on above: Performed By: #### C EDIL #### [facility] [address] [place] [address] Dr. Kiran Gongora RDW 13.6 % Normal 11.0-15.0 [facility] Comment on above: Performed By: #### C EDIL #### [facility] [address] [place] [address] Dr. Kiran Gongora SEG # 7.11 103/ul Critically high 1.40-6.50 [facility] Comment on above: Performed By: #### C EDIL #### [facility] [address] [place] [address] Dr. Kiran Gongora SEG % 69.0 % Normal 43.0-75.0 [facility] Comment on above: Performed By: #### C EDIL #### [facility] [address] [place] [address] Dr. Kiran Gongora WBC 10.3 103/ul Normal 4.0-11.0 [facility] Comment on above: Performed By: #### C EDIL #### [facility] [address] FACIAL BONES W [...] EZIO DAVALOS Date: 2022-09-30 05:26 Normal [facility] CT NECK ST W CONon 2 CT [...] DAYNA HUNG Date: 2022-09-30 07:21 Normal [facility] CULTURE BLOODon 09-30-2022 Microscopic examination of blood, culture Culture Observations: NO GROWTH AT 5 DAYS. Normal [facility] Comment on above: Performed By: #### B LDCX2 #### [facility] [address] [place] [address] Dr. Kiran Gongora Microscopic examination of blood, culture Culture Observations: NO GROWTH AT 5 DAYS. Normal [facility] Comment on above: Performed By: #### B LDCX1 #### [facility] [address] [place] [address] Dr. Kiran Gongora PROF 14(COMP METB)on 09-30- 022 Albumin [Mass/Vol] 3.2 g/dL Critically low 3.4-5.0 Th e [facility] Comment on above: Performed By: #### C MP #### [facility] [address] [place] [address] Dr. Kiran Gongora Albumin/Globulin [Mass ratio] 0.9 {ratio} Normal [facility] Comment on above: Performed By: #### C MP #### [facility] [address] [place] [address] Dr. Kiran Gongora ALP [Catalytic activity/Vol] 83 U/L Normal 46-116 [facility] Comment on above: Performed By: #### C MP #### [facility] [address] [place] [address] Dr. Kiran Gongora ALT [Catalytic activity/Vol] 44 U/L Normal 16-63 [facility] Comment on above: Performed By: #### C MP #### [facility] [address] [place] [address] Dr. Kiran Gongora Anion gap [Moles/Vol] 8.2 mmol/L Normal [facility] Comment on above: Performed By: #### C MP #### [facility] [address] [place] [address] Dr. Kiran Gongora AST [Catalytic activity/Vol] 27 U/L Normal 15-37 [facility] Comment on above: Performed By: #### C MP #### [facility] [address] [place] [address] Dr. Kiran Gnogora Bilirubin [Mass/Vol] 0.2 mg/dL Normal 0.2-1.0 [facility] Comment on above: Performed By: #### C MP #### [facility] [address] [place] [address] Dr. Kiran Gongora Calcium [Mass/Vol] 8.5 mg/dL Normal 8.5-10.[address] [facility] Comment on above: Performed By: #### C MP #### [facility] [address] [address] [address] Kiran Gongora Chloride [Moles/Vol] 109 mmol/L Critically high 98-107 [facility] Comment on above: Performed By: #### C MP #### [facility] [address] [address] [address] Kiran Gongora CO2 [Moles/Vol] 30.4 mmol/L Normal 21.0-32.0 [facility] Comment on above: Performed By: #### C MP #### [facility] [address] [place] [address] Dr. Kiran Gongora Creatinine [Mass/Vol] 1.12 mg/dL Normal 0.70-1.30 [facility] Comment on above: Performed By: #### C MP #### [facility] [address] [place] [address] Dr. Kiran Gongora EGFR-AF TUNISIAN >60 Normal >=60 [facility] Comment on above: Performed By: #### C MP #### [facility] [address] [place] [address] Dr. Kiran Gongora EGFR-NON AF TUNISIAN >60 Normal >=60 [facility] Comment on above: Performed By: #### C MP #### [facility] [address] [place] [address] Dr. Kiran Gongora Globulin (S) [Mass/Vol] 3.4 g/dL Normal T [facility] Comment on above: Performed By: #### C MP #### [facility] [address] [address] [address] Kiran Gongora Glucose [Mass/Vol] 72 mg/dL Critically low 74-106 [facility] Comment on above: Performed By: #### C MP #### [facility] [address] [place] [address] Dr. Kiran Gongora Potassium [Moles/Vol] 3.6 mmol/L Normal 3.5-5.1 [facility] Comment on above: Performed By: #### C MP #### [facility] [address] [address] [address] Kiran Gongora Protein [Mass/Vol] 6.6 g/dL Normal 6.4-8.[address] [facility] Comment on above: Performed By: #### C MP #### [facility] [address] [address] [address] Kiran Gongora Sodium [Moles/Vol] 144 mmol/L Normal 136-[address] [facility] Comment on above: Performed By: #### C MP #### [facility] [address] [address] [address] Kiran Gongora Urea nitrogen [Mass/Vol] 19.0 mg/dL Critically high 7.0-18.0 [facility] Comment on above: Performed By: #### C MP #### [facility] [address] [address] [address] Kiran Gongora Urea nitrogen/Creatinine [Mass ratio] 17.0 mg/mg Normal [facility] Comment on above: Performed By: #### C MP #### [facility] [address] [address] [address] Kiran Gongora Covid-19 PCR ([facility])on 06-09 SARS-CoV-2 (COVID-19) RNA CATRACHITO+probe Ql (Unsp spec) Not detected Normal NOT DETECTED [facility] Comment on above: Result Comment: This test is not yet approved or cleared by the [place] FDA. When there are no FDA-approved or cleared tests available, and other criteria are met, FDA can make tests available under an emergency access mechanism called an Emergency Use Authorization (EUA). The EUA for this test is supported by the [place] of Health and Human Service's (HHS's) declaration [...] SARS-CoV-2. Performed By: #### C VDTB #### [facility] [address] [place], [place] [address] Dr. Kiran Gongora TSH w/ Reflex to Free T4on 1 12-24-2020 TSH 4.010 uIU/mL Normal 0.400-4.500 [facility] Comment on above: Performed By: #### T SH reflex FT4 #### [facility] [address], [place] [id number] Coding Summary.on 05-08-2021 Coding Summary. CD:[id number] G h0bWw+PGhlYWQ+ER2IKRT lZ80peEMcsF5ZY3hDNW2M GRXTHFGPRT7LFD7oyMN9T QrcO0NckiCd IaorlOKlLG66QSu2ZMQ5a WkaZJcsnT7ewUOaF2g8Da IbDH44rP29PQaaGWPiQtA 3LjZpbjsgbWFy Q6liJqRwmDJhGig+PHRhY mxlIHdpZHRoPScxMDAlJy KpoNpcLA7xSb6rQPBsXYM vbGxhcHNlOiBj d6tkWKPlXMokBN0kcDcvV 4LgwOL7ATVjy9l0My33iQ I+WMGdMBV2iPudXWupi87 5LvQnb8fkERV4 rUCmOMumFHS8O69xq5H1O DClMSPsNGC3kSB4oT8emM pwcwjiR2DceUUzSfM7NVH 6lYRtmC0kaJbu pswrtS5iSrv+Q03HYK0YK ZFCMI5DUer8H5MvZxunyY I+MV40BYMwCU24kGHawYO ys6dblXw8ReWl SDFwWUZ9rFbtXIqky1QyH BEvI22vcDHme1E9YAEbyY pfhTEhUjIsyIN5aL0fYZk dvlzvi7aetvai Gfkso5lkrl10zF88H32uG ZjhNUYqGUN7JVGgCDRqjY uqve3jzT3fGc0+TXzpp1b ll9nvpIk3BzFi BFHkopVbeNmwHNK9s0YiP l50R4JwxAkco2YfQsl2un 93jRQfo5N9bIB6EIjhHZC bpP0eQPbbJsW8 PQFvNtNloH19rLUcTTsoL q9ajNfklDkzCC0rCEFzth jjOVJreD7hEHSoyYIwlQy pHP0rMAErwodp f562RfQcXNO0EMQibNWgT 9RztP0gKlBvDEPcWNSrI3 YkvJPiUExjV329PRjyZfK 8POFiobRzT7Np YFFzvUduYxC1p2V6Sm7Tj 0TmcgnyGUT6EJuaRDE3Pc KpIzZyWzE6D3BcIgp4XVI yaNgkLF7zJ7Oq ZMOodoowalzvwHO3IRXxU TZdfE76yZBtHJqpUb5lw6 D6q799EXThQJEfhF86Do7 udDogMTBwdCBU lD6zbausj5mltigmQrIwL QIcYKj5KXb4UYAwhCgvSd UwCJL4RdL9GMS8oSHoiM1 iaVmxyozeqS4x Oyc+J15coP3bAXT7IYL2o banZZYmrqQeXU00UV25L7 RyPjwvdGFibGU+PGRpdiB ipNpjOB5wBiIj s1urz2YkBAlnM9LaSZTpR XnzPrx6YWVnQRV9sZT3qW 1fLGWeIXofj4F7fHJ9W2N cfzKdht5yf5sf FNDpCGluD55noIEup3L8V FMqpZK7PMVcuBuvLvQpkI 93Oyc+YFXiaVcxo0YmSuj au6nns0wilRt6 MfOtHXNydsWhlUkxDBP3w 9OqAs53U88zGVqoQRVyLM YnQQRfVUZzdLovpf1kfA4 wIi8+PGNvbCB3 aLH5fL3lSBZoJjN2RJsnQ 377JwArfZIwPbrjl9szl3 ipzFp0UtHyGIDzhmQpvKe nBZF7n6EjGh63 F86gOJvxBWQmVXXmIXAkI TEsuPooml5avX6gQz3+PC 7wd9bawh61lY24cFS+PHR kBHU2jMoiHShy BANjqW6yIVzzLfR5ZKLuX xJotW54iTQdUUyhXu5hqQ mojMaoNY3nTWUwlmdyo39 0EnSpi8yrOQTu oRKqPIoiXWZ9B72lv3C4S XPcDINiTOQ2hZX8uP4zmQ lnbjogbGVmdDsgdmVydGl gFQvqSBdlG477 IHRvcDsnPlBhdGllbnQgT uWvIZh5T9HaQms1YUPopK kmEX9jpEQxWAxzLr9eeVf abFrcPG0dDPLw ddofw475EwPcq5rnGWTjj HCjLUbcAXG6I98ug0O7MT LpMDJhJRP9nSH4oV8gjXe nbjogbGVmdDsg twVhvYgxPZjaRUqgD389R HRvcDsnPkJpcnRoIERhdG S9DP62LG12aMTbz0Y6iOF 1Y2FmIRQjnrst ivyvkMJ3SZFeNVErnD67W q4hbByjBr4pPYRzQTX5IH IvuPWdL4YpbF9hRdYtAOS cOMScN7PwwMLp XUxjK000ANhxNqZ9UZKcu iDcQ0UbSYRmgYtmQnD5j8 J8Br8RB5G6NJ90HI32jMY gk8J3nUY2G8Xw UQJmmvlnkbvjqSS1HYTzT JVvfL98Bj8dfYusXb7jEO FdMBJ9MYXefBOoJ6NrqG1 yOiAjMDAwMDAw E2OmmMZpTPueW259CUfvC kY9EVFeqzVfC7UbGHZhsU alWjF3m2R8Ls6BDHw1XZ9 4CK69iJGml2Z1 pTG7X9GiXRZwoasiwtabz PR7BAPlFLYdzG59Fy5hyO xgPb7rVHAvDKW5PTIctEL iN0GnkR3oWvMs XKAzYRFbU5VtbOSdYOvbN 771WNrsKdW5DTJicjYgW6 AkENCywWnuNzF4d5N6Wn0 OEXDgMN88ABA5 qAN1RL72MI45E6HqQafoq GFibGU+PHRhYmxlIHdpZH RoPScxMDAlJyBzdHlsZT0 tTg3zIXUiLQCy zPrlbNCwXfQlb1zoPTSgD JosLT6jnRbsR8VcrOD1BH Nqa8x2Sr76U13pY2ZgeDU +RTDrdEY3xOC6 hJ4aHgApQsC6EIivO420A bJvgMAgSmfos7wmp0bfjB v9MmK0OUNiubAbjLonWYD 4x1LhJo05H14u IHdpZHRoPSIxNSUiIHZhb Awvhu2okD7sAe7+PGNvbC Q2hAF5nS5oEzToSpH3QUj lX668OoGwyGVj Kmnps2vws2qzxGy8NyDwK DGbkfRrdOunPHC3k8FoKf 75I0XwyQnkm2VeRdr6or8 5dRAru1Q5pFI7 S7SzULBbpbzogCSssFzwP M6mSPAqzqzeANLdyH4lSI UuT9k2VfPdBbN2YVddR3M qohT4VTXweCBe CCzmHVM4T84bv5I7MSCzW GAkGPV8sDR3lH0hcLkmdc ogbGVmdDsgdmVydGljYWw qDKngB346WPLj yHicCYQdmP9qOZHulCKav SnyCM5dPWRvhdvcYaOMG6 VTYoBAcojyP4fSAPpEOLW WTQ74RY59xOAz s1X4bGW2V6XdNAEdmnrzw mplzYK0STCfPMJrxO92lJ VxDCyiJl1kw8R2i766ZVA uGKRzgY94Gn6z kWtaHKIxuTFKcL2jfirbf 6drlmeoAmHyNPGgKNn9KV v9QSUygWofVoRjQZF2AoF 1EZF9tSSdgD2i hQunygiqkJ8sSri+MDEvM CNnXJb0RKwegDA+PHRkIH T0fGbxFDbeFABerP9dLJQ xC2h4XyVaRmC0 QWwkZ0QyVYBdslxcIp37g M9uUxIwTbD8KGgxD4Wbbz P0MWQstWYmZSzfEQJ4N91 ov3E6XAVgOQVa ZJU1cVO7zB0grKhzevkmo GVmdDsgdmVydGljYWwtYW wwY833RNUxxAgfYfWgAMb zYOQqZX37IB33 vZIsm8G4pEY5Z2ZoLODyr sfikyvdxRR0ALKiEGGxuZ 34qSTsYMcwAh9hb2L6m55 3MUVeOPVleX31 Wk1usPycGLNlgISDnR9cy sklx6yrgjafUbAkCXPbTI f0ZDz7XKUlwWezGcGeKYO 1NmV1KXG8cYHd tB7joHfalujmeC6iEgf+T WFsZTwvdGQ+ABSwREO1zM dlMPvjKHHkyZ8cBJAbS3n 7ZtZhJxI5CLhg F1UfDPYjfwopXe04hF2qV qBiBaK6SWroU4HeyqW4RZ NlwLCuOHhcDDA1V29rd0A 7WPPmBVMoXKF6 ePH1lL9uqRnvwbicyIFuy DsgdmVydGljYWwtYWxpZ2 15HRWusGesKc6nu8KcsbJ 0jX7gPT64GR49 T2SnLdcuhJOwiEV+PHRhY mxlIHdpZHRoPScxMDAlJy JojIuiMT5fLb2rJIZfDJG vbGxhcHNlOiBj r3wtBPEzALgrRC6suVnfE 5TawGA3XSHfb3n5Mb25T4 9jK7PayHD+APSzsCH2aXX 8vC3fSgLhNfO1 VNmaU098CdFttQVaIydaw 5vop9pbxNy9IxViPZPdtn CdwVumUMK3q8AjWg90I11 sIHdpZHRoPSIy MBEkVRAluFrtyx1iyN9kU i8+ZLAhsBM5sRR5rD7lUg WcMjI6JPniX649GwLyyFP aZbszO78lI2Aq dXA+BBNhCsw9UFDhbPkkE H3piSLxUKhhUg0iRNS3Kr EiJgWzQRyeP8ZjGAMqpbn tgsyshQZ3ATZc OFOhmU35Eq6mvUjtXm7qF FDnDRK9OEDcmOPxR7ZkcL 6nImStKMIoPZGlU3BkrFM dUUnsU402YUmn FsS7QVKghdLbN4UlIDQhe HxePwT6g0U5Tg9HpLfpdX DbCI5oIzXuZWs9S6XmBck 8NSUswPivON1p oUMiPRbpMf7ahGbguCpzP P6yXJWnwbyjw837HpLny0 qoOQQgbULhCZskRRK5W30 ep4I7ADVsQECd MGH5mPP8dG1xaBuevdgcq GVmdDsgdmVydGljYWwtYW yrS312WYLquOmnZpKNFxp 4M5MgOsn1FLXv vLgiKJ1qdAAbIKjyUk8mm JqpjKhsAS6dOKYxmiqap6 87UqUgs4kwITXvaTYyLTl sURM7J99mb9O5 BBZmGWDeZFC0eSO4dW3ye GlnbjogbGVmdDsgdmVydG veCJiwGAcnS353JUKtvBq rSq9HNxt7H4Yt Kjt0RZVprAulDX8ckFJhU PlnJm9rmYkuyErjRM8jWK Fnbggeb951LwCmo5cdIZU wcHQgVGltZXM7 Q54kx7O9SMErVHZvKJP2o LN4kK8ewYcfxhcnpPHeaO ietiOdrJosUOcrGBgrD09 6IHRvcDsnPlBh eWVyOjwvdGQ+MR05zl94Z 1FjTwsuQwe1CTWbQMY1pN H1mF2wFCKtLJadf6N0sGS 5Z0DgfqBwmg6b b2xs (more content not included)... Normal [facility] ED Traumaon 05-06-2021 ED Trauma [id number]# 1.00CD:127 [facility] EMS Documentationon 05-05-20 EMS Documentation [id number]# 1.00CD:127 Normal [facility] ABO/Rh History Checkon 05-02 ABO/Rh History Check Type verified by second s Normal [facility] Comment on above: Performed By: #### 1 [id number] ####[facility] [id number] [place] [address] ABO/Rh Retypeon 05-02-2021 ABO/Rh Retype Interp Positive Invalid Interpretation Code [facility] Comment on above: Performed By: #### 1 [id number] ####[facility] [address] [place] [address] ABSCon 05-02-2021 ABSC Gel Interp Negative Normal [facility] Comment on above: Performed By: #### 1 [id number] ####[facility] [address] [place] [address] Auto Diffon 05-02-2021 Basophils/100 WBC (Bld) 1.3 % Normal 0.0-2.0 [facility] Comment on above: Order Comment: Order Added by Discern Expert. Performed By: #### 2 [id number], [id number], [id number], [id number] #### [facility] [address] [place] [address] Basophils/Leukocytes Auto (Bld) [Pure # fraction] 0.1 E9/L Normal 0.0-0.2 [facility] Comment on above: Order Comment: Order Added by Discern Expert. Performed By: #### 2 [id number], [id number], [id number], [id number] #### [facility] [address] [place] [address] Eosinophils/100 WBC (Bld) 4.2 % Normal 0.0-8.0 [facility] Comment on above: Order Comment: Order Added by Discern Expert. Performed By: #### 2 [id number], [id number], [id number], [id number] #### [facility] [address] [place] [address] Eosinophils/Leukocytes Auto (Bld) [Pure # fraction] 0.2 E9/L Normal 0.0-0.5 [facility] Comment on above: Order Comment: Order Added by Discern Expert. Performed By: #### 2 [id number], [id number], [id number], [id number] #### [facility] [address] [place] [address] Lymphocytes/100 WBC (Bld) 36.9 % Normal 14.0-50.0 [facility] Comment on above: Order Comment: Order Added by Discern Expert. Performed By: #### 2 [id number], [id number], [id number], [id number] #### [facility] [address] [place] [address] Lymphocytes/Leukocytes Auto (Bld) [Pure # fraction] 1.7 E9/L Normal 1.0-4.0 [facility] Comment on above: Order Comment: Order Added by Discern Expert. Performed By: #### 2 [id number], [id number], [id number], [id number] #### [facility] [address] [place] [address] Monocytes/100 WBC (Bld) 8.7 % Normal 4.0-14.0 [facility] Comment on above: Order Comment: Order Added by Discern Expert. Performed By: #### 2 [id number], [id number], [id number], [id number] #### [facility] [address] [place] [address] Monocytes/Leukocytes Auto (Bld) [Pure # fraction] 0.4 E9/L Normal 0.2-1.0 [facility] Comment on above: Order Comment: Order Added by Discern Expert. Performed By: #### 2 [id number], [id number], [id number], [id number] #### [facility] [address] [place] [address] Neutrophils/100 WBC (Bld) 48.9 % Normal 36.0-75.0 [facility] Comment on above: Order Comment: Order Added by Discern Expert. Performed By: #### 2 [id number], [id number], [id number], [id number] #### [facility] [address] [place] [address] Neutrophils/Leukocytes Auto (Bld) [Pure # fraction] 2.2 E9/L Normal 2.0-7.5 [facility] Comment on above: Order Comment: Order Added by Discern Expert. Performed By: #### 2 [id number], 1522543, [id number], [id number] #### [facility] [address] [place] [address] BMPon 05-02-2021 Anion gap [Moles/Vol] 11 mmol/L Normal 6-16 [facility] Comment on above: Performed By: #### 2 289931, 3204796, 3991156, [id number] #### [facility] [address] [place] [address] Calcium [Mass/Vol] 8.3 mg/dL Low 8.9-11.1 [facility] Comment on above: Performed By: #### 2 172606, 3641955, 2369396, [id number] #### [facility] [address] [place] [address] Chloride [Moles/Vol] 107 mmol/L Normal 101-111 [facility] Comment on above: Performed By: #### 2 500379, [id number], 0063936, [id number] #### [facility] [address] [place] [address] CO2 [Moles/Vol] 25 mmol/L Normal 21-31 [facility] Comment on above: Performed By: #### 2 [id number], 1214983, 3399501, 54253583 #### [facility] [address] [place] [address] Creatinine [Mass/Vol] 1.2 mg/dL Normal 0.5-1.3 [facility] Comment on above: Performed By: #### 2 243664, 0174902, 9215065, 70335020 #### [facility] [address] [place] [address] Glucose [Mass/Vol] 88 mg/dL Normal 55-199 [facility] Comment on above: Result Comment: If t his glucose result represents a fasting glucose, interpretation should refer to the following reference range: 55-99 mg/dL Performed By: #### 2 179399, 0369051, 7648403, 45761313 #### [facility] [address] [place] [address] Potassium [Moles/Vol] 3.5 mmol/L Normal 3.5-5.3 [facility] Comment on above: Performed By: #### 2 166727, 5134603, 4199224, 01875222 #### [facility] [address] [place] [address] Sodium [Moles/Vol] 139 mmol/L Normal 135-145 [facility] Comment on above: Performed By: #### 2 059997, 3437423, 0701080, 49207280 #### [facility] [address] [place] [address] Urea nitrogen [Mass/Vol] 14 mg/dL Normal 5-21 [facility] Comment on above: Performed By: #### 2 280751, 7198380, 9883937, 28749526 #### [facility] [address] [place] [address] Urea nitrogen/Creatinine [Mass ratio] 12 No Units Normal 10-20 [facility] Comment on above: Performed By: #### 2 767470, 5377227, 3158381, 96254289 #### [facility] [address] [place] [address] CBC w/ Auto Diffon Erythrocyte distribution width (RBC) [Ratio] 13.5 % Normal 10.9-14.2 [facility] Comment on above: Performed By: #### 2 401026, 5865851, 2139008, 37662208 #### [facility] [address] [place] [address] Hematocrit (Bld) [Volume fraction] 41.0 % Normal 37.7-49.0 [facility] Comment on above: Performed By: #### 2 523095, 2795351, 3884494, 87670332 #### [facility] [address] [place] [address] Hemoglobin (Bld) [Mass/Vol] 13.6 g/dL Normal 13.5-17.5 [facility] Comment on above: Performed By: #### 2 026691, 3150754, 7378363, 72005368 #### [facility] [address] [place] [address] MCH (RBC) [Entitic mass] 27.6 pg Normal 27.0-34.0 [facility] Comment on above: Performed By: #### 2 395869, 0448354, 2990122, 29670543 #### [facility] [address] [place] [address] MCHC (RBC) [Mass/Vol] 33.2 g/dL Normal 31.4-36.0 [facility] Comment on above: Performed By: #### 2 153811, 4980450, 1362407, 17216158 #### [facility] [address] [place], [place] [address] MCV (RBC) [Entitic vol] 83.1 fL Normal 80.0-100.0 [facility] Comment on above: Performed By: #### 2 696085, 2031002, 5533452, 85565348 #### [facility] [address] [place] [address] Platelet mean volume (Bld) [Entitic vol] 9.8 fL Normal 6.4-10.8 [facility] Comment on above: Performed By: #### 2 180561, 0035028, 0137446, 33073244 #### [facility] [address] [place] [address] Platelets (Bld) [#/Vol] 129.0 E9/L Low 150.0-500.0 [facility] Comment on above: Performed By: #### 2 491526, 5735345, 0449961, 61881486 #### [facility] [address] [place] [address] RBC (Bld) [#/Vol] 4.9 E12/L Normal 4.3-5.9 [facility] Comment on above: Performed By: #### 2 505871, 5060157, 7727558, 66539871 #### [facility] [address] [place] [address] WBC corrected for nucl RBC Auto (Bld) [#/Vol] 4.5 E9/L Normal 4.0-11.0 [facility] Comment on above: Performed By: #### 2 120665, 0671774, 3194106, 36586028 #### [facility] [address] [place] [address] CT Abdomen/Pelvis w/ Contras ton 05-02-2021 CT [...] 300 Contrast amount in ml's: 100 Normal [facility] CT Chest w/ Contraston 05-02 CT [...] 300 Contrast amount in ml's: 100 Normal [facility] CT Head or Brain w/o Contras [...] MD Transcribed by: DYAN Technologist: CHASE Normal [facility] CT Spine Cervical w/o Contra ston [...] MD Transcribed by: DYAN Technologist: CHASE Normal [facility] Consent for Treatmenton 04-09 Consent for Treatment [id number]# 1.00CD:127 Normal [facility] Discharge Instructionson Discharge Instructions [id number]# 1.00CD:127 Normal [facility] ED Clinical Summaryon 2020 ED Clinical Summary [address] [address] ED Clinical Summary Person Information Name: JOHNATHAN HEREDIA Jr [place] Age: 50 Years : 1970 Sex: Male Language: Jamaican PCP: WILY LANDRUM MD Marital Status: Visit Id: Visit Reason: Neck pain; Trauma - major; Chest pain; FALL Speciality: Acuity: 2 Enc Type: Emergency Med Service: Emergency Arrival: 05/01/2021 21:04:08 Discharge: LOS: 000 03:19 Checkin: 05/01/2021 21:04:08 Checkout: 05/02/2021 00:23:44 Dispo Type: Admitted as IP to this [facility] EVENTS: Event Name Event Status [...] 05/02/2021 00:23:44 05/02/2021 00:23:44 05/02/2021 00:23:44 ADDRESS: [facility] [id number] PHYS DOC NOTES: MEDICAL INFORMATION: Prescriptions Given: PATIENT EDUCATION INFORMATION: Instructions: Follow up: DIAGNOSIS: 1:Fall; 2:Concussion Normal [facility] ED Note-Physicianon 05-02-20 ED Note-Physician Basic [...] senna 8.6 (more content not included)... Normal [facility] Comment on above: Result Comment: Elec tronically Signed By: Ramírez Tran, Katie Ko\.br\Date and Time Signed: 05/02/21 00:48 EDT ED Patient Education Noteon 05-02-2021 ED Patient Education Note Normal [facility] ED Patient Summaryon 021 ED Patient Summary [place] [id number] Patient Discharge Instructions Person Information Name: JOHNATHAN HEREDIA Jr Age: 50 Years Arrival Date: 05/01/2021 21:04:08 Discharge Diagnosis: 1:Fall; 2:Concussion Primary Care Physician: WILY LANDRUM MD Provider Information Primary Provider: Katie Elmore M.D. Advanced Educational Technologist:None The exam and treatment you received in the Emergency Department were for an urgent problem and are not intended as complete care. It is important that you follow up with a doctor, nurse practitioner, or physician?s licensed nursing assistant for ongoing care. If your symptoms [...] opioids can be used to help relieve opplvqmi-ys-sbgvnx pain and are often prescribed following a [...] be struggling with addiction, tell your health child day care teacher and ask for guidance or call [facility] National Helpline at 8-570-230-COIO. v Source: [place] Department of Health and Human Services/Center for Disease Control & Prevention [facility] Medications Given: Medication Dose Route So (more content not included)... Normal [facility] Inpatient Clinical Summaryon 05-02-2021 Inpatient Clinical Summary [address] [address] Clinical Summary Person Information: Name: JOHNATHAN HEREDIA Jr Age: 50 Years : 1970 Sex: Male PCP: WILY LANDRUM MD Marital Status: Race: White Ethnicity: Non- or Language: Jamaican Visit Id: Visit Reason: Neck pain; Trauma - major; Chest pain; CONCUSSION Speciality: Acuity: Enc Type: Observation Med Service: Medical Arrival: 05/01/2021 21:04:08 Discharge: Dispo Type: Admitted as IP to this Hosp Address: [address] [place] [id number] Provider Notes: Diagnosis: 1:Fall; 2:Concussion Problems No [...] Referring Physician: Follow up: With: Address: When: [place] [address] Business (1) Within 1 to 2 weeks Comments: Follow with your PCP within 1-2 weeks. Call for followup appointment. Patient Education Information: Concussion, Adult Normal [facility] Inpatient Patient Summaryon 05-02-2021 Inpatient Patient Summary [address] [address] Patient Discharge Instructions PERSON INFORMATION Name: JOHNATHAN HEREDIA Jr Ir[place] Date of : 1970 Current Date: 05/02/2021 15:36:16 PHYSICIANS Admitting Physician: Arpita Mckeon MD Primary Care Physician: WILY LANDRUM MD PCP Comment: Discharge Diagnosis: 1:Fall; 2:Concussion Condition at Discharge: Improved GIOVANNA JOHNATHAN has been given the following list of [...] None Follow up: With: Address: When: WILY [facility] [place] [address] Business (1) Within 1 to 2 weeks [...] Get angela (more content not included)... 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 Normal [facility] Comment on above: Result Comment: Elec [...] DYAN Technologist: JESSICA Technical Comments None Normal [facility] MRI Spine Cervical w/o Contr rand [...] DYAN Technologist: JESSICA Technical Comments None Normal [facility] Monitor Recordon 05-02-2021 Monitor Record [id number]# 1.00CD:127 Normal [facility] Prescriptions/Work Noteson 0 05-02-2021 Prescriptions/Work Notes [id number]# 1.00CD:127 Normal [facility] RAD - MRI Screening Formon 0 05-02-2021 RAD - MRI Screening Form [id number]# 1.00CD:127 Normal [facility] RAD - Preliminary Cat Scan R eporton 05-02-2021 RAD - Preliminary Cat Scan Report [id number]# 1.00CD:127 Normal [facility] U Drug Screenon 05-02-2021 Amphetamines Screen method >1000 ng/mL Ql (U) Negative Normal Negative [facility] Comment on above: Result Comment: Nega tive Cutoff: <1000 ng/mL Performed By: #### 2 177153 ####[facility] [address] [place] [address] Barbiturates Screen Ql (U) Negative Normal Negative [facility] Comment on above: Result Comment: Nega tive Cutoff: <200 ng/mL Performed By: #### 2 530488 ####[facility] [address] [place] [address] Benzodiazepines Ql (U) Negative Normal Negative [facility] Comment on above: Result Comment: Nega tive Cutoff: <200 ng/mL Performed By: #### 2 724715 ####[facility] [address] [place] [address] Cocaine Ql (U) Negative Normal Negative [facility] Comment on above: Result Comment: Nega tive Cutoff: <300 ng/mL Performed By: #### 2 683907 ####[facility] [address] [place] [address] Opiates Screen Ql (U) Negative Normal Negative [facility] Comment on above: Result Comment: Nega tive Cutoff: <300 ng/mL Performed By: #### 2 878557 ####[facility] [address] [place] [address] Phencyclidine Screen method >25 ng/mL Ql (U) Negative Normal Negative [facility] Comment on above: Result Comment: Nega tive Cutoff: <25 ng/mL These drug screen results are to be used for medical (i.e., treatment) purposes only. Unconfirmed drug screening results must not be used for non-medical purposes (e.g., employment testing, legal testing). Performed By: #### 2 039195 ####[facility] [address] [place] [address] Tetrahydrocannabinol Screen method >50 ng/mL Ql (U) Negative Normal Negative [facility] Comment on above: Result Comment: Nega tive Cutoff: <50 ng/mL Performed By: #### 2 156170 ####[facility] [address] [place] [address] XR Ankle 3+ Views Righton XR Ankle [...] Lopez M.D. Transcribed by: DYAN Technologist: CHASE Normal [facility] XR Knee Complete 4+ Views Le [...] M.D. Transcribed by: DYAN Technologist: CHASE Spring [facility] eGFRon 05-02-2021 GFR/1.73 sq M.predicted among blacks MDRD (S/P/Bld) [Vol rate/Area] mL/min/{1.73_m2} Normal >=59 [facility] Comment on above: Order Comment: Order added by Discern Expert. Result Comment: eGFR is race adjusted. AA=. Performed By: #### 2 758644, 0545656, 4522841, 41753317 #### [facility] [address] [place] [address] GFR/1.73 sq M.predicted among non-blacks MDRD (S/P/Bld) [Vol rate/Area] mL/min/{1.73_m2} Normal >=59 [facility] Comment on above: Order Comment: Order added by Discern Expert. Result Comment: Cut Plug Packer heidi kidney disease could be indicated at eGFR's of less than 60 mL/min/1.73m2. Kidney failure is indicated at less than 15 mL/min/1.73m2. Performed By: #### 2 325572, 5398079, 2686891, 16732864 #### [facility] [address] [place] [address] ABO/Rhon 05-01-2021 ABO/Rh Positive Invalid Interpretation Code [facility] Comment on above: Performed By: #### 1 6227944, 85238283, 31830158, 4717827 ####[facility] [address] [place] [address] Auto Diffon 05-01-2021 Basophils/100 WBC (Bld) 1.1 % Normal 0.0-2.0 [facility] Comment on above: Order Comment: Order Added by Discern Expert. Performed By: #### 2 449702, 2985328, 5816944, 35807352, 1187759, 0681311, 4625261, 77888358, 5284534 ####[place] [address] [place] [address] Basophils/Leukocytes Auto (Bld) [Pure # fraction] 0.1 E9/L Normal 0.0-0.2 [facility] Comment on above: Order Comment: Order Added by Discern Expert. Performed By: #### 2 364050, 2325380, 3684548, 56731234, 6761544, 0002293, 4511285, 55908437, 2812542 ####[address] [place] [address] Eosinophils/100 WBC (Bld) 2.0 % Normal 0.0-8.0 [facility] Comment on above: Order Comment: Order Added by Discern Expert. Performed By: #### 2 723722, 6241329, 5118802, 13046037, 8031092, 3649084, 8063172, 43491368, 0058118 ####[address] [address] Eosinophils/Leukocytes Auto (Bld) [Pure # fraction] 0.1 E9/L Normal 0.0-0.5 [facility] Comment on above: Order Comment: Order Added by Discern Expert. Performed By: #### 2 316140, 9433065, 1313962, 06933091, 5654713, 1678239, 3482159, 73887710, 5864768 ####[address] [place] [address] Lymphocytes/100 WBC (Bld) 27.9 % Normal 14.0-50.0 [facility] Comment on above: Order Comment: Order Added by Discern Expert. Performed By: #### 2 766175, 3592144, 5921292, 02546896, 2409237, 0907449, 8993273, 47116782, 1498184 ####[address] [place] [address] Lymphocytes/Leukocytes Auto (Bld) [Pure # fraction] 1.8 E9/L Normal 1.0-4.0 [facility] Comment on above: Order Comment: Order Added by Kevin Expert. Performed By: #### 2 829989, 1817738, 1404682, 75437925, 3689574, 7298926, 1465249, 84624889, 2481220 ####[facility] [address] [place] [address] Monocytes/100 WBC (Bld) 8.6 % Normal 4.0-14.0 [facility] Comment on above: Order Comment: Order Added by Discern Expert. Performed By: #### 2 237596, 2445087, 4320169, 54108716, 3771747, 5098432, 4254610, 27484883, 0845492 ####[place] [address] [place] [address] Monocytes/Leukocytes Auto (Bld) [Pure # fraction] 0.6 E9/L Normal 0.2-1.0 [facility] Comment on above: Order Comment: Order Added by Kevin Expert. Performed By: #### 2 162679, 4277303, 4867764, 73476783, 5285879, 9096864, 9720506, 00221303, 3314048 ####[place] [address] [place] [address] Neutrophils/100 WBC (Bld) 60.4 % Normal 36.0-75.0 [facility] Comment on above: Order Comment: Order Added by Kevin Expert. Performed By: #### 2 882134, 9766282, 3975470, 41055709, 8751979, 0258466, 6106015, 57539264, 7401309 ####[facility] [address] [place] [address] Neutrophils/Leukocytes Auto (Bld) [Pure # fraction] 4.0 E9/L Normal 2.0-7.5 [facility] Comment on above: Order Comment: Order Added by Kevin Expert. Performed By: #### 2 579535, 9197786, 0803094, 61958604, 7137438, 8343686, 7635776, 70007502, 8743234 ####[facility] [address] [place] [address] BMPon 05-01-2021 Creatinine [Mass/Vol] 1.2 mg/dL Normal 0.5-1.3 [facility] Comment on above: Performed By: #### 2 811177, 8808470, 3843763, 87861813, 0496348, 0030942, 1072405, 81349512, 0659529 ####[facility] [address] [place] [address] Urea nitrogen [Mass/Vol] 14 mg/dL Normal 5-21 [facility] Comment on above: Performed By: #### 2 025883, 1742461, 6347365, 70557304, 5119388, 4456831, 4224833, 41597335, 7045553 ####[facility] [address] [place] [address] Urea nitrogen/Creatinine [Mass ratio] 12 No Units Normal 10-20 [facility] Comment on above: Performed By: #### 2 981201, 8588358, 5456851, 53604072, 4326800, 4274476, 3527636, 54731073, 0939445 ####[facility] [address] [place] [address] Anion gap [Moles/Vol] 15 mmol/L Normal 6-16 [facility] Comment on above: Performed By: #### 2 543962, 8156441, 1614729, 57661730, 0497589, 4313982, 8625232, 43197364, 0969491 ####[facility] [address] [place] [address] Calcium [Mass/Vol] 9.0 mg/dL Normal 8.9-11.1 [facility] Comment on above: Performed By: #### 2 540619, 6868648, 2417646, 38251431, 8890172, 8438316, 8616448, 81812146, 1411201 ####[facility] [address] [place] [address] Chloride [Moles/Vol] 105 mmol/L Normal 101-111 [facility] Comment on above: Performed By: #### 2 635539, 4185208, 9260504, 17276775, 8538221, 4343613, 5776277, 04995744, 9336757 ####[facility] [address] [place] [address] CO2 [Moles/Vol] 22 mmol/L Normal 21-31 [facility] Comment on above: Performed By: #### 2 184207, 2687235, 1269570, 09449523, 2695880, 6603670, 1473306, 36163703, 7806968 ####[facility] [address] [place] [address] Glucose [Mass/Vol] 94 mg/dL Normal 55-199 [facility] Comment on above: Result Comment: If t his glucose result represents a fasting glucose, interpretation should refer to the following reference range: 55-99 mg/dL Performed By: #### 2 722049, 2085476, 7163948, 11093857, 4751407, 7445694, 9817281, 49891957, 4190677 ####[facility] [address] [place] [address] Potassium [Moles/Vol] 3.3 mmol/L Low 3.5-5.3 [facility] Comment on above: Performed By: #### 2 320267, 7477894, 1009103, 24971967, 1699686, 2955527, 6745886, 56118898, 5526374 ####[facility] [address] [place] [address] Sodium [Moles/Vol] 139 mmol/L Normal 135-145 [facility] Comment on above: Performed By: #### 2 430267, 8628669, 2041331, 11768682, 2225918, 4786675, 4548068, 41285487, 1253387 ####[facility] [address] [place] [address] Blood Bank ID#on 05-01-2021 BBID# [id number] Invalid Interpretation Code [facility] Comment on above: Performed By: #### 1 7814971, 26985806, 56249504, 8655114 ####[facility] [address] [place] [address] CBC w/ Auto Diffon Erythrocyte distribution width (RBC) [Ratio] 13.4 % Normal 10.9-14.2 [facility] Comment on above: Performed By: #### 2 195411, 6512733, 6874860, 23096080, 7983853, 4474346, 0215971, 33575944, 0243564 ####[facility] [address] [place] [address] Hematocrit (Bld) [Volume fraction] 42.6 % Normal 37.7-49.0 [facility] Comment on above: Performed By: #### 2 600423, 1159992, 8947599, 67754710, 7184248, 4692320, 3850598, 72397455, 6719497 ####[facility] [address] [place] [address] Hemoglobin (Bld) [Mass/Vol] 14.4 g/dL Normal 13.5-17.5 [facility] Comment on above: Performed By: #### 2 559029, 6022630, 5345255, 33780399, 3495165, 6166556, 9885455, 72588959, 6334409 ####[facility] [address] [place] [address] MCH (RBC) [Entitic mass] 27.8 pg Normal 27.0-34.0 [facility] Comment on above: Performed By: #### 2 113464, 7185924, 3444477, 75093310, 9426307, 8056367, 8404346, 42843263, 9648895 ####[facility] [address] [place] [address] MCHC (RBC) [Mass/Vol] 33.9 g/dL Normal 31.4-36.0 [facility] Comment on above: Performed By: #### 2 691197, 7224424, 1596944, 06122971, 3721896, 3045846, 7088724, 70827259, 3497897 ####[facility] [address] [place] [address] MCV (RBC) [Entitic vol] 81.9 fL Normal 80.0-100.0 [facility] Comment on above: Performed By: #### 2 914050, 6160672, 4540996, 00504545, 8569201, 5825539, 8628566, 36457556, 3120513 ####[facility] [address] [place] [address] Platelet mean volume (Bld) [Entitic vol] 10.3 fL Normal 6.4-10.8 [facility] Comment on above: Performed By: #### 2 991461, 1771408, 8530628, 64441469, 2278431, 5051426, 6757374, 62059796, 0022427 ####[facility] [address] [place] [address] Platelets (Bld) [#/Vol] 147.0 E9/L Low 150.0-500.0 [facility] Comment on above: Performed By: #### 2 231053, 9925650, 8692135, 91577607, 2908935, 6700306, 9967605, 14912301, 9122809 ####[facility] [address] [place] [address] RBC (Bld) [#/Vol] 5.2 E12/L Normal 4.3-5.9 [facility] Comment on above: Performed By: #### 2 668972, 1607007, 8966453, 63069567, 9552469, 7413845, 3966896, 38510733, 2928746 ####[facility] [address] [place] [address] WBC corrected for nucl RBC Auto (Bld) [#/Vol] 6.6 E9/L Normal 4.0-11.0 [facility] Comment on above: Performed By: #### 2 133182, 9460643, 2009424, 90495551, 0067795, 6631300, 2625799, 43347806, 2523613 ####[facility] [address] [place] [address] Ethanolon 05-01-2021 Ethanol [Mass/Vol] mg/dL Normal <=7 [facility] Comment on above: Performed By: #### 2 879091 ####[facility] [address] [place] [address] Hep Func Panelon 05-01-2021 Albumin [Mass/Vol] 3.9 g/dL Normal 3.3-5.0 [facility] Comment on above: Performed By: #### 2 278977, 9682972, 1698772, 60419044, 1193164, 6655335, 5009344, 79566320, 7182604 ####[facility] [address] [place] [address] Albumin/Globulin (S) [Mass conc ratio] 1.3 Normal 1.1-2.2 [facility] Comment on above: Performed By: #### 2 307313, 0272267, 8893170, 03250105, 0278986, 9774053, 1643160, 92659762, 5181917 ####[facility] [address] [place] [address] ALP [Catalytic activity/Vol] 56 Int._Unit/L Normal 21-98 [facility] Comment on above: Performed By: #### 2 104829, 9257820, 8924958, 60506276, 1536887, 5415401, 5452000, 50203603, 0557440 ####[facility] [address] [place] [address] ALT No additional P-5'-P [Catalytic activity/Vol] 37 Int._Unit/L Normal 6-46 [facility] Comment on above: Performed By: #### 2 504959, 7649058, 9926060, 84205171, 7291258, 2589015, 1401817, 74843879, 4536113 ####[place] [address] [place] [address] AST [Catalytic activity/Vol] 36 Int._Unit/L Normal 5-43 [facility] Comment on above: Performed By: #### 2 776975, 4940024, 4773257, 93292537, 4837691, 6615865, 7689100, 30110876, 7010243 ####[facility] [address] [place] [address] Bilirubin [Mass/Vol] 0.9 mg/dL Normal 0.0-1.1 [facility] Comment on above: Performed By: #### 2 978990, 9016590, 4552017, 72195003, 3383224, 5888810, 0621015, 07494886, 2414744 ####[place] [address] Bilirubin.direct [Mass/Vol] 0.2 mg/dL Normal 0.1-0.4 [facility] Comment on above: Performed By: #### 2 482505, 2745310, 3656451, 78677747, 7042383, 5369187, 7240392, 78098622, 1087745 ####[address] [address] Bilirubin.indirect [Mass or moles/Vol] 0.7 mg/dL Normal 0.1-0.9 [facility] Comment on above: Performed By: #### 2 477061, 4461209, 4006325, 16986429, 7034884, 0931297, 5142200, 32513165, 4746275 ####[facility] [address] [place] [address] Globulin (S) [Mass/Vol] 3.0 g/dL Normal 1.4-4.0 [facility] Comment on above: Performed By: #### 2 868588, 6163677, 9336137, 45765222, 3638093, 7512731, 0341983, [id number], [id number] ####[facility] [address] [place] [address] Protein [Mass/Vol] 6.9 g/dL Normal 6.0-7.8 [facility] Comment on above: Performed By: #### 2 274832, 9561648, 0418107, 69021877, 2965717, 4612844, 0802262, 59951667, 6319270 ####[facility] [address] [place] [address] Lactic Acidon 05-01-2021 Lactate [Mass/Vol] 1.2 mmol/L Normal 0.5-2.2 [facility] Comment on above: Performed By: #### 2 669893, 4952029, 0479655, 39748794, 9474246, 8955586, 9298281, 51267310, 2275023 ####[facility] [address] [place] [address] Magnesiumon 05-01-2021 Magnesium [Mass/Vol] 2.0 mg/dL Normal 1.3-2.4 [facility] Comment on above: Performed By: #### 2 100791, 8280444, 3257994, 43278166, 3132093, 3704154, 5921275, 23530997, 3475224 ####[facility] [address] [place] [address] PT & PTTon 05-01-2021 aPTT Coag (PPP) [Time] 27.8 second(s) Normal 25.1-36.5 [facility] Comment on above: Result Comment: Hepa rin therapeutic range (represented by Anti-Factor Xa activity of 0.2 - 0.4 U/mL) corresponds to PTT of 56.6 - 109.0 sec. Performed By: #### 2 699029, 1960400, 9717049, 51678659, 8472480, 6815677, 3381612, 84364966, 2621606 ####[facility] [address] [place] [address] INR Coag (PPP) [Relative time] 1.1 {INR} Invalid Interpretation Code [facility] Comment on above: Result Comment: INR results are specifically intended to assess patients stabilized on long-term Anticoagulation therapy suggested INR?s ?Less Intensive Anticoagulation? 2.0 ? 3.0 Conventional Range 3.0 ? 4.5 Performed By: #### 2 507256, 7462666, 9348284, 38304044, 8553504, 7833937, 9074898, 25998034, 2941524 ####[facility] [address] [place] [address] PT Coag (PPP) [Time] 13.3 second(s) High 10.2-12.9 [facility] Comment on above: Performed By: #### 2 728600, 7083772, 8793702, 10721212, 9702066, 1794331, 4082181, 80410048, 5869646 ####[facility] [address] [place] [address] Troponinon 05-01-2021 Troponin I.cardiac [Mass/Vol] 5.60 pg/mL Low 15.90-38.40 [facility] Comment on above: Result Comment: The 95% CI (Confidence Interval) PPV (Positive Predictive Value) for myocardial infarction in females is 38 pg/mL, in males 51 pg/mL. The results should be used in conjunction with clinical conditions of myocardial infarction. (Access High Sensitivity Troponin I Instructions For Use, Robbi Bouton, June 2018) Performed By: #### 2 203520, 9522294, 0674971, 92951608, 8498231, 0116872, 8044217, 59519899, 7610699 ####[address] [place] [address] eGFRon 05-01-2021 GFR/1.73 sq M.predicted among blacks MDRD (S/P/Bld) [Vol rate/Area] mL/min/{1.73_m2} Normal >=59 [facility] Comment on above: Order Comment: Order added by Discern Expert. Result Comment: eGFR is race adjusted. AA=. Performed By: #### 2 327946, 4762825, 8321914, 33267458, 7285262, 4810371, 5248547, 25795623, 4397452 ####[facility] [address] [place] [address] GFR/1.73 sq M.predicted among non-blacks MDRD (S/P/Bld) [Vol rate/Area] mL/min/{1.73_m2} Normal >=59 [facility] Comment on above: Order Comment: Order added by Discern Expert. Result Comment: [employer] heidi kidney disease could be indicated at eGFR's of less than 60 mL/min/1.73m2. Kidney failure is indicated at less than 15 mL/min/1.73m2. Performed By: #### 2 686869, 8442537, 9602043, 03715930, 7061841, 4929547, 9324591, 39872078, 6787243 ####[facility] [address] [place] [address] Encounters Encounter Date Encounter Type Care Provider Facility Start: 07-25-2024 End: 07-25-2024 ambulatory DONNIE OLIVEIRA Not Available Start: 05-23-2024 End: 05-23-2024 ambulatory WILY LANDRUM Not Available Start: 02-11-2023 End: 02-12-[address] Shivani MANZO Facility:[facility] Start: 02-05-2023 End: 02-05-[address] WILY LANDRUM Facility:[facility] Start: 09-30-2022 End: 09-30-[address] WILY LANDRUM Facility:[facility] Start: 06-29-2022 End: 06-29-[address] WILY LANDRUM Facility:[facility] Start: 06-21-2021 End: 06-21-2021 Emergency department patient visit Afshin Torres Facility:[facility] Payers Date Payer Category Payer Self-pay 1970 Unknown [id number] 2.16.84 [id number] 1970 Unknown [id number] 2.16.84 [id number] 1970 Unknown [id number] 2.16.84 [id number] 1970 Unknown [id number] 2.16.84 [id number] 1970 Unknown [id number] 2.16.84 [id number] 1970 Unknown [id number] 2.16.84 [id number] 1959 Private Health Insurance [id number] Self-pay [id number] 1959 Unknown [id number] Unknown [id number] 2.16.8 [id number] Discharge summary note 05-03-2021 Note Date & Type Note Facility 05-03-2021 Note DISCHARGE SUMMARY [id number] JOHNATHAN HEREDIA Jr Date of : 1970 [...] FOLLOW UP: With: Address: When: [address] [place] [place] [address] Business (1) Within 1 to 2 weeks [...] return to clinic or to emergency room. [facility] Comment on above: Result Comment: Elec [...] to follow daily to progress as tolerates. [facility] Clinical Note 05-02-2021 Note Date & [...] to see daily during acute care stay. [facility] History and physical note 05-02-2021 Note [...] lives at home with , works at [employer] Denies smoking, alcohol. Used marijuana once a [...] 81.9 fL (05/01/21 21:22:00) MCH: 27.8 pg (05/01/21 21:22:00) MCHC: 33.9 gm/dL (05/01/21 21:22:00) RDW: 13.4 % (05/01/21 21:22:00) Platelet: 147 E9/L Low (05/01/21 21:22:00) MPV: 10.3 fL (05/01/21 21:22:00) Neutro Auto: (more content not included)... [facility] Comment on above: Result Comment: Elec tronically Signed By: Mike SAINI, Arpita Lux\.ronald\Date and Time Signed: 05/02/21 01:42 EDT Summary [...] section and content) DATE CREATED AUTHOR 05/09/2021 [facility] DATE CREATED AUTHOR AUTHOR'S ORGANIZ ATION 10/24/2021 [facility] Special[facility] DATE CREATED AUTHOR AUTHOR'S ORGANIZ ATION 02/21/2023 [facility] DATE CREATED AUTHOR AUTHOR'S ORGANIZ ATION 05/26/2024 [facility] DATE CREATED AUTHOR AUTHOR'S ORGANIZ ATION 07/26/2024 [facility] d[facility] Specialists [facility] FOR RECORDS PERTAINING TO PATIENTS WHO [...] BE BASED ON THE PRIMARY CLINICAL RECORDS. [facility] [employer] provides no warranty or guarantee of the accuracy or completeness of information in this document.
[2024-08-23 10:55] LABS: Hematocrit 49.9 % (42.0-54.0); Hemoglobin 16.2 g/dL (14.0-18.0); Mean Corpuscular HGB Conc 32.5 g/dL (29.9-35.2); Mean Corpuscular Hemoglobin 28.1 pg (25.9-34.0); Mean Corpuscular Volume 86.5 fL (80.0-94.0); Mean Platelet Volume 12.5 fL (9.5-13.5); Platelet Count 135 10^3/uL (150-450); Red Blood Count 5.77 10^6/uL (4.70-6.10); Red Cell Distribution Width 13.4 % (11.0-15.0); White Blood Count 7.5 10^3/uL (4.0-11.0)
[2024-08-23 11:25] LABS: Basophils Abs Manual 0.22 10^3/uL (0.00-0.10); Eosinophils Absolute Manual 0.52 10^3/uL (0.00-0.70); Lymphocytes Absolute Manual 1.95 10^3/uL (1.20-3.80)
[2024-08-23 11:38] LABS: Alanine Aminotransferase 30 U/L (16-63); Albumin Globulin Ratio 0.9; Albumin Level 3.3 g/dL (3.4-5.0); Alkaline Phosphatase 77 U/L (46-116); Amylase 70 U/L (25-115); Aspartate Amino Transferase 20 U/L (15-37); Bilirubin Direct 0.1 mg/dL (0.0-0.2); Bilirubin Total 0.4 mg/dL (0.2-1.0); Globulin 3.8 g/dL; Total Protein 7.1 g/dL (6.4-8.2)
== END 2024-08-23 10:37 | disposition home or self-care (01) ==
LOC: LAB 10:40
PROVIDERS: PCP Family Medicine
DX: R10.84 Generalized abdominal pain (principal)
CPT/HCPCS: 36415; 80076; 82150; 83690; 85007; 85027

== ENCOUNTER 2024-08-30 08:19 | Outpatient (OUT) | payer OTHER, SELFPAY ==
--- NOTE | 2024-08-30 08:22 | CT_ITS ---
[address] [address] Patient Name: JOHNATHAN HEREDIA MRN: [id number] date: 1970 Sex: M Assigned Patient Location: CT Current Patient Location: Accession/Order Number: [id number] Exam Date: 08/30/2024 09:20 Report Date: 08/31/2024 12:15 At the request of: DEBBIE PRICE Procedure: CT abdomen pelvis w con EXAMINATION: CT abdomen pelvis w con HISTORY: Sigmoid Diverticulitis, Abdominal Pain ; left side abdominal pain COMPARISON: CT abdomen pelvis 07/20/2024 TECHNIQUE: Axial, Coronal, and Sagittal images were obtained without and/or with IV contrast as indicated by examination type. Dose reduction techniques were achieved by using automated exposure control and/or adjustment of mA and/or kV according to patient size and/or use of iterative reconstruction technique. FINDINGS: LUNG BASES: No visible pulmonary or pleural disease. LIVER: No enlargement, atrophy, suspicious density, or significant focal lesion. BILIARY: No dilatation or calcification. PANCREAS: No lesion, fluid collection, or abnormal duct dilatation. SPLEEN: No enlargement or focal lesion. ADRENALS: No mass or enlargement. KIDNEYS: Stable appearance of a few tiny cortical based cysts. No mass, obstruction, or calcification. BOWEL/MESENTERY: Slight circumferential wall thickening of the distal descending and the sigmoid colon. A few small diverticula scattered along this length. No bowel obstruction, free air, or free fluid. AORTA/VASCULAR: No aneurysm or dissection. RETROPERITONEUM: No mass or adenopathy. LYMPH NODES: No adenopathy. URINARY BLADDER: Small diverticulum projecting from posterior right margin. PELVIC ORGANS: No visible mass. Pelvic organs appropriate for patient age. ABDOMINAL WALL: No mass or hernia. BONES: No bony lesion or fracture. L5-S1 marked disc space narrowing. OTHER: Negative. CT/CT abdomen pelvis w con IMPRESSION: 1. Slight wall thickening of the distal descending and sigmoid colon; possibly mild colitis. No convincing diverticulitis. 2. Small urinary bladder diverticulum; likely incidental. Electronically authenticated by: DAYNA HUNG Date: 08/31/2024 12:15
--- OUTSIDE RECORDS SUMMARY | 2024-08-30 08:23 | XMS_ITS | CCD ---
Author Organization [facility] Care Team Providers Care Painter Chassis Name Role Phone LUCITA, DR BLEVINS Primary [...] Unavailable Wily Landrum MD Primary Care Provider [phone] Allergies Allergy Classification Reported Allergen(s) Allergy Type Date of Onset Reaction(s) Facility (1 source) Adhesive agent Drug allergy (disorder) [facility] Repository (1 source) bee venom Drug allergy (disorder) [facility] Rep[facility] (1 source) Ibuprofen Drug Allergy [facility] Repository (1 source) Adhesive Tape Drug allergy (disorder) 06-21-2021 [place] Repository (2 sources) Honey bee venom Allergy [...] Coronary arteriosclerosis; Translations: [Atherosclerotic heart disease of [place] coronary artery without angina pectoris] Onset: 10-23-2021 [...] [Ratio] 13.4 % 11.0 - 15.0 % [facility] Hematocrit (Bld) [Volume fraction] 49.9 % 42.0 - 54.0 % [facility] Hemoglobin (Bld) [Mass/Vol] 16.2 g/dL 14.0 - 18.0 g/dL [facility] Interpretation and review of laboratory results Abnormal [facility] MCH (RBC) [Entitic mass] 28.1 pg 25.9 - 34.0 pg [facility] MCHC (RBC) [Mass/Vol] 32.5 g/dL 29.9 - 35.2 g/dL [facility] MCV (RBC) [Entitic vol] 86.5 fL 80.0 - 94.0 fL [facility] Platelet mean volume (Bld) [Entitic vol] 12.5 fL 9.5 - 13.5 fL [facility] TBH PLT 135 Low [facility] TB RBC 5.77 [facility] WBC 7.5 [facility] CT ANKLE LT WO CONon 023 CT [...] by: DAYNA HUNG Date: 2023-02-11 15:32 Normal [facility] XR ANKLE LT MIN 3 Von 2022 XR ANKLE LT MIN 3 V EXAM: XR ANKLE LT MT N 3 V HISTORY: Bone injury COMPARISON: [...] MICHELINE ARREDONDO Date: 2023-02-05 08:50 Normal [facility] CBC W MANUAL DIFFon 09-30-20 22 ATYPICAL LYMPH # Normal [facility] Comment on above: Performed By: #### C BCMAN #### [facility] [address] [place] [address] Dr. Kiran Gongora ATYPICAL LYMPH % Normal [facility] Comment on above: Performed By: #### C BCMAN #### [facility] [address] [place] [address] Dr. Kiran Gongora BAND # 0.0 103/ul Normal 0.0-0.3 [facility] Comment on above: Performed By: #### C BCMAN #### [facility] [address] [place] [address] Dr. Kiran Gongora BAND % 0 % Normal 0-5 [facility] Comment on above: Performed By: #### C BCMAN #### [facility] [address] [place] [address] Dr. Kiran Gongora BASOM # 0.10 103/ul Normal 0.00-0.10 [facility] Comment on above: Performed By: #### C BCMAN #### [facility] [address] [place] [address] Dr. Kiran Gongora BASOM % 1.0 % Normal 0.2-2.0 [facility] Comment on above: Performed By: #### C BCMAN #### [facility] [address] [place] [address] Dr. Kiran Gongora BLAST # Normal [facility] Comment on above: Performed By: #### C BCMAN #### [facility] [address] [place] [address] Dr. Kiran Gongora BLAST % Normal [facility] Comment on above: Performed By: #### C BCDERIK #### [facility] [address] [place] [address] Dr. Kiran Gongora CORRECTED WBC Normal 4.0-11.0 [facility] Comment on above: Performed By: #### C EDIL #### [facility] [address] [place] [address] Dr. Kiran Gongora EOS # 0.41 103/ul Normal 0.00-0.70 [facility] Comment on above: Performed By: #### C EDIL #### [facility] [address] [place] [address] Dr. Kiran Gongora EOS% 4.0 % Normal 0.9-7.0 [facility] Comment on above: Performed By: #### C EDIL #### [facility] [address] [place] [address] Dr. Kiran Gongora HCT 47.9 % Normal 42.0-54.0 [facility] Comment on above: Performed By: #### C EDIL #### [facility] [address] [place] [address] Dr. Kiran Gongora HGB 15.4 g/dl Normal 14.0-18.0 [facility] Comment on above: Performed By: #### C EDIL #### [facility] [address] [place] [address] Dr. Kiran Gongora LYMPHM # 2.37 103/ul Normal 1.20-3.80 [facility] Comment on above: Performed By: #### C BCDERIK #### [facility] [address] [place] [address] Dr. Kiran Gongora LYMPHM% 23.0 % Normal 20.5-60.0 [facility] Comment on above: Performed By: #### C EDIL #### [facility] [address] [place] [address] Dr. Kiran Gongora MCH 28.2 pg Normal 25.9-34.0 [facility] Comment on above: Performed By: #### C EDIL #### [facility] [address] [place] [address] Dr. Kiran Gongora MCHC 32.2 g/dl Normal 29.9-35.2 [facility] Comment on above: Performed By: #### C BCMAN #### [facility] [address] [place] [address] Dr. Kiran Gongora MCV 87.7 fL Normal 80.0-94.0 [facility] Comment on above: Performed By: #### C BCMAN #### [facility] [address] [place] [address] Dr. Kiran Gongora METAMYELOCYTE # Normal [facility] Comment on above: Performed By: #### C EDIL #### [facility] [address] [place] [address] Dr. Kiran Gongora METAMYELOCYTE % Normal [facility] Comment on above: Performed By: #### C EDIL #### [facility] [address] [place] [address] Dr. Kiran Gongora MONOM# 0.31 103/ul Normal 0.30-0.80 [facility] Comment on above: Performed By: #### C EDIL #### [facility] [address] [place] [address] Dr. Kiran Gongora MONOM% 3.0 % Normal 1.7-12.0 [facility] Comment on above: Performed By: #### C EDIL #### [facility] [address] [place] [address] Dr. Kiran Gongora MPV 12.6 fL Normal 9.5-13.5 [facility] Comment on above: Performed By: #### C EDIL #### [facility] [address] [place] [address] Dr. Kiran Gongora MYELOCYTE # Normal [facility] Comment on above: Performed By: #### C BCDERIK #### [facility] [address] [place] [address] Dr. Kiran Gongora MYELOCYTE % Normal [facility] Comment on above: Performed By: #### C EDIL #### [facility] [address] [place] [address] Dr. Kiran Gognora NRBC Normal [facility] Comment on above: Performed By: #### C BCMAN #### [facility] [address] [address] [address] Kiran Gongora PLT 137 103/ul Critically low 150-450 [facility] Comment on above: Performed By: #### C BCMAN #### [facility] [address] [address] [address] Kiran Gongora RBC 5.46 106/ul Normal 4.70-6.10 [facility] Comment on above: Performed By: #### C BCDERIK #### [facility] [address] [place] [address] Dr. Kiran Gongora RDW 13.6 % Normal 11.0-15.0 [facility] Comment on above: Performed By: #### C BCDERIK #### [facility] [address] [place] [address] Dr. Kiran Gongora SEG # 7.11 103/ul Critically high 1.40-6.50 [facility] Comment on above: Performed By: #### C BCMAN #### [facility] [address] [place] [address] Dr. Kiran Gongora SEG % 69.0 % Normal 43.0-75.0 [facility] Comment on above: Performed By: #### C BCDERIK #### [facility] [address] [place] [address] Dr. Kiran Gongora WBC 10.3 103/ul Normal 4.0-11.0 [facility] Comment on above: Performed By: #### C KEVINMAN #### [facility] [address] [place] [address] FACIAL BONES W [...] EZIO DAVALOS Date: 2022-09-30 05:26 Normal [facility] CT NECK ST W CONon 2 CT [...] DAYNA HUNG Date: 2022-09-30 07:21 Normal [facility] CULTURE BLOODon 09-30-2022 Microscopic examination of blood, culture Culture Observations: NO GROWTH AT 5 DAYS. Normal [facility] Comment on above: Performed By: #### B LDCX2 #### [facility] [address] [address] [address] Kiran Gongora Microscopic examination of blood, culture Culture Observations: NO GROWTH AT 5 DAYS. Normal [facility] Comment on above: Performed By: #### B LDCX1 #### [facility] [address] [address] [address] Kiran Gongora PROF 14(COMP METB)on 022 Albumin [Mass/Vol] 3.2 g/dL Critically low 3.4-5.0 Th e [facility] Comment on above: Performed By: #### C MP #### [facility] [address] [address] [address] Kiran Gongora Albumin/Globulin [Mass ratio] 0.9 {ratio} Normal [facility] Comment on above: Performed By: #### C MP #### [facility] [address] [address] [address] Kiran Gongora ALP [Catalytic activity/Vol] 83 U/L Normal 46-116 [facility] Comment on above: Performed By: #### C MP #### [facility] [address] [address] [address] Kiran Gongora ALT [Catalytic activity/Vol] 44 U/L Normal 16-63 [facility] Comment on above: Performed By: #### C MP #### [facility] [address] [place] [address] Dr. Kiran Gongora Anion gap [Moles/Vol] 8.2 mmol/L Normal [facility] Comment on above: Performed By: #### C MP #### [facility] [address] [place] [address] Dr. Kiran Gongora AST [Catalytic activity/Vol] 27 U/L Normal 15-37 [facility] Comment on above: Performed By: #### C MP #### [facility] [address] [place] [address] Dr. Kiran Gongora Bilirubin [Mass/Vol] 0.2 mg/dL Normal 0.2-1.0 [facility] Comment on above: Performed By: #### C MP #### [facility] [address] [place] [address] Dr. Kiran Gongora Calcium [Mass/Vol] 8.5 mg/dL Normal 8.5-10.1 [facility] Comment on above: Performed By: #### C MP #### [facility] [address] [place] [address] Dr. Kiran Gongora Chloride [Moles/Vol] 109 mmol/L Critically high 98-107 [facility] Comment on above: Performed By: #### C MP #### [facility] [address] [place], [place] [id number] Dr. Kiran Gongora CO2 [Moles/Vol] 30.4 mmol/L Normal 21.0-32.0 [facility] Comment on above: Performed By: #### C MP #### [facility] [address] [place] [address] Dr. Kiran Gongora Creatinine [Mass/Vol] 1.12 mg/dL Normal 0.70-1.30 [facility] Comment on above: Performed By: #### C MP #### [facility] [address] [place] [address] Dr. Kiran Gongora EGFR-AF MALDIVIAN >60 Normal >=60 [facility] Comment on above: Performed By: #### C MP #### [facility] [address] [place] [address] Dr. Kiran Gongora EGFR-NON AF MALDIVIAN >60 Normal >=60 [facility] Comment on above: Performed By: #### C MP #### [facility] [address] [place] [address] Dr. Kiran Gongora Globulin (S) [Mass/Vol] 3.4 g/dL Normal T [facility] Comment on above: Performed By: #### C MP #### [facility] [address] [place] [address] Dr. Kiran Gongora Glucose [Mass/Vol] 72 mg/dL Critically low 74-106 Th [facility] Comment on above: Performed By: #### C MP #### [facility] [address] [place] [address] Dr. Kiran Gongora Potassium [Moles/Vol] 3.6 mmol/L Normal 3.5-5.1 [facility] Comment on above: Performed By: #### C MP #### [facility] [address] [place] [address] Dr. Kiran Gongora Protein [Mass/Vol] 6.6 g/dL Normal 6.4-8.2 [facility] Comment on above: Performed By: #### C MP #### [facility] [address] [place] [address] Dr. Kiran Gongora Sodium [Moles/Vol] 144 mmol/L Normal 136-145 [facility] Comment on above: Performed By: #### C MP #### [facility] [address] [address] [address] Kiran Gongora Urea nitrogen [Mass/Vol] 19.0 mg/dL Critically high 7.0-18.0 [facility] Comment on above: Performed By: #### C MP #### [facility] [address] [address] [address] Kiran Gongora Urea nitrogen/Creatinine [Mass ratio] 17.0 mg/mg Normal [facility] Comment on above: Performed By: #### C MP #### [facility] [address] [address] [address] Kiran Gongora Covid-19 PCR ([facility])on 06-09 SARS-CoV-2 (COVID-19) RNA CATRACHITO+probe Ql (Unsp spec) Not detected Normal NOT DETECTED [facility] Comment on above: Result Comment: This test is not yet approved or cleared by the [place] FDA. When there are no FDA-approved or cleared tests available, and other criteria are met, FDA can make tests available under an emergency access mechanism called an Emergency Use Authorization (EUA). The EUA for this test is supported by the [place] of Health and Human Service's (HHS's) declaration [...] SARS-CoV-2. Performed By: #### C VDTBH #### [facility] [address] [place], [place] [address] Dr. Kiran Gongora TSH w/ Reflex to Free T4on 1 12-24-2020 TSH 4.010 uIU/mL Normal 0.400-4.500 [facility] Comment on above: Performed By: #### T SH reflex FT4 #### [facility] [address] [place], [place] [id number] Coding Summary.on 05-08-2021 Coding Summary. CD:[id number] G h0bWw+PGhlYWQ+XE5OTUT nO67qpJUieS4GJ3lVLJ3Q TAQKYYLQKH6KKO6svMI2S AhpT7TwwoZn LtcynVKfDX46FKe7ZAD3l GzcIJyzkK7smEKuU8m2Vz WuJA71iO22AIcmDJPtWjH 3LjZpbjsgbWFy R5cpNvYpoHFlQfy+PHRhY mxlIHdpZHRoPScxMDAlJy PieBzgAQ1vBb4tWXSzFRW vbGxhcHNlOiBj b9brUJJyMCqjZN6kiUvoU 5HtrFW3GKTtl6h1Na38xE I+ZIEyUUO9iLxbAJxwi74 2DuDoy6saKTD8 gTPoGEekDXQ8O38zn5V8F CWpCQVrXZK2mOR5kH1ypZ dqwuueP7DepCFmElJ3WXY 2vREynH9nvMme rayvoI2yWuq+G55NKT8RZ OKDHV4SUbh0X7EfYfzwgW I+SU74XDHoAD57wJOcaUY od4utaIm3PoQf HZQaDKP9jLakLDrmd4ZiA KFfG12pnPRdj7V5VJFctE udfPMjHyTzrNM4iS2xBAz wuahda8uizspw Sbxgl0pgyh87tW69Q80yV KsmYZOiANB0FNKfQAOxkB hhqk2buC1gMf4+RTmkx2x is8cuvGf3WvVm SAPkiqGjaIkqOWX2d6OxZ n76F5AjcUmml3DdLpc7ff 22zHLce4S1tMP1NKziHLI skD4pTZgbYhY4 ZQIgPfHzbZ17zDZmJDspA q2onYfdtOzhXS8xAKYfhp igZACotX1jDKYnmMTnhJa yKF8zYCFfyhqg f626TqIePVK1CZJxzPNgB 8FgwA5lPkQlNPLvTWQbD4 WkcTLfZBwgD401UOtpCcL 3BVXulaTuL6Gf TFZhoFwsIoL9z1W9Fs2Ss 4NuugqxFQT1FAccGIF7Am TgVzDoAzU5C4QxKyc5JVM jtTokND3rZ8Zd CXTtgeklomungYF7FXFrU JZgkR67gJJeLFyuOd0sa5 E1j813NXRjTEZdkC95Ud6 udDogMTBwdCBU eS6uprmmn6ojhbmlHaEqZ WRiFVe5JPv7KNIijWpuWq ArGPX2OgL7CHL9lXGncK2 ukHzeadvtlB5i Oyc+S39pdU1yXAI8URE7m cqnPLSluuKwOI34MY87X2 RyPjwvdGFibGU+PGRpdiB qeBjbJJ2bWnNe n5diw4StWHokW6GiSREaC EzyIme8WDSdFTR3iIA7mO 0yLPPdHRjgg2E0iNG2V8U xnwRkqd6sf5mv FYKdUKtfA38qjERoy2J7U NMomXJ3YJZhvEvaOuWqxZ 93Oyc+XTOxlAizf9YcCye pf8rri2rjxNr7 ItCeONDtzlTsgGxiRWR4u 4OqXj78X07jRYteOLNzOP ZrIXGmTBLmuIoarc9bwE1 wIi8+PGNvbCB3 qQK8uB3aSCSuSfY0XNkmQ 817UxIimPWvQstkb2oqk4 aocBn0EhPwGJNutbXkgCt uEBZ3i3KlJk86 K76sAEctEVJgFIYoBTVzJ ZLkiWemzz3exJ9jFj6+PC 0ac2psdv34dT11vQL+PHR rHOF9kDgqATxj UXWuuQ4iUVhkDuB7CEKxI xDezJ73rJDtPCxxNf6dgU ukoFayRM8bJNGcyvaui73 9EbCbe2moDWUy jWGmRYetAZI3T15qx5T9Z FSmEWCcTTM4lAM2lV4fzM lnbjogbGVmdDsgdmVydGl tXKtlCLpoG299 IHRvcDsnPlBhdGllbnQgT pBtLId4W3NhQcd5LSQzbM gzOR5raVFwIAgsFp7hwQs auQzeXJ4nSADd hairt223MyYfd4wdWYAkw DJrJEgiMLG5Y87oa6P2MN VpEVQhPWH5gHV7qJ8irFk nbjogbGVmdDsg euEwdLqkTNzrTSfsI778U HRvcDsnPkJpcnRoIERhdG F8CM51OM46pMIhq6J2yOE 9N3OdJXUhwkai kykrkUQ3EXSbSRGpyZ09V c8vlYrsEm3iTQAlBIP4YG HxwBPuA5WpcU6gLiDcJPY jYRZdM7LtlACe QRbhV189EIggZuO8PEQqf mTsX0NxPMMulJmbSmS3l8 T3Lw0RJ9Z8TQ07CI18uOC fx0Z0jOM8R7Je QSBkpzdwyizmwTZ3VOHlS YEtaX88Yo7dnNouMe0vBC PnLYZ1EPFwhMBxP6FeiI4 yOiAjMDAwMDAw K4HyuKCkFCocJ739TOphF jA3TGKuyxBmO5MnWOXdyF wsDjT8x3G2Fp8CGUr0NO9 0VR11mBEgh4G9 mQI3Y3LdKRFkxswkpjbvn WY4HLVtWTZhyQ05Ky3okP oqQe4xVCTpUYG4JXJxtWC xZ0SmqB1uSmOl PLDqZFWvH2QnyLFvXOdcZ 442HCsgPaQ6ITKkhnWyJ1 IcRZEkuDoeFnW6b7Z4Mj7 ICCOiVF74EQA8 lYP5TR03LL26J3TbYzdke GFibGU+PHRhYmxlIHdpZH RoPScxMDAlJyBzdHlsZT0 jVr8oPJZfXYFg xVtwiJBoJmLsx7ysWPTqM YioZD0zjRliN8TrsYX0NY Eih7p5Jn17E23tI8CmcOC +ZMZerYL4yVE1 gH3gGeSrKfG5MOqrB409T vEfgKQiBbtde4ggh4btqO c7TvJ9ABCwbfKfoPjqSGT 3b3JjKq98D85f IHdpZHRoPSIxNSUiIHZhb Jcapt9clG4yRb2+PGNvbC R4sHB0gV5hHpDnCyN8JCp uZ739DpPatEWz Afran4sjb1ivyYo1AtXjO GYoviTmgJhqNYS0k7DdCy 28C2PmkXcyp1JxNas9mc4 7aDGze8W2eHC4 Z1QwZNScblvgeIExpKvcJ H0xIMNthyscMLDfbH0tUG GgC4y8EfHuFtC9FPrnY9M gyvM9WRWpoAKd QVunGBN5Z54kz2O3SOYzH NOjPHS1pNF9lE1msMnwiu ogbGVmdDsgdmVydGljYWw hFOmwR240UDNz sPhkTYEokR7wXAKgxOOnp MisDG9xZZXdswlsTeWQE3 TUFtNEsfghV9aBZUiQAOB UUW71KR22yKRe b2B1dPO4N2PcBVLmwqjyg entvNS7MBTuSTOkwH54bA DsDXjbYq2jf5S3t873FDP nTGSypE56Te5c yGzeJQDvvRNZtZ4xhrcwb 9mnqhytBsVkIGFwHHa5UI v0FFBvxCvhYiDoHWK3IxX 5SON7bPHssZ7y tIjubgmnpQ8hWth+MDEvM BVpGJv4KKhmfPN+PHRkIH Q0hAptWXroYRLwdT7wYWD nW9m6OxJnPnI1 HHcvC1VtMIHhbzreEr30z T5jSbSuEsB6YQggS1Mvjc L8MZZujSZsVLurPNJ5W90 zv8U6CLXuTIRs XBI8qQG0fZ7nfJwprzvvf GVmdDsgdmVydGljYWwtYW xkB848VFAabOtqRxOcZKj tFKNqFI93ED43 hKBnf9X3eKX7K7XsXEHcz aecvdbesTB3ECAoAFWuiA 19sZVaOFydGn5tb2C3z02 5UUNiVFLnfQ23 Zl2nvHvhWXXffAAYbJ6hn niia1nnqywnSzJuVAMrMM q8CEq5HRRfyTldUkAmWZO 1RvR6BMB2uIJn rD8weDkndzrmpX1sMie+T WFsZTwvdGQ+RMWzZGS6gV geUIntCIArzR5tBDDhK0j 3SoSxQoP5IEzg H6OtYNXmlgucUq40eQ1jQ qZpAdR1OEorH5HbbjS4QO AbtLLzJKsuJAP7Q78zo5H 4QCMwNGXmGMR3 xON4yA2miXwtlukjkFTws DsgdmVydGljYWwtYWxpZ2 74WOIrnXwzUf3hb2WxfxP 4eR4qFF83XA69 M0AkWtrcwWOxfDD+PHRhY mxlIHdpZHRoPScxMDAlJy OmoNanHS6cNb8tVBHbYPK vbGxhcHNlOiBj d2kyMJAzTVtjZJ5ijIqeP 9QvkRD9FIZll0v3Xs92M5 5eN4WltEE+CNOkvYZ2kVV 6xB0zDzBnXkS1 TSppM983SsDgfAJtUnuys 1xum3fnpDa5EmDyQUIkoi TbbRegLOB1n1LwHm42G52 sIHdpZHRoPSIy DUVfMRHjpDokar4gzG4sO i8+ITOgfXH8kHA9pM4tUr XiOrB1QSnmC940TmLksIG fRjjxT41bK8Ij dXA+JGKqLyh5AXEldUhcB Q3omYNvVBeoUb6nGMH6Jp SnMwPoJXdiH3CzVFSvtgk unxttbLH3EZAf PABfqE74Nw2hxEhbGe8uB ENzZHI8GODxwIVhG0AfdT 3cDzMbXPWvMOLzQ1FcwKE rPQizN675CWjh QbP4UNWhxgGoO4YnSOKoq NecRlF3l8M3Sf5TuDccqF VbOX6rIqOfQKy9N1UvXei 9QIQrmXfeKY2m hOSoGEyaLt1ycNiyrJuaG O8mGSMhytelt582TkGni7 dnCHCoyREnEQgqCVR7H07 wj5W3RGVeTJAh GDM4nTS3dC2ylRvbluown GVmdDsgdmVydGljYWwtYW qgK757JEKinPpcJpRMYyx 7T3TlYac5RPYd fXlhBH4loJYlPGcuCd6nm XbzxQgxNW5lVDNzvwxeq7 20LlSpo9wdVRZzhPQlQXw lYEQ3L80pc9U3 HACyEXJaEQK2fRO0zF9jy GlnbjogbGVmdDsgdmVydG rxIUexYZkiG647KPQrmIy tIw2APiq5K8Zq Fvi5HWFloMptYR7otZFtG ZudHq6wkSzmuEelBD9yPQ Zsiodjn765QqGwy1cxKPG wcHQgVGltZXM7 I47hw1F6FEErZUJcMML5j DF5pE0fuYadiasyrUPcvQ yjbhGigHzhUMcdVFecW97 6IHRvcDsnPlBh eWVyOjwvdGQ+OH99dr24V 8BpAwnyMwm7IZFfEWL2vW M7qB4xLMBzEUksb0U6pAD 7I5IknzOdcn5j b2xs (more content not included)... Normal [facility] ED Traumaon 05-06-2021 ED Trauma [id number]# 1.00CD:127 [facility] EMS Documentationon 05-05-20 EMS Documentation [id number]# 1.00CD:127 [facility] ABO/Rh History Checkon 05-02 ABO/Rh History Check Type verified by second s [facility] Comment on above: Performed By: #### 1 [id number] ####[facility] [id number] [place] [address] ABO/Rh Retypeon 05-02-2021 ABO/Rh Retype Interp Positive Invalid Interpretation Code [facility] Comment on above: Performed By: #### 1 [id number] ####[facility] [id number] [place] [address] ABSCon 05-02-2021 ABSC Gel Interp Negative Normal [facility] Comment on above: Performed By: #### 1 [id number], [id number], [id number], [id number] ####[facility] [id number] [place] [address] Auto Diffon 05-02-2021 Basophils/100 WBC (Bld) 1.3 % Normal 0.0-2.0 F [facility] Comment on above: Order Comment: Order Added by Discern Expert. Performed By: #### 2 [id number], [id number], [id number] #### [facility] [address] [place] [address] Basophils/Leukocytes Auto (Bld) [Pure # fraction] 0.1 E9/L Normal 0.0-0.2 [facility] Comment on above: Order Comment: Order Added by Discern Expert. Performed By: #### 2 [id number], [id number] #### [facility] [address] [place] [address] Eosinophils/100 WBC (Bld) 4.2 % Normal 0.0-8.0 [facility] Comment on above: Order Comment: Order Added by Discern Expert. Performed By: #### 2 [id number], [id number], [id number], [id number] #### [facility] [address] [place] [address] Eosinophils/Leukocytes Auto (Bld) [Pure # fraction] 0.2 E9/L Normal 0.0-0.5 [facility] Comment on above: Order Comment: Order Added by Discern Expert. Performed By: #### 2 [id number], [id number], [id number], [id number] #### [facility] [address] [place] [address] Lymphocytes/100 WBC (Bld) 36.9 % Normal 14.0-50.0 [facility] Comment on above: Order Comment: Order Added by Discern Expert. Performed By: #### 2 [id number], [id number], [id number], [id number] #### [facility] [address] [place] [address] Lymphocytes/Leukocytes Auto (Bld) [Pure # fraction] 1.7 E9/L Normal 1.0-4.0 [facility] Comment on above: Order Comment: Order Added by Discern Expert. Performed By: #### 2 [id number], [id number], [id number], [id number] #### [facility] [address] [place] [address] Monocytes/100 WBC (Bld) 8.7 % Normal 4.0-14.0 [facility] Comment on above: Order Comment: Order Added by Discern Expert. Performed By: #### 2 430652, 1892958, 9732243, 99336828 #### [facility] [address] [place] [address] Monocytes/Leukocytes Auto (Bld) [Pure # fraction] 0.4 E9/L Normal 0.2-1.0 [facility] Comment on above: Order Comment: Order Added by Discern Expert. Performed By: #### 2 742355, 4189246, 9316024, 27371412 #### [facility] [address] [place] [address] Neutrophils/100 WBC (Bld) 48.9 % Normal 36.0-75.0 [facility] Comment on above: Order Comment: Order Added by Discern Expert. Performed By: #### 2 415375, 0121666, 4415035, 73019418 #### [facility] [address] [place] [address] Neutrophils/Leukocytes Auto (Bld) [Pure # fraction] 2.2 E9/L Normal 2.0-7.5 [facility] Comment on above: Order Comment: Order Added by Discern Expert. Performed By: #### 2 316061, 9685359, 4805204, 63896343 #### [facility] [address] [place] [address] BMPon 05-02-2021 Anion gap [Moles/Vol] 11 mmol/L Normal 6-[address] [facility] Comment on above: Performed By: #### 2 608025, 8719865, 8499492, 43965537 #### [facility] [address] [place] [address] Calcium [Mass/Vol] 8.3 mg/dL Low 8.9-11.1 [facility] Comment on above: Performed By: #### 2 503928, 4380428, 0420161, 47438209 #### [facility] [address] [place] [address] Chloride [Moles/Vol] 107 mmol/L Normal 101-111 [facility] Comment on above: Performed By: #### 2 351845, 2428110, 3473734, 30608909 #### [facility] [address] [place] [address] CO2 [Moles/Vol] 25 mmol/L Normal 21-31 [facility] Comment on above: Performed By: #### 2 662207, 7366590, 6884586, 11283446 #### [facility] [address] [place] [address] Creatinine [Mass/Vol] 1.2 mg/dL Normal 0.5-1.[address] [facility] Comment on above: Performed By: #### 2 270728, 0266388, 9510076, 04023515 #### [facility] [address] [place] [address] Glucose [Mass/Vol] 88 mg/dL Normal 55-199 [facility] Comment on above: Result Comment: If t his glucose result represents a fasting glucose, interpretation should refer to the following reference range: 55-99 mg/dL Performed By: #### 2 209943, 3527110, 8058655, 37029249 #### [facility] [address] [place] [address] Potassium [Moles/Vol] 3.5 mmol/L Normal 3.5-5.[address] [facility] Comment on above: Performed By: #### 2 446059, 0489349, 5266314, 04079271 #### [facility] [address] [place] [address] Sodium [Moles/Vol] 139 mmol/L Normal 135-145 [facility] Comment on above: Performed By: #### 2 427850, 0774287, 9784918, 78260729 #### [facility] [address] [place] [address] Urea nitrogen [Mass/Vol] 14 mg/dL Normal 5-21 [facility] Comment on above: Performed By: #### 2 172585, 0396521, 1792799, 57963843 #### [facility] [address] [place] [address] Urea nitrogen/Creatinine [Mass ratio] 12 No Units Normal 10-20 [facility] Comment on above: Performed By: #### 2 975392, 1886068, 5924238, 35001857 #### [facility] [address] [place] [address] CBC w/ Auto Diffon Erythrocyte distribution width (RBC) [Ratio] 13.5 % Normal 10.9-14.2 [facility] Comment on above: Performed By: #### 2 362636, 1493266, 3902263, 19091171 #### [facility] [address] [place] [address] Hematocrit (Bld) [Volume fraction] 41.0 % Normal 37.7-49.0 [facility] Comment on above: Performed By: #### 2 766483, 8791663, 2372905, 74749930 #### [facility] [address] [place] [address] Hemoglobin (Bld) [Mass/Vol] 13.6 g/dL Normal 13.5-17.5 [facility] Comment on above: Performed By: #### 2 676179, 3994060, 9081166, 88963615 #### [facility] [address] [place] [address] MCH (RBC) [Entitic mass] 27.6 pg Normal 27.0-34.0 [facility] Comment on above: Performed By: #### 2 678431, 6119529, 4765224, 12178846 #### [facility] [address] [place] [address] MCHC (RBC) [Mass/Vol] 33.2 g/dL Normal 31.4-36.[address] [facility] Comment on above: Performed By: #### 2 940914, 4808101, 7122114, 12151032 #### [facility] [address] [place] [address] MCV (RBC) [Entitic vol] 83.1 fL Normal 80.0-100.0 F [facility] Comment on above: Performed By: #### 2 060968, 0643140, 0724979, 85065766 #### [facility] [address] [place] [address] Platelet mean volume (Bld) [Entitic vol] 9.8 fL Normal 6.4-10.8 [facility] Comment on above: Performed By: #### 2 329461, 9965222, 8241115, 50140827 #### [facility] [address] [place] [address] Platelets (Bld) [#/Vol] 129.0 E9/L Low 150.0-500.0 [facility] Comment on above: Performed By: #### 2 696969, 4215662, 5048221, 54014607 #### [facility] [address] [place] [address] RBC (Bld) [#/Vol] 4.9 E12/L Normal 4.3-5.9 [facility] Comment on above: Performed By: #### 2 675027, 0681515, 4090830, 64101523 #### [facility] [address] [place] [address] WBC corrected for nucl RBC Auto (Bld) [#/Vol] 4.5 E9/L Normal 4.0-11.0 [facility] Comment on above: Performed By: #### 2 006157, 0451080, 1541230, 48483210 #### [facility] [address] [place] [address] CT Abdomen/Pelvis w/ Contras ton 05-02-2021 CT [...] 300 Contrast amount in ml's: 100 Normal [facility] CT Chest w/ Contraston 05-02 CT [...] 300 Contrast amount in ml's: 100 Normal [facility] CT Head or Brain w/o [...] MD Transcribed by: DYAN Technologist: CHASE Normal [facility] CT Spine Cervical w/o Contra ston [...] Hernandez MD Transcribed by: DYAN Technologist: CHASE [facility] Consent for Treatmenton 04-09 Consent for Treatment [id number]# 1.00CD:127 Normal [facility] Discharge Instructionson Discharge Instructions [id number]# 1.00CD:127 Normal [facility] ED Clinical Summaryon 2020 ED Clinical Summary [place] [id number] ED Clinical Summary Person Information Name: GIOVANNA JOHNATHAN [place] Age: 50 Years : 1970 Sex: Male Language: Khmer PCP: WILY LANDRUM MD Marital Status: Visit Id: Visit Reason: Neck pain; Trauma - major; Chest pain; FALL Speciality: Acuity: 2 Enc Type: Emergency Med Service: Emergency Arrival: 05/01/2021 21:04:08 Discharge: LOS: 000 03:19 Checkin: 05/01/2021 21:04:08 Checkout: 05/02/2021 00:23:44 Dispo Type: Admitted as IP to this [facility] EVENTS: Event Name Event Status Request [...] 05/02/2021 00:23:44 05/02/2021 00:23:44 05/02/2021 00:23:44 ADDRESS: [address] [place] [id number] [facility] DOC NOTES: MEDICAL INFORMATION: Prescriptions Given: PATIENT EDUCATION INFORMATION: Instructions: Follow up: DIAGNOSIS: 1:Fall; 2:Concussion Normal [facility] ED Note-Physicianon 05-02-20 ED Note-Physician Basic [...] senna 8.6 (more content not included)... Normal [facility] Comment on above: Result Comment: Elec tronically Signed By: Ramírez Tran, Katie Ko\.br\Date and Time Signed: 05/02/21 00:48 EDT ED Patient Education Noteon 05-02-2021 ED Patient Education Note Normal [facility] ED Patient Summaryon 021 ED Patient Summary [place] [id number] Patient Discharge Instructions Person Information Name: JOHNATHAN MELARA Jr Age: 50 Years Arrival Date: 05/01/2021 21:04:08 Discharge Diagnosis: 1:Fall; 2:Concussion Primary Care Physician: WILY LANDRMU MD Provider Information Primary Provider: Katie Elmore M.D. Advanced Residency Director:None The exam and treatment you received in the Emergency Department were for an urgent problem and are not intended as complete care. It is important that you follow up with a doctor, nurse practitioner, or physician?s volunteer services assistant for ongoing care. If your symptoms [...] opioids can be used to help relieve flzlzjmi-fl-uoaubq pain and are often prescribed following a [...] be struggling with addiction, tell your health occasional caregiver and ask for guidance or call [facility] National Helpline at 5-201-721-[employer]. s Source: [place] Department of Health and Human Services/Center for Disease Control & Prevention [facility] Medications Given: Medication Dose Route So (more content not included)... Normal [facility] Inpatient Clinical Summaryon 05-02-2021 Inpatient Clinical Summary [address] [address] Clinical Summary Person Information: Name: JOHNATHAN MELARA Jr Age: 50 Years : 1970 Sex: Male PCP: WILY LANDRUM MD Marital Status: Race: White Ethnicity: Non- or Language: Khmer Visit Id: Visit Reason: Neck pain; Trauma - major; Chest pain; CONCUSSION Speciality: Acuity: Enc Type: Observation Med Service: Medical Arrival: 05/01/2021 21:04:08 Discharge: Dispo Type: Admitted as IP to this [facility] Address: [address] [place] [id number] Provider Notes: Diagnosis: 1:Fall; 2:Concussion Problems No [...] Follow up: With: Address: When: WILY [facility] [place] [address] [facility] (1) Within 1 to 2 weeks Comments: Follow with your PCP within 1-2 weeks. Call for followup appointment. Patient Education Information: Concussion, Adult Normal [facility] Inpatient Patient Summaryon 05-02-2021 Inpatient Patient Summary [place] [id number] Patient Discharge Instructions PERSON INFORMATION Name: JOHNATHAN [...] Follow up: With: Address: When: WILY [facility] [place] [address] [facility] (1) Within 1 to 2 weeks Comments: [...] Get angela (more content not included)... Normal [facility] Interdisciplinary Note - Tulio e Manageron 05-02-2021 Interdisciplinary Note - Card Grader patient off unit for MRI 1430- [facility] spoke with patient in room. patient is alert and oriented. Discussed per dr Hernandez he will be discharged home today. Patient verified PCP, insurance and denies any DME. Patient lives with his kids and girlfriend and denies any needs at discharge. Whiteboard updated and [facility] contact information provided. Patient ststes he is hungry, no diet ordered and Vj Sorto made aware. Normal [facility] Comment on above: Result Comment: [...] Mikel Hernandez MD Transcribed by: DYAN Technologist: JESSIAC Technical Comments None Normal [facility] MRI Spine Cervical w/o Contr rand [...] by: DYAN Technologist: JESSICA Technical Comments None [facility] Monitor Recordon 05-02-2021 Monitor Record [id number]# 1.00CD:127 Normal [facility] Prescriptions/Work Noteson 0 05-02-2021 Prescriptions/Work Notes [id number]# 1.00CD:127 Normal [facility] RAD - MRI Screening Formon 0 05-02-2021 RAD - MRI Screening Form [id number]# 1.00CD:127 [facility] RAD - Preliminary Cat Scan R eporton 05-02-2021 RAD - Preliminary Cat Scan Report [id number]# 1.00CD:127 Normal [facility] U Drug Screenon 05-02-2021 Amphetamines Screen method >1000 ng/mL Ql (U) Negative Normal Negative [facility] Comment on above: Result Comment: Nega tive Cutoff: <1000 ng/mL Performed By: #### 2 101889 ####[facility] [address] [place] [address] Barbiturates Screen Ql (U) Negative Normal Negative [facility] Comment on above: Result Comment: Nega tive Cutoff: <200 ng/mL Performed By: #### 2 378539 ####[facility] [address] [place] [address] Benzodiazepines Ql (U) Negative Normal Negative [facility] Comment on above: Result Comment: Nega tive Cutoff: <200 ng/mL Performed By: #### 2 547195 ####[facility] [address] [place] [address] Cocaine Ql (U) Negative Normal Negative [facility] Comment on above: Result Comment: Nega tive Cutoff: <300 ng/mL Performed By: #### 2 876379 ####[facility] [address] [place] [address] Opiates Screen Ql (U) Negative Normal Negative [facility] Comment on above: Result Comment: Nega tive Cutoff: <300 ng/mL Performed By: #### 2 115538 ####[facility] [address] [place] [address] Phencyclidine Screen method >25 ng/mL Ql (U) Negative Normal Negative [facility] Comment on above: Result Comment: Nega tive Cutoff: <25 ng/mL These drug screen results are to be used for medical (i.e., treatment) purposes only. Unconfirmed drug screening results must not be used for non-medical purposes (e.g., employment testing, legal testing). Performed By: #### 2 028500 ####[facility] [address] [place] [address] Tetrahydrocannabinol Screen method >50 ng/mL Ql (U) Negative Normal Negative [facility] Comment on above: Result Comment: Nega tive Cutoff: <50 ng/mL Performed By: #### 2 358131 ####[facility] [address] [place] [address] XR Ankle 3+ Views Righton XR Ankle [...] M.D. Transcribed by: DYAN Technologist: CHASE [place] [facility] XR Knee Complete 4+ Views Le [...] M.D. Transcribed by: DYAN Technologist: CHASE Spring [facility] eGFRon 05-02-2021 GFR/1.73 sq M.predicted among blacks MDRD (S/P/Bld) [Vol rate/Area] mL/min/{1.73_m2} Normal >=59 [facility] Comment on above: Order Comment: Order added by Discern Expert. Result Comment: eGFR is race adjusted. AA=. Performed By: #### 2 549817, 6313013, 7329522, 79734299 #### [facility] [address] [place] [address] GFR/1.73 sq M.predicted among non-blacks MDRD (S/P/Bld) [Vol rate/Area] mL/min/{1.73_m2} Normal >=59 [facility] Comment on above: Order Comment: Order added by Discern Expert. Result Comment: Rac Specialist heidi kidney disease could be indicated at eGFR's of less than 60 mL/min/1.73m2. Kidney failure is indicated at less than 15 mL/min/1.73m2. Performed By: #### 2 664015, 2746604, 7967683, 05936889 #### [facility] [address] [place] [address] ABO/Rhon 05-01-2021 ABO/Rh Positive Invalid Interpretation Code [facility] Comment on above: Performed By: #### 1 4484143, 53167617, 33336556, 7119036 ####[facility] [address] [place] [address] Auto Diffon 05-01-2021 Basophils/100 WBC (Bld) 1.1 % Normal 0.0-2.0 F [facility] Comment on above: Order Comment: Order Added by Discern Expert. Performed By: #### 2 627416, 9505005, 5172365, 18454942, 4995946, 7557719, 0540603, 90452894, 9127672 ####[facility] [address] [place] [address] Basophils/Leukocytes Auto (Bld) [Pure # fraction] 0.1 E9/L Normal 0.0-0.2 [facility] Comment on above: Order Comment: Order Added by Discern Expert. Performed By: #### 2 761779, 2418946, 2808790, 40349662, 6686176, 0610237, 0771859, 68947782, 7670278 ####[facility] [address] [place] [address] Eosinophils/100 WBC (Bld) 2.0 % Normal 0.0-8.0 [facility] Comment on above: Order Comment: Order Added by Discern Expert. Performed By: #### 2 563192, 8039574, 1696118, 66253006, 5603315, 1971484, 4233052, 55182569, 8632288 ####[facility] [address] [place] [address] Eosinophils/Leukocytes Auto (Bld) [Pure # fraction] 0.1 E9/L Normal 0.0-0.5 [facility] Comment on above: Order Comment: Order Added by Discern Expert. Performed By: #### 2 719848, 6739839, 0493006, 14777081, 4706237, 5619946, 3369017, 05472616, 6489246 ####[place] [address] [place] [address] Lymphocytes/100 WBC (Bld) 27.9 % Normal 14.0-50.0 [facility] Comment on above: Order Comment: Order Added by Discern Expert. Performed By: #### 2 570293, 1790998, 7225301, 82583228, 7779827, 5710685, 9198504, 87249303, 6755198 ####[place] [address] [place] [address] Lymphocytes/Leukocytes Auto (Bld) [Pure # fraction] 1.8 E9/L Normal 1.0-4.0 [facility] Comment on above: Order Comment: Order Added by Discern Expert. Performed By: #### 2 950844, 6438450, 0517289, 29857998, 2450822, 6528717, 9872061, 30697865, 2166765 ####[place] [address] [place] [address] Monocytes/100 WBC (Bld) 8.6 % Normal 4.0-14.0 [facility] Comment on above: Order Comment: Order Added by Discern Expert. Performed By: #### 2 739097, 4812492, 3512914, 24092620, 4673298, 5649225, 8690201, 95737414, 2242586 ####[facility] [address] [place] [address] Monocytes/Leukocytes Auto (Bld) [Pure # fraction] 0.6 E9/L Normal 0.2-1.0 [facility] Comment on above: Order Comment: Order Added by Discern Expert. Performed By: #### 2 932408, 3417824, 6464169, 02875998, 4874468, 2417002, 0095626, 96666095, 0254385 ####[place] [address] [place] [address] Neutrophils/100 WBC (Bld) 60.4 % Normal 36.0-75.0 [facility] Comment on above: Order Comment: Order Added by Discern Expert. Performed By: #### 2 192270, 8982055, 7589930, 39209621, 3340117, 5360511, 8989057, 06765154, 9804936 ####[facility] [address] [place] [address] Neutrophils/Leukocytes Auto (Bld) [Pure # fraction] 4.0 E9/L Normal 2.0-7.5 [facility] Comment on above: Order Comment: Order Added by Kevin Expert. Performed By: #### 2 154427, 6298601, 6355038, 16923392, 7700563, 9832383, 6406675, 17033109, 5637526 ####[facility] [address] [place] [address] BMPon 05-01-2021 Creatinine [Mass/Vol] 1.2 mg/dL Normal 0.5-1.[address] [facility] Comment on above: Performed By: #### 2 115949, 1377719, 8308976, 76928085, 5680405, 3757627, 0615285, 97197686, 2962853 ####[facility] [address] [place] [address] Urea nitrogen [Mass/Vol] 14 mg/dL Normal 5-21 [facility] Comment on above: Performed By: #### 2 976664, 8634495, 3422543, 94685524, 2383767, 8303397, 0130040, 14348767, 3478131 ####[facility] [address] [place] [address] Urea nitrogen/Creatinine [Mass ratio] 12 No Units Normal 10-20 [facility] Comment on above: Performed By: #### 2 904819, 0506982, 4975553, 62133881, 3260460, 2291556, 8082815, 21483321, 4219793 ####[facility] [address] [place] [address] Anion gap [Moles/Vol] 15 mmol/L Normal 6-[address] [facility] Comment on above: Performed By: #### 2 617509, 5756209, 8379202, 35145124, 3973024, 1364187, 4524345, 35271115, 8068720 ####[facility] [address] [place] [address] Calcium [Mass/Vol] 9.0 mg/dL Normal 8.9-11.1 [facility] Comment on above: Performed By: #### 2 642755, 5475074, 8328576, 74168346, 6584081, 0814906, 5486170, 74003672, 2490987 ####[facility] [address] [place] [address] Chloride [Moles/Vol] 105 mmol/L Normal 101-111 [facility] Comment on above: Performed By: #### 2 211630, 2862754, 0862497, 54620351, 8091225, 6081853, 3143319, 78077532, 5903377 ####[facility] [address] [place] [address] CO2 [Moles/Vol] 22 mmol/L Normal 21-31 [facility] Comment on above: Performed By: #### 2 294801, 4411720, 6483312, 94141204, 6056673, 6742484, 2229917, 80475158, 6886582 ####[facility] [address] [place] [address] Glucose [Mass/Vol] 94 mg/dL Normal 55-199 [facility] Comment on above: Result Comment: If t his glucose result represents a fasting glucose, interpretation should refer to the following reference range: 55-99 mg/dL Performed By: #### 2 766317, 4324309, 5640801, 93604642, 8696247, 1632095, 5188688, 01786021, 9671845 ####[facility] [address] [place] [address] Potassium [Moles/Vol] 3.3 mmol/L Low 3.5-5.[address] [facility] Comment on above: Performed By: #### 2 885780, 2354097, 6988559, 68187111, 1430881, 4610051, 6954624, 24735258, 5016488 ####[facility] [address] [place] [address] Sodium [Moles/Vol] 139 mmol/L Normal 135-145 [facility] Comment on above: Performed By: #### 2 084281, 5520101, 3257869, 06076788, 1148388, 0427216, 9549804, 23324482, 6401311 ####[facility] [address] [place] [address] Blood Bank ID#on 05-01-2021 BBID# [id number] Invalid Interpretation Code [facility] Comment on above: Performed By: #### 1 9585514, 46103167, 73741896, 5116491 ####[facility] [address] [place] [address] CBC w/ Auto Diffon Erythrocyte distribution width (RBC) [Ratio] 13.4 % Normal 10.9-14.2 [facility] Comment on above: Performed By: #### 2 004814, 5257770, 0629944, 17068745, 4050526, 8134446, 2208368, 10161042, 8015480 ####[place] [address] [place] [address] Hematocrit (Bld) [Volume fraction] 42.6 % Normal 37.7-49.0 [facility] Comment on above: Performed By: #### 2 443518, 7282403, 2112726, 01233056, 7722603, 8141472, 1441504, 38320336, 5169960 ####[address] [address] Hemoglobin (Bld) [Mass/Vol] 14.4 g/dL Normal 13.5-17.5 [facility] Comment on above: Performed By: #### 2 797646, 8701016, 6032158, 69747912, 9781346, 3233003, 5778253, 67789952, 2875434 ####[address] [address] MCH (RBC) [Entitic mass] 27.8 pg Normal 27.0-34.0 [facility] Comment on above: Performed By: #### 2 252560, 9430163, 4859354, 30747976, 3585484, 6121540, 3057552, 04559283, 7804871 ####[address] [address] MCHC (RBC) [Mass/Vol] 33.9 g/dL Normal 31.4-36.[address] [facility] Comment on above: Performed By: #### 2 496565, 8640664, 4337282, 60640041, 2442419, 2922698, 8346837, 95026061, 5468826 ####[address] [address] MCV (RBC) [Entitic vol] 81.9 fL Normal 80.0-100.0 F [facility] Comment on above: Performed By: #### 2 016769, 3505460, 8347263, 55668154, 5943800, 2811894, 8702449, 88858269, 3895358 ####[facility] [address] [place] [address] Platelet mean volume (Bld) [Entitic vol] 10.3 fL Normal 6.4-10.8 [facility] Comment on above: Performed By: #### 2 443006, 0530851, 7252875, 32016382, 7056432, 4281150, 4985520, 89515661, 9902449 ####[place] [address] [place] [address] Platelets (Bld) [#/Vol] 147.0 E9/L Low 150.0-500.0 [facility] [facility] Comment on above: Performed By: #### 2 169498, 7524146, 1415973, 40745116, 5120276, 3327231, 1671027, 97197178, 1606477 ####[address] [address] RBC (Bld) [#/Vol] 5.2 E12/L Normal 4.3-5.9 [facility] Comment on above: Performed By: #### 2 729398, 9175455, 4612589, 67151893, 4886093, 5031933, 2951893, 50330239, 5780923 ####[address] [place] [address] WBC corrected for nucl RBC Auto (Bld) [#/Vol] 6.6 E9/L Normal 4.0-11.0 [facility] Comment on above: Performed By: #### 2 765904, 2131919, 3051766, 81822194, 6151751, 2315750, 2114359, 41119263, 9776441 ####[facility] [address] [place] [address] Ethanolon 05-01-2021 Ethanol [Mass/Vol] mg/dL Normal <=7 [facility] Comment on above: Performed By: #### 2 687238 ####[facility] [address] [place] [address] Hep Func Panelon 05-01-2021 Albumin [Mass/Vol] 3.9 g/dL Normal 3.3-5.0 [facility] Comment on above: Performed By: #### 2 162340, 6552178, 4421187, 97729329, 3119997, 7181134, 3064452, 98748020, 2957970 ####[facility] [address] [place] [address] Albumin/Globulin (S) [Mass conc ratio] 1.3 Normal 1.1-2.2 [facility] Comment on above: Performed By: #### 2 223256, 2298886, 6044079, 21921395, 5447490, 9086649, 5325204, 55142138, 8210868 ####[address] [address] ALP [Catalytic activity/Vol] 56 Int._Unit/L Normal 21-98 [facility] Comment on above: Performed By: #### 2 470547, 8963035, 3666571, 68094895, 9208055, 0861855, 5256274, 61256860, 3228686 ####[address] [address] ALT No additional P-5'-P [Catalytic activity/Vol] 37 Int._Unit/L Normal 6-46 [facility] Comment on above: Performed By: #### 2 489973, 2234670, 6824396, 90585499, 8777389, 0355921, 2141877, 71350829, 1185067 ####[address] [place] [address] AST [Catalytic activity/Vol] 36 Int._Unit/L Normal 5-43 [facility] Comment on above: Performed By: #### 2 467022, 2318144, 2032027, 89880960, 8142168, 2413838, 1552822, 85134887, 8601955 ####[facility] [address] [place] [address] Bilirubin [Mass/Vol] 0.9 mg/dL Normal 0.0-1.1 [facility] Comment on above: Performed By: #### 2 208632, 7887329, 7498322, 10817882, 5922186, 3052008, 3304930, 67280646, 2007557 ####[facility] [address] [place] [address] Bilirubin.direct [Mass/Vol] 0.2 mg/dL Normal 0.1-0.4 [facility] Comment on above: Performed By: #### 2 405388, 1686853, 0564992, 30140364, 2410271, 0986919, 0452224, 15583386, 4298603 ####[address] [address] Bilirubin.indirect [Mass or moles/Vol] 0.7 mg/dL Normal 0.1-0.9 [facility] Comment on above: Performed By: #### 2 430556, 0491179, 8607315, 10105916, 3949851, 2955958, 6306493, 11292576, 7226430 ####[facility] [address] [place] [address] Globulin (S) [Mass/Vol] 3.0 g/dL Normal 1.4-4.0 [facility] Comment on above: Performed By: #### 2 095367, 8478652, 6853513, 83631513, 2190933, 8965241, 0399694, 03270018, 3374328 ####[address] [place] [address] Protein [Mass/Vol] 6.9 g/dL Normal 6.0-7.8 [facility] Comment on above: Performed By: #### 2 419328, 6807248, 6791486, 94583315, 8587083, 6979651, 4902720, 63470237, 4046322 ####[facility] [address] [place] [address] Lactic Acidon 05-01-2021 Lactate [Mass/Vol] 1.2 mmol/L Normal 0.5-2.2 [facility] Comment on above: Performed By: #### 2 601370, 8755295, 5137043, 78657548, 2139356, 5892673, 7728651, 86147685, 3553099 ####[facility] [address] [place] [address] Magnesiumon 05-01-2021 Magnesium [Mass/Vol] 2.0 mg/dL Normal 1.3-2.4 [facility] Comment on above: Performed By: #### 2 642281, 1794219, 0529621, 80893727, 1995535, 5843162, 1117956, 42894611, 2145205 ####[facility] [address] [place] [address] PT & PTTon 05-01-2021 aPTT Coag (PPP) [Time] 27.8 second(s) Normal 25.1-36.5 [facility] Comment on above: Result Comment: Hepa rin therapeutic range (represented by Anti-Factor Xa activity of 0.2 - 0.4 U/mL) corresponds to PTT of 56.6 - 109.0 sec. Performed By: #### 2 855284, 9619977, 3927529, 21093734, 5939785, 4397148, 1411302, 09389204, 7013129 ####[facility] [address] [place] [address] INR Coag (PPP) [Relative time] 1.1 {INR} Invalid Interpretation Code [facility] Comment on above: Result Comment: INR results are specifically intended to assess patients stabilized on long-term Anticoagulation therapy suggested INR?s ?Less Intensive Anticoagulation? 2.0 ? 3.0 Conventional Range 3.0 ? 4.5 Performed By: #### 2 687294, 8468212, 6113546, 58593703, 0037383, 0248552, 7870915, 44373901, 4129276 ####[facility] [address] [place] [address] PT Coag (PPP) [Time] 13.3 second(s) High 10.2-12.9 [facility] Comment on above: Performed By: #### 2 548509, 0051486, 2901058, 82282004, 4602648, 5583504, 8921116, 42231504, 7384768 ####[facility] [address] [place] [address] Troponinon 05-01-2021 Troponin I.cardiac [Mass/Vol] 5.60 pg/mL Low 15.90-38.40 [facility] Comment on above: Result Comment: The 95% CI (Confidence Interval) PPV (Positive Predictive Value) for myocardial infarction in females is 38 pg/mL, in males 51 pg/mL. The results should be used in conjunction with clinical conditions of myocardial infarction. (Access High Sensitivity Troponin I Instructions For Use, [employer], June 2018) Performed By: #### 2 188931, 3978958, 4729629, 43247800, 4094400, 6991746, 9652005, 05567195, 4481086 ####[facility] [address] [place] [address] eGFRon 05-01-2021 GFR/1.73 sq M.predicted among blacks MDRD (S/P/Bld) [Vol rate/Area] mL/min/{1.73_m2} Normal >=59 [facility] Comment on above: Order Comment: Order added by Discern Expert. Result Comment: eGFR is race adjusted. AA=. Performed By: #### 2 771079, 5545717, 9617159, 13561586, 3928790, 0904451, 4787069, 86662154, 9857549 ####[facility] [address] [place] [address] GFR/1.73 sq M.predicted among non-blacks MDRD (S/P/Bld) [Vol rate/Area] mL/min/{1.73_m2} Normal >=59 [facility] Comment on above: Order Comment: Order added by Discern Expert. Result Comment: Rac Specialist heidi kidney disease could be indicated at eGFR's of less than 60 mL/min/1.73m2. Kidney failure is indicated at less than 15 mL/min/1.73m2. Performed By: #### 2 372274, 8850995, 9210223, 61505297, 3793162, 9185407, 1636211, 86297816, 8124044 ####[facility] [address] [place] [address] Vital Signs Date Time Vital Sign Value Performing Clinician Marcelino yeh 08-23-2024 09:07-0400 Body height 170.2 cm Cecilio [employer] Work Phone: [facility] 08-23-2024 09:07-0400 Body mass index (BMI) [Ratio] 22.87 kg/m2 [employer] Phone: [facility] 08-23-2024 09:07-0400 Body weight 66.22 kg [employer] Phone: [facility] 08-23-2024 09:07-0400 Diastolic blood pressure 85 mm[Hg] [employer] Work Phone: [facility] 08-23-2024 09:07-0400 Systolic blood pressure 115 mm[Hg] [employer] Work Phone: [facility] Healthcare Encounters Encounter Date Encounter Type Care Provider Facility Start: 08-23-2024 End: 08-23-2024 Clinisync Result Encounter Generic External Data Provider [facility] External Department Unsolicited Start: 08-23-2024 End: 08-23-2024 [employer] Result Encounter Generic External Data Provider [facility] External Department Unsolicited Start: 08-23-2024 End: 08-23-2024 Office outpatient new 45 minutes Cecilio Price [employer]ande[employer] Work Phone: [facility] Comment on above: Abnormal [...] Emergency department patient visit Afshin Coretta Torres Facility:[place] Procedures Date Procedure Procedure Detail Performing Clinician Start: 08-23-2024 ALL CBC WITH AUTO DIFF Generic External Data Provider Start: 01-24-2021 Colonoscopy Generic Pr ovider Plan of Treatment Date Care Activity Detail Author Start: 01-24-2031 Screening for malignant neoplasm of colon [facility] Start: 10-12-2024 End: 10-12-2024 Patient encounter procedure 10/12/2024 2:15 PM EST Office Visit [facility] [address] [address] Cecilio Price, [address] [facility] Start: 08-23-2024 End: 08-23-2025 [...] Date Payer Category Payer Private Health Insurance [facility] [id number] 2021 Self-pay 1970 Unknown [id number] [id number]. 2.593 1970 Unknown [id number] [id number]. 2.593 1970 Unknown [id number] 2.16.840.1.533452.3.579. 2.593 1970 Unknown [id number] 2.16.840.1.542461.3.579. 2.593 1970 Unknown [id number] 2.16.840.1.734455.3.579. 2.1259 1970 Unknown [id number] 2.16.840.1.315240.3.579. 2.1259 1970 Unknown [id number] 2.16.840.1.196475.3.579. 2.1259 1959 Private Health Insurance [id number] 1959 Self-pay [id number] 1959 Unknown [id number] Unknown [id number] [id number]. 2.531 Social History Date Type Detail Facility Start: 07-03-2023 [facility] History of tobacco use Current smoker [facility] History of tobacco use [facility] Start: 07-03-2023 Tobacco use and exposure Smoke less tobacco non-user [facility] Start: 08-23-2024 Alcoholic beverage intake Ex-drinker (finding) [facility] Start: 08-23-2024 History of Social function [facility] Start: 08-23-2024 Tobacco use panel [facility] Healthcare Start: 1970 Sex assigned at Not on file N [facility] History of Present illness Narrative 08-23-2024 [...] He was admitted to the hospital in [place]. When he was discharged from the hospital [...] Past Medical History: Diagnosis Date Anxiety Asthma ([facility]) Deafness in right ear Dental abscess 09/30/2022 History of being hospitalized 05/16/2024 Pancreatitis Hx of migraine headaches [place] (myocardial infarction) ([facility]) when 19-light and the next one was 32 Seizure ([facility]) 1989 Social History Tobacco Use Smoking status: [...] May of 2024. He was admitted to [facility] for that. He also had an admission [...] before his endoscopy. documented in this encounter [facility] Discharge summary note 05-03-2021 Note Date & Type Note Facility 05-03-2021 [place] [address] GIOVANNA JOHNATHAN Irvin Date of : 1970 [...] FOLLOW UP: With: Address: When: WILY Fuentes [facility] [place] [address] [facility] (1) Within 1 to 2 [...] return to clinic or to emergency room. [facility] Comment on above: Result Comment: [...] to follow daily to progress as tolerates. [facility] Clinical Note 05-02-2021 Note Date & [...] to see daily during acute care stay. [facility] History and physical note 05-02-2021 Note [...] lives at home with , works at [email or web address] in [place] Denies smoking, alcohol. Used marijuana once a [...] (05/01/21:22:00) Neutro Auto: (more content not included)... 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 Specialty Start Date End Date Wily Landrum MD [address] [address] PCP - General Family Medicine 03/16/23 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 Chassis Relationship Specialty Start Date End Date Wily Landrum MD [address] [address] PCP - General Family Medicine 03/16/23 Reason for Visit (unrecogniz ed section and content) Reason Comments Consult Abdominal pain Specialty Diagnoses / Procedures Referred By Contac t Referred To Contact General Surgery Diagnoses Bowel disease, inflammatory Procedures AR OFFICE/OUTPATIENT NEW HIGH MDM 60 MINUTES Donnie Dias, 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 [facility]. provides no warranty or guarantee of the accuracy or completeness of information in this document.
== END 2024-08-30 08:20 | disposition home or self-care (01) ==
LOC: CT 08:19
PROVIDERS: PCP Family Medicine; Visit Provider Surgery
DX: K57.32 Diverticulitis of large intestine without perforation or abscess without bleeding (principal); R10.32 Left lower quadrant pain; G89.29 Other chronic pain
CPT/HCPCS: 74177; Q9967

== ENCOUNTER 2025-01-01 18:53 | Emergency (ER) | payer OTHER, SELFPAY ==
--- OUTSIDE RECORDS SUMMARY | 2025-01-01 18:59 | XMS_ITS | CCD ---
Author Organization [facility] Care Team Providers Care Clinical Unit Coordinator Name Role Phone LUCITA, DR BLEVINS Primary [...] Palomo [employer] Unavailable EZIO DAVALOS Consulting Unavailable Felicity Landrum MD Primary Care Provider Cecilio Price Attending Unavailable Cecilio Price Admitting Unavailable SANDRITA DIAS Attending Unavailable FELICITY LANDRUM Attending Unavailable SANDRITA DIAS Attending Unavailable CECILIO PRICE Attending Unavailable SANDRITA DIAS Referring Unavailable CECILIO PRICE Attending Unavailable Allergies Allergy Classification Reported Allergen(s) Allergy Type Date of Onset Reaction(s) Facility (1 source) Adhesive agent Drug allergy (disorder) [facility] Repository (1 source) bee venom Drug allergy (disorder) [facility] (1 source) Ibuprofen Drug Allergy [facility] (10 sources) Honey bee venom Allergy to substance 07-03-2023 Unknown [facility] Work Phone: (10 sources) Wound Dressing Adhesive Drug Allergy 06-21-2021 Rash [facility] Healthcare (1 source) Adhesive Tape Drug allergy (disorder) 06-21-2021 [facility] Repository Medications Current Medications Medication Drug Class(es) Dates Sig (Normalized) Sig (Original) acetaminophen 325 mg / oxyCODONE hydrochloride 5 mg oral tablet (3 sources) Opioid Agonist Start: 07-21-2024 End: 08-23-2024 take 1 tablet by mouth every eight hours as needed oxyCODONE-acetamino phen (Percocet) 5-325 MG tablet Take 1 tablet by mouth every 8 (eight) hours if needed 07/21/2024 08/23/2024 Discontinued amoxicillin 875 mg / clavulanate 125 mg oral tablet (5 sources) Penicillin-class Antibacterial Start: 12-12-2024 End: 12-22-2024 take 1 tablet by mouth in the morning amoxicillin-clavula gerald (Augmentin) 875-125 MG tablet Indications: Diverticulitis Take 1 tablet (875 mg) by mouth in the morning and 1 tablet (875 mg) before bedtime. Do all this for 10 days. 20 tablet 12/12/2024 12/22/2024 Active Start: 07-21-2024 End: 08-23-2024 take 1 tablet by mouth in the morning amoxicillin-clavulanate (Augmentin) 875-125 MG tablet Take 1 tablet by mouth in the morning and 1 tablet before bedtime. 07/21/2024 08/23/2024 Discontinued metroNIDAZOLE 500 mg oral tablet (2 sources) Nitroimidazole Antimicrobial Start: 12-12-2024 End: 12-22-2024 take 1 tablet by mouth in the morning, then take 1 tablet by mouth in the evening, then take 1 tablet by mouth at bedtime metroNIDAZOLE (Flagyl) 500 MG tablet Indications: Diverticulitis Take 1 tablet (500 mg) by mouth in the morning and 1 tablet (500 mg) in the evening and 1 tablet (500 mg) before bedtime. Do all this for 10 days. 30 tablet 12/12/2024 12/22/2024 Active omeprazole 40 mg delayed release oral capsule (10 sources) Proton Pump Inhibitor Start: 05-23-2024 End: 05-23-2025 take 1 capsule by mouth before mealtime omeprazole (PriLOSEC) [address] capsule Indications: Gastroesophageal reflux disease with esophagitis without hemorrhage Take 1 capsule (40 mg) by mouth in the morning. Take before meals. Do not crush or chew.. 30 capsule 11 05/23/2024 05/23/2025 Active ondansetron 4 mg disintegrating oral tablet (9 sources) Serotonin-3 Receptor Antagonist Start: 07-21-2024 take 1 tablet by mouth every eight hours as needed ondansetron ODT (Zofran-ODT) 4 MG disintegrating tablet Take 4 mg by mouth every 8 (eight) hours if needed 07/21/2024 Active varenicline 1 mg oral tablet (2 sources) Partial Cholinergic Nicotinic Agonist Start: 12-12-2024 End: 02-10-2025 take 1 tablet by mouth in the morning varenicline (Chantix) 1 MG tablet Indications: Tobacco abuse Take 1 tablet (1 mg) by mouth in the morning and 1 tablet (1 mg) before bedtime. Take with full glass of water.. 60 tablet 1 12/12/2024 02/10/2025 Active Problems Active Problems Problem Classification Problem Date Documented Date Episodic/Chronic Adjustment disorders (20 sources) Adjustment disorder with mixed emotional features; Translations: [Adjustment disorder with other symptoms] Onset: 02-21-2019 07-03-2023 Chronic Asthma (10 sources) Mild intermittent asthma; Translations: [Mild intermittent asthma, uncomplicated] Onset: 02-29-2020 07-03-2023 Chronic Coagulation and hemorrhagic disorders (10 sources) Thrombocytopenic disorder; Translations: [Thrombocytopenia, unspecified] Onset: 06-07-2018 07-03-2023 Chronic Coronary atherosclerosis and other heart disease (10 sources) Coronary arteriosclerosis; Translations: [Atherosclerotic heart disease of [place] coronary artery without angina pectoris] Onset: 10-23-2021 07-03-2023 Chronic Diseases of white blood cells (2 sources) Leukemoid reaction; Translations: [Leukemoid reaction] 07-25-2024 Chronic Diverticulosis and diverticulitis (13 sources) Diverticulitis of sigmoid colon; Translations: [Diverticulitis of large intestine without perforation or abscess without bleeding] Onset: 08-23-2024 08-23-2024 Chronic E Codes: Fall (1 source) Fall on same level from slipping, tripping and stumbling without subsequent striking against object, initial encounter; Translations: [FALL SAME LVL SLIP NO STRK OBJ INIT] Onset: 02-08-2023 Episodic Esophageal disorders (10 sources) Gastro-esophageal reflux disease with esophagitis; Translations: [Gastroesophageal reflux disease with esophagitis without hemorrhage] Onset: 05-23-2024 05-23-2024 Chronic Fluid and electrolyte disorders (2 sources) Hyponatremia; Translations: [Hypo-osmolality and hyponatremia] 07-25-2024 Episodic Fracture of lower limb (3 sources) Displaced fracture of lateral malleolus of left fibula, initial encounter for closed fracture; Translations: [Other fracture of upper and lower end of left fibula, initial encounter for closed fracture] Onset: 02-08-2023 Episodic Headache; including migraine (20 sources) Migraine with aura; Translations: [Migraine with aura, not intractable, without status migrainosus] Onset: 06-20-2008 07-03-2023 Chronic Noninfectious gastroenteritis (2 sources) Inflammatory bowel disease; Translations: [Noninfective gastroenteritis and colitis, unspecified] 07-25-2024 Episodic Other and unspecified benign neoplasm (7 sources) Adenomatous polyp of colon ; Translations: [Benign neoplasm of sigmoid colon] Onset: 10-12-2024 10-12-2024 Episodic Other non-traumatic joint disorders (3 sources) Pain in left ankle and joints of left foot; Translations: [PAIN IN LEFT ANKLE] Onset: 02-05-2023 Episodic Other nutritional; endocrine; and metabolic disorders (10 sources) Lipoprotein deficiency disorder; Translations: [Lipoprotein deficiency] Onset: 06-21-2018 07-03-2023 Chronic Other nutritional; endocrine; and metabolic disorders (10 sources) Cholesterol level - finding; Translations: [Lipoprotein deficiency] Onset: 07-03-2023 07-03-2023 Chronic Residual codes; unclassified (2 sources) Tobacco user; Translations: [Tobacco use] 12-12-2024 Episodic Spondylosis; intervertebral disc disorders; other back problems (10 sources) Degeneration of lumbosacral intervertebral disc; Translations: [Degeneration of lumbar or lumbosacral intervertebral disc] Onset: 06-20-2008 07-03-2023 Chronic Sprains and strains (2 sources) Sprain of the superior tibiofibular joint and ligament, left knee, initial encounter; Translations: [SPR SUP TIBIOFIB JNT LIG LT KN INIT] Onset: 02-11-2023 Episodic Substance-related disorders (11 sources) Nicotine dependence, cigarettes, uncomplicated; Translations: [Smoker] Onset: 06-27-2021 07-03-2023 Chronic Thyroid disorders (10 sources) Hypothyroidism; Translations: [Hypothyroidism, unspecified] Onset: 04-23-2022 07-03-2023 Chronic Unclassified (3 sources) CONTACT W/AND (SUSP) EXPOS COVID-19; Translations: [CONTACT W/AND (SUSP) EXPOS COVID-19] Onset: 06-30-2022 Past or Other Problems Problem Classification Problem Date Documented Da te Episodic/Chronic Abdominal pain (20 sources) Left lower quadrant pain; Translations: [Left lower quadrant pain] Onset: 08-23-2024 08-23-2024 Episodic Administrative/social admission (10 sources) Patient encounter status; Translations: [Persons encountering health services in other specified circumstances] Onset: 05-23-2024 05-23-2024 Episodic Diseases of mouth; excluding dental (3 sources) Other lesions of oral mucosa; Translations: [OTHER LESIONS OF ORAL MUCOSA] Onset: 09-30-2022 Episodic Disorders of teeth and jaw (1 source) Periapical abscess without sinus; Translations: [PERIAPICAL ABSCESS WITHOUT SINUS] Onset: 10-06-2022 Episodic Other connective tissue disease (10 sources) Muscle pain; Translations: [Myalgia, unspecified site] Onset: 08-18-2023 08-18-2023 Episodic Other lower respiratory disease (10 sources) Rib pain; Translations: [Pleurodynia] Onset: 05-23-2024 05-23-2024 Episodic Other screening for suspected conditions (not mental disorders or infectious disease) (10 sources) Computed tomography result abnormal; Translations: [Abnormal findings on diagnostic imaging of other parts of digestive tract] Onset: 08-23-2024 08-23-2024 Episodic Pancreatic disorders (not diabetes) (20 sources) Alcohol-induced acute pancreatitis; Translations: [Alcohol induced acute pancreatitis without necrosis or infection] Onset: 05-23-2024 05-23-2024 Episodic Unclassified (1 source) CONTACT W/AND (SUSP) EXPOS COVID-19; Translations: [CONTACT W/AND (SUSP) EXPOS COVID-19] Onset: 06-29-2022 Results Test Name Value Interpretation Reference Range [facility] 09-28-2024 L - -------- Specimen: [id number] Received: 09/28/24 Status: DEYA Starks Num: [id number] Spec Type: Surgical Subm Dr: Cecilio Price DO Tissues: A GASTRIC FOR HP (BX GASTRIC ANTRUM TEST H PYL) B Colon Biopsy (POLYP SIGMOID COLON) Procedures: HE/4, Gross/Micro L4/2, H PYLORI -------- Age/ Patient Sex Location Account Attending Physician -------- Imtiaz Melara/Coretta WONG [id number] Cecilio Price DO -------- SPEC NUM: [id number] RECD: 09/28/24 STATUS: DEYA STARKS NUM: [id number] RAÚL: 09/28/[address] [facility] [address]: Cecilio Price DO ENTERED: 09/28/24-[address] [facility] [address]: Ruben [facility] SPEC TYPE: Surgical DEPT: S ENTERED BY: [id number] RECV BY: [id number] ORDERED: HE/4, Gross/Micro L4/2, H PYLORI ORDERED: HE/4, Gross/Micro L4/2, H PYLORI Pathological Diagnosis A, gastric antrum biopsy: -Antral and transitional type mucosa with moderate chronic gastritis of the mostly non- active type in both fragments, otherwise without any other specific changes observed -H. pylori immunostain with appropriate control is otherwise also negative for identified Helicobacter organism B, sigmoid polyp biopsy: -Consistent with small low-grade adenomatous polyp Clinical Information Abdominal pain, chronic left lower quadrant pain, sigmoid diverticulitis. Part A is for H. pylori Gross Description Part A is received in formalin labeled with the patients name, date of , and BX gastric antrum are 2 calzada-graff, focally erythematous, friable, 0.3 cm each in greatest dimension tissue bits. The specimen is entirely submitted in a single cassette. (1, ns, [id number]) Part B is received in formalin labeled with the patients name, date of , and sigmoid colon polyp is a calzada-graff, focally erythematous, friable, 0.3 cm polypoid fragment. The -------- Specimen: [id number] Received: 09/28/24 Status: DEYA Starks Num: [id number] Spec Type: Surgical Subm Dr: Cecilio Price DO Tissues: A GASTRIC FOR HP (BX GASTRIC ANTRUM TEST H PYL) B Colon Biopsy (POLYP SIGMOID COLON) Procedures: HE/4, Gross/Micro L4/2, H PYLORI -------- Patient: Imtiaz Melara [id number] (Continued) -------- Specimen: [id number] Received: 09/28/24 (Continued) Gross Description (Continued) Signed (signature on file) Manuel Gongora MD 10/02/242043 -------- Specimen: [id number] Received: 09/28/24 Status: DEYA Starks Num: [id number] Spec Type: Surgical Subm Dr: Cecilio Price DO Tissues: A GASTRIC FOR HP (BX GASTRIC ANTRUM TEST H PYL) B Colon Biopsy (POLYP SIGMOID COLON) Procedures: HE/4, Gross/Micro L4/2, H PYLORI -------- Patient: Imtiaz Melara [id number] (Continued) -------- Specimen: [id number] Received: 09/28/24 (Continued) Gross Description (Continued) specimen is entirely submitted in a single cassette. (1, ns, [id number] B) Microscopic Description Microscopic examinations are performed supporting the above interpretation CPT Codes 87298 X2 00666 -------- -------- Specimen: [id number] Received: 09/28/24 Status: DEYA Starks Num: [id number] Spec Type: Surgical Subm Dr: Cecilio Price DO Tissues: A GASTRIC FOR HP (BX GASTRIC ANTRUM TEST H PYL) B Colon Biopsy (POLYP SIGMOID COLON) Procedures: HE/4, Gross/Micro L4/2, H PYLORI -------- Patient: Imtiaz Melara [id number] (Continued) -------- Signed (signature on file) Douglas-Jose Gongora MD 10/02/242043 Normal [facility] ALL CBC WITH AUTO DIFFon Erythrocyte distribution width (RBC) [Ratio] 13.4 % 11.0 - 15.0 % [facility] Hematocrit (Bld) [Volume fraction] 49.9 % 42.0 - 54.0 % [facility] Hemoglobin (Bld) [Mass/Vol] 16.2 g/dL 14.0 - 18.0 g/dL [facility] Interpretation and review of laboratory results Abnormal [facility] MCH (RBC) [Entitic mass] 28.1 pg 25.9 - 34.0 pg [facility] MCHC (RBC) [Mass/Vol] 32.5 g/dL 29.9 - 35.2 g/dL [facility] MCV (RBC) [Entitic vol] 86.5 fL 80.0 - 94.0 fL [facility] Platelet mean volume (Bld) [Entitic vol] 12.5 fL 9.5 - 13.5 fL [facility] TBH PLT [address] [facility] RBC [address] [facility] WBC 7.5 [facility] CT ANKLE LT WO CONon 023 [...] DAYNA HUNG Date: 2023-02-11 15:32 Normal [facility] XR ANKLE LT MIN 3 Von 2022 XR ANKLE LT MIN 3 V EXAM: XR ANKLE LT UT N 3 V HISTORY: Bone injury COMPARISON: [...] MICHELINE ARREDONDO Date: 2023-02-05 08:50 Normal [facility] CBC W MANUAL DIFFon 09-30-20 22 ATYPICAL LYMPH # Normal [facility] Comment on above: Performed By: #### C EDIL #### [facility] [address] [place] [address] Dr. Kiran Gongora ATYPICAL LYMPH % Normal [facility] Comment on above: Performed By: #### C EDIL #### [facility] [address] [address] [address] Kiran Gongora BAND # 0.0 103/ul Normal 0.0-0.3 [facility] Comment on above: Performed By: #### C EDIL #### [facility] [address] [address] [address] Kiran Gongora BAND % 0 % Normal 0-5 [facility] Comment on above: Performed By: #### C EDIL #### [facility] [address] [address] [address] Kiran Gongora BASOM # 0.10 103/ul Normal 0.00-0.10 [facility] Comment on above: Performed By: #### C EDIL #### [facility] [address] [place] [address] Dr. Kiran Gongora BASOM % 1.0 % Normal 0.2-2.0 [facility] Comment on above: Performed By: #### C BCMAN #### [facility] [address] [place] [address] Dr. Kiran Gongora BLAST # Normal [facility] Comment on above: Performed By: #### C BCMAN #### [facility] [address] [place] [address] Dr. Kiran Gongora BLAST % Normal [facility] Comment on above: Performed By: #### C BCDERIK #### [facility] [address] [place] [address] Dr. Kiran Gongora CORRECTED WBC Normal 4.0-11.0 [facility] Comment on above: Performed By: #### C EDIL #### [facility] [address] [place] [address] Dr. Kiran Gongora EOS # 0.41 103/ul Normal 0.00-0.70 [facility] Comment on above: Performed By: #### C BCDERIK #### [facility] [address] [place] [address] Dr. Kiran Gongora EOS% 4.0 % Normal 0.9-7.0 [facility] Comment on above: Performed By: #### C EDIL #### [facility] [address] [place] [address] Dr. Kiran Gongora HCT 47.9 % Normal 42.0-54.0 [facility] Comment on above: Performed By: #### C BCDERIK #### [facility] [address] [place] [address] Dr. Kiran Gongora HGB 15.4 g/dl Normal 14.0-18.0 [facility] Comment on above: Performed By: #### C BCDERIK #### [facility] [address] [place] [address] Dr. Kiran Gongora LYMPHM # 2.37 103/ul Normal 1.20-3.80 [facility] Comment on above: Performed By: #### C EDIL #### [facility] [address] [place] [address] Dr. Kiran Gongora LYMPHM% 23.0 % Normal 20.5-60.0 [facility] Comment on above: Performed By: #### C EDIL #### [facility] [address] [place] [address] Dr. Kiran Gongora MCH 28.2 pg Normal 25.9-34.0 [facility] Comment on above: Performed By: #### C EDIL #### [facility] [address] [place] [address] Dr. Kiran Gongora MCHC 32.2 g/dl Normal 29.9-35.2 [facility] Comment on above: Performed By: #### C EDIL #### [facility] [address] [place] [address] Dr. Kiran Gongora MCV 87.7 fL Normal 80.0-94.0 [facility] Comment on above: Performed By: #### C EDIL #### [facility] [address] [place] [address] Dr. Kiran Gongora METAMYELOCYTE # Normal [facility] Comment on above: Performed By: #### C EDIL #### [facility] [address] [place] [address] Dr. Kiran Gongora METAMYELOCYTE % Normal [facility] Comment on above: Performed By: #### C EDIL #### [facility] [address] [place] [address] Dr. Kiran Gongora MONOM# 0.31 103/ul Normal 0.30-0.80 [facility] Comment on above: Performed By: #### C EDIL #### [facility] [address] [place] [address] Dr. Kiran Gongora MONOM% 3.0 % Normal 1.7-12.0 [facility] Comment on above: Performed By: #### C EDIL #### [facility] [address] [place] [address] Dr. Kiran Gongora MPV 12.6 fL Normal 9.5-13.5 [facility] Comment on above: Performed By: #### C BCMAN #### [facility] [address] [address] [address] Kiran Gongora MYELOCYTE # Normal [facility] Comment on above: Performed By: #### C BCMAN #### [facility] [address] [address] [address] Kiran Gongora MYELOCYTE % Normal [facility] Comment on above: Performed By: #### C BCMAN #### [facility] [address] [place] [address] Dr. Kiran Gongora NRBC Normal [facility] Comment on above: Performed By: #### C BCDERIK #### [facility] [address] [place] [address] Dr. Kiran Gongora PLT 137 103/ul Critically low 150-450 [facility] Comment on above: Performed By: #### C EDIL #### [facility] [address] [place] [address] Dr. Kiran Gnogora RBC 5.46 106/ul Normal 4.70-6.10 [facility] Comment on above: Performed By: #### C BCDERIK #### [facility] [address] [place] [address] Dr. Kiran Gongora RDW 13.6 % Normal 11.0-15.0 [facility] Comment on above: Performed By: #### C BCDERIK #### [facility] [address] [place] [address] Dr. Kiran Gongora SEG # 7.11 103/ul Critically high 1.40-6.50 [facility] Comment on above: Performed By: #### C BCMAN #### [facility] [address] [place] [address] Dr. Kiran Gongora SEG % 69.0 % Normal 43.0-75.0 [facility] Comment on above: Performed By: #### C BCMAN #### [facility] [address] [place] [address] Dr. Kiran Gongora WBC 10.3 103/ul Normal 4.0-11.0 [facility] Comment on above: Performed By: #### C [facility] #### [facility] [address] [address] FACIAL BONES W LISANDRAon 09-09 CT FACIAL BONES W CON CT FACIAL [...] EZIO DAVALOS Date: 2022-09-30 05:26 Normal [facility] CT NECK ST W CONon 2 [...] DAYNA HUNG Date: 2022-09-30 07:21 Normal [facility] CULTURE BLOODon 09-30-2022 Microscopic examination of blood, culture Culture Observations: NO GROWTH AT 5 DAYS. Normal [facility] Comment on above: Performed By: #### B LDCX2 #### [facility] [address] [place] [address] Dr. Kiran Gongora Microscopic examination of blood, culture Culture Observations: NO GROWTH AT 5 DAYS. Normal [facility] Comment on above: Performed By: #### B LDCX1 #### [facility] [address] [place] [address] Dr. Kiran Gongora PROF 14(COMP METB)on 022 Albumin [Mass/Vol] 3.2 g/dL Critically low 3.4-5.0 [facility] Comment on above: Performed By: #### C MP #### [facility] [address] [place] [address] Dr. Kiran Gongora Albumin/Globulin [Mass ratio] 0.9 {ratio} Normal [facility] Comment on above: Performed By: #### C MP #### [facility] [address] [place] [address] Dr. Kiran Gongora ALP [Catalytic activity/Vol] 83 U/L Normal 46-116 [facility] Comment on above: Performed By: #### C MP #### [facility] [address] [place] [address] Dr. Kiran Gongora ALT [Catalytic activity/Vol] 44 U/L Normal 16-63 [facility] Comment on above: Performed By: #### C MP #### [facility] [address] [place] [address] Dr. Kiran Gongora Anion gap [Moles/Vol] 8.2 mmol/L Normal [facility] Comment on above: Performed By: #### C MP #### [facility] [address] [place] [address] Dr. Kiran Gongora AST [Catalytic activity/Vol] 27 U/L Normal 15-37 [facility] Comment on above: Performed By: #### C MP #### [facility] [address] [place] [address] Dr. Kiran Gongora Bilirubin [Mass/Vol] 0.2 mg/dL Normal 0.2-1.0 [facility] Comment on above: Performed By: #### C MP #### [facility] [address] [address] [address] Kiran Gongora Calcium [Mass/Vol] 8.5 mg/dL Normal 8.5-10.1 [facility] Comment on above: Performed By: #### C MP #### [facility] [address] [address] [address] Kiran Gongora Chloride [Moles/Vol] 109 mmol/L Critically high 98-107 [facility] Comment on above: Performed By: #### C MP #### [facility] [address] [address] [address] Kiran Gongora CO2 [Moles/Vol] 30.4 mmol/L Normal 21.0-32.0 [facility] Comment on above: Performed By: #### C MP #### [facility] [address] [place] [address] Dr. Kiran Gongora Creatinine [Mass/Vol] 1.12 mg/dL Normal 0.70-1.30 [facility] Comment on above: Performed By: #### C MP #### [facility] [address] [address] [address] Kiran Gongora EGFR-AF MONGOLIAN >60 Normal >=60 [facility] Comment on above: Performed By: #### C MP #### [facility] [address] [place] [address] Dr. Kiran Gongora EGFR-NON AF MONG[place]IAN >60 Normal >=60 [facility] [facility] Comment on above: Performed By: #### C MP #### [facility] [address] [place] [address] Dr. Kiran Gongora Globulin (S) [Mass/Vol] 3.4 g/dL Normal T [facility] Comment on above: Performed By: #### C MP #### [facility] [address] [place] [address] Dr. Kiran Gongora Glucose [Mass/Vol] 72 mg/dL Critically low 74-106 Th [facility] Comment on above: Performed By: #### C MP #### [facility] [address] [place] [address] Dr. Kiran Gongora Potassium [Moles/Vol] 3.6 mmol/L Normal 3.5-5.1 [facility] Comment on above: Performed By: #### C MP #### [facility] [address] [address] [address] Kiran Gongora Protein [Mass/Vol] 6.6 g/dL Normal 6.4-8.2 [facility] Comment on above: Performed By: #### C MP #### [facility] [address] [address] [address] Kiran Gongora Sodium [Moles/Vol] 144 mmol/L Normal 136-145 [facility] Comment on above: Performed By: #### C MP #### [facility] [address] [address] [address] Kiran Gongora Urea nitrogen [Mass/Vol] 19.0 mg/dL Critically high 7.0-18.0 [facility] Comment on above: Performed By: #### C MP #### [facility] [address] [address] [address] Kiran Gongora Urea nitrogen/Creatinine [Mass ratio] 17.0 mg/mg Normal [facility] Comment on above: Performed By: #### C MP #### [facility] [address] [address] [address] Kiran Gong[facility] SARS-CoV-2 (COVID-19) RNA CATRACHITO+probe Ql (Unsp spec) Not detected Normal NOT DETECTED [facility] Comment on above: Result Comment: This test is not yet approved or cleared by the [place] FDA. When there are no FDA-approved or cleared tests available, and other criteria are met, FDA can make tests available under an emergency access mechanism called an Emergency Use Authorization (EUA). The EUA for this test is supported by the [place] of Health and Human Service's (HHS's) declaration [...] SARS-CoV-2. Performed By: #### C VDTBH #### [facility] [address] [place], [place] [address] Dr. Kiran Gongora TSH w/ Reflex to Free T4on 1 12-24-2020 TSH 4.010 uIU/mL Normal 0.400-4.500 [facility] Comment on above: Performed By: #### T SH reflex FT4 #### [facility] [address], [place] [id number] Coding Summary.on 05-08-2021 Coding Summary. CD:[id number] G h0bWw+PGhlYWQ+TM3QAEC nS83izYHgwN9HR2gERY4S SKUSLLRUIZ3KSJ7eaGF8J HphN8FcozLz TmnqhKDyPS21IIj5PJL0q DjjSRzvuN2xkYUbD3o7Uk McMK86uG18NYugSWSvAfI 3LjZpbjsgbWFy W3kyUlNzaEFjNlj+PHRhY mxlIHdpZHRoPScxMDAlJy WsbLusSA1gVf9qRMUoMAF vbGxhcHNlOiBj u0bdVSJgZXppEQ5nrRkuC 4DkfLJ5TYDpn6e9Ss93uH I+ULPeBSU6oKlgXBwum49 4CfKfc9rySEJ6 iDCzJLuuZSE8L01px9L0L KUxJEYcVOE2kSU2bR3yqL jtdtcuA5PwrDVoEpG4YEA 5jQVmnF4edRqd rkdsiK0qMll+X22HWY8KC PZTRS2UVpj1D8XbBppngQ I+PJ51DSYxGI31jDYhcMK qm8bsfRh0VuLv OAPnBAT1eKnrUFwpd3RfE FEuG41ncIDkb9L7XFVcbS zqdWBfLrDxuWX2qN4qNBl fgksjg5prbbhm Qzggn3bure81bU55Q24rO CuuZSJdZFK4CPEhHXPokH abyp0srW0jQd6+OWpey2k au8xqtRv7CgZo GINwvqHvpTaxDEP3n8IqI h69S5HxuRehi4LnSub2ni 90nPYtf7R6qNN3UOusOYE zpN1dXAhjEsA2 OGJcIbPnqO42iBRpNTkjC b9thDirqLfeKT5hZWPurg grPBGskI7eWHAykXSldDs kDO8pDCAthxfc u838VhYoJPK4VFZoaTFxF 4DbkU5rWfKbSVLyAHOrC7 SacZXdUFdaF389WStjTsG 0OGKhejPgQ0Ei BBWhbJfzXiJ6e7V2Tc1Zg 3EwnproVFH4HTghDRY1Vq MmYzChKtP8I2HuTfe2HNE chDpqQQ4aK2Qb CRTtlawapcypbGM6YDXoQ RMhxI32bARqFVmgFg9mk2 P7u464ZRXvREBguZ05Mb6 udDogMTBwdCBU uB4oeqesw7cmwxfiVtSlX JIyAXn2SEl0VOZvmCenHm DiRAY7FfD3PQF9uDUtgC1 tnVcxabihjU0n Oyc+Z85oqJ3kCGO3TCI5x gteFFQkfoSsWL04EW85Y3 RyPjwvdGFibGU+PGRpdiB ceIkqXR5iQgOp d9ljy3VdPBscE5DiHLFdO LgiLeb4CJFbEQZ5rRH0vS 1aAINcUCvdb8S5rUL9I2M gwqZdla2nq3zi DYLoEJjmH12gcZRgm0B2Q LSktHV9ZSEojOsdIwKnxB 93Oyc+BAQdgOwof1RcImk dq9vrr4sxkNa5 YlKkQRPtfiFhhMztKNO7q 5UmFx92A38jFOpjDOWaZZ ZtFRTuGXVihIqqfi4ymL8 wIi8+PGNvbCB3 zED4xH4jKWOeVxR7DLvfV 337ByGfzBArYyxav6tni8 tmzWz2FcPaQUVtirFzdQx kXEF0z5AcJu14 E16jBRpcMIAeUCCgEOUfV ZHecBhplb1vrF3hFn2+PC 4yt9ruxt82rX19rBG+PHR yWYX5mWlqDYpd HGJgjE3dOOfqRtJ5MFHsR tMnwF68vNBeJMnkDc4ghG pkzRtdMY6uJSRceniwd62 2OuMur2piZCSr qKMoPCmvTDR3N56vu4T6Q MTdOEGbEHF1rGC4hY2ryZ lnbjogbGVmdDsgdmVydGl gNAymLGcnY383 IHRvcDsnPlBhdGllbnQgT uAfHIo4Z7JmRsh8YLBoxK jdGU6xjMViWRdkGw3iiXr ikSzzVR2eORSv ecsvx999OiSwc0xrRBIur QApQFsbTLL1A87jr7Y9HV PqNCVbGFC9cAH2oR2nuRf nbjogbGVmdDsg bqJjbWfeWEapITtfB438D HRvcDsnPkJpcnRoIERhdG A2FT39AE86rRSpj5U5xFK 2L8IyQYEgvnvv jcyieLH8EBNjKEMsjU32K x3ioOdoZq5iOIHoTDG9DI IbxSRmR5CewX4dIqUsGGA cSYLyH8XauQYd XEtzL810RNojIcT8VOOig vYmH9VxKGBxeKkwAiH5e5 E8Oo8SZ5L6QC19IS62oRZ oc0V3uWZ9H8Cp YJXcuadhdujslXG5KFBcA DLmnU27Hj0tcNacHx2dIM BpJHZ2MHDjhQQbV1SkuP3 yOiAjMDAwMDAw E6RmtHNvLPuwI405OUkwB zP9GYItuvQfW9MeSXVokK asLmV3u1S3Zn9COWa3CQ6 8TR84aEEbm4M6 qEY2V0IcWUJhiqtqfkgfr DH8BGIlEMHmdT37Jb4csI hwGu5lLPWnDEE3WGBgqAH cL2OzhI8dKtSm BODaOZPyW2ExtYYnQHcxI 559VYsuHyG0QKRpapLxB2 OvGBUqqMwzYsT2h8T1Ja1 AXLLkRH37ONW5 cZY2MC31RS77R7OyJseba GFibGU+PHRhYmxlIHdpZH RoPScxMDAlJyBzdHlsZT0 xQw1bGRBkIYUd gPvfkWDvVdQuo3fwGPPuZ RxoFR3uzMqdZ0HhyDP6CY Vgz7b2Qk48I72lU5IacYG +TNVjtTW5yMS0 hV7vCwVjTyN7RWmgO679K aNfuGUvNjalk9djj7qkwJ o0BiC9OIMjxoUaiJrmRYG 2d9RhLe29Z75c IHdpZHRoPSIxNSUiIHZhb Mbtul2yrX8nPq4+PGNvbC U9jZK8uS0sKtIdFdW0XNh lX401LoGeiSEy Lkqrt6pcq5egoDd8ZtRvM ZAmktUbmHdiPUL4z9IhAj 58Y6WeyFaoj4AhOji3mc0 8bNLyp0W1bFY4 T1NcUNLzapiboILcpPiuM R9wHISbfoceNARuaD5cWI OkZ7j8XmQoQfU7AYnyU0Z ckyJ4HFVqoBWy PAzhOPP8T99kn0L7HNShG TAlFWL8bBT4mQ7ngSsojc ogbGVmdDsgdmVydGljYWw vDMjfK567DVNj wLkjPSJycO8tTJXzuOTtx XpxFZ6jAKCytxyoOgGDN1 IFJiFYkhfpN2rISLaKYSE AWD74KN65gGSc v4Q0dLD7E5InLKQzpzigs ewffEN2HQHlQPVcyI21gP GcYDxjUf8iq2B0t886MCU dGEYoaK30Pw5u bBerFXEjuFPCqO2iuxcbn 0dqnpjtRkSiMBLoHOd8TT c4ARQnrSddAtOaBSV1NyU 1OLI8aADfiH3s rMvfafmmnF1qDnm+MDEvM YKjJRz6UVglcLA+PHRkIH A3xImaKVnpMJShvQ1sCRN wD2n3OmCyEqN6 KFhgG0UpMICthrveEo90h F8rCbKtHxR8VVqfX9Kmit Q7RNLnwAUkEWzsUDH6D49 ji1F5GBBpSJXv YQA7gSS4sO4mjZnmhoyhx GVmdDsgdmVydGljYWwtYW iuZ660HAPufYljGtKvKFx vLCEkAK83LV62 oKKab6S4rIX5W5QyMNWeb jufdexzzFV8LTLjPDLgzP 67jAZjXKgdSs9mn5I3e88 7TVTnKYYmeY42 Wf0mmBkjDBEgfKKBqS5lu cnvm9whevjqOhMbQNBwVL h7RGj2IONgzCthDaWqDAE 0JcT1ONR1wOSv kD4qwLxqozfzrX3xKst+T WFsZTwvdGQ+SJKnSSK8iS dcPOojRLCfhD4oQBEiQ1m 5YyEvCsN5QLxd G8EoPLNukquaKn21xE6bA yUbTkB0WTjcR4PjdjW4SX TpdNRmTVjgRKH7J54nf7M 6PQNfZZVmZPV0 jKX9xE3uxDdiwpqywVKnt DsgdmVydGljYWwtYWxpZ2 39WGEnrAsjKx5nk7XlqbF 0pB0tUH67MK33 U5FcRggfyHHkuLI+PHRhY mxlIHdpZHRoPScxMDAlJy VsuGcdNK9iCy1iNVTuEHB vbGxhcHNlOiBj q3ttHNMzVHihOY6tzIpvG 5NsuLD9EUUkn4e9Kg00N4 0dQ3CtmOR+LRNdxJQ9cCH 7rY0kPkXbKnT0 YDnmQ228EwGzcPOxUnsdp 0vsb1rwsWl9BcZcTFQnqa CooTdvVAO4b2HoDy22H48 sIHdpZHRoPSIy CXKcICJmlPcfry8tlC2fU i8+ILWhrMP5nNB1uI2lJw DxVrV3VKzlP215SrNteFY kMrhgH80tY5Df dXA+PKSyFdu3CZUfnXikH N8bnDRyJUxcMx9aYTN9Oj XyHlOvBSenW3ZhBIKqqty bozbzqPQ6CCCd RVKvkU17Xb8vfVdmEd2gE RHgXQX6MXYqgIIdZ1CixS 7yOaSnZTOfHQJcK6NimNT dWUctW040SXnh QqO6JEHcxtOzF5GxVTRyy HidArJ2d8B4Wc1EvZycbW DcZL9iXyWpDUm9L4DaSve 8NDVhdMstGQ1x fBLyEJmbKj3vcDydoSafS D0yKDAyyygke698BaZkd4 iaJTXloMDuUMuvMSC2P62 ju4T3CTPzCNKp KEV3oTD2dK1tsBtmfpoxq GVmdDsgdmVydGljYWwtYW bhU585ZKUfpHpnHaKYHes 7R6LqKtw8NOEc jGymVI1uqJXsZPuaPc4mx XgwaVgnQV7aCMZodrcfz8 91UfLol0ygKENeuCXoGTt fUIS7V66wy1I6 FOWvDDJjVPF6wDM8iB9sg GlnbjogbGVmdDsgdmVydG muBUzwNRzpY963UZVxbAj sRn7OPpv1B1Yg Euq5VWYokYssTT3elUEtM MklNj4riMgcqIlrZS8sXY Lnaxzou986TtOwd2eiFKY wcHQgVGltZXM7 L44sy5R4OCVaTPYeLCC5z VH3bG3hbRlolfqaaWSwwM jdflPygJohQZozMKtpF88 6IHRvcDsnPlBh eWVyOjwvdGQ+NO60pj88J 1QtGmmiElm1FLSjMWH2qG M7hS5aQMBcZUxpt7F3hGP 6U5DsvcYjak2g b2xs (more content not included)... Normal [facility] ED Traumaon 05-06-2021 ED Trauma [id number]# 1.00CD:127 [facility] EMS Documentationon 05-05-20 EMS Documentation [id number]# 1.00CD:127 Normal [facility] ABO/Rh History Checkon 05-02 ABO/Rh History Check Type verified by second s Normal [facility] Comment on above: Performed By: #### 1 [id number], [id number], [id number], [id number] ####[facility] [address] [place] [address] ABO/Rh Retypeon 05-02-2021 ABO/Rh Retype Interp Positive Invalid Interpretation Code [facility] Comment on above: Performed By: #### 1 [id number] ####[facility] [address] [place] [address] ABSCon 05-02-2021 ABSC Gel Interp Negative Normal [facility] Comment on above: Performed By: #### 1 [id number], 02114507, 13285310, 0382728 ####[facility] [address] [place] [address] Auto Diffon 05-02-2021 Basophils/100 WBC (Bld) 1.3 % Normal 0.0-2.0 [facility] Comment on above: Order Comment: Order Added by Discern Expert. Performed By: #### 2 177193, 7569333, 8465028, 74025583 #### [facility] [address] [place] [address] Basophils/Leukocytes Auto (Bld) [Pure # fraction] 0.1 E9/L Normal 0.0-0.2 [facility] Comment on above: Order Comment: Order Added by Discern Expert. Performed By: #### 2 213795, 2578819, 2719094, 70724955 #### [facility] [address] [place] [address] Eosinophils/100 WBC (Bld) 4.2 % Normal 0.0-8.0 [facility] Comment on above: Order Comment: Order Added by Discern Expert. Performed By: #### 2 440459, 6416785, 1683631, 70198049 #### [facility] [address] [place] [address] Eosinophils/Leukocytes Auto (Bld) [Pure # fraction] 0.2 E9/L Normal 0.0-0.5 [facility] Comment on above: Order Comment: Order Added by Discern Expert. Performed By: #### 2 838158, 1004172, 4704444, 81135523 #### [facility] [address] [place] [address] Lymphocytes/100 WBC (Bld) 36.9 % Normal 14.0-50.0 [facility] Comment on above: Order Comment: Order Added by Discern Expert. Performed By: #### 2 234603, 9899857, 0499421, 49775016 #### [facility] [address] [place] [address] Lymphocytes/Leukocytes Auto (Bld) [Pure # fraction] 1.7 E9/L Normal 1.0-4.0 [facility] Comment on above: Order Comment: Order Added by Discern Expert. Performed By: #### 2 384749, 5806925, 9606621, 18421626 #### [facility] [address] [place] [address] Monocytes/100 WBC (Bld) 8.7 % Normal 4.0-14.0 [facility] Comment on above: Order Comment: Order Added by Discern Expert. Performed By: #### 2 487496, 1919990, 4412532, 28989589 #### [facility] [address] [place] [address] Monocytes/Leukocytes Auto (Bld) [Pure # fraction] 0.4 E9/L Normal 0.2-1.0 [facility] Comment on above: Order Comment: Order Added by Discern Expert. Performed By: #### 2 943134, 3660667, 0577587, 37217657 #### [facility] [address] [place] [address] Neutrophils/100 WBC (Bld) 48.9 % Normal 36.0-75.0 [facility] Comment on above: Order Comment: Order Added by Discern Expert. Performed By: #### 2 270891, 4389498, 2240650, 32957380 #### [facility] [address] [place] [address] Neutrophils/Leukocytes Auto (Bld) [Pure # fraction] 2.2 E9/L Normal 2.0-7.5 [facility] Comment on above: Order Comment: Order Added by Discern Expert. Performed By: #### 2 194931, 9178488, 3919490, 54722796 #### [facility] [address] [place] [address] BMPon 05-02-2021 Anion gap [Moles/Vol] 11 mmol/L Normal 6-16 [facility] Comment on above: Performed By: #### 2 877164, 2417108, 8705550, 50991941 #### [facility] [address] [place] [address] Calcium [Mass/Vol] 8.3 mg/dL Low 8.9-11.1 [facility] Comment on above: Performed By: #### 2 460972, 1023796, 5798220, 56201882 #### [facility] [address] [place] [address] Chloride [Moles/Vol] 107 mmol/L Normal 101-111 [facility] Comment on above: Performed By: #### 2 280836, 1498083, 8519278, 83746096 #### [facility] [address] [place] [address] CO2 [Moles/Vol] 25 mmol/L Normal 21-31 [facility] Comment on above: Performed By: #### 2 805361, 8977188, 7122137, 25452098 #### [facility] [address] [place] [address] Creatinine [Mass/Vol] 1.2 mg/dL Normal 0.5-1.3 [facility] Comment on above: Performed By: #### 2 843253, 3184019, 3922754, 13753993 #### [facility] [address] [place] [address] Glucose [Mass/Vol] 88 mg/dL Normal 55-199 [facility] Comment on above: Result Comment: If t his glucose result represents a fasting glucose, interpretation should refer to the following reference range: 55-99 mg/dL Performed By: #### 2 067124, 3035933, 5019972, 27064227 #### [facility] [address] [place] [address] Potassium [Moles/Vol] 3.5 mmol/L Normal 3.5-5.3 [facility] Comment on above: Performed By: #### 2 278252, 6572602, 0724243, 12884762 #### [facility] [address] [place] [address] Sodium [Moles/Vol] 139 mmol/L Normal 135-145 [facility] Comment on above: Performed By: #### 2 070111, 0916423, 0147805, 78643899 #### [facility] [address] [place] [address] Urea nitrogen [Mass/Vol] 14 mg/dL Normal 5-21 [facility] Comment on above: Performed By: #### 2 749428, 8544794, 9380819, 82316480 #### [facility] [address] [place] [address] Urea nitrogen/Creatinine [Mass ratio] 12 No Units Normal 10-20 [facility] Comment on above: Performed By: #### 2 016998, 3146536, 5361056, 87168078 #### [facility] [address] [place] [address] CBC w/ Auto Diffon Erythrocyte distribution width (RBC) [Ratio] 13.5 % Normal 10.9-14.2 [facility] Comment on above: Performed By: #### 2 698945, 5283334, 1236610, 06309064 #### [facility] [address] [place] [address] Hematocrit (Bld) [Volume fraction] 41.0 % Normal 37.7-49.0 [facility] Comment on above: Performed By: #### 2 073529, 7626065, 3664337, 28947896 #### [facility] [address] [place] [address] Hemoglobin (Bld) [Mass/Vol] 13.6 g/dL Normal 13.5-17.5 [facility] Comment on above: Performed By: #### 2 063001, 5557180, 2720879, 84850359 #### [facility] [address] [place] [address] MCH (RBC) [Entitic mass] 27.6 pg Normal 27.0-34.0 [facility] Comment on above: Performed By: #### 2 711319, 4902980, 9153266, 66109770 #### [facility] [address] [place] [address] MCHC (RBC) [Mass/Vol] 33.2 g/dL Normal 31.4-36.0 [facility] Comment on above: Performed By: #### 2 067434, 2611419, 6983742, 66072096 #### [facility] [address] [place] [address] MCV (RBC) [Entitic vol] 83.1 fL Normal 80.0-100.0 [facility] Comment on above: Performed By: #### 2 230290, 8985581, 2085485, 37623398 #### [facility] [address] [place] [address] Platelet mean volume (Bld) [Entitic vol] 9.8 fL Normal 6.4-10.8 [facility] Comment on above: Performed By: #### 2 524749, 2870091, 3801374, 97350255 #### [facility] [address] [place] [address] Platelets (Bld) [#/Vol] 129.0 E9/L Low 150.0-500.0 [facility] Comment on above: Performed By: #### 2 656903, 6120506, 2484721, 63314999 #### [facility] [address] [place] [address] RBC (Bld) [#/Vol] 4.9 E12/L Normal 4.3-5.9 [facility] Comment on above: Performed By: #### 2 343310, 5372980, 3150963, 14912817 #### [facility] [address] [place] [address] WBC corrected for nucl RBC Auto (Bld) [#/Vol] 4.5 E9/L Normal 4.0-11.0 [facility] Comment on above: Performed By: #### 2 041791, 5256088, 5138447, 72849100 #### [facility] [address] [place] [address] CT Abdomen/Pelvis w/ Contras ton 05-02-2021 CT [...] 300 Contrast amount in ml's: 100 Normal [facility] CT Chest w/ Contraston 05-02 CT Chest [...] Contrast amount in ml's: 100 Normal [facility] CT Head or Brain w/o Contras [...] MD Transcribed by: DYAN Technologist: CHASE Normal [facility] CT Spine Cervical w/o Contra ston 05-02-2021 [...] MD Transcribed by: DYAN Technologist: CHASE Normal [facility] Consent for Treatmenton 04-09 Consent for Treatment [id number]# 1.00CD:127 Normal [facility] Discharge Instructionson Discharge Instructions [id number]# 1.00CD:127 Normal [facility] ED Clinical Summaryon 2020 ED Clinical Summary [address] [address] ED Clinical Summary Person Information Name: IMTIAZ MEL[facility] Age[facility] 50 Years : 1970 Sex: Male Language: Tajik PCP: FELICITY LANDRUM MD Marital Status: Visit Id: Visit Reason: Neck pain; Trauma - major; Chest pain; FALL Speciality: Acuity: 2 Enc Type: Emergency Med Service: Emergency Arrival: 05/01/2021 21:04:08 Discharge: LOS: 000 03:19 Checkin: 05/01/2021 21:04:08 Checkout: 05/02/2021 00:23:44 Dispo Type: Admitted as IP to this [facility] EVENTS: Event Name Event Status Request [...] 00:23:44 05/02/2021 00:23:44 05/02/2021 00:23:44 ADDRESS: [address] [facility] [phone] PHYS DOC NOTES: MEDICAL INFORMATION: Prescriptions Given: PATIENT EDUCATION INFORMATION: Instructions: Follow up: DIAGNOSIS: 1:Fall; 2:Concussion Normal [facility] ED Note-Physicianon 05-02-20 ED Note-Physician Basic Information [...] senna 8.6 (more content not included)... Normal [facility] Comment on above: Result Comment: Elec tronically Signed By: Ramírez Tran, Katie Ko\.br\Date and Time Signed: 05/02/21 00:48 EDT ED Patient Education Noteon 05-02-2021 ED Patient Education Note Normal [facility] ED Patient Summaryon 021 ED Patient Summary [place] [id number] Patient Discharge Instructions Person Information Name: IMTIAZ MELARA Jr Age: 50 Years Arrival Date: 05/01/2021 21:04:08 Discharge Diagnosis: 1:Fall; 2:Concussion Primary Care Physician: FELICITY LANDRUM MD Provider Information Primary Provider: Katie Elmore M.D. Advanced Tail End Rider:None The exam and treatment you received in the Emergency Department were for an urgent problem and are not intended as complete care. It is important that you follow up with a doctor, nurse practitioner, or physician?s safety assistant for ongoing care. If your symptoms become worse or you do not improve as expected and you are unable to reach your usual health care provider, you should return to the Emergency Department. We are available 24 hours a day. IMTIAZ MELARA Jr has been given the following [...] opioids can be used to help relieve kkwjlfux-xt-lupvjv pain and are often prescribed following a [...] be struggling with addiction, tell your health care administrative tech and ask for guidance or call [facility] National Helpline at 4-764-953-OGEY. g Source: [place] Department of Health and Human Services/Center for Disease Control & Prevention [facility] Medications Given: Medication Dose Route So (more content not included)... Normal [facility] Inpatient Clinical Summaryon 05-02-2021 Inpatient Clinical Summary [place] [id number] Clinical Summary Person Information: Name: IMTIAZ MELARA Jr Age: 50 Years : 1970 Sex: Male PCP: FELICITY LANDRUM MD Marital Status: Race: White Ethnicity: Non- or Language: Tajik Visit Id: Visit Reason: Neck pain; Trauma - major; Chest pain; CONCUSSION Speciality: Acuity: Enc Type: Observation Med Service: Medical Arrival: 05/01/2021 21:04:08 Discharge: Dispo Type: Admitted as IP to this Hosp Address: [address] [place] [id number] Provider Notes: Diagnosis: 1:Fall; 2:Concussion Problems No [...] Referring Physician: Follow up: With: Address: When: FELICITY LANDRUM [address] [place] [id number] Business (1) Within 1 to 2 weeks Comments: Follow with your PCP within 1-2 weeks. Call for followup appointment. Patient Education Information: Concussion, Adult Normal [facility] Inpatient Patient Summaryon 05-02-2021 Inpatient Patient Summary [address] [address] Patient Discharge Instructions PERSON INFORMATION Name: IMTIAZ MELARA Jr [place] Date of : 1970 Current Date: 05/02/2021 15:36:16 PHYSICIANS Admitting Physician: Arpita Mckeon MD Primary Care Physician: FELICITY LANDRUM MD PCP Comment: Discharge Diagnosis: 1:Fall; 2:Concussion Condition at Discharge: Improved IMTIAZ MELARA Jr has been given the following [...] results: None Follow up: With: Address: When: [place] [address] Business (1) Within 1 to 2 weeks Comments: Follow with your PCP within 1-2 weeks. Call for followup appointment. In the event that this physician does not participate in your insurance network, please consult with your insurance company to find a nearby participating provider. Comment: I, GIOVANNA Sandra, IMTIAZ Bryan, have received the attached patient education [...] Get angela (more content not included)... Normal [facility] Interdisciplinary Note - Tulio e Manageron 05-02-2021 Interdisciplinary Note - Safety Supervisor patient off unit for MRI 1430- CRM spoke with patient in room. patient is alert and oriented. Discussed per dr Hernandez he will be discharged home today. Patient verified PCP, insurance and denies any DME. Patient lives with his kids and girlfriend and denies any needs at discharge. Whiteboard updated and [facility] contact information provided. Patient ststes he is hungry, no diet ordered and Vj Sorto made aware. Normal [facility] Comment on above: Result Comment: Elec [...] DYAN Technologist: JESSICA Technical Comments None Normal [facility] MRI Spine Cervical w/o Contr rand 05-02-2021 [...] DYAN Technologist: JESSICA Technical Comments None Normal [facility] Monitor Recordon 05-02-2021 Monitor Record [id number] [id number]:[id number] Normal [facility] Prescriptions/Work Noteson 0 05-02-2021 Prescriptions/Work Notes [id number]# 1.00CD:127 Normal [facility] RAD - MRI Screening Formon 0 05-02-2021 RAD - MRI Screening Form [id number]# 1.00CD:127 Normal [facility] RAD - Preliminary Cat Scan R eporton 05-02-2021 RAD - Preliminary Cat Scan Report [id number]# 1.00CD:127 Normal [facility] U Drug Screenon 05-02-2021 Amphetamines Screen method >1000 ng/mL Ql (U) Negative Normal Negative [facility] Comment on above: Result Comment: Nega tive Cutoff: <1000 ng/mL Performed By: #### 2 [id number] ####[facility] [address] [place] [address] Barbiturates Screen Ql (U) Negative Normal Negative [facility] Comment on above: Result Comment: Nega tive Cutoff: <200 ng/mL Performed By: #### 2 391344 ####[facility] [address] [place] [address] Benzodiazepines Ql (U) Negative Normal Negative [facility] Comment on above: Result Comment: Nega tive Cutoff: <200 ng/mL Performed By: #### 2 237093 ####[facility] [address] [place] [address] Cocaine Ql (U) Negative Normal Negative [facility] Comment on above: Result Comment: Nega tive Cutoff: <300 ng/mL Performed By: #### 2 304624 ####[facility] [address] [address] Opiates Screen Ql (U) Negative Normal Negative [facility] Comment on above: Result Comment: Nega tive Cutoff: <300 ng/mL Performed By: #### 2 979929 ####[facility] [address] [place] [address] Phencyclidine Screen method >25 ng/mL Ql (U) Negative Normal Negative [facility] Comment on above: Result Comment: Nega tive Cutoff: <25 ng/mL These drug screen results are to be used for medical (i.e., treatment) purposes only. Unconfirmed drug screening results must not be used for non-medical purposes (e.g., employment testing, legal testing). Performed By: #### 2 658566 ####[facility] [address] [place] [address] Tetrahydrocannabinol Screen method >50 ng/mL Ql (U) Negative Normal Negative [facility] Comment on above: Result Comment: Nega tive Cutoff: <50 ng/mL Performed By: #### 2 549198 ####[facility] [address] [place] [address] XR Ankle 3+ Views Righton XR Ankle [...] M.D. Transcribed by: DYAN Technologist: CHASE Normal [facility] XR Knee Complete 4+ Views Le fton [...] M.D. Transcribed by: DYAN Technologist: CHASE Spring [facility] eGFRon 05-02-2021 GFR/1.73 sq M.predicted among blacks MDRD (S/P/Bld) [Vol rate/Area] mL/min/{1.73_m2} Normal >=59 [facility] Comment on above: Order Comment: Order added by Discern Expert. Result Comment: eGFR is race adjusted. AA=. Performed By: #### 2 769241, 1736026, 7528714, 05363795 #### [facility] Laboratory [address] [place] [address] GFR/1.73 sq M.predicted among non-blacks MDRD (S/P/Bld) [Vol rate/Area] mL/min/{1.73_m2} Normal >=59 [facility] Comment on above: Order Comment: Order added by Discern Expert. Result Comment: [employer] Chief heidi kidney disease could be indicated at eGFR's of less than 60 mL/min/1.73m2. Kidney failure is indicated at less than 15 mL/min/1.73m2. Performed By: #### 2 916617, 2300243, 7622537, 82120320 #### [facility] Laboratory [address] [place] [address] ABO/Rhon 05-01-2021 ABO/Rh Positive Invalid Interpretation Code [facility] Comment on above: Performed By: #### 1 2234076, 08099031, 58862036, 3727108 ####[facility] [address] [place] [address] Auto Diffon 05-01-2021 Basophils/100 WBC (Bld) 1.1 % Normal 0.0-2.0 [facility] Comment on above: Order Comment: Order Added by Discern Expert. Performed By: #### 2 442240, 3021004, 1095894, 61128512, 5680242, 9656195, 5320842, 42931125, 1595111 ####[facility] [address] [place] [address] Basophils/Leukocytes Auto (Bld) [Pure # fraction] 0.1 E9/L Normal 0.0-0.2 [facility] Comment on above: Order Comment: Order Added by Discern Expert. Performed By: #### 2 819435, 5417673, 7803202, 34973576, 3114620, 8472799, 9225294, 97788781, 0136750 ####[address] [place] [address] Eosinophils/100 WBC (Bld) 2.0 % Normal 0.0-8.0 [facility] Comment on above: Order Comment: Order Added by Discern Expert. Performed By: #### 2 471076, 5437439, 2176403, 89436347, 7337196, 7967256, 0558771, 56752579, 6470400 ####[address] [place] [address] Eosinophils/Leukocytes Auto (Bld) [Pure # fraction] 0.1 E9/L Normal 0.0-0.5 [facility] Comment on above: Order Comment: Order Added by Discern Expert. Performed By: #### 2 589760, 8430047, 5619256, 51488149, 5302022, 8991615, 6576550, 10465202, 9198849 ####[address] [place] [address] Lymphocytes/100 WBC (Bld) 27.9 % Normal 14.0-50.0 [facility] Comment on above: Order Comment: Order Added by Discern Expert. Performed By: #### 2 641187, 3518955, 4972796, 29835963, 5409391, 5916994, 3643413, 15867492, 1107605 ####[address] [place] [address] Lymphocytes/Leukocytes Auto (Bld) [Pure # fraction] 1.8 E9/L Normal 1.0-4.0 [facility] Comment on above: Order Comment: Order Added by Discern Expert. Performed By: #### 2 432532, 4310739, 2417458, 45209565, 8844862, 4455859, 6900117, 47907370, 3102091 ####[address] [place] [address] Monocytes/100 WBC (Bld) 8.6 % Normal 4.0-14.0 [facility] Comment on above: Order Comment: Order Added by Discern Expert. Performed By: #### 2 453047, 4324849, 5710280, 25461066, 0062818, 3291735, 0387659, 62969549, 7274899 ####[address] [address] Monocytes/Leukocytes Auto (Bld) [Pure # fraction] 0.6 E9/L Normal 0.2-1.0 [facility] Comment on above: Order Comment: Order Added by Discern Expert. Performed By: #### 2 535320, 4202630, 1844255, 43099657, 4696130, 4376977, 9392600, 23917473, 6498251 ####[address] [place] [address] Neutrophils/100 WBC (Bld) 60.4 % Normal 36.0-75.0 [facility] Comment on above: Order Comment: Order Added by Discern Expert. Performed By: #### 2 661991, 7901532, 7471729, 16537712, 3136725, 7730813, 4091599, 20403364, 7034783 ####[address] [address] Neutrophils/Leukocytes Auto (Bld) [Pure # fraction] 4.0 E9/L Normal 2.0-7.5 [facility] Comment on above: Order Comment: Order Added by Discern Expert. Performed By: #### 2 229327, 6209596, 9340461, 75294758, 2333609, 7516990, 5740512, 25142863, 4353688 ####[facility] [address] [place] [address] BMPon 05-01-2021 Creatinine [Mass/Vol] 1.2 mg/dL Normal 0.5-1.3 [facility] Comment on above: Performed By: #### 2 602794, 4037168, 3701075, 71303897, 2752269, 2165353, 7308672, 85513555, 6036666 ####[facility] [address] [place] [address] Urea nitrogen [Mass/Vol] 14 mg/dL Normal 5-21 [facility] Comment on above: Performed By: #### 2 175327, 8054467, 8573135, 95928815, 9879744, 9488957, 0611997, 32317316, 9606300 ####[facility] [address] [place] [address] Urea nitrogen/Creatinine [Mass ratio] 12 No Units Normal 10-20 [facility] Comment on above: Performed By: #### 2 986439, 7246074, 8653985, 17667844, 7446959, 1118803, 7582288, 43508419, 6601714 ####[facility] [address] [place] [address] Anion gap [Moles/Vol] 15 mmol/L Normal 6-16 [facility] Comment on above: Performed By: #### 2 603105, 9371313, 5583453, 74539988, 8584881, 8253612, 6768572, 94671596, 1844431 ####[facility] [address] [place] [address] Calcium [Mass/Vol] 9.0 mg/dL Normal 8.9-11.1 [facility] Comment on above: Performed By: #### 2 352653, 6897979, 2212320, 75667941, 8852045, 5570428, 6058766, 18845268, 0028672 ####[facility] [address] [place] [address] Chloride [Moles/Vol] 105 mmol/L Normal 101-111 [facility] Comment on above: Performed By: #### 2 471765, 3238856, 1880701, 04221822, 4829462, 7910039, 8690267, 54696511, 0290031 ####[facility] [address] [place] [address] CO2 [Moles/Vol] 22 mmol/L Normal 21-31 [facility] Comment on above: Performed By: #### 2 776924, 7538443, 2222749, 12884315, 0082731, 7822076, 5638637, 07500013, 7736502 ####[facility] [address] [place] [address] Glucose [Mass/Vol] 94 mg/dL Normal 55-199 [facility] Comment on above: Result Comment: If t his glucose result represents a fasting glucose, interpretation should refer to the following reference range: 55-99 mg/dL Performed By: #### 2 809267, 1300170, 9445146, 20588864, 1011045, 7545983, 7672465, 80562038, 4161455 ####[facility] [address] [place] [address] Potassium [Moles/Vol] 3.3 mmol/L Low 3.5-5.3 [facility] Comment on above: Performed By: #### 2 771809, 4826250, 2537819, 84360171, 4709473, 1213123, 6841626, 75625347, 8445718 ####[facility] [address] [place] [address] Sodium [Moles/Vol] 139 mmol/L Normal 135-145 [facility] Comment on above: Performed By: #### 2 743374, 0302709, 4829287, 68244106, 5767647, 0988457, 3464843, 21757116, 5188507 ####[facility] [address] [place] [address] Blood Bank ID#on 05-01-2021 BBID# [id number] Invalid Interpretation Code [facility] Comment on above: Performed By: #### 1 9725761, 98259000, 44783047, 4478627 ####[facility] [address] [place] [address] CBC w/ Auto Diffon Erythrocyte distribution width (RBC) [Ratio] 13.4 % Normal 10.9-14.2 [facility] Comment on above: Performed By: #### 2 093069, 2862371, 0865705, 32042857, 9610482, 8697950, 4459459, 36311499, 2543882 ####[facility] [address] [place] [address] Hematocrit (Bld) [Volume fraction] 42.6 % Normal 37.7-49.0 [facility] Comment on above: Performed By: #### 2 336883, 9288953, 8315809, 72941403, 8522944, 2476547, 5706932, 41818909, 9208094 ####[facility] [address] [place] [address] Hemoglobin (Bld) [Mass/Vol] 14.4 g/dL Normal 13.5-17.5 [facility] Comment on above: Performed By: #### 2 385497, 6135301, 4937953, 33323069, 3282364, 0022874, 2345900, 01098702, 6432720 ####[facility] [address] [place] [address] MCH (RBC) [Entitic mass] 27.8 pg Normal 27.0-34.0 [facility] Comment on above: Performed By: #### 2 554956, 9310309, 2481287, 23278288, 8031979, 2783369, 9279839, 38964631, 5984629 ####[facility] [address] [place] [address] MCHC (RBC) [Mass/Vol] 33.9 g/dL Normal 31.4-36.0 [facility] Comment on above: Performed By: #### 2 550654, 8038078, 1439570, 44304049, 5241576, 8359889, 4199773, 28881597, 7884121 ####[facility] [address] MCV (RBC) [Entitic vol] 81.9 fL Normal 80.0-100.0 F [facility] Comment on above: Performed By: #### 2 383329, 5212784, 5263621, 37731020, 5485321, 1182816, 1710358, 79298950, 1412011 ####[facility] [address] Platelet mean volume (Bld) [Entitic vol] 10.3 fL Normal 6.4-10.8 [facility] Comment on above: Performed By: #### 2 391929, 4191247, 9987747, 05456306, 9110890, 2039518, 7676305, 26600185, 6294687 ####[facility] [address] [address] Platelets (Bld) [#/Vol] 147.0 E9/L Low 150.0-500.0 [facility] Comment on above: Performed By: #### 2 775704, 7834357, 7842575, 06002507, 1230301, 8907202, 2082252, 09726209, 4998145 ####[facility] [address] [place] [address] RBC (Bld) [#/Vol] 5.2 E12/L Normal 4.3-5.9 [facility] Comment on above: Performed By: #### 2 775966, 4241559, 0639999, 73560078, 6959073, 7681292, 2720646, 93059293, 5493630 ####[facility] [address] [address] WBC corrected for nucl RBC Auto (Bld) [#/Vol] 6.6 E9/L Normal 4.0-11.0 [facility] Comment on above: Performed By: #### 2 739734, 8192941, 6387842, 45795411, 8709797, 8421191, 0878217, 60688302, 2917150 ####[facility] [address] [place] [address] Ethanolon 05-01-2021 Ethanol [Mass/Vol] mg/dL Normal <=7 [facility] Comment on above: Performed By: #### 2 822132 ####[facility] [address] [place] [address] Hep Func Panelon 05-01-2021 Albumin [Mass/Vol] 3.9 g/dL Normal 3.3-5.0 [facility] Comment on above: Performed By: #### 2 583878, 9730391, 5642596, 18183453, 0853378, 6553834, 3629472, 91569667, 7656191 ####[facility] [address] [place] [address] Albumin/Globulin (S) [Mass conc ratio] 1.3 Normal 1.1-2.2 [facility] Comment on above: Performed By: #### 2 976129, 4675535, 2134088, 42039004, 2752846, 1742875, 6856235, 49964646, 7391069 ####[facility] [address] [place] [address] ALP [Catalytic activity/Vol] 56 Int._Unit/L Normal 21-98 [facility] Comment on above: Performed By: #### 2 143513, 6480597, 5659161, 65712786, 0980759, 2934080, 9822452, 74662006, 0379787 ####[facility] [address] [place] [address] ALT No additional P-5'-P [Catalytic activity/Vol] 37 Int._Unit/L Normal 6-46 [facility] Comment on above: Performed By: #### 2 873199, 9783433, 4636386, 66634425, 3456041, 6080629, 2475861, 58307695, 2927825 ####[facility] [address] [place] [address] AST [Catalytic activity/Vol] 36 Int._Unit/L Normal 5-43 [facility] Comment on above: Performed By: #### 2 965503, 2489092, 0905539, 01806780, 3228293, 7911810, 1588288, 51026631, 5751353 ####[facility] [address] [place] [address] Bilirubin [Mass/Vol] 0.9 mg/dL Normal 0.0-1.1 [facility] Comment on above: Performed By: #### 2 289143, 6666201, 7891238, 54737597, 1936665, 1793546, 0763723, 17260901, 0152476 ####[facility] [address] [place] [address] Bilirubin.direct [Mass/Vol] 0.2 mg/dL Normal 0.1-0.4 [facility] Comment on above: Performed By: #### 2 773747, 4111192, 2942767, 95462763, 5065645, 2531473, 3626051, 10581996, 8634539 ####[facility] [address] [place] [address] Bilirubin.indirect [Mass or moles/Vol] 0.7 mg/dL Normal 0.1-0.9 [facility] Comment on above: Performed By: #### 2 830613, 4760507, 8353306, 36633206, 2142538, 4457120, 7733906, 97217071, 0081197 ####[facility] [address] [place] [address] Globulin (S) [Mass/Vol] 3.0 g/dL Normal 1.4-4.0 [facility] Comment on above: Performed By: #### 2 681025, 6871870, 6267343, 84694248, 2686488, 1087889, 8308243, 08929669, 9801694 ####[facility] [address] [place] [address] Protein [Mass/Vol] 6.9 g/dL Normal 6.0-7.8 [facility] Comment on above: Performed By: #### 2 868663, 4370143, 7959637, 09930741, 5349718, 2585768, 9911134, 10864644, 5023486 ####[facility] [address] [place] [address] Lactic Acidon 05-01-2021 Lactate [Mass/Vol] 1.2 mmol/L Normal 0.5-2.2 [facility] Comment on above: Performed By: #### 2 297227, 4913329, 3842825, 39883920, 8379181, 5759952, 5597533, 19048545, 2796672 ####[facility] [address] [place] [address] Magnesiumon 05-01-2021 Magnesium [Mass/Vol] 2.0 mg/dL Normal 1.3-2.4 [facility] Comment on above: Performed By: #### 2 174632, 2205938, 7552374, 67342239, 7135158, 7698347, 7160714, 13997547, 6290167 ####[facility] [address] [place] [address] PT & PTTon 05-01-2021 aPTT Coag (PPP) [Time] 27.8 second(s) Normal 25.1-36.5 [facility] Comment on above: Result Comment: Hepa rin therapeutic range (represented by Anti-Factor Xa activity of 0.2 - 0.4 U/mL) corresponds to PTT of 56.6 - 109.0 sec. Performed By: #### 2 433713, 6204239, 5200866, 03438834, 6681356, 2575188, 4551171, 53464283, 4460423 ####[facility] [address] [place] [address] INR Coag (PPP) [Relative time] 1.1 {INR} Invalid Interpretation Code [facility] Comment on above: Result Comment: INR results are specifically intended to assess patients stabilized on long-term Anticoagulation therapy suggested INR?s ?Less Intensive Anticoagulation? 2.0 ? 3.0 Conventional Range 3.0 ? 4.5 Performed By: #### 2 963847, 9668273, 6632970, 42538805, 5461592, 3635336, 7775709, 95923357, 3108134 ####[facility] [address] [place] [address] PT Coag (PPP) [Time] 13.3 second(s) High 10.2-12.9 [facility] Comment on above: Performed By: #### 2 008484, 3406220, 2426342, 45746476, 2953075, 7078747, 1752150, 93511536, 1104736 ####[facility] [address] [place] [address] Troponinon 05-01-2021 Troponin I.cardiac [Mass/Vol] 5.60 pg/mL Low 15.90-38.40 [facility] Comment on above: Result Comment: The 95% CI (Confidence Interval) PPV (Positive Predictive Value) for myocardial infarction in females is 38 pg/mL, in males 51 pg/mL. The results should be used in conjunction with clinical conditions of myocardial infarction. (Access High Sensitivity Troponin I Instructions For Use, [place], June 2018) Performed By: #### 2 949629, 7097514, 9699590, 88073352, 8745192, 9386731, 3144267, 48042040, 8063845 ####[facility] [address] [place] [address] eGFRon 05-01-2021 GFR/1.73 sq M.predicted among blacks MDRD (S/P/Bld) [Vol rate/Area] mL/min/{1.73_m2} Normal >=59 [facility] Comment on above: Order Comment: Order added by Discern Expert. Result Comment: eGFR is race adjusted. AA=. Performed By: #### 2 482175, 1785536, 4462488, 21242752, 3610041, 9313258, 6516910, 59117441, 8885995 ####[facility] [address] [place] [address] GFR/1.73 sq M.predicted among non-blacks MDRD (S/P/Bld) [Vol rate/Area] mL/min/{1.73_m2} Normal >=59 [facility] Comment on above: Order Comment: Order added by Kevin Expert. Result Comment: [employer] Chief heidi kidney disease could be indicated at eGFR's of less than 60 mL/min/1.73m2. Kidney failure is indicated at less than 15 mL/min/1.73m2. Performed By: #### 2 205220, 6922695, 4251164, 60689608, 1843782, 7559106, 0580945, 21687307, 2869843 ####[facility] [address] [place] [address] Vital Signs Date Time Vital Sign Value Performing Clinician Marcelino yeh 12-12-2024 08:38-0500 Body height 170.2 cm Sandrita Dias NP Work Phone: [facility] 12-12-2024 08:38-0500 Body mass index (BMI) [Ratio] 23.27 kg/m2 Sandrita Dias [employer] Work Phone: [facility] 12-12-2024 08:38-0500 Body weight 67.41 kg Sandrita Dias [employer] Work Phone: [facility] 12-12-2024 08:38-0500 Diastolic blood pressure 74 mm[Hg] Sandrita Dias [employer] Work Phone: [facility] 12-12-2024 08:38-0500 Heart rate 75 /min Sandrita Dias [employer] Work Phone: [facility] 12-12-2024 08:38-0500 Respiratory rate 16 /min Sandrita Dias [employer] Work Phone: [facility] 12-12-2024 08:38-0500 SaO2% (BldA) [Mass fraction] 97 % Sandrita Dias [employer] Work Phone: [facility] 12-12-2024 08:38-0500 Systolic blood pressure 118 mm[Hg] Sandrita Dias [employer] Work Phone: [facility] 08-23-2024 09:07-0400 Body height 170.2 cm Cecilio Price DO Work Phone: [facility] 08-23-2024 09:07-0400 Body mass index (BMI) [Ratio] 22.87 kg/m2 Cecilio Diazfavianca DO Work Phone: [facility] 08-23-2024 09:07-0400 Body weight 66.22 kg Cecilio Price DO Work Phone: [facility] 08-23-2024 09:07-0400 Diastolic blood pressure 85 mm[Hg] Cecilio Price DO Work Phone: [facility] 08-23-2024 09:07-0400 Systolic blood pressure 115 mm[Hg] Cecilio Diazfay DO Work Phone: [facility] 07-25-2024 08:42-0400 Body height 170.2 cm Sandrita Dias [employer] Work Phone: [facility] 07-25-2024 08:42-0400 Body mass index (BMI) [Ratio] 22.87 kg/m2 Sandrita Dias [employer] Work Phone: [facility] 07-25-2024 08:42-0400 Body temperature 97.59 [degF] Sandrita Dias [employer] Work Phone: [facility] 07-25-2024 08:42-0400 Body weight 66.22 kg Sandrita Dias [employer] Work Phone: [facility] 07-25-2024 08:42-0400 Diastolic blood pressure 70 mm[Hg] Sandrita Dias [employer] Work Phone: [facility] 07-25-2024 08:42-0400 Heart rate 70 /min Sandrita Dias [employer] Work Phone: [facility] 07-25-2024 08:42-0400 SaO2% (BldA) [Mass fraction] 98 % Sandrita Dias [employer] Work Phone: [facility] 07-25-2024 08:42-0400 Systolic blood pressure 126 mm[Hg] Sandrita Dias [employer] Work Phone: [facility] Encounters Encounter Date Encounter Type Care Provider Facility Start: 12-12-2024 End: 12-12-2024 Bamboo flowsheet Sandrita Dias [employer] Work Phone: [facility] Start: 12-12-2024 End: 12-12-2024 Bamboo flowsheet Sandrita Dias [employer] Work Phone: [facility] Start: 12-12-2024 End: 12-12-2024 Office outpatient visit 25 minutes Sandrita Dias [employer] Work Phone: [facility] Comment on above: Diverticulitis (Prim jesica Dx); Tobacco abuse Start: 12-12-2024 End: 12-12-2024 ambulatory ASNDRITA DIAS Not Available Start: 10-12-2024 End: 10-12-2024 Postop follow up visit related to original px Cecilio Phillip Suresh DO Work Phone: [facility] Comment on above: Abdominal pain, color specialist heidi, left upper quadrant (Primary Dx); Abdominal pain, chronic, left lower quadrant; Idiopathic acute pancreatitis without infection or necrosis; Abnormal computed tomography of sigmoid colon; Sigmoid diverticulitis; Adenomatous polyp of sigmoid colon Start: 10-12-2024 End: 10-12-2024 ambulatory CECILIO PRICE Not Available Start: 09-28-2024 End: 09-28-2024 ambulatory Cecilio Price Facility:[facility] Start: 08-23-2024 End: 08-23-2024 Clinisync Result Encounter Generic External Data Provider [facility] Unsolicited Start: 08-23-2024 End: 08-23-2024 Clinisync Result Encounter Generic External Data Provider [facility] Unsolicited Start: 08-23-2024 End: 08-23-2024 Office outpatient new 45 minutes Cecilio Price DO Work Phone: [facility] Comment on above: Abnormal computed to mography of sigmoid colon (Primary Dx); Sigmoid diverticulitis; Idiopathic acute pancreatitis without infection or necrosis; Abdominal pain, chronic, left lower quadrant; Abdominal pain, chronic, left upper quadrant Start: 08-23-2024 End: 08-23-2024 ambulatory CECILIO PRICE Not Available Start: 07-25-2024 End: 07-25-2024 Bamboo flowsheet Sandrita Dias WET MIXER Work Phone: [facility] Start: 07-25-2024 End: 07-25-2024 Bamboo flowsheet Sandrita Dias WET MIXER Work Phone: [facility] Start: 07-25-2024 End: 07-25-2024 Office outpatient visit 25 minutes Sandrita Dias WET MIXER Work Phone: [facility] Comment on above: Bowel disease, infla mmatory (Primary Dx); Hyponatremia; Leukemoid reaction Start: 07-25-2024 End: 07-25-2024 ambulatory SANDRITA DIAS Not Available Start: 05-23-2024 End: 05-23-2024 ambulatory FELICITY LANDRUM Not Available Start: 02-11-2023 End: 02-12-[address] Shivani MANZO Facility:[facility] Start: 02-05-2023 End: 02-05-[address] FELICITY LANDRUM Facility:[facility] Start: 09-30-2022 End: 09-30-[address] FELICITY LANDRUM Facility:[facility] Start: 06-29-2022 End: 06-29-[address] FELICITY LANDRUM Facility:[facility] Procedures Date Procedure Procedure Detail Performing Clinician Start: 09-28-2024 Colonoscopy Cecilio coley DO Work Phone: Start: 08-23-2024 ALL CBC WITH AUTO DIFF Generic External Data Provider Start: 01-24-2021 Colonoscopy Sandrita buenrostro WET MIXER Work Phone: Plan of Treatment Date Care Activity Detail Author Start: 09-28-2034 Screening for malign ant neoplasm of colon [facility] Start: 01-24-2031 Screening for malign ant neoplasm of colon [facility] Start: 12-12-2024 End: 12-12-2024 Patient encounter procedure 12/12/2024 8:30 AM EST Office Visit [facility] [address] [facility] [address] [place] [id number] Sandrita Dias, WET MIXER [address] [place] [address] Arrived [facility] Comment on above: Arrived Start: 10-12-2024 End: 10-12-2024 Patient encounter procedure 10/12/2024 2:15 PM EST Office [facility] [address] [place] [address] Cecilio Price DO [address] [place] [address] [facility] [address] [facility] Start: 08-23-2024 End: 08-23-2025 CT Abdomen and Pelvis W contrast IV CT abdomen pelvis w IV contrast Imaging Routine Sigmoid diverticulitis Abdominal pain, chronic, left lower quadrant Abdominal pain, chronic, left upper quadrant Expected: 08/23/2024, Expires: 08/23/2025 [facility] Work Phone: Comment on above: Expected: 08/23/2024 , Expires: 08/23/2025 Start: 07-25-2024 End: 07-25-2025 CBC panel - Blood by Automated count CBC Lab Routine Leukemoid reaction Expected: 07/25/2024 (Approximate), Expires: 07/25/2025 [facility] Comment on above: Expected: 07/25/2024 (Approximate), Expires: 07/25/2025 Start: 07-25-2024 End: 07-25-2025 Comprehensive metabolic 2000 panel - Serum or Plasma Comprehensive metabolic panel Lab Routine Hyponatremia Expected: 07/25/2024 (Approximate), Expires: 07/25/2025 [facility] Work Phone: Comment on above: Expected: 07/25/2024 (Approximate), Expires: 07/25/2025 Start: 07-25-2024 End: 07-25-2024 Patient encounter procedure 07/25/2024 9:00 AM EDT Office Visit [facility] [address] [facility] [address] [place] [phone] Sandrita Dias, WET MIXER [address] [facility] [address] [place], [place] [id number] Arrived [facility] Comment on above: Arrived Start: 07-09-2024 Influenza vaccination Influenza Vacc ine (#1) [facility] Start: 1970 Screening for malign ant neoplasm of colon [facility] Payers Date Payer Category Payer Self-pay 2022 Private Health Insurance [id number] 1970 Unknown [id number] 2.16.84 [id number] 1970 Unknown [id number] 2.16.84 [id number] 1970 Unknown [id number] 2.16.84 [id number] 1970 Unknown [id number] 2.16.84 [id number] 1970 Unknown [id number] 2.16.84 [id number] 1970 Unknown [id number] 2.16.84 [id number] 1970 Unknown [id number] 2.16.84 [id number] 1970 Unknown [id number] 2.16.84 [id number] 1970 Unknown [id number] 2.16.84 [id number] 1959 Private Health Insurance [id number] 1959 Self-pay [id number] 1959 Unknown [id number] Unknown [id number] 2.16.8 [id number] Social History Date Type Detail Facility Start: 07-03-2023 Tobacco smoking stat [facility] Ex-smoker [facility] History of tobacco use Current smoker [facility] History of tobacco use Cigarette Smoker [facility] Start: 07-03-2023 Tobacco use and exposure Smoke less tobacco non-user [facility] Start: 08-23-2024 End: 12-12-2024 Alcoholic beverage intake Ex-drinker (finding) [facility] Start: 08-23-2024 End: 12-12-2024 History of Social function [facility] Start: 08-23-2024 End: 12-12-2024 Tobacco use panel [facility] Start: 1970 Sex assigned at Not on file [facility] Clinical Notes 05-02-2021 to 12-12-2024 Sandrita Dias, PAZ - 12/12/2024 8:30 AM Marcelino Price, - 10/12/2024 2:15 PM Marcelino Price, - 08/23/2024 9:15 AM Miguel Dias NP - 07/25/2024 9:00 AM EDT Note Date & Type Note Facility 12-12-2024 History of Present illness Narrative Images from the original note were not included. Subjective Patient ID: Imtiaz Melara is a 54 y.o. male who presents for a F/U for colonoscopy results. Imtiaz presents today for a F/U for his colonoscopy results. Patient states he is having abdominal pain on the left side and is having issues with bowel movements. Current Outpatient Medications on File Prior to Visit Medication Sig Dispense Refill omeprazole (PriLOSEC) [address] capsule Take 1 capsule (40 mg) by mouth in the morning. Take before meals. Do not crush or chew.. 30 capsule 11 ondansetron ODT (Zofran-ODT) 4 MG disintegrating tablet Take 4 mg by mouth every 8 (eight) hours if needed No current facility-administered medications on file prior to visit. I have reviewed and reconciled the history and medication list with the patient today. Allergies Allergen Reactions Bee Venom Unknown Wound Dressing Adhesive Rash Other Reaction(s): Itching at injection site Social History Tobacco Use Smoking status: Former Types: Cigarettes Smokeless tobacco: Never Vaping Use Vaping status: Never Used Substance Use Topics Alcohol use: Not Currently Drug use: Defer Family History Problem Relation Name Age of Onset Heart disease Father Cancer Father Past Medical History: Diagnosis Date Anxiety Asthma ([facility]) Deafness in right ear Dental abscess 09/30/2022 History of being hospitalized 05/16/2024 Pancreatitis Hx of migraine headaches [place] (myocardial infarction) ([facility]) when 19-light and the next one was 32 Seizure ([facility]) 1989 Past Surgical History: Procedure Laterality Date APPENDECTOMY 1989 BACK SURGERY 2005 COLONOSCOPY 09/28/2024 ESOPHAGOGASTRODUODENOSCOPY 09/28/2024 HEART CATH 2000 Visit Vitals Smoking Status Former Review of Systems Constitutional: Negative. HENT: Negative. Respiratory: Negative. Cardiovascular: Negative. Gastrointestinal: Positive for abdominal pain and diarrhea. Genitourinary: Negative. Musculoskeletal: Negative. Skin: Negative. Neurological: Negative. Psychiatric/Behavioral: Negative. All other systems reviewed and are negative. Endocrine: Negative. Objective Physical Exam Vitals reviewed. Constitutional: Appearance: Normal appearance. HENT: Head: Normocephalic. Nose: Nose normal. Cardiovascular: Rate and Rhythm: Normal rate. Pulmonary: Effort: Pulmonary effort is normal. Abdominal: General: Bowel sounds are normal. There is distension. Palpations: Abdomen is soft. There is no mass. Tenderness: There is abdominal tenderness. There is no guarding or rebound. Hernia: No hernia is present. Skin: General: Skin is warm and dry. Neurological: General: No focal deficit present. Mental Status: He is alert and oriented to person, place, and time. Psychiatric: Mood and Affect: Mood normal. Behavior: Behavior normal. Assessment/Plan Diagnoses and all orders for this visit: Diverticulitis - metroNIDAZOLE (Flagyl) 500 MG tablet; Take 1 tablet (500 mg) by mouth in the morning and 1 tablet (500 mg) in the evening and 1 tablet (500 mg) before bedtime. Do all this for 10 days. - amoxicillin-clavulanate (Augmentin) 875-125 MG tablet; Take 1 tablet (875 mg) by mouth in the morning and 1 tablet (875 mg) before bedtime. Do all this for 10 days. Take medication as directed. If abdominal discomfort continues, come back to the office for further treatment. You may need some imaging. Tobacco abuse - varenicline (Chantix) 1 MG tablet; Take 1 tablet (1 mg) by mouth in the morning and 1 tablet (1 mg) before bedtime. Take with full glass of water.. Discussed smoking cessation with the patient. Encouraged patient to cut back and soon quit smoking. Health risks of smoking, and benefits of quitting reviewed with the patient. No follow-ups on file. documented in this encounter [facility] 10-12-2024 History of Present illness Narrative Images from the original note were not included. Imtiaz Melara 1970 Imtiaz Melara is a 53 y.o. male presents for colonoscopy/EGD HPI: HPI patient changed his diet and got rid of red meat, seems to be doing quite a bit better since then. He has not having the pain like he was having before. Maybe just a little bit of discomfort. Feels like he has to have a bowel movement when he gets that usually is relieved when he does. He has not having nausea or vomiting. He tolerated the colonoscopy and EGD without trouble. OBJECTIVE: Physical Exam Constitutional: Appearance: Normal appearance. He is not toxic-appearing. Cardiovascular: Rate and Rhythm: Regular rhythm. Abdominal: General: There is no distension. Tenderness: There is no abdominal tenderness. ASSESSMENT AND PLAN: Assessment/Plan Diagnoses and all orders for this visit: Abdominal pain, chronic, left upper quadrant Abdominal pain, chronic, left lower quadrant Idiopathic acute pancreatitis without infection or necrosis Abnormal computed tomography of sigmoid colon Sigmoid diverticulitis Status post EGD and biopsy, chronic inactive gastritis noted. Status post colonoscopy with removal of a tubular adenoma of the sigmoid colon. No stricture or diverticular disease nor colitis or neoplasm was noted. Patient's symptoms have considerably improved with change in diet. It is possible that his pancreatitis that he had altered his digestion of red meat. Thankfully he is improved with his dietary changes. I would suggest he continue with that. Patient has had CT scans with no other identification of etiology of his symptoms. His repeat lab work including pancreatic enzymes was normal. Would recommend fiber supplementation for maintenance of good colon health. Also should have repeat colonoscopy in 5 years. He is very appreciative of care and information. No follow-ups on file. documented in this encounter [facility] 08-23-2024 History of Present illness Narrative Images from the original note were not included. Imtiaz Melara 1970 Imtiaz Melara is a 53 y.o. male presents with chief complaint of Consult (Abdominal pain) HPI: HPI patient has a constant left upper quadrant / left-sided abdominal pain. In May he had an episode of pancreatitis that was sudden onset of pain more in his left upper abdomen. He was admitted to the hospital in [place]. When he was discharged from the hospital [...] Past Medical History: Diagnosis Date Anxiety Asthma ([facility]) Deafness in right ear Dental abscess 09/30/2022 History of being hospitalized 05/16/2024 Pancreatitis Hx of migraine headaches [place] (myocardial infarction) ([facility]) when 19-light and the next one was 32 Seizure ([facility]) 1989 Social History Tobacco Use [...] May of 2024. He was admitted to [facility] for that. He also had an [...] before his endoscopy. documented in this encounter [facility] 07-25-2024 History of Present illness Narrative Images from the original note were not included. HPI Follow-up Additional comments: [facility] stay admitted 07/18/24 dx: diverticulitis discharged home 07/21/24 rx's for augmentin,vc6cyby,percocet Last edited by Lotus Harding LPN on 07/25/2024 8:42 AM. Subjective Patient ID: Imtiaz Melara is a 53 y.o. male who presents for Follow-up ([facility] stay admitted 07/18/24 dx: diverticulitis discharged home 07/21/24 rx's for augmentin,[id number],percocet). Hospital follow up Pt has 1 day left of antibiotics uses pain med prn and using less each day per pt Has some diarrhea and generalized abd pain, decreased appetite and some fatigue Denies fever,nausea,vomiting Pt was advised to hold off on his omeprazole until he sees pcp Abdominal Pain This is a recurrent problem. The current episode started 1 to 4 weeks ago. The onset quality is gradual. The problem occurs constantly. The problem has been unchanged. The pain is located in the generalized abdominal region. The pain is at a severity of 6/10. The pain is moderate. The quality of the pain is colicky and cramping. The abdominal pain does not radiate. Nothing aggravates the pain. The pain is relieved by Nothing. He has tried antibiotics, acetaminophen and proton pump inhibitors for the symptoms. The treatment provided mild relief. Current Outpatient Medications on File Prior to Visit Medication Sig Dispense Refill amoxicillin-clavulanate (Augmentin) 875-125 MG tablet Take 1 tablet by mouth in the morning and 1 tablet before bedtime. omeprazole (PriLOSEC) [address] capsule Take 1 capsule (40 mg) by mouth in the morning. Take before meals. Do not crush or chew.. 30 capsule 11 ondansetron ODT (Zofran-ODT) 4 MG disintegrating tablet Take 4 mg by mouth every 8 (eight) hours if needed oxyCODONE-acetaminophen (Percocet) 5-325 MG tablet Take 1 tablet by mouth every 8 (eight) hours if needed No current facility-administered medications on file prior to visit. I have reviewed and reconciled the history and medication list with the patient today. Allergies Allergen Reactions Bee Venom Unknown Wound Dressing Adhesive Rash Other Reaction(s): Itching at injection site Social History Tobacco Use Smoking status: Former Types: Cigarettes Smokeless tobacco: Never Substance Use Topics Alcohol use: Not Currently Family History Problem Relation Name Age of Onset Heart disease Father Cancer Father Past Medical History: Diagnosis Date Anxiety Asthma ([facility]) Deafness in right ear Dental abscess 09/30/2022 History of being hospitalized 05/16/2024 Pancreatitis Hx of migraine headaches [place] (myocardial infarction) ([facility]) when 19-light and the next one was 32 Seizure ([facility]) 1989 Past Surgical History: Procedure Laterality Date APPENDECTOMY 1989 BACK SURGERY 2005 HEART CATH 2001 Visit Vitals Ht 5' 7 BMI 22.55 kg/m Smoking Status Former BSA 1.76 m Review of Systems Gastrointestinal: Positive for abdominal pain. Objective Physical Exam Vitals reviewed. Constitutional: Appearance: Normal appearance. HENT: Head: Normocephalic. Right Ear: Tympanic membrane normal. Left Ear: Tympanic membrane normal. Nose: Nose normal. Mouth/Throat: Mouth: Mucous membranes are moist. Pharynx: Oropharynx is clear. Cardiovascular: Rate and Rhythm: Normal rate and regular rhythm. Pulmonary: Effort: Pulmonary effort is normal. Breath sounds: Normal breath sounds. Abdominal: General: There is distension. Tenderness: There is abdominal tenderness. There is guarding. Comments: Hyperactive bowel sounds Skin: General: Skin is warm and dry. Neurological: General: No focal deficit present. Mental Status: He is alert and oriented to person, place, and time. Psychiatric: Mood and Affect: Mood normal. Behavior: Behavior normal. Assessment/Plan Diagnoses and all orders for this visit: Bowel disease, inflammatory - Ambulatory referral to General Surgery; Future Endoscopy was recommended on CT scan if no improvement. Pt is noticing a mild improvement but continues to have significant pain. Hyponatremia - Comprehensive metabolic panel; Future Await lab results Leukemoid reaction - CBC; Future Await lab results. No follow-ups on file. documented in this encounter [facility] 05-03-2021 [place] [address] IMTIAZ MELARA Jr Date of : 1970 50 Years [...] discharge. ANTICIPATED FOLLOW UP: With: Address: When: FELICITY LANDRUM [address] [place] [id number] [employer] (1) Within 1 to 2 weeks Comments: [...] return to clinic or to emergency room. [facility] Comment on above: Result Comment: Elec tronically Signed By: July Hooker PA-C\.br\Date and Time Signed: 05/02/21 13:06 EDT\.br\Electronically Co-Signed By: Arnie SAINI, Alix X\.br\Date and Time Co-Signed: 05/03/21 12:36 EDT 05-02-2021 Note OT six clicks = SNF. Pt requires assist w/ LE self care and transfers d/t back/neck pain and weakness. OT to follow daily to progress as tolerates. [facility] 05-02-2021 Note PT evaluation comple christiano this date. The pt scores a on the AM-PAC, recommending d/c to SNF [...] to see daily during acute care stay. [facility] 05-02-2021 Note TRAUMA HISTORY & PHY SICAL [...] lives at home with , works at [employer] in [place] Denies smoking, alcohol. Used marijuana once a [...] 21:22:00) Neutro Auto: (more content not included)... [facility] Comment on above: Result Comment: Elec tronically Signed By: Mike SAINI, Arpita Lux\.br\Date and Time Signed: 05/02/21 01:42 EDT Evaluation note Diagnosis Alcohol-induced acute pancreatitis without infection or necrosis- Primary Gastroesophageal reflux disease with esophagitis without hemorrhage Rib pain on left side Abnormal computed tomography of sigmoid colon- Primary Sigmoid diverticulitis Diverticulitis of colon (without mention of hemorrhage) Idiopathic acute pancreatitis without infection or necrosis Abdominal pain, chronic, left lower quadrant Abdominal pain, chronic, left upper quadrant documented in this encounter [facility]* Diagnosis Alcohol-induced acute pancreatitis without infection or necrosis- Primary Gastroesophageal reflux disease with esophagitis without hemorrhage Rib pain on left side Abdominal pain, chronic, left upper quadrant- Primary Abdominal pain, chronic, left lower quadrant Idiopathic acute pancreatitis without infection or necrosis Abnormal computed tomography of sigmoid colon Sigmoid diverticulitis Diverticulitis of colon (without mention of hemorrhage) Adenomatous polyp of sigmoid colon documented in this encounter [facility]* Diagnosis Bowel disease, inflammatory- Primary Other and unspecified noninfectious gastroenteritis and colitis Hyponatremia Hyposmolality and/or hyponatremia Leukemoid reaction documented in this encounter [facility]* Diagnosis Alcohol-induced acute pancreatitis without infection or necrosis- Primary Gastroesophageal reflux disease with esophagitis without hemorrhage Rib pain on left side Diverticulitis- Primary Diverticulitis of colon (without mention of hemorrhage) Tobacco abuse Tobacco use disorder [facility] Consultation (Routine) - Pending Review Specialty Diagnoses / Procedures Referred By Contzeynep t Referred To Contact General Surgery Diagnoses Bowel disease, inflammatory Procedures [place] OFFICE/OUTPATIENT NEW HIGH MDM 60 MINUTES Sandrita Dias NP [address] [facility] [address] [place] [address] Orlin Samson Maikel DO [address] [facility] [address] [place] [address] Referral ID Status Reason Start Date Expiration Date Visits Requested Visits Authorized [id number] Pending Review Specialty Services Required 07/25/2024 01/21/2025 1 1 [facility] Summary Purpose Family History No [...] section and content) DATE CREATED AUTHOR 05/09/2021 [facility] DATE CREATED AUTHOR AUTHOR'S ORGANIZ ATION 10/24/2021 [facility]ical Specialist DATE CREATED AUTHOR AUTHOR'S ORGANIZ ATION 02/21/2023 [facility] pital DATE CREATED AUTHOR AUTHOR'S ORGANIZ ATION 10/11/2024 [facility] DATE CREATED AUTHOR AUTHOR'S ORGANIZ ATION 12/13/2024 [facility] dical Specialists EPIC Care Teams (unrecognized sec tion and content) Clinical Unit Coordinator Relationship Specialty Start Date End Date Felicity Landrum MD [address] [facility] [address] [place] [address] PCP - General Family Medicine 03/16/23 Clinical Unit Coordinator Relationship Specialty Start Date End Date Felicity Landrum MD [address] [facility] [address] [place] [address] PCP - General Family Medicine 03/16/23 Clinical Unit Coordinator Relationship Specialty Start Date End Date Felicity Landrum MD [address] [facility] [address] [place] [address] PCP - General Family Medicine 03/16/23 Clinical Unit Coordinator Relationship Specialty Start Date End Date Felicity Landrum MD [address] [facility] [address] [place] [address] PCP - General Family Medicine 03/16/23 Clinical Unit Coordinator Relationship Specialty Start Date End Date Felicity Landrum MD [address] [facility] [address] [place] [address] PCP - General Family Medicine 03/16/23 Clinical Unit Coordinator Relationship Specialty Start Date End Date Felicity Landrum MD [address] [facility] [address] [place] [address] PCP - General Family Medicine 03/16/23 Clinical Unit Coordinator Relationship Specialty Start Date End Date Felicity Landrum MD [address] [facility] [address] [place] [address] PCP - General Family Medicine 03/16/23 Reason for Visit (unrecogniz ed section and content) Reason Comments Consult Abdominal pain Specialty Diagnoses / Procedures Referred By Adrian t Referred To Contact General Surgery Diagnoses Bowel disease, inflammatory Procedures [place] OFFICE/OUTPATIENT NEW HIGH MDM 60 MINUTES Sandrita Dias, WET MIXER [address] [facility] [address] [place] [address] Phone: tel: fax: Orlin Samson, DO [address] [facility] [address] [place] [address] Phone: tel: fax: Referral ID Status Reason Start Date Expiration Date V isits Requested Visits Authorized [id number] Closed Specialty Services Required 07/25/2024 01/21/2025 1 1 Reason Comments colonoscopy/EGD Reason Comments Follow-up [facility] stay admitted 08/31 dx: diverticulitis discharged home 07/21/24 rx's for augmentin,ss0bppp,percocet FOR RECORDS PERTAINING TO PATIENTS WHO ARE [...] BE BASED ON THE PRIMARY CLINICAL RECORDS. [facility] [facility]. provides no warranty or guarantee of the accuracy or completeness of information in this document.
[2025-01-01 19:08] VITALS: BP 126/82; PULSE 104; TEMP 38.1; O2SAT 98; BMI 23.5
[2025-01-01 20:47] LABS: Influenza Virus A Antigen Positive; Influenza Virus B Antigen Negative; Internal Control Within Normal Limits; Respiratory Syncytial Virus Not Detected (NOT DETECTE); SARS-CoV-2 Ag NEGATIVE (NEGATIVE)
--- NOTE | 2025-01-01 20:47 | ECG_ITS ---
[facility] Test Date: 2025-01-01 Pat Name: JOHNATHAN HEREDIA Department: Room: - Gender: Male [employer]: : [id number] Requested By: FELICITY LANDRUM Order Number: [id number] Reading MD: JAMIE LAWSON Measurements Intervals [place] Rate: 96 P: 54 WA: 166 QRS: 84 QRSD: 76 T: 49 QT: 322 QTc: 376 Interpretive Statements 1100 Sinus rhythm 9110 normal ECG Electronically Signed On 01-02-2025 6:49:03 EST by JAMIE LAWSON
--- NOTE | 2025-01-01 20:49 | ED_ITS ---
HPI HPI - General Adult General Chief complaint: Fever Stated complaint: fever 105 Time Seen by Provider: 01/01/25 20:43 Source: patient and family Mode of arrival: Wheelchair Limitations: no limitations History of Present Illness HPI narrative: This 54-year-old male who quit smoking 25 days ago and quit drinking 22 years ago presents for evaluation of fevers, chills, body aches. The patient states his temperature went as high as 107 and then came down to 101. He has been having nausea vomiting and diarrhea. He states he is having right-sided chest pain and left upper quadrant abdominal pain. He does have a history of pancreatitis. He states he cannot keep anything down. He has not vomited today. He denies any hemoptysis or productive sputum. Related Data Home Medications ?Medication ?Instructions ?Recorded ?Confirmed omeprazole 40 mg capsule,delayed mg PO QAM 07/17/24 release Allergies Allergy/AdvReac Type Severity Reaction Status Date / Time No Known Drug Allergies Allergy Verified 01/01/25 19:12 Opioid HPI Opioid Management Most Recent Opioid Data: Last Pain Scale 5 01/01/25 23:20 01/01/25 Last ORT Total Score 6 07/18/24 00:44 07/18/24 Last ORT Risk Category Moderate Risk 07/18/24 00:44 07/18/24 Ur Phencyclidine Scrn Negative (NEGATIVE) 05/16/24 13:57 0708/01 Review of Systems ROS Status of ROS 10 or more systems reviewed and unremark able except as noted in history and below [facility] (Updated 01/01/25 @ 23:16 by Yaima Guzmán MD) Acute diverticulitis ?K57.92 - Diverticulitis of intestine, part unspecified, without perforation or abscess without bleeding (ICD-10) Diverticulitis ?K57.92 - Diverticulitis of intestine, part unspecified, without perforation or abscess without bleeding (ICD-10) Tobacco dependence ?F17.200 - Nicotine dependence, unspecified, uncomplicated (ICD-10) H/O ETOH abuse ?F10.11 - Alcohol abuse, in remission (ICD-10) Asymptomatic bradycardia ?R00.1 - Bradycardia, unspecified (ICD-10) Anemia ?D64.9 - Anemia, unspecified (ICD-10) Myocardial infarction ?I21.9 - Acute myocardial infarction, unspecified (ICD-10) Social History (Updated 07/18/24 @ 00:56 by Hina Heredia RN) Within the past year, how often did you have a drink containing alcohol: never Within the past year, how often did you have six or more drinks on one occasion: never Score interpretation: A score less than 4 is consistent with normal alcohol consumption. Smoking status: Current some day smoker Non-prescribed substance use: denies use Highest level of school completed/degree received: high school graduate Do you want help with school or training: No Are you now , , , , never or living with a partner: In a typical week, how many times do you talk on the telephone with family, friends, or neighbors: twice per week How often do you get together with friends or relatives: never How often do you attend mandaeism or oriental orthodox services: never Do you belong to any clubs or organizations such as mandaeism groups unions, fraternal or athletic groups, or school groups: no Total score: 0 Score interpretation: A score of less than or equal to 1 indicates the most socially isolated. Little interest or pleasure in doing things: not at all Feeling down, depressed, or hopeless: not at all Feel stressed/tense/nervous/anxious/difficulty sleeping: not at all Do you think of yourself as: straight/heterosexual Gender Identity: male Exam Narrative Exam Narrative: Vital signs and Nursing Notes reviewed: Patient is febrile, tachycardic, he has normal blood pressure, he is not hypoxic with pulse ox of 98% on room air General: Alert, nontoxic, thin male, no respiratory distress, no active vomiting HEENT: Normocephalic atraumatic, mucous membranes are moist and pink, severe periodontal disease with multiple decaying teeth, no swelling of the tongue, uvula or pharyngeal soft tissues Neck: Supple, no meningeal signs, no anterior or posterior cervical lymphadenopathy Chest: Lungs are clear to auscultation with good air entry, there is no wheezing rhonchi or rales appreciated no accessory muscle use, patient is speaking in complete sentences-no chest wall tenderness to palpation CVS: Regular rate and rhythm S1-S2, no murmurs rubs or gallops, pulses are brisk and equal bilaterally ABD: Soft, nondistended, nontender, no rebound guarding or rigidity, bowel sounds are normal, no pulsatile masses appreciated Extremities: Moving all extremities, no lower extremity tenderness or swelling noted, negative Homans' sign, pulses are brisk and equal bilaterally Skin: Normal in appearance without rash,pallor, petechiae or purpura Neuro: No focal deficits Constitutional Vital Signs, click to edit/add: Last Vital Signs Temp 99 F 01/01/25 22:51 Pulse 103 H 01/01/25 23:56 Resp 22 H 01/01/25 23:56 BP 119/71 01/01/25 23:56 Pulse Ox 93 L 01/01/25 23:56 O2 Del Method Room Air 01/01/25 23:56 Course Vital Signs Vital signs: Vital Signs Temperature 100.6 F H 01/01/25 19:08 Pulse Rate 104 H 01/01/25 19:08 Respiratory Rate 18 01/01/25 19:08 Blood Pressure 126/82 01/01/25 19:08 Pulse Oximetry 98 01/01/25 19:08 Oxygen Delivery Method Room Air 01/01/25 19:08 Temperature 99 F 01/01/25 22:51 Pulse Rate 103 H 01/01/25 23:56 Respiratory Rate 22 H 01/01/25 23:56 Blood Pressure 119/71 01/01/25 23:56 Pulse Oximetry 93 L 01/01/25 23:56 Oxygen Delivery Method Room Air 01/01/25 23:56 Medical Decision Making MDM Narrative Medical decision making narrative: This 54-year-old male with a history of tobacco use and a former history of alcohol use but has not been drinking in the past 20+ years presents for evaluation of fevers, chills, right-sided chest pain, nausea vomiting and diarrhea over the past 3 days. Patient states his fever has gone up as high as 107. He had not had any episodes of vomiting today. The patient was febrile in the emergency department and mildly tachycardic. An EKG was ordered and is a sinus rhythm at 96 bpm. An IV was established and he was medicated with IV fluids, Tylenol and Zofran. He had not any additional episodes of nausea or vomiting in the emergency depart ment. He was given Toradol for more thorough relief of his discomfort related to his influenza. He has a normal white count and hemoglobin. Electrolyte panel is normal. Liver function tests and troponin are also normal. Chest x- ray was reviewed by myself and does not show any acute infiltrate. He was given a DuoNeb treatment prior to discharge. The results of his labs and x-ray were discussed with him. He is feeling better and will be discharged home with prescription for Bromfed-DM, albuterol and Zofran. He was encouraged to drink plenty of fluids. He was given a note for work for the next several days. Medical Records Medical records reviewed: Yes I reviewed the patient's medical records Lab Data Lab results reviewed: Yes I reviewed the patient's lab results Labs: Lab Results 01/01/25 01/01/25 Range/Units 19:15 21:00 WBC 6.2 (4.0-11.0) 10^3/uL RBC 5.30 (4.70-6.10) 10^6/uL Hgb 15.1 (14.0-18.0) g/dL Hct 45.8 (42.0-54.0) % MCV 86.4 (80.0-94.0) fL MCH 28.5 (25.9-34.0) pg MCHC 33.0 (29.9-35.2) g/dL RDW 13.4 (11.0-15.0) % Plt Count 110 L (150-450) 10^3/uL MPV 12.8 (9.5-13.5) fL Neut % (Auto) 81.4 H (43.0-75.0) % Lymph % (Auto) 10.2 L (20.5-60.0) % [place] % (Auto) 7.3 (1.7-12.0) % Eos % (Auto) 0.6 L (0.9-7.0) % Baso % (Auto) 0.3 (0.2-2.0) % Neut # (Auto) 5.1 (1.4-6.5) 10^3/uL Lymph # (Auto) 0.6 L (1.2-3.8) 10^3/uL [place] # (Auto) 0.5 (0.3-0.8) 10^3/uL Eos # (Auto) 0.0 (0.0-0.7) 10^3/uL Baso # (Auto) 0.0 (0.0-0.1) 10^3/uL Abs Immat Gran (auto) 0.01 (0.00-0.03) 10^3/uL Imm/Tot Granulo (auto) 0.2 (0.0-0.5) % Sodium 138 (136-145) mmol/L Potassium 4.1 (3.5-5.1) mmol/L Chloride 104 (98-107) mmol/L Carbon Dioxide 25.7 (21.0-32.0) mmol/L Anion Gap 12.4 BUN 17.0 (7.0-18.0) mg/dL Creatinine 1.38 H (0.70-1.30) mg/dL Est GFR ( Amer) >60 (>=60 mL/min/1.73m^2) Est GFR (Non-Af Amer) 54 L (>=60 mL/min/1.73m^2) BUN/Creatinine Ratio 12.3 Glucose 134 H (74-106) mg/dL Lactate 1.4 (0.4-2.0) mmol/L Calcium 8.6 (8.5-10.1) mg/dL Total Bilirubin 0.7 (0.2-1.0) mg/dL AST 47 H (15-37) U/L ALT 78 H (16-63) U/L Alkaline Phosphatase 85 (46-116) U/L Troponin I High Sens 9.1 (4.0-76.1) pg/mL Total Protein 7.3 (6.4-8.2) g/dL Albumin 3.3 L (3.4-5.0) g/dL Globulin 4.0 g/dL Albumin/Globulin Ratio 0.8 Lipase 44.0 (16.0-77.0) U/L Influenza Type A Ag Positive A Influenza Type B Ag Negative RSV Antigen Not detected (NOT DETECTE) SARS-CoV-2 Ag (CV2AG) Negative (NEGATIVE) ECG Data Attestation: I personally reviewed and interpreted this ECG as follows: (Sinus rhythm 96 bpm, normal axis, normal intervals, no acute ST segment elevation or T wave inversion) Discharge Plan Discharge Chief Complaint: Fever Clinical Impression: Influenza Patient Disposition: Home, Self-Care Time of Disposition Decision: 23:15 Condition: Good Mode of Transportation: Private Vehicle Prescriptions / Home Meds: No Action omeprazole 40 mg capsule,delayed release(DR/EC) PO QAM Patient Comments: BEFORE MEAL Print Language: Mongolian Instructions: Influenza (ED) Referrals: FELICIYT LANDRUM [Primary Care Provider] - 1 week Discharge Date/Time: 01/01/25 23:59
[2025-01-01 21:27] LABS: Basophils Percent Auto 0.3 % (0.2-2.0); Eosinophils Percent Auto 0.6 % (0.9-7.0); Hematocrit 45.8 % (42.0-54.0); Hemoglobin 15.1 g/dL (14.0-18.0); Immature Granulocytes Abs Auto 0.01 10^3/uL (0.00-0.03); Immature Granulocytes Pct Auto 0.2 % (0.0-0.5); Lymphocytes Absolute Auto 0.6 10^3/uL (1.2-3.8); Lymphocytes Percent Auto 10.2 % (20.5-60.0); Mean Corpuscular Hemoglobin 28.5 pg (25.9-34.0); Mean Corpuscular Volume 86.4 fL (80.0-94.0); Mean Platelet Volume 12.8 fL (9.5-13.5); Monocytes Absolute Auto 0.5 10^3/uL (0.3-0.8); Monocytes Percent Auto 7.3 % (1.7-12.0); Neutrophils Absolute Auto 5.1 10^3/uL (1.4-6.5); Neutrophils Percent Auto 81.4 % (43.0-75.0); Platelet Count 110 10^3/uL (150-450); Red Cell Distribution Width 13.4 % (11.0-15.0); White Blood Count 6.2 10^3/uL (4.0-11.0)
[2025-01-01 21:44] LABS: Lactate/Lactic Acid 1.4 mmol/L (0.4-2.0)
[2025-01-01] MEDS: 0.9 % SODIUM CHLORIDE 1,000 ML 1000 ML IV (21:46)
[2025-01-01] MEDS: ACETAMINOPHEN 325 MG TABLET 650 MG PO (21:46)
[2025-01-01] MEDS: ONDANSETRON PF 4 MG/2 ML VIAL IV (21:47)
[2025-01-01 21:51] LABS: Alanine Aminotransferase 78 U/L (16-63); Albumin Globulin Ratio 0.8; Albumin Level 3.3 g/dL (3.4-5.0); Alkaline Phosphatase 85 U/L (46-116); Anion Gap 12.4; Aspartate Amino Transferase 47 U/L (15-37); BUN Creatinine Ratio 12.3; Bilirubin Total 0.7 mg/dL (0.2-1.0); Calcium 8.6 mg/dL (8.5-10.1); Carbon Dioxide 25.7 mmol/L (21.0-32.0); Chloride 104 mmol/L (98-107); Estimated GFR (African America >60 (>=60 mL/min/1.73m^2); Estimated GFR (Non-African Ame 54 (>=60 mL/min/1.73m^2); Glucose 134 mg/dL (74-106); Potassium 4.1 mmol/L (3.5-5.1); Sodium 138 mmol/L (136-145); Total Protein 7.3 g/dL (6.4-8.2); Troponin I High Sensitivity 9.1 pg/mL (4.0-76.1)
[2025-01-01 22:51] VITALS: BP 117/71; PULSE 93; TEMP 37.2; O2SAT 93
[2025-01-01] MEDS: KETOROLAC TROMETHAMINE 30 MG/ML VIAL 15 MG IVP (23:20)
[2025-01-01 23:35] VITALS: PULSE 85; O2SAT 94
[2025-01-01] MEDS: IPRATROPIUM/ALBUTEROL SULFATE 3 ML AMPUL.NEB IH (23:35)
[2025-01-01 23:56] VITALS: BP 119/71; PULSE 103; O2SAT 93
== END 2025-01-01 23:59 | disposition home or self-care (01) ==
PROVIDERS: Emergency Provider Emergency Medicine; PCP Family Medicine
DX: J10.1 Influenza due to other identified influenza virus with other respiratory manifestations (principal); R50.9 Fever, unspecified; Z87.891 Personal history of nicotine dependence
CPT/HCPCS: 36415; 71046; 80053; 83605; 83690; 84484; 85025; 87040; 87420; 87804; 87811; 93005; 94640; 96361; 96374; 96375; 99285; J1885; J2405